=== PATIENT | female | born 1960 | race Caucasian/White ===

== ENCOUNTER 2023-04-14 18:26 | Outpatient (RCR) | payer MEDICARE, SELFPAY | END 2023-05-08 23:59 | disposition home or self-care (01) | LOC: MM 18:26 | PROVIDERS: PCP Internal Medicine; Visit Provider Internal Medicine | DX: Z51.81 Encounter for therapeutic drug level monitoring (principal); Z79.01 Long term (current) use of anticoagulants | CPT/HCPCS: 85610; G0463 ==

== ENCOUNTER 2023-04-30 10:38 | Outpatient (OUT) | payer MEDICARE, SELFPAY ==
--- NOTE | 2023-04-30 15:05 | CONS_ITS ---
CONSULTATION DATE: ??04/30/2023 TO:? Cristofer Manriquez D.O. HISTORY:? Patient returns today complaining of pain in the left side of her back.? She reports the pain in her right hip and buttock area has improved 80%, status post rhizotomy using radiofrequency ablation of the right lateral cutaneous branch of the iliohypogastric nerve.? The pain on the left side is described as 5-7/10, sharp in character, increased with activities such as standing, walking and performing transitioning maneuvers.? She denied any change in bowel and bladder habits or new sensorimotor changes in the lower extremities. EXAM:? Notable for patient having significant myofascial spasm of the left lumbar erector spinae muscle, appears to be most severe at approximately the L4 level.? She has no clinical radiculopathy or myelopathy involving the lower extremities.? She had nothing to suggest neuritis involving the iliohypogastric nerve on the right side.? Myofascial spasm involving the right gluteus medius is also improved.? RECOMMENDATIONS:? I have recommend, at this time, she consider a trigger point injection of the left erector spinae muscle to offer at least temporary improvement of her pain symptoms, and I recommend she consider neurosurgical consultation for possible lumbar decompression/stabilization of her lumbar spine.? She has requested to go to the [facility] and will make appropriate referral.? We will see the patient back now in one month?s time or sooner if needed.? In the interim, I have asked her to continue with the [place], which she reports has improved her quality of life, level of functioning and sleep pattern.? Denied any side effects with the use of this medication.? As part of providing excellent, safe, comprehensive care, the following was completed at our patient's visit: 1. A medication reconciliation and review to ensure accurate knowledge of current/active medications, including asking our patients to inform us about any jqxk-[id number] medications or herbal remedies/nutritional supplements/alternative remedies. 2. A review to specifically ensure our patients have had annual screening for: elevated body mass index (BMI, see intake chart for exact total), tobacco use, screening for depression, and screening for unhealthy alcohol use.? When screening is concerning, patients are provided with education and the specific recommendation to discuss the concerning health issue and treatment options with their primary care provider. SHANA
== END 2023-04-30 10:39 | disposition home or self-care (01) ==
LOC: PM 10:38
PROVIDERS: PCP Internal Medicine; Visit Provider Anesthesiology Pain Medicine
DX: M54.89 Other dorsalgia (principal)
CPT/HCPCS: G0463

== ENCOUNTER 2023-05-05 14:57 | Outpatient (OUT) | payer MEDICARE, SELFPAY ==
--- NOTE | 2023-05-05 | XR_ITS ---
The [address] [address] Patient Name: NATALIE MANLEY MRN: [id number] date: 1960 Sex: F Assigned Patient Location: [facility] Current Patient Location: [facility] Accession/Order Number: [id number] Exam Date: 05/05/2023 15:15 Report Date: 05/05/2023 16:08 At the request of: BINH GARCIA Procedure: XR hip YESY EXAM: XR hip YESY HISTORY: Bilateral Hip Pain COMPARISON: None. TECHNIQUE: 2 views of each hip were obtained. FINDINGS: On the right, there is no evidence of an acute fracture or dislocation. The joint spaces intact. A small osteophyte arises from the superior aspect of the acetabulum, and an osteophyte arises from the greater trochanter. No abnormal soft tissue calcifications are present. On the left, 2 views demonstrate no evidence of an acute fracture or dislocation. The joint space is intact. A small osteophyte arises from the superior aspect of the acetabulum. No abnormal soft tissue calcifications are present. Mild degenerative changes are seen in the sacroiliac joints in a symmetric fashion. IMPRESSION: No acute fracture or dislocation. Minimal to mild degenerative changes are seen about both hips. No abnormal soft tissue calcification is seen on either side. Electronically authenticated by: ERICKA DEWEY Date: 05/05/2023 16:08
== END 2023-05-05 14:58 | disposition home or self-care (01) ==
PROVIDERS: Visit Provider Anesthesiology Pain Medicine
DX: M25.552 Pain in left hip (principal); M25.551 Pain in right hip
CPT/HCPCS: 73522

== ENCOUNTER 2023-05-14 09:38 | Outpatient (RCR) | payer MEDICARE, SELFPAY | END 2023-06-08 17:05 | disposition home or self-care (01) | LOC: MM 09:38 | PROVIDERS: PCP Internal Medicine; Visit Provider Internal Medicine | DX: Z51.81 Encounter for therapeutic drug level monitoring (principal); Z79.01 Long term (current) use of anticoagulants | CPT/HCPCS: 85610; G0463 ==

== ENCOUNTER 2023-05-21 11:24 | Outpatient (OUT) | payer MEDICARE, SELFPAY ==
--- NOTE | 2023-05-21 11:28 | MM_ITS ---
Patient: NATALIE MANLEY Exam Date: 05/21/2023 : 1960 Gender:F Ordering : Non-Staff Physician Admission #: [id number] Family : ROBERT ANN Order #: [id number] CLICK HERE TO VIEW EXAM RADIOLOGY REPORT PROCEDURE: MM TOMOSYNTHESIS SCREENING BI COMPARISON: MG MAMM SCREEN 3D YESY CAD, 05/19/2022. MG MAMM SCREEN 3D YESY CAD, 05/17/2021. MG MAMM SCREEN YESY W CAD, 05/15/2020. MG MAMM YESY SCRN W CAD DIG, 01/17/2014. INDICATIONS: Screening Calculator Name NCI Breast Cancer Risk Assessment Tool 5 Year Breast Cancer Risk 1.00% Lifetime Breast Cancer Risk 5.30% Personal Breast Cancer No Personal Ovarian Cancer No Treatments None Family Cancers Father with prostate cancer at age 68; Grandfather-paternal with lung cancer at age ~62; Cousin-maternal with breast cancer at age 40. LOCATION: [facility] BREAST COMPOSITION: Scattered areas fibroglandular density. FINDINGS: DIAGNOSTIC CATEGORY 2--BENIGN FINDING: RIGHT BREAST: No significant suspicious finding. No significant change has occurred. LEFT BREAST: No significant suspicious finding. Scattered benign-appearing calcifications are present. Scattered benign-appearing lymph nodes are present. No significant change has occurred. RECOMMENDATIONS: ROUTINE MAMMOGRAM AND CLINICAL EVALUATION IN 12 MONTHS. PLEASE NOTE: A NORMAL MAMMOGRAM DOES NOT EXCLUDE THE POSSIBILITY OF BREAST CANCER. A CLINICALLY SUSPICIOUS PALPABLE LUMP SHOULD BE BIOPSIED. Dictated by: Peañ Berman M.D. on 05/22/2023 at 13:40 Approved by: Peña Berman M.D. on 05/22/2023 at 13:45
== END 2023-05-21 11:25 | disposition home or self-care (01) ==
LOC: MAMMO 11:24
DX: Z12.31 Encounter for screening mammogram for malignant neoplasm of breast (principal); Z80.1 Family history of malignant neoplasm of trachea, bronchus and lung; Z80.8 Family history of malignant neoplasm of other organs or systems; Z80.3 Family history of malignant neoplasm of breast
CPT/HCPCS: 77063; 77067

== ENCOUNTER 2023-06-08 10:04 | Outpatient (OUT) | payer MEDICARE, SELFPAY ==
--- NOTE | 2023-06-08 10:07 | CT_ITS ---
[address] [address] Patient Name: NATALIE MANLEY MRN: [id number] date: 1960 Sex: F Assigned Patient Location: CT Current Patient Location: Accession/Order Number: [id number] Exam Date: 06/08/2023 10:10 Report Date: 06/09/2023 08:02 At the request of: NON-STAFF PHYSICIAN Procedure: CT lung screening low-dose EXAMINATION: CT lung screening low-dose HISTORY: Nicotine dependence F17.210 COMPARISON: 04/18/2022 TECHNIQUE: Axial, Coronal, and Sagittal images were created without the administration of IV contrast material. Dose reduction techniques were achieved by using automated exposure control and/or adjustment of mA and/or kV according to patient size and/or use of iterative reconstruction technique. FINDINGS: LUNGS: Calcified tracheobronchial tree. Left lower lobe centrally calcified nodule likely granuloma. 6 mm noncalcified solid pulmonary nodule along the right minor fissure axial image 61, stable. Moderate diffuse bilateral centrilobular emphysema PLEURA: No mass, effusion, or pneumothorax. VASCULATURE: No abnormality. SANDEEP: No mass or pathologic adenopathy. MEDIASTINUM: Calcified subcarinal lymph nodes CARDIAC: No enlargement, pericardial thickening, or significant calcification. AORTA: Ascending thoracic aorta measuring 3.9 cm in diameter CHEST WALL: No mass or axillary adenopathy BONES: No bone lesion or fracture. LIMITED ABDOMEN: No suspicious findings. Limited images of the upper abdomen. OTHER: Negative. CT/CT lung screening low-dose IMPRESSION: LUNG SCREENING: Lung-RADS Category 2- Benign Appearance or Behavior. Nodules with a very low likelihood of becoming a clinically active cancer due to size or lack of growth. 2. Continue annual screening with LDCT in 12 months. Electronically authenticated by: JAYSON BERGERON Date: 06/09/2023 08:02
== END 2023-06-08 10:05 | disposition home or self-care (01) ==
LOC: CT 10:04
DX: F17.210 Nicotine dependence, cigarettes, uncomplicated (principal)
CPT/HCPCS: 71271

== ENCOUNTER 2023-06-09 09:33 | Outpatient (RCR) | payer MEDICARE, SELFPAY | END 2023-07-09 17:40 | disposition home or self-care (01) | LOC: MM 09:33 | PROVIDERS: Visit Provider Internal Medicine | DX: Z51.81 Encounter for therapeutic drug level monitoring (principal); Z79.01 Long term (current) use of anticoagulants | CPT/HCPCS: 85610; G0463 ==

== ENCOUNTER 2023-06-19 10:44 | Outpatient (OUT) | payer MEDICARE, SELFPAY ==
--- NOTE | 2023-06-19 10:55 | PM.CN ---
Consult Note: HPI Data of Consult Patient: known to practice within the last 3 years Consult date: 06/19/23 Requesting Physician: Brady Nolan MD Primary Care Provider: Non-Staff Physician, Consult Narrative Narrative: Patient is here for f/u of chronic right low back and leg pain .Pain today is better since right LCIH RFA . She saw neurosurgeon 05/26/23 and scheduled for MRI this week. Had right LCIH RFA on 04/07/23. No new sensorimotor sx or bowel or bladder issues. Medication regimen assists patient to better complete ADLs. Denies adverse medication SE. OARRS reviewed. EZIO 30 cc:: CC: Brady Nolan MD Review of Systems ROS Status of ROS 10 or more systems reviewed and unremarkable except as noted in history and below Musculoskeletal Reports: back pain and extremity pain Meds Home Medications and Allergies Home Medications Medication Instructions Recorded Confirmed Type acetaminophen 650 mg 1,300 mg PO Q12H PRN pain 05/08/23 05/08/23 History tablet,extended release (Tylenol Arthritis Pain) albuterol sulfate 90 mcg/actuation 2 inh inhalation Q8H PRN shortness 05/08/23 05/08/23 History aerosol inhaler (Ventolin HFA) of breath or wheezing aspirin 81 mg tablet,delayed 81 mg PO DAILY 05/08/23 05/08/23 History release azelastine 137 mcg (0.1 %) nasal 137 mcg intranasal Q12H 05/08/23 05/08/23 History spray aerosol baclofen 10 mg tablet 10 mg PO Q8H 05/08/23 05/08/23 History benzonatate 100 mg capsule 200 mg PO TID PRN cough 05/08/23 05/08/23 History calcium carbonate 200 mg calcium 200 mg PO DAILY 05/08/23 05/08/23 History (500 mg) chewable tablet (Tums) celecoxib 100 mg capsule 100 mg PO BID 05/08/23 05/08/23 History colesevelam 625 mg tablet (WelChol) 625 mg PO DAILY 05/08/23 05/08/23 History hydrocodone 5 mg-acetaminophen 325 1 tab PO BID 05/08/23 05/08/23 History mg tablet hydroxyzine pamoate 25 mg capsule 25 mg PO BID 05/08/23 05/08/23 History (Vistaril) lansoprazole 30 mg capsule,delayed 30 mg PO DAILY 05/08/23 05/08/23 History release (Prevacid) montelukast 10 mg tablet 10 mg PO DAILY 05/08/23 05/08/23 History (Singulair) rosuvastatin 10 mg tablet (Crestor) 10 mg PO DAILY 05/08/23 05/08/23 History umeclidinium 62.5 mcg-vilanterol 1 inh inhalation DAILY 05/08/23 05/08/23 History 25 mcg/actuation powdr for inhalation (Anoro Ellipta) warfarin 2.5 mg tablet 2.5 mg PO .monfri 05/08/23 05/08/23 History warfarin 5 mg tablet 5 mg PO QTUTHSASU 05/08/23 05/08/23 History Allergies Allergy/AdvReac Type Severity Reaction Status Date / Time codeine Allergy Severe Verified 05/08/23 10:15 cefaclor [From Ceclor] Allergy Unknown Verified 05/08/23 10:15 cephalexin [From Keflex] Allergy Unknown Verified 05/08/23 10:15 enoxaparin [From Lovenox] Allergy Unknown Verified 05/08/23 10:15 Exam Constitutional Documenting provider has reviewed patient's vital signs: yes Common normals: no apparent distress, average body habitus, oriented x3, healthy appearing, alert and well nourished General appearance: cooperative, comfortable and well developed Orientation/consciousness: Yes awake, Yes oriented to person, Yes oriented to place and Yes oriented to time HENMO Common normals: normocephalic and moist oral mucous membranes Respiratory Common normals: normal respiratory effort, no retractions and no use of accessory muscles Effort & inspection: able to speak in complete sentences and symmetric chest movement Back & Pelvis Lumbar spine/lower back: normal to inspection, ROM limited, pain with ROM, paraspinal muscle tenderness and straight leg raise negative bilaterally Other: positive facet loading lumbar mild bilat muscle strength 5/5 bilat LE Extremity Common normals: normal to inspection, full ROM and no pedal edema Assessment and Plan Assessment and Plan (1) Lumbar spondylosis: (2) Lumbar radiculopathy: Plan refill baclofen BID refill norco f/u 3 months
== END 2023-06-19 10:45 | disposition home or self-care (01) ==
PROVIDERS: Visit Provider Anesthesiology Pain Medicine
DX: M47.26 Other spondylosis with radiculopathy, lumbar region (principal)
CPT/HCPCS: G0463

== ENCOUNTER 2023-07-10 10:33 | Outpatient (RCR) | payer MEDICARE, SELFPAY | END 2023-08-07 16:58 | disposition home or self-care (01) | LOC: MM 10:33 | PROVIDERS: Visit Provider Internal Medicine | DX: Z51.81 Encounter for therapeutic drug level monitoring (principal); Z79.01 Long term (current) use of anticoagulants | CPT/HCPCS: 85610; G0463 ==

== ENCOUNTER 2023-08-10 02:54 | Outpatient (RCR) | payer MEDICARE, SELFPAY | END 2023-09-08 17:45 | disposition home or self-care (01) | LOC: MM 02:54 | PROVIDERS: Visit Provider Internal Medicine | DX: Z51.81 Encounter for therapeutic drug level monitoring (principal); Z79.01 Long term (current) use of anticoagulants | CPT/HCPCS: 85610; G0463 ==

== ENCOUNTER 2023-09-09 00:45 | Outpatient (RCR) | payer MEDICARE, SELFPAY | END 2023-10-08 16:51 | disposition home or self-care (01) | LOC: MM 00:45 | PROVIDERS: Visit Provider Internal Medicine | DX: Z51.81 Encounter for therapeutic drug level monitoring (principal); Z79.01 Long term (current) use of anticoagulants | CPT/HCPCS: 85610; G0463 ==

== ENCOUNTER 2023-09-16 10:12 | Outpatient (OUT) | payer MEDICARE, SELFPAY ==
--- NOTE | 2023-09-16 10:55 | P.CN_ITS ---
Consult Note: HPI Data of Consult Patient: known to practice within the last 3 years Requesting Physician: Jocelynn Pederson NP Primary Care Provider: Non-Staff Physician, MD Consult Narrative Reason for consult: f/u Narrative: Sandra Lacey a pleasant 62 year old female presents for evaluation and management of low back pain, bilateral hip pain that radiates into legs. Patient recently underwent MRI of lumbar spine however we do not have those results. Patient rating pain today 5-6/10. Patient reports [place] is helpful, baclofen does not help as well as flexeril did. Patient would like to discuss medication regimen. cc:: CC: Jocelynn Pederson NP Review of Systems ROS Status of ROS 10 or more systems reviewed and unremarkable except as noted in history and below Musculoskeletal Reports: back pain and joint pain Meds Home Medications and Allergies Home Medications Medication Instructions Recorded Confirmed Type acetaminophen 650 mg 1,300 mg PO Q12H PRN pain 05/08/23 05/08/23 History tablet,extended release (Tylenol Arthritis Pain) albuterol sulfate 90 mcg/actuation 2 inh inhalation Q8H PRN shortness 05/08/23 05/08/23 History aerosol inhaler (Ventolin HFA) of breath or wheezing aspirin 81 mg tablet,delayed 81 mg PO DAILY 05/08/23 05/08/23 History release azelastine 137 mcg (0.1 %) nasal 137 mcg intranasal Q12H 05/08/23 05/08/23 History spray aerosol baclofen 10 mg tablet 10 mg PO Q8H 05/08/23 05/08/23 History benzonatate 100 mg capsule 200 mg PO TID PRN cough 05/08/23 05/08/23 History calcium carbonate 200 mg calcium 200 mg PO DAILY 05/08/23 05/08/23 History (500 mg) chewable tablet (Tums) celecoxib 100 mg capsule 100 mg PO BID 05/08/23 05/08/23 History colesevelam 625 mg tablet (WelChol) 625 mg PO DAILY 05/08/23 05/08/23 History hydrocodone 5 mg-acetaminophen 325 1 tab PO BID 05/08/23 05/08/23 History mg tablet hydroxyzine pamoate 25 mg capsule 25 mg PO BID 05/08/23 05/08/23 History (Vistaril) lansoprazole 30 mg capsule,delayed 30 mg PO DAILY 05/08/23 05/08/23 History release (Prevacid) montelukast 10 mg tablet 10 mg PO DAILY 05/08/23 05/08/23 History (Singulair) rosuvastatin 10 mg tablet (Crestor) 10 mg PO DAILY 05/08/23 05/08/23 History umeclidinium 62.5 mcg-vilanterol 1 inh inhalation DAILY 05/08/23 05/08/23 History 25 mcg/actuation powdr for inhalation (Anoro Ellipta) warfarin 2.5 mg tablet 2.5 mg PO .monfri 05/08/23 05/08/23 History warfarin 5 mg tablet 5 mg PO QTUTHSASU 05/08/23 05/08/23 History baclofen 10 mg tablet 10 mg PO BID #60 tabs 06/19/23 Rx hydrocodone 5 mg-acetaminophen 325 1 tab PO BID PRN pain #60 tabs 06/19/23 Rx mg tablet hydrocodone 5 mg-acetaminophen 325 1 tab PO Q8H PRN pain #60 tabs 07/21/23 Rx mg tablet hydrocodone 5 mg-acetaminophen 325 1 tab PO BID PRN pain #55 tabs 07/22/23 Rx mg tablet hydrocodone 5 mg-acetaminophen 325 1 tab PO BID PRN pain #55 tabs 08/26/23 Rx mg tablet Allergies Allergy/AdvReac Type Severity Reaction Status Date / Time codeine Allergy Severe Verified 05/08/23 10:15 cefaclor [From Ceclor] Allergy Unknown Verified 05/08/23 10:15 cephalexin [From Keflex] Allergy Unknown Verified 05/08/23 10:15 enoxaparin [From Lovenox] Allergy Unknown Verified 05/08/23 10:15 Exam Constitutional Documenting provider has reviewed patient's vital signs: yes Common normals: no apparent distress, oriented x3, healthy appearing, alert and well nourished General appearance: cooperative Orientation/consciousness: Yes awake, Yes oriented to person, Yes oriented to place and Yes oriented to time HENWY Common normals: normocephalic, hearing grossly normal bilaterally and moist oral mucous membranes Head and scalp: normocephalic Eye Common normals: PERRL Pupil: PERRL Neck & C-Spine Common normals: full ROM General: normal visual inspection Chest Common normals: inspection of chest normal Respiratory Common normals: normal respiratory effort, no retractions and no use of accessory muscles Effort & inspection: able to speak in complete sentences and symmetric chest movement Back & Pelvis Lumbar spine/lower back: normal to inspection, ROM limited, pain with ROM, paraspinal muscle tenderness and straight leg raise negative bilaterally Other: positive facet loading lumbar mild bilat intermittent bilateral radiculopathy, worse on right side muscle strength 5/5 bilat LE Extremity Common normals: normal to inspection, full ROM and no pedal edema Other: pain with bilateral FABERS and thigh thrust tender over bilateral GTB Neuro Common normals: oriented x3, CN's II-XII intact bilaterally, moves all extremities, no focal motor deficits, no sensory deficits noted and deep tendon reflexes 2+ bilaterally Sensorium/orientation: alert Motor exam: strength 5/5 throughout and no movement abnormalities noted Psych Common normals: mental status grossly normal, thought process normal, cooperative, affect normal, speech normal and activity/motor behavior normal Speech: normal speech Thought process: normal thought process Results Additional Findings Additional findings: I have checked an OARRS report on this patient today and there are no aberrancies noted in the prescribing history.?? A drug screen was completed and reviewed within the last year, and if there has not been a drug screen completed we ordered one today to monitor higher risk, state monitored pain medication use. As part of providing excellent, safe, comprehensive care, the following was completed at our patient's visit: 1. A medication reconciliation and review to ensure accurate knowledge of current/active medications, including asking our patients to inform us about any gzwr-jey-yivugfc medications or herbal remedies/nutritional supplements/alternative remedies. 2. A review to specifically ensure our patients have had annual screening for: elevated body mass index (BMI), tobacco use, screening for depression, and screening for unhealthy alcohol use. When screening is concerning, patients are provided with education and the specific recommendation to discuss the concerning health issue and treatment options with their primary care provider. Assessment and Plan Assessment and Plan (1) Lumbar radiculopathy: (2) Lumbar spondylosis: (3) Fibromyalgia: (4) Chronic prescription opiate use: Assessment and Plan: I have refilled the patient's opioid prescriptions at the above noted dose and schedule.? I feel these medications are improving the patient's quality of life and allow them to tolerate activities of daily living as well as participate in recreational activity.? The patient does not report intolerable side effects. The patient is NOT opioid naive and non-pharmacologic and non-opioid treatment has failed to significantly relieve the patient's pain and improve functionality. The patient has a diagnosis that is related to a somatic or visceral pain etiology. ? ?? I reviewed with the patient the potential risks and side effects with the use of? opioid medications including but not limited to respiratory depression,? sedation, and even . I verified the patient has access to naloxone should? these effects occur. I advised the patient to avoid the use of any other? sedation substances including alcohol, THC, and benzodiazepines while? taking opioid medications due to the risk of compounding side effects and? detrimental outcomes. I reviewed the [employer], pain treatment agreement, urine? drug screen, and opioid start talking forms. The patient was advised to let? their family know they had Naloxone in case they would need to administer? the medication.? ?? A drug screen was completed within the last year, and no aberrancies were noted regarding their use of controlled substances. The patient understands they are subject to the terms and conditions of the pain contract that they have signed. ? ?? I have checked an OARRS report on this patient today and there are no aberrancies noted in the prescribing history.? (5) Muscle spasm: (6) Greater trochanteric bursitis of both hips: Plan awaiting lumbar MRI results patient would like to have bilateral GTB injections with PCP on thursday continue norco 5/325 BID PRN moderate to severe pain hx of fibromyalgia, declining change in medication regimen stop baclofen restart flexeril 10mg BID PRN muscle spasms f/u 3 months, will call when we recieve MRI results to discuss treatment plan
--- OUTSIDE RECORDS SUMMARY | 2023-10-27 13:37 | XMS_ITS | CCD ---
Author Name Unknown Address [address] [place] [address] Organization [facility] Care Team Providers Care Real Property Evaluator Name Role Phone JR Cristofer Springer Primary Care Provider MD Sunday Walls Attending Provider CRISTOFER SPRINGER JR Primary Care Physician [phone] Allyson GARCIA Attending Unavailable VALONE CRISTOFER PEGUERO Referring Unavail able Allyson GARCIA Attending Unavailable NILL, Allyson Betancourt Attending Unavailable LAKSHMIPATHY ., NARENDRANATH Admitting Kristie vailable LAKSHMIPATHY ., NARENDRANATH Attending Kristie vailable LAKSHMIPATHY ., NARENDRANATH Consulting Kristie vailable VALONE, DR NGUYEN Primary Care Unavailable VALONE, DR NGUYEN Primary Care Unavailable FAWWAD, MOODY H Admitting Unavailable FAWWAD, MOODY H Attending Unavailable FAWWAD, MOODY H Attending Unavailable FAWAMARA, MOODY H Admitting Unavailable VALONE, DR NGUYEN Primary Care Unavailable WONG ., DR GAURAV Magallon Attending Unavailable NILL ., DR VALADEZ Consulting Unavailable WONG ., DR GAURAV Magallon Admitting Unavailable VALONE, DR NGUYEN Primary Care Unavailable LEE .AMINATA Consulting Unavailable VALONE, DR NGUYEN Primary Care Unavailable VALONE, DR NGUYEN Consulting Unavailable WONG ., DR GAURAV Magallon Attending Unavailable WONG ., DR GAURAV Magallon Admitting Unavailable LEE .AMINATA Consulting Unavailable FAWWAD, MOODY H Attending Unavailable FAWWANiya, MOODY H Admitting Unavailable VALONE, DR NGUYEN Primary Care Unavailable VALONE, DR NGUYEN Primary Care Unavailable FAWWAD, MOODY H Attending Unavailable FAWAMARA, MOODY H Admitting Unavailable VALONE, DR NGUYEN Primary Care Unavailable PRINCESS CASTILLO Attending Unavailable LAKSHMIPATHY ., NARENDRANATH Admitting Kristie vailable HALKER ., PRINCESS Consulting Unavailable VALONE, DR NGUYEN Primary Care Unavailable LAKSHMIPATHY ., NARENDRANATH Attending Kristie vailable LAKSHMIPATHY ., NARENDRANATH Consulting Kristie vailable LAKSHMIPATHY ., NARENDRANATH Admitting Kristie vailable FAWWAD, MOODY H Attending Unavailable FAWWAD, MOODY H Admitting Unavailable VALONE, DR NGUYEN Primary Care Unavailable FAWWAD, MOODY H Attending Unavailable FAWWAD, MOODY H Admitting Unavailable VALONE, DR NGUYEN Primary Care Unavailable VALONE, DR NGUYEN Primary Care Unavailable FAWWAD, MOODY H Attending Unavailable FAWWAD, MOODY H Admitting Unavailable FAWWAD, MOODY H Attending Unavailable FAWWAD, MOODY H Admitting Unavailable VALONE, DR NGUYEN Primary Care Unavailable VALONE, DR NGUYEN Primary Care Unavailable FAWWAD, MOODY H Attending Unavailable FAWWAD, MOODY H Admitting Unavailable VALONE, DR NGUYEN Primary Care Unavailable FAWWAD, MOODY H Attending Unavailable FAWWAD, MOODY H Admitting Unavailable LEE .AMINATA Consulting Unavailable WONG ., DR GAURAV Magallon Admitting Unavailable WONG ., DR GAURAV Magallon Attending Unavailable VALONE, DR NGUYEN Primary Care Unavailable VALONE, DR NGUYEN Primary Care Unavailable LAKSHMIPATHY ., NARENDRANATH Admitting Kristie vailable LAKSHMIPATHY ., NARENDRANATH Attending Kristie vailable LAKSHMIPATHY ., NARENDRANATH Consulting Kristie vailable VALONE, DR NGUYEN Consulting Unavailable ALVIN ., DR SIMPSON Attending Unavailable ALVIN ., DR SIMPSON Admitting Unavailable VALONE, DR NGUYEN Primary Care Unavailable ELYSSA, DR JAYSON Mena Consulting Unavailable NILL ., DR VALADEZ Consulting Unavailable NILL ., DR VALADEZ Admitting Unavailable NILL ., DR VALADEZ Attending Unavailable VALONE, DR NGUYEN Primary Care Unavailable NILL ., DR VALADEZ Consulting Unavailable NILL ., DR VALADEZ Admitting Unavailable NILL ., DR VALADEZ Attending Unavailable VALONE, DR NGUYEN Primary Care Unavailable KIMBERLITONI LUND Consulting Unava ilable ELYSSA, DR JAYSON Mena Consulting Unavailable SAMSA ., TOÑITO Attending Unavailable SAMSA ., TOÑITO Admitting Unavailable VALONE, DR NGUYEN Primary Care Unavailable TOÑITO ELLIS Consulting Unavailable DR CRISTOFER SPRINGER Primary Care Unavailable PRINCESS CASTILLO Admitting Unavailable MILA .PRINCESS Attending Unavailable SHAIKH Phuong WEINER Attending Unavailable SHAIKH Phuong WEINER Admitting Unavailable DR CRISTOFER SPRINGER Primary Care Unavailable TONIE MÉNDEZ Referring Unavailable TONIE MÉNDEZ Attending Unavailable TONIE MÉNDEZ Attending Unavailable JR Cristofer Springer Primary Care Provider MD Jt Walls Attending Provider Jt Walls Admitting Unavailable Jt Walls Attending Unavailable Cristofer Springer Primary Care Unavailable Allergies Allergy Classification Reported Allergen(s) Allergy Type Date of Onset Reaction(s) Facility (6 sources) Cefaclor; Translations: [Cefaclor] Drug Allergy 3 Eruption of skin (disorder) [facility] (6 sources) Cephalexin; Translations: [Cephalexin] Drug Allergy 4 Eruption of skin (disorder) [facility] (9 sources) Codeine; Translations: [Codeine] Drug Allergy 3 Chest pain (finding) [facility] (4 sources) Enoxaparin; Translations: [enoxaparin] Drug Allergy 3 Eruption of skin (disorder) [facility] [place] (3 sources) Cefaclor; Translations: [Ceclor] Drug Allergy 4 [facility] Repository (3 sources) Cephalexin; Translations: [Keflex] Drug Allergy 4 [facility] Repository (2 sources) Bupranolol Drug Allergy [address] [facility] Repository (1 source) KEFLET; Translations: [KEFLET] Propensity to adverse reactions to drug (disorder) 3 [facility] Repository Medications Current Medications Medication Drug Class(es) Dates Sig (Normalized) Sig (Original) acetaminophen 325 mg / HYDROcodone bitartrate 5 mg oral tablet (4 sources) Opioid Agonist Start: 06-11-2022 take 1 tablet by mouth twice daily as needed for pain [place] 325 mg-5 mg oral tablet 1 tab(s), Oral, BID as needed for pain, Refill(s) 0 Start Date: 06/11/22 Status: Ordered Start: 08-11-2019 take 1 tablet by kayli th every four hours Hydrocodone-Acetaminophen Active 1 TAB P O Q4H August 11, 2019 3:45pm [id number] 200 actuat albuterol 0.09 mg/actuat metered dose inhaler (2 sources) beta2-Adrenergic Agonist Start: 08-11-2019 take 1 puff(s) by inhalation every four to six hours Albuterol Sulfate Active 2 PUFF INHALATION EVERY 4-6 HOURS August 11, 2019 3:51pm albuterol HFA 90 mcg/inh MDI (2 sources) Start: 06-11-2022 take 2 puff(s) by inhalation every six hours albuterol HFA 90 mcg/inh MDI 2 puff(s), Inhalation, q6hr Shortness of breath or wheezing, Refill(s) 0 Start Date: 06/11/22 Status: Ordered Anoro Ellipta 62.5 mcg-25 mcg inhalation powder (2 sources) Start: 06-11-2022 Anoro Ellipta 62.5 mcg-25 mcg inhalation powder 1 inh, Inhalation, Daily, Refill(s) 12 Start Date: 06/11/22 Status: Ordered aspirin 81 mg delayed release oral tablet (2 sources) Platelet Aggregation Inhibitor, Nonsteroidal Anti-inflammatory Drug Start: 06-11-2022 take 1 tablet by mouth once daily aspirin 81 mg Oral EC Tab 81 mg = 1 tab(s), Oral, Daily, Refills(s) 0 Start Date: 06/11/22 Status: Ordered baclofen 10 mg oral tablet (4 sources) gamma-Aminobutyric Acid-ergic Agonist Start: 06-11-2022 take 1 tablet by mouth every eight hours as needed for muscle spasms baclofen 10 mg Tab 10 mg = 1 tab(s), Oral, q8hr, PRN Spasm, Refills(s) 0 Start Date: 06/11/22 Status: Ordered Start: 08-11-2019 take 10 mg by mouth three times daily Baclofen Active 10 MG PO Three times daily August 11, 2019 3:44pm Cbd Cream (2 sources) Start: 08-11-2019 Cbd Cream Acti ve TOPICAL Daily August 11, 2019 3:53pm Start: 08-11-2019 Cbd Cream Acti ve TOPICAL Daily August 11, 2019 12:00am celecoxib 100 mg oral capsule (4 sources) Nonsteroidal Anti-inflammatory Drug Start: 06-11-2022 take 1 capsule by mouth twice daily CeleBREX 100 mg Cap 100 mg = 1 cap(s), Oral, BID, Refills(s) 0 Start Date: 06/11/22 Status: Ordered Start: 08-11-2019 take 1 capsule by mo [facility] once daily Celecoxib (Celebrex) 200 mg Capsule Active 200 MG PO Daily August 11, 2019 3:52pm colesevelam hydrochloride 625 mg oral tablet (4 sources) Bile Acid Sequestrant Start: 06-11-2022 Welchol 625 mg Tab 3,750 mg = 6 tab(s), Oral, Daily, Refills(s) 0 Start Date: 06/11/22 Status: Ordered Start: 08-11-2019 Colesevelam Ac tive 1 TAB PO 6 times per day August 11, 2019 3:42pm famotidine 20 mg oral tablet (2 sources) Histamine-2 Receptor Antagonist Start: 08-25-2019 take 1 tablet by mouth twice daily before mealtime Famotidine (Pepcid Ac) 20 mg Tablet Active 20 MG PO Twice daily August 25, 2019 7:59am folic acid 1 mg oral tablet (2 sources) Start: 08-11-2019 take 1 mg by mouth once daily Folic Acid Active 1 MG PO Daily August 11, 2019 3:48pm gabapentin 400 mg oral capsule (4 sources) Anti-epileptic Agent Start: 06-11-2022 take 1 capsule by mouth once daily gabapentin 400 mg Cap 400 mg = 1 cap(s), Oral, Daily, Refills(s) 0 Start Date: 06/11/22 Status: Ordered Start: 08-11-2019 take 1 capsule by mo [facility] once daily at bedtime Gabapentin (Neurontin) 400 mg Capsule Active 400 MG PO Daily at bedtime August 11, 2019 3:45pm hydrOXYzine hydrochloride 25 mg oral tablet (4 sources) Antihistamine Start: 06-11-2022 take 1 tablet by mouth once daily hydrOXYzine hydrochloride 25 mg Tab 25 mg = 1 tab(s), Oral, Daily, Refills(s) 0 Start Date: 06/11/22 Status: Ordered Start: 08-11-2019 take 25 mg by mouth once daily in the morning Hydroxyzine Hcl Active 25 MG PO Every morning August 11, 2019 3:47pm lansoprazole 30 mg delayed release oral capsule (2 sources) Proton Pump Inhibitor Start: 06-11-2022 take 1 capsule by mouth once daily Prevacid 30 mg Cap-DR 30 mg = 1 cap(s), Oral, Daily, Refills(s) 0 Start Date: 06/11/22 Status: Ordered montelukast 10 mg oral tablet (4 sources) Leukotriene Receptor Antagonist Start: 06-11-2022 take 1 tablet by mouth once daily Singulair 10 mg Tab 10 mg = 1 tab(s), Oral, Daily, Refills(s) 0 Start Date: 06/11/22 Status: Ordered Start: 08-11-2019 take 10 mg by mouth once daily at bedtime Montelukast Active 10 MG PO Daily at bedtime August 11, 2019 3:46pm rosuvastatin calcium 10 mg oral tablet (2 sources) HMG-CoA Reductase Inhibitor Start: 06-11-2022 take 1 tablet by mouth once daily Crestor 10 mg Tab 10 mg = 1 tab(s), Oral, Daily, Refills(s) 0 Start Date: 06/11/22 Status: Ordered simvastatin 20 mg oral tablet (2 sources) HMG-CoA Reductase Inhibitor Start: 08-11-2019 take 20 mg by mouth once daily at bedtime Simvastatin Active 20 MG PO Daily at bedtime August 11, 2019 3:47pm 7 actuat umeclidinium 0.0625 mg/actuat / vilanterol 0.025 mg/actuat dry powder inhaler (2 sources) Anticholinergic, beta2-Adrenergic Agonist Start: 08-11-2019 Umeclidinium-Vilan terol (Anoro Ellipta) 62.5-25 mcg/actuation Blister With Device Active 1 INH INHALATION Q24H August 11, 2019 3:50pm Coumadin (6 sources) Vitamin K Antagonist Start: 06-11-2022 Coumadin as directed, Refills(s) 0 Start Date: 06/11/22 Status: Ordered Start: 08-11-2019 take 2.5 mg by mouth two times weekly Warfarin Active 2.5 MG PO Twice a Week August 11, 2019 3:49pm every T/ F Start: 08-11-2019 take 5 mg by mouth f moise times weekly Warfarin Active 5 MG PO 5 TIMES PER WEEK August 11, 2019 3:48pm Completed/Discontinued Medications Medication Drug Class(es) Dates Sig (Normalized) Sig (Original) raNITIdine 150 mg oral tablet (2 sources) Histamine-2 Receptor Antagonist Start: 08-11-2019 End: 08-25-2019 take 1 tablet by mouth once daily Ranitidine Hcl (Zantac) 150 mg Tablet Discontinued 150 MG PO Daily August 11, 2019 3:46pm August 25, 2019 7:59am Problems Active Problems Problem Classification Problem Date Documented Da te Episodic/Chronic Anxiety disorders (4 sources) Anxiety; Translations: [Claustrophobia] Onset: 3 06-11-2022 Chronic Chronic obstructive pulmonary disease and bronchiectasis (3 sources) Chronic obstructive lung disease; Translations: [Chronic obstructive pulmonary disease, unspecified] Onset: 2 06-11-2022 Chronic Coagulation and hemorrhagic disorders (2 sources) Lupus anticoagulant disorder 06-11-2022 Chronic Esophageal disorders (3 sources) Gastroesophageal reflux disease; Translations: [Gastro-esophageal reflux disease without esophagitis] Onset: 2 06-11-2022 Chronic Osteoarthritis (5 sources) Bilateral primary osteoarthritis of knee; Translations: [Primary generalized (osteo)arthritis] Onset: 2 Chronic Other aftercare (3 sources) Long-term current use of anticoagulant; Translations: [longterm (current) use of anticoagulants] Onset: 2 Episodic Other aftercare (1 source) 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) use of anticoagulants; Translations: [CHCF CURRNT USE ANTICOAGULANTS] Onset: 3 Episodic Other aftercare (5 sources) Encounter for therapeutic drug level monitoring; Translations: [ENC THERAPEUTC DRUG LEVL MONITORING] Onset: 3 Episodic Other and unspecified benign neoplasm (2 sources) Tubular adenoma 06-11-2022 Episodic Other and unspecified benign neoplasm (2 sources) Benign neoplasm of sigmoid colon; Translations: [Benign neoplasm of sigmoid colon] Onset: 2 Episodic Other connective tissue disease (2 sources) Fibromyalgia 06-11-2022 Episodic Other connective tissue disease (1 source) Other muscle spasm; Translations: [OTHER MUSCLE SPASM] Onset: 3 Episodic Other gastrointestinal disorders (1 source) Abnormal feces; Translations: [Other fecal abnormalities] Onset: 2 Episodic Other nervous system disorders (2 sources) Nerve root disorder 06-11-2022 Chronic Other nervous system disorders (4 sources) Other specified mononeuropathies of right lower limb; Translations: [OTH SPEC MONONEUROPATH RT LOW LIMB] Onset: 3 Chronic Other nervous system disorders (5 sources) Other specified mononeuropathies; Translations: [OTHER SPECIFIED MONONEUROPATHIES] Onset: 3 Chronic Other nervous system disorders (5 sources) Other chronic pain; Translations: [OTHER CHRONIC PAIN] Onset: 2 Chronic Other nutritional; endocrine; and metabolic disorders (1 source) Obese class II; Translations: [Body mass index (BMI) 36.0-36.9, adult] Onset: 2 Chronic Other nutritional; endocrine; and metabolic disorders (2 sources) Body mass index 30+ - obesity 06-11-2022 Chronic Pulmonary heart disease (10 sources) H/O: pulmonary embolus; Translations: [Other pulmonary embolism without acute cor pulmonale] Onset: 3 06-11-2022 Episodic Spondylosis; intervertebral disc disorders; other back problems (9 sources) Other spondylosis with radiculopathy, lumbar region; Translations: [Spondylosis without myelopathy or radiculopathy, lumbar region] Onset: 2 Chronic Spondylosis; intervertebral disc disorders; other back problems (9 sources) Intervertebral disc disorders with radiculopathy, lumbar region; Translations: [Muscle spasm of back] Onset: 2 Episodic Substance-related disorders (7 sources) Nicotine dependence, cigarettes, uncomplicated; Translations: [Nicotine dependence, cigarettes, with unspecified nicotine-induced disorders] Onset: 2 Chronic Unclassified (1 source) LOW BACK PAIN, UNSPECIFIED; Translations: [LOW BACK PAIN, UNSPECIFIED] Onset: 2 Unclassified (1 source) CONTACT W/AND (SUSP) EXPOS COVID-19; Translations: [CONTACT W/AND (SUSP) EXPOS COVID-19] Onset: 2 Past or Other Problems Problem Classification Problem Date Documented Da te Episodic/Chronic Other and unspecified benign neoplasm (1 source) Benign neoplasm of sigmoid colon; Translations: [BENIGN NEOPLASM OF SIGMOID COLON] Onset: 07-18-2022 Episodic Other connective tissue disease (1 source) Fibromyalgia; Translations: [FIBROMYALGIA] Onset: 07-18-2022 Episodic Other gastrointestinal disorders (4 sources) Other fecal abnormalities; Translations: [OTHER FECAL ABNORMALITIES] Onset: 07-16-2022 Episodic Other screening for suspected conditions (not mental disorders or infectious disease) (6 sources) Stool DNA-based colorectal cancer screening positive; Translations: [Encounter for screening mammogram for malignant neoplasm of breast] Onset: 05-19-2022 06-11-2022 Episodic Residual codes; unclassified (1 source) Acquired absence of other specified parts of digestive tract; Translations: [ACQ ABSENCE OTH PART DIGESTV TRACT] Onset: 07-18-2022 Episodic Residual codes; unclassified (1 source) Acquired absence of both cervix and uterus; Translations: [ACQUIRED ABSENCE BOTH CERVIX AND UTERUS] Onset: 07-18-2022 Episodic Residual codes; unclassified (1 source) Family history of malignant neoplasm of trachea, bronchus and lung; Translations: [FAM HX MALIG NEOPLSM TRACH BRON LNG] Onset: 05-21-2022 Episodic Residual codes; unclassified (1 source) Family history of malignant neoplasm of breast; Translations: [FAMILY HX MALIG NEOPLASM OF BREAST] Onset: 05-21-2022 Episodic Residual codes; unclassified (1 source) Family history of malignant neoplasm of prostate; Translations: [FAMILY HX MALIG NEOPLASM PROSTATE] Onset: 05-21-2022 Episodic Results Test Name Value Interpretation Reference Range Facil ity Alanine aminotransferase [En zymatic activity/volume] in Serum or PlasmaOrdered By: Jt Walls on 08-24-2023 ALT [Catalytic activity/Vol] 9 U/L 7-52 [facility] Albumin [Mass/volume] in Ser um or Plasma by Bromocresol green (BCG) dye binding methoOrdered By: Jt Walls on 08-24-2023 Albumin BCG dye [Mass/Vol] 4.1 g/dL 3.5-5.7 [facility] Alkaline phosphatase [Enzyma tic activity/volume] in Serum or PlasmaOrdered By: Jt Walls on 08-24-2023 ALP [Catalytic activity/Vol] 83 U/L 34-104 [facility] Aspartate aminotransferase [ Enzymatic activity/volume] in Serum or PlasmaOrdered By: tJ Walls on 08-24-2023 AST [Catalytic activity/Vol] 12 U/L 13-39 [facility] Basophils Auto (Bld) [#/Vol] Ordered By: Jt Kavita on 08-24-2023 Basophils (Bld) [#/Vol] 0.0 10*3/uL 0.0-0.2 [facility] Basophils/100 WBC Auto (Bld) Ordered By: Jt Walls on 08-24-2023 Basophils/100 WBC (Bld) 0.6 % . [facility] Bilirubin.total [Mass/volume ] in Serum or PlasmaOrdered By: Jt Walls on 08-24-2023 Bilirubin [Mass/Vol] 0.5 mg/dL 0.3-1.0 [facility] Calcium [Mass/volume] in Ser um or PlasmaOrdered By: Jt Walls on 08-24-2023 Calcium [Mass/Vol] 9.1 mg/dL 8.6-10.3 [facility] Carbon dioxide, total [Moles /volume] in Serum or PlasmaOrdered By: Jt Walls on 08-24-2023 CO2 [Moles/Vol] 28.8 mmol/L 21.0-31.0 [facility] Chloride [Moles/volume] in S nadia or PlasmaOrdered By: Jt Walls on 08-24-2023 Chloride [Moles/Vol] 109 mmol/L 98-107 [facility] Complete Blood Count Auto Di ffon 08-24-2023 Basophils (Bld) [#/Vol] 0.0 10*3/uL Normal 0.0-0.2 [facility] Comment on above: Result Comment: PERF ORMED BY: [facility] [address] [place] [address] PATHOLOGIST [employer] FLORENCIA MARIANO M.D. Performed By: #### C MP, CBC #### [facility] [address] Basophils/100 WBC (Bld) 0.6 % Normal . [facility] Comment on above: Performed By: #### C MP, CBC #### [facility] [address] [place] [address] [place] Eosinophils (Bld) [#/Vol] 0.1 10*3/uL Normal 0.0-0.45 [facility] Comment on above: Performed By: #### C MP, CBC #### [facility] [address] [place] [address] [place] Eosinophils/100 WBC (Bld) 2.2 % Normal . [facility] Comment on above: Performed By: #### C MP, CBC #### [facility] [address] Erythrocyte distribution wid th (RBC) [Ratio] 14.0 % Normal 11.9-15.3 [facility] Comment on above: Performed By: #### C MP, CBC #### [facility] [address] Hematocrit (Bld) [Volume fraction] 43.2 % Normal 34.0-46.4 [facility] Comment on above: Performed By: #### C MP, CBC #### [facility] [address] [place] [address] [place] Hemoglobin (Bld) [Mass/Vol] 14.4 g/dL Normal 11.8-15. 4 [facility] Comment on above: Performed By: #### C MP, CBC #### [facility] [address] [place] [address] [place] Lymphocytes (Bld) [#/Vol] 2.0 10*3/uL Normal 1.00-4.8 [facility] Comment on above: Performed By: #### C MP, CBC #### [facility] [address] [place] [address] [place] Lymphocytes/100 WBC (Bld) 29.3 % Normal . [facility] Comment on above: Performed By: #### C MP, CBC #### [facility] [address] MCH (RBC) [Entitic mass] 31.1 pg Normal 24.7-34.3 [facility] Comment on above: Performed By: #### C MP, CBC #### [facility] [address] [place] [address] [place] MCV (RBC) [Entitic vol] 93.4 fL Normal 80-100 [facility] Comment on above: Performed By: #### C MP, CBC #### [facility] [address] Mean Corpuscular HGB Conc 33.3 g/dL Normal 32.0-35.0 [facility] Comment on above: Performed By: #### C MP, CBC #### [facility] [address] [place] [address] [place] Monocytes (Bld) [#/Vol] 0.5 10*3/uL Normal 0.0-0.8 [facility] Comment on above: Performed By: #### C MP, CBC #### [facility] [address] [place] [address] [place] Monocytes/100 WBC (Bld) 6.8 % Normal . [facility] Comment on above: Performed By: #### C MP, CBC #### [facility] [address] [place] [address] [place] Neutrophils (Bld) [#/Vol] 4.2 10*3/uL Normal 1.8-7.7 [facility] Comment on above: Performed By: #### C MP, CBC #### [facility] [address] [place] [id number] [place] Neutrophils/100 WBC (Bld) 61.1 % Normal . [facility] Comment on above: Performed By: #### C MP, CBC #### [facility] [address] [place] [address] [place] NRBC% 0.2 /100{WBC} Normal 0-0.5 [facility] Comment on above: Performed By: #### C MP, CBC #### [facility] [address] [place] [address] [place] Platelet mean volume (Bld) [Entitic vol] 8.8 fL Normal 6.3-10.7 [facility] Comment on above: Performed By: #### C MP, CBC #### [address] Platelets (Bld) [#/Vol] 181 10*3/uL Normal 150-450 [facility] Comment on above: Performed By: #### C MP, CBC #### [address] RBC (Bld) [#/Vol] 4.63 10*6/uL Normal 3.60-5.00 [facility] Comment on above: Performed By: #### C MP, CBC #### [address] WBC (Bld) [#/Vol] 6.8 10*3/uL Normal 3.8-11.6 [facility] Comment on above: Performed By: #### C MP, CBC #### [address] Comprehensive Metabolic Pane carlos alberto 08-24-2023 Albumin [Mass/Vol] 4.1 g/dL Normal 3.5-5.7 [facility] Comment on above: Performed By: #### C MP, CBC #### [address] Albumin/Globulin [Mass ratio] 2.1 {ratio} Normal [facility] Comment on above: Performed By: #### C MP, CBC #### [address] ALP [Catalytic activity/Vol] 83 U/L Normal 34-104 [facility] Comment on above: Result Comment: PERF ORMED BY: [place] [address] PATHOLOGIST [employer] FLORENCIA MARIANO M.D. Performed By: #### C MP, CBC #### [address] ALT [Catalytic activity/Vol] 9 U/L Normal 7-52 [facility] Comment on above: Performed By: #### C MP, CBC #### [address] [place] [address] [place] Anion gap [Moles/Vol] 8.4 mmol/L Normal 6.0-15.0 [facility] Comment on above: Performed By: #### C MP, CBC #### [address] AST [Catalytic activity/Vol] 12 U/L Low 13-39 [facility] Comment on above: Performed By: #### C MP, CBC #### [facility] [address] Bilirubin [Mass/Vol] 0.5 mg/dL Normal 0.3-1.0 [facility] Comment on above: Performed By: #### C MP, CBC #### [address] Calcium [Mass/Vol] 9.1 mg/dL Normal 8.6-10.3 [facility] Comment on above: Performed By: #### C MP, CBC #### [address] Chloride [Moles/Vol] 109 mmol/L High 98-107 [facility] Comment on above: Performed By: #### C MP, CBC #### [address] CO2 [Moles/Vol] 28.8 mmol/L Normal 21.0-31.0 [facility] [facility] Comment on above: Performed By: #### C MP, CBC #### [address] Creatinine [Mass/Vol] 0.81 mg/dL Normal 0.60-1.20 [facility] Comment on above: Performed By: #### C MP, CBC #### [place] [address] [place] GFR/1.73 sq M.predicted MDRD (S/P/Bld) [Vol rate/Area] mL/min/{1.73_m2} Normal [facility] Comment on above: Performed By: #### C MP, CBC #### [address] Globulin (S) [Mass/Vol] 2.0 g/dL Normal [facility] Comment on above: Performed By: #### C MP, CBC #### [address] Glucose [Mass/Vol] 90 mg/dL Normal 70-100 [facility] Comment on above: Result Comment: Loop Glucose Reference Range is dependent on time and content of last meal. Glucose of more than 200 mg/dL in a nonstressed, ambulatory subject supports the diagnosis of Diabetes Mellitus. ADA recommended reference range Performed By: #### C MP, CBC #### [address] Potassium [Moles/Vol] 4.2 mmol/L Normal 3.5-5.1 [facility] Comment on above: Performed By: #### C MP, CBC #### [address] Protein [Mass/Vol] 6.1 g/dL Low 6.4-8.9 [facility] Comment on above: Performed By: #### C MP, CBC #### [address] Sodium [Moles/Vol] 142 mmol/L Normal 136-145 [facility] Comment on above: Performed By: #### C MP, CBC #### [place] [address] [place] Urea nitrogen [Mass/Vol] 12 mg/dL Normal 7-25 [facility] Comment on above: Performed By: #### C MP, CBC #### [place] [address] [place] Creatinine [Mass/volume] in Serum or PlasmaOrdered By: Jt Walls on 08-24-2023 Creatinine [Mass/Vol] 0.81 mg/dL 0.60-1.20 [facility] Eosinophils Auto (Bld) [#/Vo l]Ordered By: Jt Walls on 08-24-2023 Eosinophils (Bld) [#/Vol] 0.1 10*3/uL 0.0-0.45 [facility] Eosinophils/100 WBC Auto (Bl d)Ordered By: Jt Walls on 08-24-2023 Eosinophils/100 WBC (Bld) 2.2 % . [facility] Erythrocyte distribution wid th Auto (RBC) [Ratio]Ordered By: Jt Walls on 08-24-2023 Erythrocyte distribution wid th (RBC) [Ratio] 14.0 % 11.9-15.3 [facility] Globulin Calc (S) [Mass/Vol] Ordered By: Jt Walls on 08-24-2023 Globulin (S) [Mass/Vol] 2.0 g/dL [facility] Glucose [Mass/volume] in Ser um or PlasmaOrdered By: Jt Walls on 08-24-2023 Glucose [Mass/Vol] 90 mg/dL 70-100 [facility] Comment on above: ADA recommended refe rence rangeRandom Glucose Reference Range is dependent on time and content of last meal. Glucose of more than 200 mg/dL in a nonstressed, ambulatory subject supports the diagnosis of Diabetes Mellitus. Hematocrit Auto (Bld) [Volum e fraction]Ordered By: Jt Walls on 08-24-2023 Hematocrit (Bld) [Volume fraction] 43.2 % 3 4.0-46.4 [facility] Hemoglobin [Mass/volume] in BloodOrdered By: Jt Walls on 08-24-2023 Hemoglobin (Bld) [Mass/Vol] 14.4 g/dL 11.8-15. 4 [facility] Leukocytes [#/volume] correc zay for nucleated erythrocytes in Blood by Automated counOrdered By: Jt Walls on 08-24-2023 WBC corrected for nucl RBC A uto (Bld) [#/Vol] 6.8 10*3/uL 3.8-11.6 [facility] Lymphocytes Auto (Bld) [#/Vo l]Ordered By: Jt Walls on 08-24-2023 Lymphocytes (Bld) [#/Vol] 2.0 10*3/uL 1.00-4.8 [facility] Lymphocytes/100 WBC Auto (Bl d)Ordered By: Jt Walls on 08-24-2023 Lymphocytes/100 WBC (Bld) 29.3 % . [facility] MCH Auto (RBC) [Entitic mass ]Ordered By: Jt Walls on 08-24-2023 MCH (RBC) [Entitic mass] 31.1 pg 24.7-34.3 [facility] MCHC Auto (RBC) [Mass/Vol]Or dered By: Jt Walls on 08-24-2023 MCHC (RBC) [Mass/Vol] 33.3 g/dL 32.0-35.0 [facility] MCV Auto (RBC) [Entitic vol] Ordered By: Jt Walls on 08-24-2023 MCV (RBC) [Entitic vol] 93.4 fL 80-100 [facility] Monocytes Auto (Bld) [#/Vol] Ordered By: Jt Walls on 08-24-2023 Monocytes (Bld) [#/Vol] 0.5 10*3/uL 0.0-0.8 [facility] Monocytes/100 WBC Auto (Bld) Ordered By: Jt Walls on 08-24-2023 Monocytes/100 WBC (Bld) 6.8 % . [facility] Neutrophils Auto (Bld) [#/Vo l]Ordered By: Jt Walls on 08-24-2023 Neutrophils (Bld) [#/Vol] 4.2 10*3/uL 1.8-7.7 [facility] Neutrophils/100 WBC Auto (Bl d)Ordered By: Jt Walls on 08-24-2023 Neutrophils/100 WBC (Bld) 61.1 % . [facility] No Panel InformationOrdered By: Jt Walls on 08-24-2023 Estimated GFR (CKD-EPI) > 60.0 mL/Min [facility] Creatinine Clearanc e (Chem N/A [facility] Nucleated erythrocytes [Pres ence] in Blood by Automated countOrdered By: Jt Walls on 08-24-2023 Nucleated RBC Auto Ql (Bld) 0.2 /100{WBC} 0-0.5 [facility] Platelet mean volume Auto (B ld) [Entitic vol]Ordered By: Jt Walls on 08-24-2023 Platelet mean volume (Bld) [Entitic vol] 8.8 fL 6.3-10.7 [facility] Platelets Auto (Bld) [#/Vol] Ordered By: Jt Walls on 08-24-2023 Platelets (Bld) [#/Vol] 181 10*3/uL 150-450 [facility] Potassium [Moles/volume] in Serum or PlasmaOrdered By: Jt Walls on 08-24-2023 Potassium [Moles/Vol] 4.2 mmol/L 3.5-5.1 [facility] Protein [Mass/volume] in Ser um or PlasmaOrdered By: Jt Walls on 08-24-2023 Protein [Mass/Vol] 6.1 g/dL 6.4-8.9 [facility] RBC Auto (Bld) [#/Vol]Ordere d By: Jt Walls on 08-24-2023 RBC (Bld) [#/Vol] 4.63 10*6/uL 3.60-5.00 [facility] Serum or plasma albumin/glob ulin mass ratioOrdered By: Jt Walls on 08-24-2023 Albumin/Globulin [Mass ratio] 2.1 {ratio} [facility] Serum or plasma anion gap de terminationOrdered By: Jt Walls on 08-24-2023 Anion gap [Moles/Vol] 8.4 mmol/L 6.0-15.0 [facility] Sodium [Moles/volume] in Ser um or PlasmaOrdered By: Jt Walls on 08-24-2023 Sodium [Moles/Vol] 142 mmol/L 136-145 [facility] Urea nitrogen [Mass/volume] in Serum or PlasmaOrdered By: Jt Walls on 08-24-2023 Urea nitrogen [Mass/Vol] 12 mg/dL 7-25 [facility] WBC Auto (Bld) [#/Vol]Ordere d By: Jt Walls on 08-24-2023 WBC (Bld) [#/Vol] 6.8 10*3/uL 3.8-11.6 [facility] Follow-Upon 06-22-2023 Follow-Up [id number] Nicol Lacey anita Connolly 1960 F Date Provider Department Center 06/22/2023 426-TONIE MÉNDEZ DCC ONC DCC Family History Problem Relation Age of Onset Heart disease Mother Esophageal cancer Father Family Status - Relation Status Age at Mother Father Level of Service:07104 NM OFFICE/OUTPATIENT ESTABLISHED LOW MDM 20-29 MIN Reason for Visit and Comments: Follow-up [236264] - Here today to discuss recent MRI Normal [facility] MR LUMBAR SPINE WO CONTRASTo n 06-22-2023 MR LUMBAR SPINE WO CONTRAST MR LUMBAR SPINE WO CONTRAST 06/22/2023 8:39 AM CLINICAL INDICATIONS: Lumbar radiculopathy, back pain. PROTOCOL: Routine multiplanar multisequence MRI of the lumbar spine without contrast. COMPARISON: None. FINDINGS: Preserved lumbar vertebral body heights. No substantial listhesis. No suspicious bone marrow replacing process. Edema about the anterior aspect of L1-L2, right lateral margin of L4-L5, degenerative. Conus terminates at L2, no distal cord signal change. T12-L1: Disc bulge with marginal disc osteophyte extending into the right greater than left foraminal extra foraminal regions. Mild focal thecal sac narrowing. Mild/moderate right, no significant left, neural foraminal narrowing. L1-L2: Disc bulge, marginal disc osteophyte extends into the foraminal and extra foraminal regions. Ligamentum flavum thickening. Mild focal thecal sac narrowing. Mild/moderate left greater than right neural foraminal narrowing. L2-L3: Diffuse disc bulge, marginal disc osteophyte extends into the left greater than right foraminal and extra foraminal regions. Ligamentum flavum thickening. Mild focal thecal sac narrowing. Asymmetric crowding left opercular zone without overt nerve root impingement. Mild/moderate left, mild right, neural foraminal narrowing. L3-L4: Disc bulge. Ligament of flavum thickening. Mild/moderate left, mild right, neural foraminal narrowing. L4-L5: Disc bulge, marginal disc osteophyte extends into the right greater than left foraminal and extra foraminal regions. Ligamentum flavum thickening. Mild focal thecal sac narrowing. Moderate right, mild left, neural foraminal narrowing. L5-S1: Disc bulge, marginal disc osteophyte extends of the left greater than right foraminal and extra foraminal regions. Mild/moderate left, mild right, neural foraminal narrowing. Asymmetric volume loss, fatty replacement deep right paraspinal musculature [series 5 image #1]. IMPRESSION: Degenerative changes, level by level assessment detailed in the body the report. No high-grade focal thecal sac narrowing. Neural foraminal narrowing most noted, moderate, at right L4-5. Electronically signed: Hema Hurt. Normal [facility] Comment on above: Order Comment: Has r ight sided mostly L5 radiculopathy Office Visiton 05-26-2023 Follow-up visit [id number] Nicol Lacey 1960 F Date Provider Department Center 05/26/2023 TONIE DE GUZMAN ONC DCC Family History Problem Relation Age of Onset Heart disease Mother Esophageal cancer Father Family Status - Relation Status Age at Mother Father Level of Service:61902 NM OFFICE/OUTPATIENT [facility] 30-44 MINUTES Reason for Visit and Comments: Consult [484] - Here today for back pain-old mri and hip xray Normal [facility] Orders Onlyon 05-13-2023 Orders Only [id number] Nicol Lacey 1960 F Date Provider Department Center 05/13/2023 TONIE DE GUZMAN ONC DCC No family history on file Normal [facility] PROTIMEon 02-24-2023 INR Coag (PPP) [Relative time] 1.07 {INR} Normal [facility] Comment on above: Performed By: #### P T #### [facility] [address] [address] [address] Jason Paniagua INR GUIDELINES SEE BELOW Normal [facility] Comment on above: Result Comment: AVEL RED INR: 2.0 - 3.0 CONDITIONS NOT LISTED BELOW 2.5 - 3.5 FOR PROSTHETIC HEART VALVE REPLACEMENT 2.5 - 3.5 RECURRENT THROMBOSIS Performed By: #### P T #### [facility] [address] [address] [address] Jason Paniagua PT Coag (PPP) [Time] 11.3 s Normal 9.0-11.6 [facility] Comment on above: Performed By: #### P T #### [facility] [address] [address] [address] Jason Paniagua Lab Reportson 08-01-2022 Lab Reports [id number] D:127 Normal [facility] General Surgery Office/Clini c Noteon 07-29-2022 General Surgery Office/Clinic Note Chief Complaint colonoscopy follow up HPI Staff 13 day post operative follow up post colonoscopy with sigmoid polypectomy. History of Present Illness 2 weeks s/p colonoscopy with sigmoid polypectomy, pathology with tubular adenoma; doing well; denies abdominal pain or blood in stools. Review of Systems ROS - Provider Constitutional: no fever, no sweats, no weight loss. Eyes: no glasses, no blurred vision, no visual loss. ENMT: no dentures, no hoarseness, no swallowing difficulties, no hearing loss, no ear infection(s), no nose bleeds. Cardiovascular: normal blood pressure, no chest pain, regular heartbeat, no heart murmur. Respiratory: no shortness of breath, no cough, no asthma, no wheezing. Gastrointestinal: no nausea, no vomiting, no diarrhea, no constipation, no blood in stool, no change in bowel habits, no abdominal pain, no hepatitis. Genitourinary: no kidney stones, no urine infection, no dysuria. Musculoskeletal: no pain, no weakness. Skin: no changing moles, no rash, no skin lumps. Neurologic: no seizures, no epilepsy, no headache. Psychiatric: no emotional or psychiatric problem. Heme/Lymph: no bleeding problems, no anemia, no blood clots, no transfusions. Allergy/Immunologic: no swollen lymph nodes/glands, no IV drug abuse. Other: Additional ROS info: Except as noted in the above Review of Systems and in the History of Present Illness, all other systems have been reviewed and are negative or noncontributory. Assessment/Plan 1. Benign neoplasm of sigmoid colon (D12.5: Benign neoplasm of sigmoid colon) plan surveillance colonoscopy in 5 years, call sooner if problems/questions. Follow-up No qualifying data available Patient Education Colon Polyps Problem List/Past Medical History Ongoing Anxiety BMI 36.0-36.9,adult Chronic anticoagulation Chronic obstructive pulmonary disease Fibromyalgia GERD (gastroesophageal reflux disease) History of pulmonary embolism Lupus anticoagulant disorder Positive colorectal cancer screening using Cologuard test Radiculopathy Tubular adenoma Tubular adenoma of colon Historical No qualifying data Procedure/Surgical History Colonoscopy (07/16/2022), Blepharoplasty, Cholecystectomy, History of elbow surgery, Lumbar epidural injection, Plantar fasciotomy, Suspension of bladder, MED BSO - Total abdominal hysterectomy and bilateral salpingo-oophorectomy. Medications albuterol HFA 90 mcg/inh MDI, 2 puff(s), Inhalation, q6hr, PRN Anoro Ellipta 62.5 mcg-25 mcg inhalation powder, 1 inh, Inhalation, Daily aspirin 81 mg Oral EC Tab, 81 mg= 1 tab(s), Oral, Daily baclofen 10 mg Tab, 10 mg= 1 tab(s), Oral, q8hr, PRN CeleBREX 100 mg Cap, 100 mg= 1 cap(s), Oral, BID Coumadin Crestor 10 mg Tab, 10 mg= 1 tab(s), Oral, Daily gabapentin 400 mg Cap, 400 mg= 1 cap(s), Oral, Daily hydrOXYzine hydrochloride 25 mg Tab, 25 mg= 1 tab(s), Oral, Daily [place] 325 mg-5 mg oral tablet, 1 tab(s), Oral, BID, PRN Prevacid 30 mg Cap-DR, 30 mg= 1 cap(s), Oral, Daily Singulair 10 mg Tab, 10 mg= 1 tab(s), Oral, Daily Welchol 625 mg Tab, 3750 mg= 6 tab(s), Oral, Daily Allergies Ceclor (Rash) Keflex (Rash) Lovenox (Rash) codeine (Chest pain) Social History Alcohol - Denies Alcohol Use, 06/11/2022 Substance Abuse - Denies Substance Abuse, 06/11/2022 Tobacco 10 or more cigarettes (1/2 pack or more)/day in last 30 days Tobacco Use:. Never Smokeless Tobacco Use:. Cigarettes, 1.5 per day. Started age 16.0 Years. Yes, 06/11/2022 Family History Asthma: Mother. COPD: Sister. Esophageal cancer: Father. Hypertension: Mother. Primary malignant neoplasm of prostate: Father. Ulcerative colitis: Sister and Brother. Normal [facility] Comment on above: Result Comment: Elec tronically Signed By: Allyson GARCIA MD\Date and Time Signed: 07/29/22 15:51 EDT Patient Educationon 07-29-20 Patient Education Oncology Colon Polyps Polyps are tissue growths inside the body. Polyps can grow in many places, including the large intestine (colon). A polyp may be a round bump or a mushroom-shaped growth. You could have one polyp or several. Most colon polyps are noncancerous (benign). However, some colon polyps can become cancerous over time. Finding and removing the polyps early can help prevent this. What are the causes? The exact cause of colon polyps is not known. What increases the risk? You are more likely to develop this condition if you: ? Have a family history of colon cancer or colon polyps. ? Are older than 50 or older than 45 if you are . ? Have inflammatory bowel disease, such as ulcerative colitis or Crohn's disease. ? Have certain hereditary conditions, such as: ? Familial adenomatous polyposis. ? Mckinney syndrome. ? Turcot syndrome. ? Peutz?Jeghers syndrome. ? Are overweight. ? Smoke cigarettes. ? Do not get enough exercise. ? Drink too much alcohol. ? Eat a diet that is high in fat and red meat and low in fiber. ? Had childhood cancer that was treated with abdominal radiation. What are the signs or symptoms? Most polyps do not cause symptoms. If you have symptoms, they may include: ? Blood coming from your rectum when having a bowel movement. ? Blood in your stool. The stool may look dark red or black. ? Abdominal pain. ? A change in bowel habits, such as constipation or diarrhea. How is this diagnosed? This condition is diagnosed with a colonoscopy. This is a procedure in which a lighted, flexible scope is inserted into the anus and then passed into the colon to examine the area. Polyps are sometimes found when a colonoscopy is done as part of routine cancer screening tests. How is this treated? Treatment for this condition involves removing any polyps that are found. Most polyps can be removed during a colonoscopy. Those polyps will then be tested for cancer. Additional treatment may be needed depending on the results of testing. Follow these instructions at home: Lifestyle ? Maintain a healthy weight, or lose weight if recommended by your health care provider. ? Exercise every day or as told by your health care provider. ? Do not use any products that contain nicotine or tobacco, such as cigarettes and e-cigarettes. If you need help quitting, ask your health care provider. ? If you drink alcohol, limit how much you have: ? 0?1 drink a day for women. ? 0?2 drinks a day for men. ? Be aware of how much alcohol is in your drink. In the [place] one drink equals one 12 oz bottle of beer (355 mL), one 5 oz glass of wine (148 mL), or one 1? oz shot of hard liquor (44 mL). Eating and drinking ? Eat foods that are high in fiber, such as fruits, vegetables, and whole grains. ? Eat foods that are high in calcium and vitamin D, such as milk, cheese, yogurt, eggs, liver, fish, and broccoli. ? Limit foods that are high in fat, such as fried foods and desserts. ? Limit the amount of red meat and processed meat you eat, such as hot dogs, sausage, castellanos, and lunch meats. General instructions ? Keep all follow-up visits as told by your health care provider. This is important. ? This includes having regularly scheduled colonoscopies. ? Talk to your health care provider about when you need a colonoscopy. Contact a health care provider if: ? You have new or worsening bleeding during a bowel movement. ? You have new or increased blood in your stool. ? You have a change in bowel habits. ? You lose weight for no known reason. Summary ? Polyps are tissue growths inside the body. Polyps can grow in many places, including the colon. ? Most colon polyps are noncancerous (benign), but some can become cancerous over time. ? This condition is diagnosed with a colonoscopy. ? Treatment for this condition involves removing any polyps that are found. Most polyps can be removed during a colonoscopy. This information is not intended to replace advice given to you by your health care provider. Make sure you discuss any questions you have with your health care provider. Document Released: 07/22/2005 Document Revised: 02/10/2019 Document Reviewed: 02/10/2019 [employer] Patient Education ? 2019 [employer]. [facility] Reminderson 07-29-2022 Reminders - From: Heather Paniagua LPN To: Alex - Clinical; Sent: 07/29/2022 15:48:04 EDT Show up: 06/15/2027 07:00:00 EDT Subject: colonoscopy recall Due Date/Time: 07/16/2027 07:00:00 EDT Reminder/Recall Patient is due for colonoscopy 07/16/2027 due to history of tubular adenoma. Normal [facility] Pathology Noteon 07-18-2022 Pathology Note [id number]:127 Normal [facility] Outside Colonoscopyon 2021 Outside Colonoscopy [id number]:127 Normal [facility] PROTIMEon 07-16-2022 INR Coag (PPP) [Relative time] 1.11 {INR} Normal [facility] Comment on above: Performed By: #### P T ####[facility] [address] [address]DrShameka Paniagua INR GUIDELINES SEE BELOW Normal [facility] Comment on above: Result Comment: AVEL RED INR: 2.0 - 3.0 CONDITIONS NOT LISTED BELOW 2.5 - 3.5 FOR PROSTHETIC HEART VALVE REPLACEMENT 2.5 - 3.5 RECURRENT THROMBOSIS Performed By: #### P T ####[facility] [address] [id number] Paniagua PT Coag (PPP) [Time] 11.9 s Critically high 9.0-11.6 [facility] Comment on above: Performed By: #### P T ####[facility] [address] [id number] Paniagua Lab Reportson 07-15-2022 Lab Reports [id number] D:127 Normal [facility] Covid-19 PCR (CVDTB)on SARS-CoV-2 (COVID-19) RNA JANEE+probe Ql (Unsp spec) Not detected Normal NOT DETECTED [facility] Comment on above: Result Comment: This test is not yet approved or cleared by the [place] FDA. When there are no FDA-approved or cleared tests available, and other criteria are met, FDA can make tests available under an emergency access mechanism called an Emergency Use Authorization (EUA). The EUA for this test is supported by the Compensation And Benefits Manager of Health and Human Service's (HHS's) declaration that circumstances exist to justify the emergency use of in vitro diagnostics for the detection and/or diagnosis of the virus that causes COVID-19. This EUA will remain in effect (meaning this test can be used) for the duration of the COVID-19 declaration justifying emergency of IVDs, unless it is terminated or revoked by FDA (after which the test may no longer be used). When diagnostic testing is negative, the possibility of a false negative should be considered in the context of a patient's recent exposures and the presence of clinical signs and symptoms consistent with SARS-CoV-2. Performed By: #### C [facility] #### [facility] [address] [place] [address] Dr. Jason Paniagua Pre-Certification Formon Pre-Certification Form [id number]:127 Normal [facility] Consent for Procedure/Surger yon 06-12-2022 Consent for Procedure/Surgery [id number]:127 Normal [facility] Ambulatory Visit Summaryon 0 06-11-2022 Ambulatory Visit Summary NATALIE LACEY :1960 Visit Date:06/11/2022 Ambulatory Visit Instructions Your Care Team Attending Physician - Allyson GARCIA MD Primary Care Physician - CRISTOFER SPRINGER JR, DO Referring Physician - CIRSTOFER SPRINGER JR, DO This Is Your Medications List Contact prescribing physician if questions or concerns acetaminophen-hydrocodone ([place] 325 mg-5 mg oral tablet) albuterol (albuterol HFA 90 mcg/inh MDI) aspirin (aspirin 81 mg Oral EC Tab) baclofen (baclofen 10 mg Tab) celecoxib (CeleBREX 100 mg Cap) colesevelam (Welchol 625 mg Tab) gabapentin (gabapentin 400 mg Cap) hydrOXYzine (hydrOXYzine hydrochloride 25 mg Tab) lansoprazole (Prevacid 30 mg Cap-DR) montelukast (Singulair 10 mg Tab) rosuvastatin (Crestor 10 mg Tab) umeclidinium-vilanterol (Anoro Ellipta 62.5 mcg-25 mcg inhalation powder) warfarin (Coumadin) Procedures Performed Blepharoplasty, Cholecystectomy, History of elbow surgery, Lumbar epidural injection, Plantar fasciotomy, Suspension of bladder, MED BSO - Total abdominal hysterectomy and bilateral salpingo-oophorectomy. Discharge Vitals Heart Rate (Peripheral) 70 Respiratory Rate 16 Blood Pressure 114/76 Height 165.1 cm Height 165.1 cm Weight 98.2 kg Weight 98.2 kg BMI 36.03 Medications What How Much When Instructions Unchanged acetaminophen-hydrocodone ([place] 325 mg-5 mg oral tablet) 1 Tablets By Mouth 2 times a day as needed for as needed for pain Contact prescribing physician if questions or concerns Unchanged albuterol (albuterol HFA 90 mcg/ inh MDI) 2 Puffs Inhalation Every 6 hours as needed for Shortness of breath or wheezing Contact prescribing physician if questions or concerns Unchanged aspirin (aspirin 81 mg Oral EC Tab) 1 Tablets By Mouth Every day Contact prescribing physician if questions or concerns Unchanged baclofen (baclofen 10 mg Tab) 1 Tablets By Mouth Every 8 hours as needed for Spasm Contact prescribing physician if questions or concerns Unchanged celecoxib (CeleBREX 100 mg Cap) 1 Capsules By Mouth 2 times a day Contact prescribing physician if questions or concerns Unchanged colesevelam (Welchol 625 mg Tab) 6 Tablets By Mouth Every day Contact prescribing physician if questions or concerns Unchanged gabapentin (gabapentin 400 mg Cap) 1 Capsules By Mouth Every day Contact prescribing physician if questions or concerns Unchanged hydrOXYzine (hydrOXYzine hydrochloride 25 mg Tab) 1 Tablets By Mouth Every day Contact prescribing physician if questions or concerns Unchanged lansoprazole (Prevacid 30 mg Cap-DR) 1 Capsules By Mouth Every day Contact prescribing physician if questions or concerns Unchanged montelukast (Singulair 10 mg Tab) 1 Tablets By Mouth Every day Contact prescribing physician if questions or concerns Unchanged rosuvastatin (Crestor 10 mg Tab) 1 Tablets By Mouth Every day Contact prescribing physician if questions or concerns Unchanged umeclidinium-vilanterol (Anoro Ellipta 62.5 mcg-25 mcg inhalation powder) 1 Inhalation Inhalation Every day Contact prescribing physician if questions or concerns Unchanged warfarin (Coumadin) as directed Contact prescribing physician if questions or concerns Allergies Ceclor (Rash) Keflex (Rash) Lovenox (Rash) codeine (Chest pain) Problems Ongoing - Any problem that you are currently receiving treatment for. Anxiety BMI 36.0-36.9,adult Chronic obstructive pulmonary disease Fibromyalgia GERD (gastroesophageal reflux disease) History of pulmonary embolism Lupus anticoagulant disorder Radiculopathy Tubular adenoma Normal [facility] Physician Referralon 022 Physician Referral [id number] Normal [facility] MG MAMM SCREEN 3D YESY CADon 05-19-2022 MG MAMM SCREEN 3D YESY CAD Patient: NATALIE LACEY Exam Date: 05/19/2022 : 1960 Gender:F Ordering : DR CRISTOFER SPRINGER D.O. Admission #: [id number] Family : DR TATIANA ESQUIVEL . Order #: [id number] CLICK HERE TO VIEW EXAM RADIOLOGY REPORT PROCEDURE: MAMMOGRAM SCREENING 3D BILATERAL CAD COMPARISON: MG MAMM SCREEN YESY W CAD, 05/15/2020. MG MAMM SCREEN 3D YESY CAD, 05/17/2021. INDICATIONS: Screening mammography Calculator Name NCI Breast Cancer Risk Assessment Tool 5 Year Breast Cancer Risk 1.00% Lifetime Breast Cancer Risk 5.50% Personal Breast Cancer No Personal Ovarian Cancer No Treatments None Family Cancers Father with prostate cancer at age 68; Grandfather-paternal with lung cancer at age 62; Cousin-maternal with breast cancer at age 40. LOCATION: [facility] BREAST COMPOSITION: Almost entirely fatty. FINDINGS: DIAGNOSTIC CATEGORY 1--NEGATIVE. NO CHANGE FROM COMPARISON ASSESSMENT. Scattered benign-appearing calcifications are present. Scattered benign-appearing lymph nodes are present. RIGHT BREAST: No significant suspicious finding. LEFT BREAST: No significant suspicious finding. RECOMMENDATIONS: ROUTINE MAMMOGRAM AND CLINICAL EVALUATION IN 12 MONTHS. PLEASE NOTE: A NORMAL MAMMOGRAM DOES NOT EXCLUDE THE POSSIBILITY OF BREAST CANCER. A CLINICALLY SUSPICIOUS PALPABLE LUMP SHOULD BE BIOPSIED. Dictated by: Jayson Bergeron MD on 05/19/2022 at 12:40 Approved by: Jayson Bergeron MD on 05/19/2022 at 12:41 Normal [facility] LUNG CANCER SCREENINGon 0 04-19-2022 CT LUNG CANCER SCREENING EXAMINATION: CT LUNG CANCER SCREENING HISTORY: Nicotine dependence COPD, shortness of breath, chronic cough COMPARISON: 03/27/2022 TECHNIQUE: Axial, Coronal, and Sagittal images were created without the administration of IV contrast material. Dose reduction techniques were achieved by using automated exposure control and/or adjustment of mA and/or kV according to patient size and/or use of iterative reconstruction technique. FINDINGS: LUNGS: Scattered calcified and noncalcified pulmonary nodules. The largest noncalcified nodule is identified along the minor measuring 5.8 mm axial image #89. The largest centrally calcified nodules identified in the left lower lobe measuring 2.3 cm. Moderate centrilobular emphysema with an upper lobe predominance. PLEURA: No mass, effusion, or pneumothorax. VASCULATURE: No abnormality. SANDEEP: No mass or pathologic adenopathy. MEDIASTINUM: Calcified subcarinal lymph nodes. No pathologically enlarged nodes CARDIAC: No enlargement, pericardial thickening, or significant calcification. AORTA: No aneurysm or dissection. CHEST WALL: No mass or axillary adenopathy BONES: No bone lesion or fracture. LIMITED ABDOMEN: No suspicious findings. Limited images of the upper abdomen. OTHER: Negative. IMPRESSION: Moderate emphysema Scattered pulmonary nodules LUNG SCREENING: Lung-RADS Category 2- Benign Appearance or Behavior. Nodules with a very low likelihood of becoming a clinically active cancer due to size or lack of growth. 2. Continue annual screening with LDCT in 12 months. Electronically authenticated by: JAYSON BERGERON Date: 2022-04-19 08:13 Normal [facility] Activated partial thrombopla stin time (aPTT) in platelet poor plasma by coagulation aOrdered By: Jt Walls on 02-19-2022 aPTT Coag (PPP) [Time] 44.7 s 25.1-36.5 [facility] Albumin [Mass/volume] in Ser um or PlasmaOrdered By: Jt Walls on 02-19-2022 Albumin [Mass/Vol] 3.9 g/dL 3.2-5.5 [facility] Automated erythrocytes count in urine sediment (number/area)Ordered By: Jt Walls on 02-19-2022 RBC Auto (Urine sed) [#/Area] 0-1 [HPF] [facility] Automated leukocytes count i n urine sediment (number/area)Ordered By: Jt Walls on 02-19-2022 WBC Auto (Urine sed) [#/Area] 0-1 [HPF] [facility] Basophils Auto (Bld) [#/Vol] Ordered By: Jt Walls on 02-19-2022 Basophils (Bld) [#/Vol] 0.0 10*3/uL 0.0-0.2 [facility] Basophils/100 WBC Auto (Bld) Ordered By: Jt Walls on 02-19-2022 Basophils/100 WBC (Bld) 0.5 % [facility] Bilirubin Test strip Ql (U)O rdered By: Jt Walls on 02-19-2022 Bilirubin Ql (U) Negative Negative [facility] Blood hemoglobin measurement (mass/volume)Ordered By: Jt Walls on 02-19-2022 Hemoglobin (Bld) [Mass/Vol] 14.7 g/dL 11.8-15. 4 [facility] Blood leukocytes automated c ount (number/volume)Ordered By: Jt Walls on 02-19-2022 WBC (Bld) [#/Vol] 8.1 10*3/uL 4.5-11.0 [facility] Color Auto (U)Ordered By: Leonora Walls on 02-19-2022 Color (U) Yellow Yellow [facility] Creatine kinase [Enzymatic a ctivity/volume] in Serum or PlasmaOrdered By: Jt Walls on 02-19-2022 CK [Catalytic activity/Vol] 111 U/L 22-269 [facility] Creatinine and Glomerular fi ltration rate.predicted panel (S/P/Bld)Ordered By: Jt Walls on 02-19-2022 Creatinine [Mass/Vol] 0.74 mg/dL 0.44-1.03 [facility] Eosinophils Auto (Bld) [#/Vo l]Ordered By: Jt Walls on 02-19-2022 Eosinophils (Bld) [#/Vol] 0.1 10*3/uL 0.0-0.45 [facility] Eosinophils/100 WBC Auto (Bl d)Ordered By: Jt Walls on 02-19-2022 Eosinophils/100 WBC (Bld) 1.2 % [facility] Erythrocyte distribution wid th Auto (RBC) [Ratio]Ordered By: Jt Walls on 02-19-2022 Erythrocyte distribution wid th (RBC) [Ratio] 13.8 % 11.9-15.3 [facility] Erythrocyte sedimentation ra te by Photometric methodOrdered By: Jt Walls on 02-19-2022 ESR Photometric method (Bld) [Velocity] 13 mm/hr 0-29 [facility] Estimated glomerular filtrat ion rate (GFR) non- AmericanOrdered By: Jt Walls on 02-19-2022 GFR/1.73 sq M.predicted [place] g non-blacks MDRD (S/P/Bld) [Vol rate/Area] > 60 mL/Min [facility] Globulin Calc (S) [Mass/Vol] Ordered By: Jt Walls on 02-19-2022 Globulin (S) [Mass/Vol] 2.3 g/dL [facility] Hematocrit Auto (Bld) [Volum e fraction]Ordered By: Jt Walls on 02-19-2022 Hematocrit (Bld) [Volume fraction] 44.4 % 3 4.0-46.4 [facility] Ketones Auto test strip (U) [Mass/Vol]Ordered By: Jt Walls on 02-19-2022 Ketones (U) [Mass/Vol] Negative [facility] - CoagulationOrde red By: Jt Walls on 02-19-2022 PT Coag (PPP) [Time] 24.7 s 9.0-12.9 [facility] Laboratory - Hematology and Cell countsOrdered By: Jt Walls on 02-19-2022 Nucleated RBC/100 WBC (Bld) [Ratio] 0.1 % 0-0.5 [facility] Laboratory - UrinalysisOrder ed By: Jt Walls on 02-19-2022 Hyaline casts LM Ql (Urine sed) None seen [LPF] [facility] Lymphocytes Auto (Bld) [#/Vo l]Ordered By: Jt Walls on 02-19-2022 Lymphocytes (Bld) [#/Vol] 2.3 10*3/uL 1.00-4.8 [facility] Lymphocytes/100 WBC Auto (Bl d)Ordered By: Jt Walls on 02-19-2022 Lymphocytes/100 WBC (Bld) 28.3 % [facility] MCH Auto (RBC) [Entitic mass ]Ordered By: Jt Walls on 02-19-2022 MCH (RBC) [Entitic mass] 31.2 pg 24.7-34.3 [facility] MCHC Auto (RBC) [Mass/Vol]Or dered By: Jt Walls on 02-19-2022 MCHC (RBC) [Mass/Vol] 33.1 g/dL 32.0-35.0 [facility] MCV Auto (RBC) [Entitic vol] Ordered By: Jt Walls on 02-19-2022 MCV (RBC) [Entitic vol] 94.4 fL 80-100 [facility] Monocytes Auto (Bld) [#/Vol] Ordered By: Jt Walls on 02-19-2022 Monocytes (Bld) [#/Vol] 0.4 10*3/uL 0.0-0.8 [facility] Monocytes/100 WBC Auto (Bld) Ordered By: Jt Walls on 02-19-2022 Monocytes/100 WBC (Bld) 4.6 % [facility] Neutrophils Auto (Bld) [#/Vo l]Ordered By: Jt Walls on 02-19-2022 Neutrophils (Bld) [#/Vol] 5.3 10*3/uL 1.8-7.7 [facility] Neutrophils/100 WBC Auto (Bl d)Ordered By: Jt Walls on 02-19-2022 Neutrophils/100 WBC (Bld) 65.4 % [facility] Nitrite Test strip Ql (U)Ord ered By: Jt Walls on 02-19-2022 Nitrite Ql (U) Negative Negative [facility] No Panel InformationOrdered By: Jt Walls on 02-19-2022 Estimated GFR () > 60 mL/Min [facility] Comment on above: GFR estimated refere nce range: According to KDOQI guidelines, <60 ml/min/1.73m2 is sufficient to diagnose a patient with chronic kidney disease. Pharmacy Creatinine Clearance (Chem N/A [facility] Platelet mean volume Auto (B ld) [Entitic vol]Ordered By: Jt Walls on 02-19-2022 Platelet mean volume (Bld) [Entitic vol] 9.1 fL 6.3-10.7 [facility] Platelet poor plasma interna tional normalized ratio (INR) by coagulation assay (relatOrdered By: Jt Walls on 02-19-2022 INR Coag (PPP) [Relative time] 2.2 {INR} [facility] Comment on above: INR Therapeutic Rang e A) Pre- and Peroperative OAT started two weeks before surgery. NOT HIP SURGERY: 1.5 - 2.5 HIP SURGERY: 2 - 3B) Primary and secondary prevention of venous THROMBOSIS: 2 - 3C) Active venous thrombosis, pulmonary embolismand prevention of recurrent venous thrombosis: 2 - 3D) Prevention of arterial thromboembolismincluding patients with mechanical heart valves: 3 - 4.5 Platelets Auto (Bld) [#/Vol] Ordered By: Jt Walls on 02-19-2022 Platelets (Bld) [#/Vol] 164 10*3/uL 150-450 [facility] Protein Auto test strip (U) [Mass/Vol]Ordered By: Jt Walls on 02-19-2022 Protein (U) [Mass/Vol] Negative Negative [facility] Protein [Mass/volume] in Ser um or PlasmaOrdered By: Jt Walls on 02-19-2022 Protein [Mass/Vol] 6.2 g/dL 6.1-7.9 [facility] RBC Auto (Bld) [#/Vol]Ordere d By: Jt Walls on 02-19-2022 RBC (Bld) [#/Vol] 4.70 10*6/uL 3.60-5.00 [facility] Serum or plasma C reactive p rotein measurement (mass/volume)Ordered By: Jt Walls on 02-19-2022 CRP [Mass/Vol] 0.6 mg/dL 0.0-1.0 [facility] Serum or plasma alanine damian otransferase measurement without P-5'-P (enzymatic activiOrdered By: Jt Walls on 02-19-2022 ALT No additional P-5'-P [Ca talytic activity/Vol] 12 U/L 10-60 [facility] Serum or plasma albumin/glob ulin mass ratioOrdered By: Jt Walls on 02-19-2022 Albumin/Globulin [Mass ratio] 1.7 {ratio} [facility] Serum or plasma alkaline bree sphatase measurement (enzymatic activity/volume)Ordered By: Jt Walls on 02-19-2022 ALP [Catalytic activity/Vol] 75 U/L 32-92 [facility] Serum or plasma aspartate am inotransferase measurement (enzymatic activity/volume)Ordered By: Jt Walls on 02-19-2022 AST [Catalytic activity/Vol] 13 U/L 10-42 [facility] Serum or plasma calcium quique urement (mass/volume)Ordered By: Jt Walls on 02-19-2022 Calcium [Mass/Vol] 8.9 mg/dL 8.2-10.2 [facility] Serum or plasma chloride renita surement (moles/volume)Ordered By: Jt Walls on 02-19-2022 Chloride [Moles/Vol] 106 mmol/L 95-114 [facility] Serum or plasma glucose quique urement (mass/volume)Ordered By: Jt Walls on 02-19-2022 Glucose [Mass/Vol] 108 mg/dL 70-100 [facility] Comment on above: ADA recommended refe rence rangeRandom Glucose Reference Range is dependent on time and content of last meal. Glucose of more than 200 mg/dL in a nonstressed, ambulatory subject supports the diagnosis of Diabetes Mellitus. Serum or plasma potassium me asurement (moles/volume)Ordered By: Jt Walls on 02-19-2022 Potassium [Moles/Vol] 4.0 mmol/L 3.5-5.1 [facility] Serum or plasma sodium measu rement (moles/volume)Ordered By: Jt Walls on 02-19-2022 Sodium [Moles/Vol] 137 mmol/L 136-146 [facility] Serum or plasma total biliru bin measurement (mass/volume)Ordered By: Jt Walls on 02-19-2022 Bilirubin [Mass/Vol] 0.8 mg/dL 0.3-1.2 [facility] Serum or plasma total carbon dioxide measurement (moles/volume)Ordered By: Jt Walls on 02-19-2022 CO2 [Moles/Vol] 22.2 mmol/L 22.0-30.0 [facility] Serum or plasma urea nitroge n measurement (mass/volume)Ordered By: Jt Walls on 02-19-2022 Urea nitrogen [Mass/Vol] 10 mg/dL 9- [facility] Specific gravity Auto test s trip (U) [Rel density]Ordered By: Jt Walls on 02-19-2022 Specific gravity (U) [Rel density] 1.010 1.001-1.030 [facility] Squamous epithelial cells de tection in urine sediment by light microscopyOrdered By: Jt Walls on 02-19-2022 Epithelial cells.squamous LM Ql (Urine sed) None seen [HPF] [facility] TSH DL <= 0.005 mIU/L QnOrde red By: Jt Walls on 02-19-2022 TSH Qn 2.31 m[IU]/L 0.45-5.33 [facility] Thyroxine (T4) free [Mass/vo lume] in Serum or PlasmaOrdered By: Jt Walls on 02-19-2022 Free T4 [Mass/Vol] 0.81 ng/dL 0.61-1.12 [facility] Urine bacteria detection by automated methodOrdered By: Jt Walls on 02-19-2022 Bacteria Auto Ql (U) None seen None Seen [facility] Urine clarity by refractomet ry automatedOrdered By: Jt Walls on 02-19-2022 Clarity Refractometry automated (U) Clear Clear [facility] Urine glucose measurement by automated test strip (mass/volume)Ordered By: Jt Walls on 02-19-2022 Glucose Auto test strip (U) [Mass/Vol] Normal mg/dL Normal [facility] Urine hemoglobin detection b y automated test stripOrdered By: Jt Walls on 02-19-2022 Hemoglobin Auto test strip Ql (U) Negative Ne gative [facility] Urine leukocyte esterase det ection by automated test stripOrdered By: Jtaraceli Walls on 02-19-2022 Leukocyte esterase Auto test strip Ql (U) Negative Negative [facility] Urobilinogen Auto test strip (U) [Mass/Vol]Ordered By: Jtaraceli Walls on 02-19-2022 Urobilinogen (U) [Mass/Vol] Normal mg/dL Normal [facility] pH Auto test strip (U)Ordere d By: Jtaraceli Walls on 02-19-2022 pH (U) 6.0 [pH] 5.0-9.0 [facility] Vital Signs Date Time Vital Sign Value Performing Clinician Meena huggins 06-11-2022 14:24-0400 Blood Pressure Location Allyson NILL [facility] [place] 06-11-2022 14:24-0400 Diastolic blood pressure 76 mm[Hg] Allyson NILL [facility] [place] 06-11-2022 14:24-0400 Heart rate 70 /min Allyson NILL [facility] [place] 06-11-2022 14:24-0400 Respiratory rate 16 /min Allyson NILL [facility] [place] 06-11-2022 14:24-0400 Systolic blood pressure 114 mm[Hg] Allyson NILL [facility] [place] Encounters Encounter Date Encounter Type Care Provider Facility Start: 08-24-2023 End: 08-24-2023 ambulatory Jt Walls Facility:[facility] Start: 08-24-2023 End: 08-24-2023 ambulatory JR Cristofer Springer Work Phone: [facility] Work Phone: Start: 08-24-2023 End: 08-24-2023 Patient encounter procedure JR Cristofer Springer Work Phone: [facility] [address] Work Phone: Start: 06-22-2023 End: 06-22-2023 ambulatory [facility] Start: 06-22-2023 End: 06-23-2023 ambulatory [facility] Start: 05-26-2023 ambulatory TONIE [facility] Start: 05-07-[address] CRISTOFER SPRINGER [facility] ity:[facility]1 Start: 04-07-2023 End: 04-07-[address] CRISTOFER SPRINGER Facility:[facility] Start: 03-13-2023 End: 03-14-[address] CRISTOFER SPRINGER Facility:[facility] Start: 03-09-2023 End: 04-08-[address] CRISTOFER SPRINGER Facility:[facility] Start: 02-24-2023 End: 02-24-[address] CRISTOFER SPRINGER Facility:[facility] Start: 02-09-2023 End: 03-06-[address] CRISTOFER SPRINGER Facility:[facility] Start: 02-03-2023 End: 02-04-2023 ambulatory BINH CASTILLOMIPATHY . Facility:[facility] Start: 01-07-2023 End: 02-06-[address] CRISTOFER SPRINGER Facility:[facility] Start: 12-10-2022 End: 01-07-[address] CRISTOFER SPRINGER Facility:[facility] Start: 11-10-2022 End: 12-10-[address] CRISTOFER SPRINGER Facility:[facility] Start: 11-06-2022 End: 11-07-2022 ambulatory AMINATA LEE . Facility:[facility] Start: 10-09-2022 End: 11-09-2022 ambulatory SHAIKH Phuong WEINER Facility:[facility] Start: 09-09-2022 End: 10-08-2022 ambulatory SHAIKH Phuong WEINER Facility:[facility] Start: 08-10-2022 End: 09-08-2022 ambulatory SHAIKH Phuong WEINER Facility:[facility] Start: 07-31-2022 End: 08-01-[address] GAURAV WONG . Facility:[facility] Start: 07-29-2022 End: 07-30-2022 ambulatory Allyson GARCIA Facility:[facility] Start: 07-29-2022 End: 07-29-2022 Patient encounter procedure Allyson HATCHL [facility] [place] Start: 07-16-2022 End: 07-17-2022 ambulatory Allyson GARCIA Facility:CD:[id number] Start: 07-15-2022 Encounter for preprocedural laboratory examination DR ALLYSON GARCIA . [facility] Start: 07-12-2022 End: 07-13-[address] ALLYSON GARCIA . Facility:[facility] Start: 07-12-2022 End: 07-13-2022 Encounter for preprocedural laboratory examination DR ALLYSON GARCIA . Facility:[facility] Start: 07-10-2022 End: 08-09-2022 ambulatory SHAIKH Phuong WEINER Facility:[facility] Start: 06-11-2022 End: 06-12-2022 ambulatory CRISTOFER SPRINGER PROVIDER Facility:[facility] Start: 06-11-2022 End: 06-11-2022 Patient encounter procedure Allyson HATCHOrtega [facility] Start: 06-09-2022 End: 07-09-2022 ambulatory SHAIKH Phoung WEINER Facility:[facility] Start: 05-22-2022 ambulatory Allyson GARCIA Facility: [facility] Start: 05-19-2022 End: 05-20-[address] CRISTOFER SPRINGER Facility:[facility] Start: 05-09-2022 End: 06-06-2022 ambulatory SHAIKH Phuong WEINER Facility:[facility] Start: 04-24-2022 End: 04-25-[address] CRISTOFER SPRINGER Facility:[facility] Start: 04-18-2022 End: 04-19-[address] JAYSON BERGERON Facility:[facility] Start: 02-19-2022 End: 02-19-2022 Patient encounter procedure JR Cristofer Springer Work Phone: [facility] [address] Procedures Date Procedure Procedure Detail Performing Clinician Start: 06-22-2023 Follow-up visit Follow-up TONIE BOYD Start: 07-16-2022 Colonoscopy Allyson REVELES MARCI Blepharoplasty Allyson NILOrtega Cholecystectomy Allyson GARCIA Cystopexy Allyson GARCIA Fasciotomy of foot Allyson URRUTIA History of operative procedure on elbow Allyson GARCIA Injection into lumba r epidural space Allyson GARCIA Total abdominal hyst erectomy with bilateral salpingo-oophorectomy Allyson GARCIA Plan of Treatment Date Care Activity Detail Author Aldolase measurement [facility] Work Phone: aPTT.lupus sensitive (LA screen) [facility] Work Phone: aPTT.lupus sensitive W excess phospholipid actual/Normal (normalized LA confirm) [facility] Work Phone: aPTT.lupus sensitive /aPTT.lupus sensitive W excess phospholipid (screen to confirm ra [facility] Work Phone: Chromatin Ab [Units/ volume] in Serum or Plasma [facility] Work Phone: Complement C3 [Mass/ volume] in Serum or Plasma [facility] Work Phone: Complement C4 [Mass/ volume] in Serum or Plasma [facility] Work Phone: dRVVT (LA screen) [facility] Work Phone: Hemolytic complement CH50 level [facility] Work Phone: Homogenous nuclear A b pattern [Titer] in Serum [facility] Work Phone: Lupus anticoagulant [Interpretation] in Platelet poor plasma [facility] Work Phone: Myoglobin [Mass/volume] in Serum or Plasm a [facility] Work Phone: Nuclear Ab [Titer] in Serum [facility] Work Phone: Reagin Ab [Presence] in Serum by RPR [facility] Work Phone: Thrombin time [facility] Work Phone: Thyroglobulin Ab [Un its/volume] in Serum or Plasma [facility] Work Phone: Thyroperoxidase Ab [ Units/volume] in Serum or Plasma [facility] Work Phone: Payers Date Payer Category Payer Self-pay [id number] 1960 Unknown [id number] [id number] 7 1960 Unknown [id number] 2.16.840.1.204013.3.579.2.72 7 1960 Unknown [id number] 2.16.840.1.672970.3.579.2.72 7 1960 Unknown [id number] 2.16.840.1.579806.3.579.2.59 3 1960 Unknown [id number] 2.16.840.1.861944.3.579.2.59 3 1960 Unknown [id number] 2.16.840.1.285612.3.579.2.59 3 1960 Unknown [id number] 2.16.840.1.351703.3.579.2.59 3 1960 Unknown [id number] 2.16.840.1.198723.3.579.2.59 3 1960 Unknown [id number] 2.16.840.1.739791.3.579.2.59 3 1960 Unknown [id number] 2.16.840.1.803908.3.579.2.59 3 1960 Unknown [id number] 2.16.840.1.631576.3.579.2.59 3 1960 Unknown [id number] 2.16.840.1.414529.3.579.2.59 3 1960 Unknown [id number] 2.16.840.1.570761.3.579.2.59 3 1960 Unknown [id number] 2.16.840.1.953819.3.579.2.59 3 1960 Unknown [id number] 2.16.840.1.507905.3.579.2.59 3 1960 Unknown [id number] 2.16.840.1.642008.3.579.2.59 3 1960 Unknown [id number] 2.16.840.1.135145.3.579.2.59 3 1960 Unknown [id number] 2.16.840.1.015888.3.579.2.59 3 1960 Unknown [id number] 2.16.840.1.921797.3.579.2.59 3 1960 Unknown [id number] 2.16.840.1.588693.3.579.2.59 3 1960 Unknown [id number] 2.16.840.1.955703.3.579.2.59 3 1960 Unknown [id number] 2.16.840.1.750491.3.579.2.59 3 1960 Unknown [id number] 2.16.840.1.768835.3.579.2.59 3 1960 Unknown [id number] 2.16.840.1.334159.3.579.2.59 3 1960 Unknown [id number] 2.16.840.1.357928.3.579.2.59 3 1962 Unknown [id number] 2.16.840.1.512602.3.579.2.59 3 1959 Private Health Insurance [id number] Private Health Insurance [employer] [id number] Private Health Insurance [id number] Unknown [facility] [facility] [id number] Unknown [id number] 2.16.840.1.954877.3.579.2.53 1 Social History Date Type Detail Facility [facility]: [facility] Start: 1960 Sex Assigned At Female [facility] Start: 06-11-2022 Tobacco smoking status Heavy t obacco smoker (finding) [facility] [place] Tobacco smoking status Never [facility] Sex Assigned At Female [facility] Functional Status Date Assessment Result Facility 06-11-2022 Functional Status N/A General [facility] Clinical Notes 04-24-2022 to 06-22-2023 Note Date & Type Note Facility 06-22-2023 Note In person visit Chief complaint: back pain - some leg pain PILOT STATION: 62 yo woman - I have seen her one time in the past. When I saw her about a month ago I recommended that she get MRI lumbar completed and then come back to see me. She has had injections - including RFA (she says L2-L4/5 or maybe S1) and more recently SI injection. She has pain - mostly in her back. Some that is near the right hip/groin area. I have not previously offered her surgery. She finds the pain to be limiting for her ADLs overall. No b/b change. ROS: As above No past medical history on file. Past Surgical History: Procedure Laterality Date BLADDER SURGERY bladder tuck CHOLECYSTECTOMY DEBRIDEMENT TENNIS ELBOW Left HEEL SPUR SURGERY Bilateral HYSTERECTOMY total Current Outpatient Medications on File Prior to Visit Medication Sig Dispense Refill Anoro Ellipta 62.5-25 mcg/actuation blister with device INHALE 1 PUFF BY MOUTH ONCE DAILY aspirin 81 mg EC tablet Take 81 mg by mouth. azelastine (Astelin) 137 mcg (0.1 %) nasal spray USE 2 DOSES IN EACH NOSTRIL TWICE DAILY benzonatate (Tessalon) 200 mg capsule TAKE 1 CAPSULE BY MOUTH EVERY 8 HOURS NEEDED FOR COUGH [id number] 2-30-10 mg/5 mL syrup TAKE 10 ML BY MOUTH NEEDED EVERY 8 HOURS budesonide (Pulmicort) 0.5 mg/2 mL nebulizer solution celecoxib (CeleBREX) 100 mg capsule Take 100 mg by mouth. colesevelam (Welchol) 625 mg tablet Take 1,875 mg by mouth. HYDROcodone-acetaminophen ([place]) 5-325 mg tablet TAKE 1 TABLET BY MOUTH TWICE DAILY NEEDED MUST LAST 30 DAYS hydrOXYzine HCL (Atarax) 25 mg tablet Take 1 tablet by mouth in the morning and at bedtime. lansoprazole (Prevacid) [address] capsule Take 30 mg by mouth in the morning. montelukast (Singulair) 10 mg tablet Take 10 mg by mouth in the morning. nystatin (Mycostatin) cream rosuvastatin (Crestor) 10 mg tablet Take 10 mg by mouth in the morning. warfarin (Coumadin) 5 mg tablet TAKE 1 TABLET BY MOUTH ONCE DAILY OR DIRECTED BY MEDICATION MANAGEMENT CLINIC baclofen (Lioresal) 10 mg tablet diazePAM (Valium) 5 mg tablet Take 1-2 tablets (5-10 mg) by mouth 1 (one) time for 1 dose. 2 tablet 0 [DISCONTINUED] baclofen (Lioresal) 5 mg tablet TAKE 1 TABLET BY MOUTH IN THE MORNING, 1 TABLET IN THE AFTERNOON AND 1 OR 2 TABLETS AT BEDTIME. No current facility-administered medications on file prior to visit. Allergies Allergen Reactions Cefaclor Other, Rash and Unknown Codeine Unknown and Other chest pain Keflet Rash Cephalexin Other, Rash and Unknown Enoxaparin Rash Exam; BP (!) 111/49 (BP Location: Left arm, Patient Position: Sitting, BP Cuff Size: Adult) Pulse 77 Wt 104 kg (229 lb) SpO2 95% BMI 38.11 kg/m??? Age appropriate yes family present - /SO NC/AT Well developed, well nourished Mood/affect normal Awake, alert, oriented CN intact Speech intact Cognition intact Motor: no clear focal motor deficit Sensory: intact to LT Ambulatory Station intact Coordination intact Reflexes: Review of films; I personally reviewed and interpreted her imaging for her She has multi-level DDD She has loss of normal lumbar lordosis There is no deformity of listhesis Radiology report: FINDINGS: Preserved lumbar vertebral body heights. No substantial listhesis. No suspicious bone marrow replacing process. Edema about the anterior aspect of L1-L2, right lateral margin of L4-L5, degenerative. Conus terminates at L2, no distal cord signal change. T12-L1: Disc bulge with marginal disc osteophyte extending into the right greater than left foraminal extra foraminal regions. Mild focal thecal sac narrowing. Mild/moderate right, no significant left, neural foraminal narrowing. L1-L2: Disc bulge, marginal disc osteophyte extends into the foraminal and extra foraminal regions. Ligamentum flavum thickening. Mild focal thecal sac narrowing. Mild/moderate left greater than right neural foraminal narrowing. L2-L3: Diffuse disc bulge, marginal disc osteophyte extends into the left greater than right foraminal and extra foraminal regions. Ligamentum flavum thickening. Mild focal thecal sac narrowing. Asymmetric crowding left opercular zone without overt nerve root impingement. Mild/moderate left, mild right, neural foraminal narrowing. L3-L4: Disc bulge. Ligament of flavum thickening. Mild/moderate left, mild right, neural foraminal narrowing. L4-L5: Disc bulge, marginal disc osteophyte extends into the right greater than left foraminal and extra foraminal regions. Ligamentum flavum thickening. Mild focal thecal sac narrowing. Moderate right, mild left, neural foraminal narrowing. L5-S1: Disc bulge, marginal disc osteophyte extends of the left greater than right foraminal and extra foraminal regions. Mild/moderate left, mild right, neural foraminal narrowing. Asymmetric volume loss, fatty replacement deep right paraspinal musculature (more content not included)... [facility] 05-26-2023 Note In person visit Chief complaint: back and leg problem - the right leg PILOT STATION: 62 y/o R handed - she is on disability - she is on partly due to her back and other things. 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 She has never had back surgery before. She had a problem in the with her back. She saw a Dr. Yun in [place] back then. Then aroudn 2010 she get herniated discs and had radiculopathy down her right leg. She has been to pain management - prior in [place] (was with Dr. Williamson) and now she is with [place]. She had injections in her back - she said the one's she had in [place] didn't help that much. Then in [place] she had nerve burning from L2-down for her arthritis. Then she had RFA in her SI joint. She said when he did the nerve burn for the SI joint - she had some pain in her back and then some electrical pain in her leg. That was for a few days. Then that seemed to go away. She thinks that she is starting to get some more pain in her hip area now. She said after the right injection (? SI joint) she had quite a bit of pain in her lower back on the left side with pain going down and into her left knee. Then she also had some trigger point injections. She was offered to have the RFA again - but she wanted to come to see a neurosurgeon prior to having more pain management interventions. She thinks she had MRI about 3 years ago - she had it at [facility] in [place] ([address] She is claustrophobic and wanted it to be done at an open MRI. She had two knee surgeries - both on the left knee. Those were about - maybe about 2017 and 2019. She says the knee is now bone to bone and that at some point she will need a knee replacement. She had her last injection in her knee by her mold maker - had Gelson 3 - you get one injection per week for [address] Fredo Valentin in [place] about her back in the past - she thinks maybe about 2012 or 2013. She said that it was a worker's compensation injury back then. She said he didn't want to do anything due to it being worker's comp back then. She is no longer pursuing any worker's compensation for this problem. She can urinate OK and pass her bowels OK. She feels like the right leg is weaker than the left leg. She has numbness and tingling in her right footand toes - the middle toes (not the baby toe). ROS: As above No past medical history on file. Past Surgical History: Procedure Laterality Date BLADDER SURGERY bladder tuck CHOLECYSTECTOMY DEBRIDEMENT TENNIS ELBOW Left HEEL SPUR SURGERY Bilateral HYSTERECTOMY total Current Outpatient Medications on File Prior to Visit Medication Sig Dispense Refill Anoro Ellipta 62.5-25 mcg/actuation blister with device INHALE 1 PUFF BY MOUTH ONCE DAILY aspirin 81 mg EC tablet Take 81 mg by mouth. azelastine (Astelin) 137 mcg (0.1 %) nasal spray USE 2 DOSES IN EACH NOSTRIL TWICE DAILY baclofen (Lioresal) 5 mg tablet TAKE 1 TABLET BY MOUTH IN THE MORNING, 1 TABLET IN THE AFTERNOON AND 1 OR 2 TABLETS AT BEDTIME. benzonatate (Tessalon) 200 mg capsule TAKE 1 CAPSULE BY MOUTH EVERY 8 HOURS NEEDED FOR COUGH cbylqmbhemawsiw-[id number] 2-30-10 mg/5 mL syrup TAKE 10 ML BY MOUTH NEEDED EVERY 8 HOURS budesonide (Pulmicort) 0.5 mg/2 mL nebulizer solution celecoxib (CeleBREX) 100 mg capsule Take 100 mg by mouth. colesevelam (Welchol) 625 mg tablet Take 1,875 mg by mouth. HYDROcodone-acetaminophen ([place]) 5-325 mg tablet TAKE 1 TABLET BY MOUTH TWICE DAILY NEEDED MUST LAST 30 DAYS hydrOXYzine HCL (Atarax) 25 mg tablet Take 1 tablet by mouth in the morning and at bedtime. lansoprazole (Prevacid) [address] capsule Take 30 mg by mouth in the morning. montelukast (Singulair) 10 mg tablet Take 10 mg by mouth in the morning. nystatin (Mycostatin) cream rosuvastatin (Crestor) 10 mg tablet Take 10 mg by mouth in the morning. warfarin (Coumadin) 5 mg tablet TAKE 1 TABLET BY MOUTH ONCE DAILY OR DIRECTED BY MEDICATION MANAGEMENT CLINIC [DISCONTINUED] azelastine/fluticasone (DYMISTA NASL) in the morning. [DISCONTINUED] cyclobenzaprine (Flexeril) 10 mg tablet Take 1 tablet every day by oral route as needed. [DISCONTINUED] gabapentin (Neurontin) 600 mg tablet Take 600 mg by mouth in the morning. [DISCONTINUED] hydrOXYzine pamoate (VistariL) 25 mg capsule Take 1 capsule 4 times a day by oral route. [DISCONTINUED] olopatadine (Patanase) 0.6 % spray,non-aerosol nasal spray [place] 2 sprays twice a day by intranasal route as needed. [DISCONTINUED] OXcarbazepine (TrileptaL) 300 mg tablet Take 1 tablet every day by oral route at bedtime. [DISCONTINUED] predniSONE (Deltasone) 20 mg tablet take 1 tablet by mouth twice a day for 5 days [DISCONTINUED] raNITIdine (Zantac) 150 mg tablet Take 1 tablet twice a day by oral route. No current facility-administered medications on file prior to visit. Allergies Allergen Re (more content not included)... [facility] 02-03-2023 Note CONSULTATION CONSULTATION DATE: 02/03/2023 TO: Dr. Springer CHIEF COMPLAINT: Includes severe right lower hip pain, buttock pain. HISTORY: She reports the pain as being 5-7/10 pain, sharp/burning in character, increased with light touch. She also reports transitioning maneuvers are also quite uncomfortable. She feels most comfortable in the semi-recumbent position. She denies any change in bowel and bladder habits or new sensorimotor change in the lower extremities. EXAM: Notable for patient having dysesthesia and hypoesthesia along the distribution of the right lateral cutaneous branch of the iliohypogastric nerve. She has a fair amount of myofascial spasm along the lumbar paravertebral muscles as well. She has nothing to suggest facet loading pain clinically, radiculopathy or myelopathy of her lower extremities. 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 Patient was intolerant to Neurontin. RECOMMENDATIONS: I have recommended she continue off of the same. I have asked her to trial topical analgesics in the form of a local anesthetic such as topical lidocaine patch. We will refill the De Soto on today's visit; 55 pills to last one month's time. Aquatic therapy was ordered, and we will obtain urine toxicology screen. I have gone over the details of proceeding with a diagnostic right lateral cutaneous branch of the iliohypogastric nerve. All her questions were answered. She agrees to proceed with the outlined plan. [facility] 11-06-2022 Note CONSULTATION CONSULTATION DATE: 11/06/2022 HISTORY OF PRESENT ILLNESS: This is a 62-year-old female, returning to the clinic for a three month follow up for her chronic lower back pain and lumbar radiculitis. She is also under the care of her GP, Dr. Springer, and Dr. Walls in Rheumatology. Patient states Dr. Walls does do injections in her knees, and recently Dr. Springer placed her on a 15 day course of oral steroids in early October for a major sinus infection. Other medications include Celebrex, baclofen, [place] 5/325 b.i.d., gabapentin 600 mg daily. At her last appointment in July, her Neurontin was increased from 400 mg daily to 600, which she feels has really helped. She takes that in the evening and has allowed her to sleep more through the night, although she still does wake up. Her pain is 2/10 today, described as throbbing. Overall, she feels her back is doing quite well. Her primary area is her bilateral knee pain, which her mold maker is caring for. Activities such as stairs, bending, standing, walking aggravate her pain. She does use heat, which decreases her pain. Patient's REVIEW OF SYSTEMS / PAST MEDICAL HISTORY / ALLERGIES and IMAGES have been reviewed and noted in the chart. PHYSICAL EXAM: VITAL SIGNS: Blood pressure is 125/81. Heart rate is 72. Temperature is 97.1. She is 5'5 , weighs 102 kg. GENERAL APPEARANCE: Pleasant, appropriate, in no acute distress. FOCUSED EXAM - BACK: Range of motion is functional in lateral rotation and flexion/extension. Paravertebral muscles are non-spasmodic. No reproduction of spinal axial pain upon deep compression along the lumbar facets. Maxwell's point is non-tender bilaterally. Negative FABERs and compression test. MUSCULOSKELETAL: Motor is 4/5 bilaterally. Patient walks unassisted with a steady gait. No vasomotor weakness noted. NEUROLOGICAL: Patchy hypoesthesia noted down the right lower extremity to the level of the ankle along the L5-S1 distribution. Bilateral reflexes are +1. DIAGNOSIS: Bilateral knee osteoarthritis, lumbar radiculitis, lumbar degenerative disc disease and lumbar spondylosis. PLAN: We will refill her gabapentin at 600 mg q.h.s. There will be no other medication changes today. Vitamin and nutrition importance was discussed. At her next follow up, we will consider possibly increasing to 800 mg of gabapentin q.h.s., but we will make that decision at that appointment. We will see her in three months' time. Patient is in agreement. [facility] 07-31-2022 Note CONSULTATION CONSULTATION DATE: 07/31/2022 HISTORY OF PRESENT ILLNESS: This is a 61-year-old female returning to the clinic for a three month follow up for chronic lower back pain. She was last seen on 04/24/2022 and, at that time, she received bilateral lumbar trigger point injections and she has reported 25% improvement for one week. She has had radiofrequency ablation to her lumbar spine in January of 2021. That afforded her 40% relief. Today, she is describing tenderness diffusely across her lower back with radiating pain down the lateral aspect of her right leg, just below the knee. It is aggravated by sitting, walking, pushing, pulling, lifting and housework. She does use heat and Aspercreme which does help. Current medications include Coumadin, Tylenol Arthritis, baclofen 10 mg b.i.d., Celebrex 100 mg b.i.d. and Neurontin 400 mg daily. She does have [place] 5/325 b. i.d. as well. Patient is most bothered by the radiating pain and is aggravated with physical activity. Patient's REVIEW OF SYSTEMS / PAST MEDICAL HISTORY / ALLERGIES and IMAGES have been reviewed and they are noted on the chart. PHYSICAL EXAM: VITAL SIGNS: Blood pressure 116/74, heart rate is 76. Temperature is 97.5. She is 5'5 , weighs 100 kg. GENERAL IMPRESSION: Pleasant, appropriate, no acute distress. FOCUSED EXAM - BACK: Range of motion is functional in lateral rotation and flexion/extension. Paravertebral muscles are non-spasmodic. Reproduction of patient's symptomatology to direct compression along the lumbar facets of L2, L3 and L4, L5. Positive jump response. Pain was radiating to right hip lateral aspect, just below the knee. Maxwell's point is non-tender. MUSCULOSKELETAL: Motor is intact, 4/5 bilaterally with good muscle tone and ambulates with a steady gait. NEUROLOGICAL: Patchy hypoesthesia noted along L4-L5 dermatome to the right. +1 bilateral patellar and Achilles reflexes. DIAGNOSIS: Lumbar neuritis, chronic lower back pain, lumbar degenerative disc disease and lumbar spondylosis. PLAN: The patient has tried Lyrica in the past stating that it made her overly vertiginous. We will slightly bump up her Neurontin to 600 mg daily. Stretches were discussed as well as vitamins and the use of Vicks mixed with Voltaren gel to her back. I did offer to authorize for repeating RFAs, but she declined injections at this time stating it is too inconvenient coming off her Coumadin. Patient prefers supportive measures at this time. We will see the patient in three months' time unless otherwise indicated. Patient agrees with the plan. [facility] 07-29-2022 Hospital Discharge instructions Patient Education 07/29/2022 15:50:02 Colon Polyps Colon Polyps Polyps are tissue growths inside the body. Polyps can grow in many places, including the large intestine (colon). A polyp may be a round bump or a mushroom-shaped growth. You could have one polyp or several. Most colon polyps are noncancerous (benign). However, some colon polyps can become cancerous over time. Finding and removing the polyps early can help prevent this. What are the causes? The exact cause of colon polyps is not known. What increases the risk? You are more likely to develop this condition if you: Have a family history of colon cancer or colon polyps. Are older than 50 or older than 45 if you are . Have inflammatory bowel disease, such as ulcerative colitis or Crohn's disease. Have certain hereditary conditions, such as: ?Familial adenomatous polyposis. ?Mckinney syndrome. ?Turcot syndrome. ?Peutz Jeghers syndrome. Are overweight. Smoke cigarettes. Do not get enough exercise. Drink too much alcohol. Eat a diet that is high in fat and red meat and low in fiber. Had childhood cancer that was treated with abdominal radiation. What are the signs or symptoms? Most polyps do not cause symptoms. If you have symptoms, they may include: Blood coming from your rectum when having a bowel movement. Blood in your stool. The stool may look dark red or black. Abdominal pain. A change in bowel habits, such as constipation or diarrhea. How is this diagnosed? This condition is diagnosed with a colonoscopy. This is a procedure in which a lighted, flexible scope is inserted into the anus and then passed into the colon to examine the area. Polyps are sometimes found when a colonoscopy is done as part of routine cancer screening tests. How is this treated? Treatment for this condition involves removing any polyps that are found. Most polyps can be removed during a colonoscopy. Those polyps will then be tested for cancer. Additional treatment may be needed depending on the results of testing. Follow these instructions at home: Lifestyle Maintain a healthy weight, or lose weight if recommended by your health care provider. Exercise every day or as told by your health care provider. Do not use any products that contain nicotine or tobacco, such as cigarettes and e-cigarettes. If you need help quitting, ask your health care provider. If you drink alcohol, limit how much you have: ?0 1 drink a day for women. ? 0 2 drinks a day for men. Be aware of how much alcohol is in your drink. In the [place] one drink equals one 12 oz bottle of beer (355 mL), one 5 oz glass of wine (148 mL), or one 1 oz shot of hard liquor (44 mL). Eating and drinking Eat foods that are high in fiber, such as fruits, vegetables, and whole grains. Eat foods that are high in calcium and vitamin D, such as milk, cheese, yogurt, eggs, liver, fish, and broccoli. Limit foods that are high in fat, such as fried foods and desserts. Limit the amount of red meat and processed meat you eat, such as hot dogs, sausage, castellanos, and lunch meats. General instructions Keep all follow-up visits as told by your health care provider. This is important. ?This includes having regularly scheduled colonoscopies. ?Talk to your health care provider about when you need a colonoscopy. Contact a health care provider if: You have new or worsening bleeding during a bowel movement. You have new or increased blood in your stool. You have a change in bowel habits. You lose weight for no known reason. Summary Polyps are tissue growths inside the body. Polyps can grow in many places, including the colon. Most colon polyps are noncancerous (benign), but some can become cancerous over time. This condition is diagnosed with a colonoscopy. Treatment for this condition involves removing any polyps that are found. Most polyps can be removed during a colonoscopy. This information is not intended to replace advice given to you by your health care provider. Make sure you discuss any questions you have with your health care provider. Document Released: 07/22/2005 Document Revised: 02/10/2019 Document Reviewed: 02/10/2019 [employer] Patient Education [facility] [place] 07-16-2022 Note OPERATIVE NOTE OPERATION DATE: 07/16/2022 PREOPERATIVE DIAGNOSIS: Positive Cologuard, personal history of colon polyps. POSTOPERATIVE DIAGNOSIS: 3 mm sessile polyp in the sigmoid colon at 20 cm. PROCEDURE: Colonoscopy to cecum with cold snare polypectomy x1 for sigmoid polyp. SURGEON: Allyson Garcia M.D. ANESTHESIA: Monitored anesthesia care. ESTIMATED BLOOD LOSS: Less than 1 mL. INDICATIONS AND CONSENT: Patient is a 61-year-old female with recent positive Cologuard. She also has a personal history of colon polyps. She is also on Coumadin therapy. Indications, risks, benefits, alternatives of proceeding with colonoscopy were explained extensively to the patient, including the risks of bleeding, colon perforation or anesthetic complications. All of her questions were answered. Informed consent was obtained. She did, however, come in four days prior to the procedure and INR was normal this morning. PROCEDURE: Patient brought to the operating room, placed in the left lateral decubitus position. Monitored anesthesia care was provided. Rectal exam was performed which showed no masses or blood. The scope was inserted into the anal canal. Under direct visualization was advanced. With the aid of abdominal compression, it was advanced to the cecum where cecal markings were clearly identified. Upon withdrawal of the scope, mucosal surfaces were carefully examined. There were no mass lesions or inflammatory changes. No significant diverticulosis. There was a tortuous colon with spasm. At 20 cm, there was noted to be a 3 mm friable, erythematous, sessile polyp that was removed with cold snare with good hemostasis. The scope was retroflexed in the anal canal. There was no significant hemorrhoidal disease. The scope was then withdrawn. Patient tolerated procedure well, was sent to recovery room in good condition. CC: Cristofer Springer D.O. [facility] 06-11-2022 Note Chief Complaint consultation for positive Cologuard HPI Staff 61 year old female presents on consultation from Dr. Springer for positive Cologuard. Denies abdominal or rectal pain. No rectal bleeding or change in bowel habits. Denies nausea or vomiting. No unexplained weight loss. Last colonoscopy 06/2016 with hyperplastic polyp. History of tubular adenoma 2011. No known family history of colon cancer. History of Present Illness 61 yo female with h/o COPD, lupus anticoagulant disorder, with remote h/o PE, on chronic coumadin therapy, hyperlipidemia, GERD, referred for positive Cologuard; denies change in bms or blood in stools, no abdominal complaints; last colonoscopy 2015 with several hyperplastic polyps removed, adenomatous colon polyp removed in 2011; abdominal operations significant for cholecystectomy and MED with bso; on baby asa and Coumadin daily, no NSAIDs, no SBE prophylaxis, no fmhx of GI malignancy, h/o colitis in 2 siblings; smokes daily. Review of Systems PHQ Score Initial Depression Screen Score: 0 ROS - Provider Constitutional: no fever, no sweats, no weight loss. Eyes: no glasses, no blurred vision, no visual loss. ENMT: no dentures, no hoarseness, no swallowing difficulties, no hearing loss, no ear infection(s), no nose bleeds. Cardiovascular: normal blood pressure, no chest pain, regular heartbeat, no heart murmur. Respiratory: no shortness of breath, no cough, no asthma, no wheezing. Gastrointestinal: no nausea, no vomiting, no diarrhea, no constipation, no blood in stool, no change in bowel habits, no abdominal pain, no hepatitis. Genitourinary: no kidney stones, no urine infection, no dysuria. Musculoskeletal: no pain, no weakness. Skin: no changing moles, no rash, no skin lumps. Neurologic: no seizures, no epilepsy, no headache. Psychiatric: no emotional or psychiatric problem. Heme/Lymph: no bleeding problems, no anemia, no blood clots, no transfusions. Allergy/Immunologic: no swollen lymph nodes/glands, no IV drug abuse. Other: Additional ROS info: Except as noted in the above Review of Systems and in the History of Present Illness, all other systems have been reviewed and are negative or noncontributory. Physical Exam Vitals & Measurements HR: 70(Peripheral) RR: 16 BP: 114/76 HT: 165.1 cm HT: 165.1 cm WT: 98.2 kg WT: 98.2 kg BMI: 36.03 HEENT: normal conjunctiva, sclera clear, no scleral icterus, EOM intact, PERRLA. oral mucosa moist without lesions Neck: trachea midline , no mass, symmetric, no thyromegaly or nodules. no adenopathy Respiratory: lungs CTA, respirations non labored. Cardiovascular: regular rate and rhythm, no murmur, , no pedal edema or varicosities. Gastrointestinal: soft, non distended, no tenderness, no masses, no palpable hernias, diastasis recti no, no hepatosplenomegaly. normal bs Lymphatic: no cervical adenopathy, Musculoskeletal: normalgait, digits and nails without infection, nodes, cyanosis, clubbing. Skin: no rashes, no lesions, no ulcers, no subcutaneous nodules, induration. Psychiatric/Neuro: oriented to time, place, person, judgement normal, affect appropriate for age, insight intact, no focal deficits. Tests: , review of old records completed, Discussed surgical options, risks, and possible complications with patient. Assessment/Plan 1. Positive colorectal cancer screening using Cologuard test (R19.5: Other fecal abnormalities) plan colonoscopy under anesthesia, informed consent obtained. hold Coumadin 4 days pior to OR. 2. 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 BMI 36.0-36.9,adult (Z68.36: Body mass index [BMI] 36.0-36.9, adult) recommend diet and exercise. Follow-up No qualifying data available Problem List/Past Medical History Ongoing Anxiety BMI 36.0-36.9,adult Chronic anticoagulation Chronic obstructive pulmonary disease Fibromyalgia GERD (gastroesophageal reflux disease) History of pulmonary embolism Lupus anticoagulant disorder Positive colorectal cancer screening using Cologuard test Radiculopathy Tubular adenoma Historical No qualifying data Procedure/Surgical History Blepharoplasty, Cholecystectomy, History of elbow surgery, Lumbar epidural injection, Plantar fasciotomy, Suspension of bladder, MED BSO - Total abdominal hysterectomy and bilateral salpingo-oophorectomy. Medications albuterol HFA 90 mcg/inh MDI, 2 puff(s), Inhalation, q6hr, PRN Anoro Ellipta 62.5 mcg-25 mcg inhalation powder, 1 inh, Inhalation, Daily aspirin 81 mg Oral EC Tab, 81 mg= 1 tab(s), Oral, Daily baclofen 10 mg Tab, 10 mg= 1 tab(s), Oral, q8hr, PRN CeleBREX 100 mg Cap, 100 mg= 1 cap(s), Oral, BID Coumadin Crestor 10 mg Tab, 10 mg= 1 tab(s), Oral, Daily gabapentin 400 mg Cap, 400 mg= 1 cap(s), Oral, Daily hydrOXYzine hydrochloride 25 mg Tab, 25 mg= 1 tab(s), Oral, Daily [place] 325 mg-5 mg oral tablet, 1 tab(s), Oral, BID, PRN Prevacid 30 mg Cap-DR, 30 mg= 1 cap(s), Oral (more content not included)... [facility] Comment on above: Result Comment: Elec tronically Signed By: GLORIA WILLS, Allyson Castellanos.[email or web address]\Date and Time Signed: 06/11/22 15:12 EDT 04-24-2022 Note CONSULTATION CONSULTATION DATE: 04/24/2022 HISTORY OF PRESENT ILLNESS: This is a 61-year-old female, returning to the clinic for a three month follow up for chronic lower back pain and right leg pain. She was last seen on 01/29/2022 which, at that time, she received bilateral lower lumbar trigger point injections which were very beneficial to her. Overall, she feels that she is doing good with the exception of occasional spasms to her right lower lumbar and buttock area. While standing in line at the grocery store, she feels tension and feels the need to sit down. Her pain is aggravated by stairs, standing, pushing, pulling and kitchen work. She uses heat throughout the day, which is greatly beneficial to her. Medications include [place] 5/325 b.i.d., baclofen 10 mg q.h.s., Neurontin 400 mg q.p.m. and Celebrex 100 mg b.i.d. Her mold maker has placed her on Tylenol arthritis six tabs a day, but the patient does not feel much improvement with that new regimen. She is also on Coumadin. She denies any new motor weakness or radicular pain. Patient's REVIEW OF SYSTEMS / PAST MEDICAL HISTORY / ALLERGIES and IMAGES have been reviewed and they are noted in the chart. PHYSICAL EXAM: VITAL SIGNS: Blood pressure is 109/71. Heart rate is 86. Temperature is 97.8. She is 5'5 and weighs 99.7 kg. GENERAL APPEARANCE: Pleasant and appropriate, in no acute distress. FOCUSED EXAM - BACK: Range of motion is functional in lateral rotation and flexion/extension. No reproduction of spinal axial pain to direct compression along the lumbar facets. Pain symptomatology reproduction to deep compression along the right lumbar paravertebral muscle. Positive jump response. Maxwell's point mildly tender to the right with negative Chavo's and compression test. MUSCULOSKELETAL: Muscle tone is good bilaterally. Motor is intact, 4/5 bilaterally. She does not use assistive device and ambulates with a slow and a steady gait. NEUROLOGICAL: Patchy hypoesthesia noted along L4-L5 dermatome to the right lower extremity that extends to the mid calf region. IMPRESSION: Right paravertebral lumbar spasm, lumbar degenerative disc disease, lumbar spondylosis. PLAN: Patient will receive a right lumbar trigger point injection in the office, which she does agree to. Education was given regarding continuing heat, stretches which were demonstrated and adding magnesium glycinate 400 mg q.h.s. A U-Tox will be obtained in the clinic today as well. Patient will return to the clinic in three months' time unless otherwise indicated. Patient agrees with the plan of care and would like to proceed with the injection. IF Signed and Approved by: AMINATA LEE . 05/07/2022 16:23:00 [facility] 04-24-2022 Note CONSULTATION PROCEDURE DATE:04/24/2022 PREOPERATIVE DIAGNOSIS: Right lumbar paravertebral spasm. POSTOPERATIVE DIAGNOSIS: Right lumbar paravertebral spasm. PROCEDURE: Right lumbar trigger point injection. Subsequent to obtaining informed consent, the patient was placed in the upright standing forward flexion position. Alcohol prep was used to sterilize the site. A 25 gauge needle with 0.125% Marcaine and 40 mg of Kenalog was used in one site. Negative heme. Needle was placed to rest inside the trigger points with medication injected in a slow, fan-like pattern. Patient tolerated the procedure well with no overt complications. She will be followed up in the office. IFC Signed and Approved by: AMINATA LEE . 05/07/2022 16:23:00 [facility] Evaluation + Plan note No data available for this section [facility] [place] Evaluation note No assessment information availa lucila [facility] Work Phone: Hospital Discharge instructions No data available for this section [facility] [place] Progress note No data available for this section [facility] [place] Family History No Family History Records Found Relationship Condition Age at Onset Recorded Date/T giovana father Malignant neoplasm of prostate Unknown Not Specified Hypertension Unknown Disorder of lung Unknown sister Rheumatoid arthritis Unknown daughter Lupus Unknown Rheumatoid arthritis Unknown Advance Directives No Advanced Directives Records Found Advance Directive Response Recorded Date/ Time Advance Directives No August 09, 2019 3:08pm Summary Purpose Additional Source Comments Care Teams (unrecognized sec tion and content) Team Status: Inactive Member Role Status Dates Cristofer Springer JR DO Primary Care Provider Active uSnday Walls MD Attending Provider Active Team Status: Active Member Role Status Dates Cristofer Springer JR DO Primary Care Provider Active Team Status: Inactive Member Role Status Dates Cristofer Springer JR DO Primary Care Provider Active Jt Walls MD Attending Provider Active Goals (unrecognized section and content) Goals may be documented in a n alternate section No data available for this section No data available for this sectionGoals may be documented in an alternate section INFORMATION SOURCE (unrecogn ized section and content) DATE CREATED AUTHOR 08/09/2022 [facility] DATE CREATED AUTHOR AUTHOR'S ORGANIZ ATION 04/17/2023 [facility] [place] DATE CREATED AUTHOR AUTHOR'S ORGANIZ ATION 06/23/2023 [facility] DATE CREATED AUTHOR AUTHOR'S ORGANIZ ATION 09/01/2023 [facility] FOR RECORDS PERTAINING TO PATIENTS WHO ARE OR HAVE BEEN ENROLLED IN A CHEMICAL DEPENDENCY/SUBSTANCEABUSE PROGRAM, SOME INFORMATION MAY BE OMITTED. This clinical summary was aggregated from multiple sources. Caution should be exercised in using it in the provision of clinical care. This summary normalizes information from multiple sources, and as a consequence, information in this document may materially change the coding, format and clinical context of patient data. In addition, data may be omitted in some cases. CLINICAL DECISIONS SHOULD BE BASED ON THE PRIMARY CLINICAL RECORDS. [employer] provides no warranty or guarantee of the accuracy or completeness of information in this document.
== END 2023-09-16 10:13 | disposition home or self-care (01) ==
LOC: PM 10:13
PROVIDERS: Visit Provider Nurse Practitioner
DX: M47.26 Other spondylosis with radiculopathy, lumbar region (principal); M79.7 Fibromyalgia; Z79.891 Long term (current) use of opiate analgesic
CPT/HCPCS: G0463

== ENCOUNTER 2023-10-13 15:42 | Outpatient (RCR) | payer MEDICARE, SELFPAY | END 2023-11-06 15:44 | disposition home or self-care (01) | LOC: MM 15:42 | PROVIDERS: Visit Provider Internal Medicine | DX: Z51.81 Encounter for therapeutic drug level monitoring (principal); Z79.01 Long term (current) use of anticoagulants; I26.99 Other pulmonary embolism without acute cor pulmonale | CPT/HCPCS: 85610; G0463 ==

== ENCOUNTER 2023-11-09 02:02 | Outpatient (RCR) | payer MEDICARE, SELFPAY | END 2023-12-09 17:11 | disposition home or self-care (01) | LOC: MM 02:02 | PROVIDERS: Visit Provider Internal Medicine | DX: Z51.81 Encounter for therapeutic drug level monitoring (principal); Z79.01 Long term (current) use of anticoagulants; I26.99 Other pulmonary embolism without acute cor pulmonale | CPT/HCPCS: 85610; G0463 ==

== ENCOUNTER 2023-12-10 00:57 | Outpatient (RCR) | payer MEDICARE, SELFPAY | END 2024-01-07 17:31 | disposition home or self-care (01) | LOC: MM 00:57 | PROVIDERS: Visit Provider Internal Medicine | DX: Z51.81 Encounter for therapeutic drug level monitoring (principal); Z79.01 Long term (current) use of anticoagulants; I26.99 Other pulmonary embolism without acute cor pulmonale | CPT/HCPCS: 85610; G0463 ==

== ENCOUNTER 2023-12-23 10:05 | Outpatient (OUT) | payer MEDICARE, SELFPAY ==
--- OUTSIDE RECORDS SUMMARY | 2023-12-23 10:20 | XMS_ITS | CCD ---
Author Name Unknown Address [address] [place] [address] Organization [facility] Care Team Providers Care [facility]one Tender Name Role Phone JR Cristofer Springer Primary Care Provider [phone] MD Sunday Walls Attending Provider CRISTOFER SPRINGER JR Primary Care Physician Allyson GARCIA Attending Unavailable VALONE PROVIDERCRISTOFER Referring Unavail able Allyson GARCIA Attending Unavailable NILAllyson Vivas Attending Unavailable LAKSHMIPATHY ., NARENDRANATH Admitting Kristie vailable LAKSHMIPATHY ., NARENDRANATH Attending Kristie vailable LAKSHMIPATHY ., NARENDVALENTEATH Consulting Kristie vailable VALONE, DR NGUYEN Primary Care Unavailable VALONE, DR NGUYEN Primary Care Unavailable FAWWANiya, MOODY H Admitting Unavailable FAWWAD, MOODY H Attending Unavailable FAWWAD, MOODY H Attending Unavailable FAYADIRA, MOODY H Admitting Unavailable VALONE, DR NGUYEN Primary Care Unavailable MARVIN ., DR GAURAV Magallon Attending Unavailable NILL [...] Unavailable VALONE, DR NGUYEN Primary Care Unavailable FAWWANiya, MOODY H Attending Unavailable MEGHANWAMARA, MOODY H Admitting Unavailable VALONE, DR NGUYEN [...] Unavailable VALONE, DR NGUYEN Primary Care Unavailable TONI AG Consulting Unava ilable ELYSSA, DR JAYSON Mena Consulting Unavailable SAMSA ., TOÑITO Attending Unavailable SAMSA ., TOÑITO Admitting Unavailable VALONE, DR CRISTOFER Primary Care Unavailable TOÑITO ELLIS Consulting Unavailable DR CRISTOFER SPRINGER Primary Care Unavailable MILA .PRINCESS Admitting Unavailable PRINCESS CASTILLO Attending Unavailable SHAIKH Phuong WEINER Attending Unavailable SHAIKH Phuong WEINER Admitting Unavailable DR CRISTOFER SPRINGER Primary Care Unavailable TONIE MÉNDEZ Referring Unavailable TONIE MÉNDEZ Attending Unavailable TONIE MÉNDEZ Attending Unavailable JR Cristofer Springer Primary Care Provider [phone] MD Jt Walls Attending Provider [phone] Jt Walls Admitting Unavailable Jt Walls Attending Unavailable Cristofer Springer Primary Care Unavailable Allergies Allergy Classification Reported Allergen(s) Allergy Type Date of Onset Reaction(s) Facility (6 sources) Cefaclor; Translations: [Cefaclor] Drug Allergy 3 Eruption of skin (disorder) [facility] (6 sources) Cephalexin; Translations: [Cephalexin] Drug Allergy 4 Eruption of skin (disorder) [facility] (9 sources) Codeine; Translations: [Codeine] Drug Allergy 3 Chest pain (finding) [facility] (4 sources) Enoxaparin; Translations: [enoxaparin] Drug Allergy 3 Eruption of skin (disorder) [facility] [place] (3 sources) Cefaclor; Translations: [Ceclor] Drug Allergy 4 [facility] (3 sources) Cephalexin; Translations: [Keflex] Drug Allergy 4 [facility] Repository (2 sources) Bupranolol Drug Allergy 2 [facility] Repository (1 source) KEFLET; Translations: [KEFLET] Propensity to adverse reactions to drug (disorder) 3 [facility] Repository Medications Current Medications Medication Drug Class(es) Dates Sig (Normalized) Sig (Original) acetaminophen 325 mg / HYDROcodone bitartrate 5 mg oral tablet (4 sources) Opioid Agonist Start: 06-11-2022 take 1 tablet by mouth twice daily as needed for pain [place] 325 mg-5 mg oral tablet 1 tab(s), Oral, BID as needed for pain, Refill(s) 0 Start Date: 06/11/22 Status: Ordered Start: 08-11-2019 take 1 tablet by kayli th every four hours Hydrocodone-Acetaminophen Active 1 TAB P O Q4H August 11, 2019 3:45pm [id number] 200 actuat albuterol 0.09 mg/actuat metered dose [...] Start: 08-11-2019 take 1 capsule by [facility] once daily Celecoxib (Celebrex) 200 mg [...] Ordered Start: 08-11-2019 take 1 capsule by [facility] once daily at bedtime Gabapentin (Neurontin) 400 [...] sources) Long-term current use of anticoagulant; 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] Onset: 2 Episodic Other aftercare (1 source) 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; 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 ANTICOAGULANTS] Onset: 3 Episodic Other [...] Results Test Name Value Interpretation Reference Range Facility Alanine aminotransferase [En zymatic activity/volume] in Serum or PlasmaOrdered By: Jt Walls on 08-24-2023 ALT [Catalytic activity/Vol] 9 U/L 7-52 [facility] Albumin [Mass/volume] in Ser um or Plasma by Bromocresol green (BCG) dye binding methoOrdered By: Jt Walls on 08-24-2023 Albumin BCG dye [Mass/Vol] 4.1 g/dL 3.5-5.7 [facility] Alkaline phosphatase [Enzyma tic activity/volume] in Serum or PlasmaOrdered By: Jt Walls on 08-24-2023 ALP [Catalytic activity/Vol] 83 U/L 34-104 [facility] Aspartate aminotransferase [ Enzymatic activity/volume] in Serum or PlasmaOrdered By: Jt Walls on 08-24-2023 AST [Catalytic activity/Vol] 12 U/L 13-39 [facility] Basophils Auto (Bld) [#/Vol] Ordered By: Jt Walls on 08-24-2023 Basophils (Bld) [#/Vol] 0.0 10*3/uL 0.0-0.2 [facility] Basophils/100 WBC Auto (Bld) Ordered By: Jt Walls on 08-24-2023 Basophils/100 WBC (Bld) 0.6 % . [facility] Bilirubin.total [Mass/volume ] in Serum or PlasmaOrdered By: Jt Walls on 08-24-2023 Bilirubin [Mass/Vol] 0.5 mg/dL 0.3-1.0 [facility] Calcium [Mass/volume] in Ser um or PlasmaOrdered By: Jt Walls on 08-24-2023 Calcium [Mass/Vol] 9.1 mg/dL 8.6-10.3 [facility] Carbon dioxide, total [Moles /volume] in Serum or PlasmaOrdered By: Jt Walls on 08-24-2023 CO2 [Moles/Vol] 28.8 mmol/L 21.0-31.0 [facility] Chloride [Moles/volume] in S nadia or PlasmaOrdered By: Jt Walls on 08-24-2023 Chloride [Moles/Vol] 109 mmol/L 98-107 [facility] Complete Blood Count Auto Di ffon 08-24-2023 Basophils (Bld) [#/Vol] 0.0 10*3/uL Normal 0.0-0.2 [facility] Comment on above: Result Comment: PERF ORMED BY: [facility] [address] [place] [address] PATHOLOGIST SEMICONDUCTOR PROCESSING TECHNICIAN FLORENCIA MARIANO M.D. Performed By: #### C MP, CBC #### [facility] [address] Basophils/100 WBC (Bld) 0.6 % Normal . [facility] Comment on above: Performed By: #### C MP, CBC #### [facility] [address] [place] [address] [place] Eosinophils (Bld) [#/Vol] 0.1 10*3/uL Normal 0.0-0.45 [facility] Comment on above: Performed By: #### C MP, CBC #### [facility] [address] [place] [address] [place] Eosinophils/100 WBC (Bld) 2.2 % Normal . [facility] Comment on above: Performed By: #### C MP, CBC #### [facility] [address] Erythrocyte distribution width (RBC) [Ratio] 14.0 % Normal 11.9-15.3 [facility] Comment on above: Performed By: #### C MP, CBC #### [facility] [address] Hematocrit (Bld) [Volume fraction] 43.2 % Normal 34.0-46.4 [facility] Comment on above: Performed By: #### C MP, CBC #### [facility] [address] [place] [address] [place] Hemoglobin (Bld) [Mass/Vol] 14.4 g/dL Normal 11.8-15.4 [facility] Comment on above: Performed By: #### C MP, CBC #### [facility] [address] [place] [address] [place] Lymphocytes (Bld) [#/Vol] 2.0 10*3/uL Normal 1.00-4.8 [facility] Comment on above: Performed By: #### C MP, CBC #### [facility] [address] [place] [address] [place] Lymphocytes/100 WBC (Bld) 29.3 % Normal . [facility] Comment on above: Performed By: #### C MP, CBC #### [facility] [address] [place] [address] [place] MCH (RBC) [Entitic mass] 31.1 pg Normal 24.7-34.3 [facility] Comment on above: Performed By: #### C MP, CBC #### [facility] [address] MCV (RBC) [Entitic vol] 93.4 fL Normal 80-100 [facility] Comment on above: Performed By: #### C MP, CBC #### [facility] [address] Mean Corpuscular HGB Conc 33.3 g/dL Normal 32.0-35.0 [facility] Comment on above: Performed By: #### C MP, CBC #### [facility] [address] Monocytes (Bld) [#/Vol] 0.5 10*3/uL Normal 0.0-0.8 [facility] Comment on above: Performed By: #### C MP, CBC #### [facility] [address] Monocytes/100 WBC (Bld) 6.8 % Normal . [facility] Comment on above: Performed By: #### C MP, CBC #### [facility] [address] Neutrophils (Bld) [#/Vol] 4.2 10*3/uL Normal 1.8-7.7 [facility] Comment on above: Performed By: #### C MP, CBC #### [facility] [address] Neutrophils/100 WBC (Bld) 61.1 % Normal . [facility] Comment on above: Performed By: #### C MP, CBC #### [facility] [address] NRBC% 0.2 /100{WBC} Normal 0-0.5 [facility] Comment on above: Performed By: #### C MP, CBC #### [facility] [address] Platelet mean volume (Bld) [Entitic vol] 8.8 fL Normal 6.3-10.7 [facility] Comment on above: Performed By: #### C MP, CBC #### [address] Platelets (Bld) [#/Vol] 181 10*3/uL Normal 150-450 [facility] Comment on above: Performed By: #### C MP, CBC #### [address] RBC (Bld) [#/Vol] 4.63 10*6/uL Normal 3.60-5.00 [facility] Comment on above: Performed By: #### C MP, CBC #### [address] WBC (Bld) [#/Vol] 6.8 10*3/uL Normal 3.8-11.6 [facility] Comment on above: Performed By: #### C MP, CBC #### [address] Comprehensive Metabolic Pane carlos alberto 08-24-2023 Albumin [Mass/Vol] 4.1 g/dL Normal 3.5-5.7 [facility] Comment on above: Performed By: #### C MP, CBC #### [address] Albumin/Globulin [Mass ratio] 2.1 {ratio} Normal [facility] Comment on above: Performed By: #### C MP, CBC #### [address] ALP [Catalytic activity/Vol] 83 U/L Normal 34-104 [facility] Comment on above: Result Comment: PERF ORMED BY: [place] [address] PATHOLOGIST SEMICONDUCTOR PROCESSING TECHNICIAN FLORENCIA MARIANO M.D. Performed By: #### C MP, CBC #### [address] ALT [Catalytic activity/Vol] 9 U/L Normal 7-52 [facility] Comment on above: Performed By: #### C MP, CBC #### [address] Anion gap [Moles/Vol] 8.4 mmol/L Normal 6.0-15.0 [facility] Comment on above: Performed By: #### C MP, CBC #### [facility] [address] AST [Catalytic activity/Vol] 12 U/L Low 13-39 [facility] Comment on above: Performed By: #### C MP, CBC #### [facility] [address] Bilirubin [Mass/Vol] 0.5 mg/dL Normal 0.3-1.0 [facility] Comment on above: Performed By: #### C MP, CBC #### [facility] [address] Calcium [Mass/Vol] 9.1 mg/dL Normal 8.6-10.3 [facility] Comment on above: Performed By: #### C MP, CBC #### [facility] [address] [place] [address] Chloride [Moles/Vol] 109 mmol/L High 98-107 [facility] Comment on above: Performed By: #### C MP, CBC #### [address] CO2 [Moles/Vol] 28.8 mmol/L Normal 21.0-31.0 [facility] Comment on above: Performed By: #### C MP, CBC #### [facility] [address] [place] [address] Creatinine [Mass/Vol] 0.81 mg/dL Normal 0.60-1.20 [facility] Comment on above: Performed By: #### C MP, CBC #### [facility] [address] [place] [address] [place] GFR/1.73 sq M.predicted MDRD (S/P/Bld) [Vol rate/Area] mL/min/{1.73_m2} Normal [facility] Comment on above: Performed By: #### C MP, CBC #### [address] Globulin (S) [Mass/Vol] 2.0 g/dL Normal [facility] Comment on above: Performed By: #### C MP, CBC #### [facility] [address] Glucose [Mass/Vol] 90 mg/dL Normal 70-100 [facility] Comment on above: Result Comment: [place] Glucose Reference Range is dependent on time and content of last meal. Glucose of more than 200 mg/dL in a nonstressed, ambulatory subject supports the diagnosis of Diabetes Mellitus. ADA recommended reference range Performed By: #### C MP, CBC #### [facility] [address] Potassium [Moles/Vol] 4.2 mmol/L Normal 3.5-5.1 [facility] Comment on above: Performed By: #### C MP, CBC #### [facility] [address] Protein [Mass/Vol] 6.1 g/dL Low 6.4-8.9 [facility] Comment on above: Performed By: #### C MP, CBC #### [facility] [address] [place] [address] [place] Sodium [Moles/Vol] 142 mmol/L Normal 136-145 [facility] Comment on above: Performed By: #### C MP, CBC #### [facility] [address] [place] [address] [place] Urea nitrogen [Mass/Vol] 12 mg/dL Normal 7-25 [facility] Comment on above: Performed By: #### C MP, CBC #### [facility] [address] [place] [address] [place] Creatinine [Mass/volume] in Serum or PlasmaOrdered By: Jt Walls on 08-24-2023 Creatinine [Mass/Vol] 0.81 mg/dL 0.60-1.20 [facility] Eosinophils Auto (Bld) [#/Vo l]Ordered By: Jt Walls on 08-24-2023 Eosinophils (Bld) [#/Vol] 0.1 10*3/uL 0.0-0.45 [facility] Eosinophils/100 WBC Auto (Bl d)Ordered By: Jt Walls on 08-24-2023 Eosinophils/100 WBC (Bld) 2.2 % . [facility] Erythrocyte distribution wid th Auto (RBC) [Ratio]Ordered By: Jt Walls on 08-24-2023 Erythrocyte distribution width (RBC) [Ratio] 14.0 % 11.9-15.3 [facility] Globulin Calc (S) [Mass/Vol] Ordered By: Jt Walls on 08-24-2023 Globulin (S) [Mass/Vol] 2.0 g/dL [facility] Glucose [Mass/volume] in Ser um or PlasmaOrdered By: Jt Walls on 08-24-2023 Glucose [Mass/Vol] 90 mg/dL 70-100 [facility] Comment on above: ADA recommended refe rence rangeRandom Glucose Reference Range is dependent on time and content of last meal. Glucose of more than 200 mg/dL in a nonstressed, ambulatory subject supports the diagnosis of Diabetes Mellitus. Hematocrit Auto (Bld) [Volum e fraction]Ordered By: Jt Walls on 08-24-2023 Hematocrit (Bld) [Volume fraction] 43.2 % 34.0-46.4 [facility] Hemoglobin [Mass/volume] in BloodOrdered By: Jt Walls on 08-24-2023 Hemoglobin (Bld) [Mass/Vol] 14.4 g/dL 11.8-15.4 [facility] Leukocytes [#/volume] correc zay for nucleated erythrocytes in Blood by Automated counOrdered By: Jt Walls on 08-24-2023 WBC corrected for nucl RBC Auto (Bld) [#/Vol] 6.8 10*3/uL 3.8-11.6 [facility] Lymphocytes Auto (Bld) [#/Vo l]Ordered By: Jt Walls on 08-24-2023 Lymphocytes (Bld) [#/Vol] 2.0 10*3/uL 1.00-4.8 [facility] Lymphocytes/100 WBC Auto (Bl d)Ordered By: Jt Walls on 08-24-2023 Lymphocytes/100 WBC (Bld) 29.3 % . [facility] MCH Auto (RBC) [Entitic mass ]Ordered By: Jt Walls on 08-24-2023 MCH (RBC) [Entitic mass] 31.1 pg 24.7-34.3 [facility] MCHC Auto (RBC) [Mass/Vol]Or dered By: Jt Walls on 08-24-2023 MCHC (RBC) [Mass/Vol] 33.3 g/dL 32.0-35.0 [facility] MCV Auto (RBC) [Entitic vol] Ordered By: Jt Walls on 08-24-2023 MCV (RBC) [Entitic vol] 93.4 fL 80-100 [facility] Monocytes Auto (Bld) [#/Vol] Ordered By: Jt Walls on 08-24-2023 Monocytes (Bld) [#/Vol] 0.5 10*3/uL 0.0-0.8 [facility] Monocytes/100 WBC Auto (Bld) Ordered By: Jt Walls on 08-24-2023 Monocytes/100 WBC (Bld) 6.8 % . [facility] Neutrophils Auto (Bld) [#/Vo l]Ordered By: Jt Walls on 08-24-2023 Neutrophils (Bld) [#/Vol] 4.2 10*3/uL 1.8-7.7 [facility] Neutrophils/100 WBC Auto (Bl d)Ordered By: Jt Walls on 08-24-2023 Neutrophils/100 WBC (Bld) 61.1 % . [facility] No Panel InformationOrdered By: Jt Walls on 08-24-2023 Estimated GFR (CKD-EPI) > 60.0 mL/Min [facility] Creatinine Clearance (Chem N/A [facility] Nucleated erythrocytes [Pres ence] in Blood by Automated countOrdered By: Jt Walls on 08-24-2023 Nucleated RBC Auto Ql (Bld) 0.2 /100{WBC} 0-0.5 [facility] Platelet mean volume Auto (B ld) [Entitic vol]Ordered By: Jt Walls on 08-24-2023 Platelet mean volume (Bld) [Entitic vol] 8.8 fL 6.3-10.7 [facility] Platelets Auto (Bld) [#/Vol] Ordered By: Jt Walls on 08-24-2023 Platelets (Bld) [#/Vol] 181 10*3/uL 150-450 [facility] Potassium [Moles/volume] in Serum or PlasmaOrdered By: Jt Walls on 08-24-2023 Potassium [Moles/Vol] 4.2 mmol/L 3.5-5.1 [facility] Protein [Mass/volume] in Ser um or PlasmaOrdered By: Jt Walls on 08-24-2023 Protein [Mass/Vol] 6.1 g/dL 6.4-8.9 [facility] RBC Auto (Bld) [#/Vol]Ordere d By: Jt Walls on 08-24-2023 RBC (Bld) [#/Vol] 4.63 10*6/uL 3.60-5.00 [facility] Serum or plasma albumin/glob ulin mass ratioOrdered By: Jt Walls on 08-24-2023 Albumin/Globulin [Mass ratio] 2.1 {ratio} [facility] Serum or plasma anion gap de terminationOrdered By: Jt Walls on 08-24-2023 Anion gap [Moles/Vol] 8.4 mmol/L 6.0-15.0 [facility] Sodium [Moles/volume] in Ser um or PlasmaOrdered By: Jt Walls on 08-24-2023 Sodium [Moles/Vol] 142 mmol/L 136-145 [facility] Urea nitrogen [Mass/volume] in Serum or PlasmaOrdered By: Jt Walls on 08-24-2023 Urea nitrogen [Mass/Vol] 12 mg/dL 7-25 [facility] WBC Auto (Bld) [#/Vol]Ordere d By: Jt Walls on 08-24-2023 WBC (Bld) [#/Vol] 6.8 10*3/uL 3.8-11.6 [facility] Follow-Upon 06-22-2023 Follow-Up [id number] Nicol Lacey 1960 F Date Provider Department Center 06/22/2023 TONIE DE GUZMAN [facility] ONC DCC Family History Problem Relation Age of Onset Heart disease Mother Esophageal cancer Father Family Status - Relation Status Age at Mother Father Level of Service:60858 ID OFFICE/OUTPATIENT ESTABLISHED LOW MDM 20-29 MIN Reason for Visit and Comments: Follow-up [346444] - Here today to discuss recent MRI Normal [facility] MR LUMBAR SPINE WO CONTRASTo n [...] right L4-5. Electronically signed: Hema Hurt. Normal [facility] Comment on above: Order Comment: Has r ight sided mostly L5 radiculopathy Office Visiton 05-26-2023 Follow-up visit [id number] Niocl Lacey 1960 F Date Provider Department Center 05/26/2023 TONIE DE GUZMAN ONC JON Family History Problem Relation Age of Onset Heart disease Mother Esophageal cancer Father Family Status - Relation Status Age at Mother Father Level of Service:19851 ID OFFICE/OUTPATIENT NEW LOW MDM 30-44 MINUTES Reason for Visit and Comments: Consult [484] - Here today for back pain-old mri and hip xray Normal [facility] Orders Onlyon 05-13-2023 Orders Only [id number] Nicol Lacey 1960 F Date Provider Department Center 05/13/2023 TONIE DE GUZMAN ONC DCC No family history on file Normal [facility] PROTIMEon 02-24-2023 INR Coag (PPP) [Relative time] 1.07 {INR} Normal [facility] Comment on above: Performed By: #### P T #### [facility] [address] [address] [address] Jason Paniagua INR GUIDELINES SEE BELOW Normal [facility] Comment on above: Result Comment: AVEL RED INR: 2.0 - 3.0 CONDITIONS NOT LISTED BELOW 2.5 - 3.5 FOR PROSTHETIC HEART VALVE REPLACEMENT 2.5 - 3.5 RECURRENT THROMBOSIS Performed By: #### P T #### [facility] [address] [address] [address] Jason Paniagua PT Coag (PPP) [Time] 11.3 s Normal 9.0-11.6 [facility] Comment on above: Performed By: #### P T #### [facility] [address] [address] [address] Jason Paniagua Lab Reportson 08-01-2022 Lab Reports [id number]#1.00CD:[address] [facility] General Surgery Office/Clini c Noteon 07-29-2022 General [...] Tab, 25 mg= 1 tab(s), Oral, Daily [place] 325 mg-5 mg oral tablet, 1 tab(s), [...] Father. Ulcerative colitis: Sister and Brother. Normal [facility] Comment on above: Result Comment: Elec tronically Signed By: JOSE WILLS, Allyson Rebolledo\Date and Time Signed: 07/29/22 15:51 EDT Patient [...] 07/22/2005 Document Revised: 02/10/2019 Document Reviewed: 02/10/2019 [employer] Patient Education ? 2019 [employer]. [facility] Reminderson 07-29-2022 Reminders - From: Heather Paniagua LPN To: N - Clinical; Sent: 07/29/2022 15:48:04 EDT Show up: 06/15/2027 07:00:00 EDT Subject: colonoscopy recall Due Date/Time: 07/16/2027 07:00:00 EDT Reminder/Recall Patient is due for colonoscopy 07/16/2027 due to history of tubular adenoma. Normal [facility] Pathology Noteon 07-18-2022 Pathology Note [id number]#1.00CD:127 Normal [facility] Outside Colonoscopyon 2021 Outside Colonoscopy [id number]#1.00CD:127 Normal [facility] PROTIMEon 07-16-2022 INR Coag (PPP) [Relative time] 1.11 {INR} Normal [facility] Comment on above: Performed By: #### P T ####[facility] [id number] [address] Jason Paniagua INR GUIDELINES SEE BELOW Normal [facility] Comment on above: Result Comment: AVEL RED INR: 2.0 - 3.0 CONDITIONS NOT LISTED BELOW 2.5 - 3.5 FOR PROSTHETIC HEART VALVE REPLACEMENT 2.5 - 3.5 RECURRENT THROMBOSIS Performed By: #### P T ####[facility] [id number] [address]DrShameka Paniagua PT Coag (PPP) [Time] 11.9 s Critically high 9.0-11.6 [facility] Comment on above: Performed By: #### P T ####[facility] [id number] [place], [place] [address]Dr. Jason Paniagua Lab Reportson 07-15-2022 Lab Reports [id number]#1.00CD:127 Normal [facility] Covid-19 PCR ([facility])on SARS-CoV-2 (COVID-19) RNA JANEE+probe Ql (Unsp spec) Not detected Normal NOT DETECTED [facility] Comment on above: Result Comment: This test is not yet approved or cleared by the [place] FDA. When there are no FDA-approved or cleared tests available, and other criteria are met, FDA can make tests available under an emergency access mechanism called an Emergency Use Authorization (EUA). The EUA for this test is supported by the [place] of Health and Human Service's (HHS's) declaration [...] consistent with SARS-CoV-2. Performed By: #### C [facility] #### [facility] [address] [place] [address] Dr. Jason Paniagua Pre-Certification Formon Pre-Certification Form [id number]#1.00CD:12 7 Normal [facility] Consent for Procedure/Surger yon 06-12-2022 Consent for Procedure/Surgery [id number]#1.00CD:127 Normal [facility] Ambulatory Visit Summaryon 0 06-11-2022 Ambulatory Visit Summary NATALIE LACEY :1960 Visit Date:06/11/2022 Ambulatory Visit Instructions Your Care Team Attending Physician - Allyson GARCIA MD Primary Care Physician - CRISTOFER SPRINGER JR, DO Referring Physician - CRISTOFER SPRINGER JR, DO This Is Your Medications List Contact prescribing physician if questions or concerns acetaminophen-hydrocodone ([place] 325 mg-5 mg oral tablet) albuterol (albuterol [...] What How Much When Instructions Unchanged acetaminophen-hydrocodone ([place] 325 mg-5 mg oral tablet) 1 Tablets [...] Lupus anticoagulant disorder Radiculopathy Tubular adenoma Normal [facility] Physician Referralon 022 Physician Referral [id number]#[id number]:127 Normal [facility] MG MAMM SCREEN 3D YESY CADon 05-19-2022 MG MAMM SCREEN 3D YESY CAD Patient: NATALIE LACEY Exam Date: 05/19/2022 : 1960 Gender:F Ordering : DR CRISTOFER SPRINGER D.O. Admission #: [id number] Family : DR TATIANA ESQUIVEL . Order #: [id number] CLICK HERE TO VIEW EXAM RADIOLOGY REPORT [...] breast cancer at age 42. LOCATION: [facility] BREAST COMPOSITION: Almost entirely fatty. FINDINGS: DIAGNOSTIC [...] Bergeron MD on 05/19/2022 at 12:41 Normal [facility] CT LUNG CANCER SCREENINGon 0 04-19-2022 CT [...] JAYSON BERGERON Date: 2022-04-19 08:13 Normal [facility] Activated partial thrombopla stin time (aPTT) in platelet poor plasma by coagulation aOrdered By: Jt Walls on 02-19-2022 aPTT Coag (PPP) [Time] 44.7 s 25.1-36.5 [facility] Albumin [Mass/volume] in Ser um or PlasmaOrdered By: Jt Walls on 02-19-2022 Albumin [Mass/Vol] 3.9 g/dL 3.2-5.5 [facility] Automated erythrocytes count in urine sediment (number/area)Ordered By: Jt Walls on 02-19-2022 RBC Auto (Urine sed) [#/Area] 0-1 [HPF] [facility] Automated leukocytes count i n urine sediment (number/area)Ordered By: Jt Walls on 02-19-2022 WBC Auto (Urine sed) [#/Area] 0-1 [HPF] [facility] Basophils Auto (Bld) [#/Vol] Ordered By: Jt Walls on 02-19-2022 Basophils (Bld) [#/Vol] 0.0 10*3/uL 0.0-0.2 [facility] Basophils/100 WBC Auto (Bld) Ordered By: Jt Walls on 02-19-2022 Basophils/100 WBC (Bld) 0.5 % [facility] Bilirubin Test strip Ql (U)O rdered By: Jt Walls on 02-19-2022 Bilirubin Ql (U) Negative Negative [facility] Blood hemoglobin measurement (mass/volume)Ordered By: Jt Walls on 02-19-2022 Hemoglobin (Bld) [Mass/Vol] 14.7 g/dL 11.8-15.4 [facility] Blood leukocytes automated c ount (number/volume)Ordered By: Jt Walls on 02-19-2022 WBC (Bld) [#/Vol] 8.1 10*3/uL 4.5-11.0 [facility] Color Auto (U)Ordered By: Leonora Walls on 02-19-2022 Color (U) Yellow Yellow [facility] Creatine kinase [Enzymatic a ctivity/volume] in Serum or PlasmaOrdered By: Jt Walls on 02-19-2022 CK [Catalytic activity/Vol] 111 U/L 22-269 [facility] Creatinine and Glomerular fi ltration rate.predicted panel (S/P/Bld)Ordered By: Jt Walls on 02-19-2022 Creatinine [Mass/Vol] 0.74 mg/dL 0.44-1.03 [facility] Eosinophils Auto (Bld) [#/Vo l]Ordered By: Jt Walls on 02-19-2022 Eosinophils (Bld) [#/Vol] 0.1 10*3/uL 0.0-0.45 [facility] Eosinophils/100 WBC Auto (Bl d)Ordered By: Jt Walls on 02-19-2022 Eosinophils/100 WBC (Bld) 1.2 % [facility] Erythrocyte distribution wid th Auto (RBC) [Ratio]Ordered By: Jt Walls on 02-19-2022 Erythrocyte distribution width (RBC) [Ratio] 13.8 % 11.9-15.3 [facility] Erythrocyte sedimentation ra te by Photometric methodOrdered By: Jt Walls on 02-19-2022 ESR Photometric method (Bld) [Velocity] 13 mm/hr 0-29 [facility] Estimated glomerular filtrat ion rate (GFR) non- AmericanOrdered By: Jt Walls on 02-19-2022 GFR/1.73 sq M.predicted among non-blacks MDRD (S/P/Bld) [Vol rate/Area] > 60 mL/Min [facility] Globulin Calc (S) [Mass/Vol] Ordered By: Jt Walls on 02-19-2022 Globulin (S) [Mass/Vol] 2.3 g/dL [facility] Hematocrit Auto (Bld) [Volum e fraction]Ordered By: Jt Walls on 02-19-2022 Hematocrit (Bld) [Volume fraction] 44.4 % 34.0-46.4 [facility] Ketones Auto test strip (U) [Mass/Vol]Ordered By: Jt Walls on 02-19-2022 Ketones (U) [Mass/Vol] Negative [facility] - CoagulationOrde red By: Jt Walls on 02-19-2022 PT Coag (PPP) [Time] 24.7 s 9.0-12.9 [facility] - Hematology and Cell countsOrdered By: Jt Walls on 02-19-2022 Nucleated RBC/100 WBC (Bld) [Ratio] 0.1 % 0-0.5 [facility] - UrinalysisOrder ed By: Jt Walls on 02-19-2022 Hyaline casts LM Ql (Urine sed) None seen [LPF] [facility] Lymphocytes Auto (Bld) [#/Vo l]Ordered By: Jt Walls on 02-19-2022 Lymphocytes (Bld) [#/Vol] 2.3 10*3/uL 1.00-4.8 [facility] Lymphocytes/100 WBC Auto (Bl d)Ordered By: Jt Walls on 02-19-2022 Lymphocytes/100 WBC (Bld) 28.3 % [facility] MCH Auto (RBC) [Entitic mass ]Ordered By: Jt Walls on 02-19-2022 MCH (RBC) [Entitic mass] 31.2 pg 24.7-34.3 [facility] MCHC Auto (RBC) [Mass/Vol]Or dered By: Jt Walls on 02-19-2022 MCHC (RBC) [Mass/Vol] 33.1 g/dL 32.0-35.0 [facility] MCV Auto (RBC) [Entitic vol] Ordered By: Jt Walls on 02-19-2022 MCV (RBC) [Entitic vol] 94.4 fL 80-100 [facility] Monocytes Auto (Bld) [#/Vol] Ordered By: Jt Walls on 02-19-2022 Monocytes (Bld) [#/Vol] 0.4 10*3/uL 0.0-0.8 [facility] Monocytes/100 WBC Auto (Bld) Ordered By: Jt Walls on 02-19-2022 Monocytes/100 WBC (Bld) 4.6 % [facility] Neutrophils Auto (Bld) [#/Vo l]Ordered By: Jt Walls on 02-19-2022 Neutrophils (Bld) [#/Vol] 5.3 10*3/uL 1.8-7.7 [facility] Neutrophils/100 WBC Auto (Bl d)Ordered By: Jt Walls on 02-19-2022 Neutrophils/100 WBC (Bld) 65.4 % [facility] Nitrite Test strip Ql (U)Ord ered By: Jt Walls on 02-19-2022 Nitrite Ql (U) Negative Negative [facility] No Panel InformationOrdered By: Jt Walls on 02-19-2022 Estimated GFR () > 60 mL/Min [facility] Comment on above: GFR estimated refere nce range: According to KDOQI guidelines, <60 ml/min/1.73m2 is sufficient to diagnose a patient with chronic kidney disease. Pharmacy Creatinine Clearance (Chem N/A [facility] Platelet mean volume Auto (B ld) [Entitic vol]Ordered By: Jt Walls on 02-19-2022 Platelet mean volume (Bld) [Entitic vol] 9.1 fL 6.3-10.7 [facility] Platelet poor plasma interna tional normalized ratio (INR) by coagulation assay (relatOrdered By: Jt Walls on 02-19-2022 INR Coag (PPP) [Relative time] 2.2 {INR} [facility] Comment on above: INR Therapeutic Rang e [...] 02-19-2022 Platelets (Bld) [#/Vol] 164 10*3/uL 150-450 [facility] Protein Auto test strip (U) [Mass/Vol]Ordered By: Jt Walls on 02-19-2022 Protein (U) [Mass/Vol] Negative Negative [facility] Protein [Mass/volume] in Ser um or PlasmaOrdered By: Jt Walls on 02-19-2022 Protein [Mass/Vol] 6.2 g/dL 6.1-7.9 [facility] RBC Auto (Bld) [#/Vol]Ordere d By: Jt Walls on 02-19-2022 RBC (Bld) [#/Vol] 4.70 10*6/uL 3.60-5.00 [facility] Serum or plasma C reactive p rotein measurement (mass/volume)Ordered By: Jt Walls on 02-19-2022 CRP [Mass/Vol] 0.6 mg/dL 0.0-1.0 [facility] Serum or plasma alanine damian otransferase measurement without P-5'-P (enzymatic activiOrdered By: Jt Walls on 02-19-2022 ALT No additional P-5'-P [Catalytic activity/Vol] 12 U/L 10-60 [facility] Serum or plasma albumin/glob ulin mass ratioOrdered By: Jt Walls on 02-19-2022 Albumin/Globulin [Mass ratio] 1.7 {ratio} [facility] Serum or plasma alkaline bree sphatase measurement (enzymatic activity/volume)Ordered By: Jt Walls on 02-19-2022 ALP [Catalytic activity/Vol] 75 U/L 32-92 [facility] Serum or plasma aspartate am inotransferase measurement (enzymatic activity/volume)Ordered By: Jt Walls on 02-19-2022 AST [Catalytic activity/Vol] 13 U/L 10-42 [facility] Serum or plasma calcium quique urement (mass/volume)Ordered By: Jt Walls on 02-19-2022 Calcium [Mass/Vol] 8.9 mg/dL 8.2-10.2 [facility] Serum or plasma chloride renita surement (moles/volume)Ordered By: Jt Walls on 02-19-2022 Chloride [Moles/Vol] 106 mmol/L 95-114 [facility] Serum or plasma glucose quique urement (mass/volume)Ordered By: Jt Walls on 02-19-2022 Glucose [Mass/Vol] 108 mg/dL 70-100 [facility] Comment on above: ADA recommended refe rence rangeRandom Glucose Reference Range is dependent on time and content of last meal. Glucose of more than 200 mg/dL in a nonstressed, ambulatory subject supports the diagnosis of Diabetes Mellitus. Serum or plasma potassium me asurement (moles/volume)Ordered By: Jt Walls on 02-19-2022 Potassium [Moles/Vol] 4.0 mmol/L 3.5-5.1 [facility] Serum or plasma sodium measu rement (moles/volume)Ordered By: Jt Walls on 02-19-2022 Sodium [Moles/Vol] 137 mmol/L 136-146 [facility] Serum or plasma total biliru bin measurement (mass/volume)Ordered By: Jt Walls on 02-19-2022 Bilirubin [Mass/Vol] 0.8 mg/dL 0.3-1.2 [facility] Serum or plasma total carbon dioxide measurement (moles/volume)Ordered By: Jt Walls on 02-19-2022 CO2 [Moles/Vol] 22.2 mmol/L 22.0-30.0 [facility] Serum or plasma urea nitroge n measurement (mass/volume)Ordered By: Jt Walls on 02-19-2022 Urea nitrogen [Mass/Vol] 10 mg/dL 9-23 [facility] Specific gravity Auto test s trip (U) [Rel density]Ordered By: Jt Walls on 02-19-2022 Specific gravity (U) [Rel density] 1.010 1.001-1.03 0 [facility] Squamous epithelial cells de tection in urine sediment by light microscopyOrdered By: Jt Walls on 02-19-2022 Epithelial cells.squamous LM Ql (Urine sed) None seen [HPF] [facility] TSH DL <= 0.005 mIU/L QnOrde red By: Jt Walls on 02-19-2022 TSH Qn 2.31 m[IU]/L 0.45-5.33 [facility] Thyroxine (T4) free [Mass/vo lume] in Serum or PlasmaOrdered By: Jt Walls on 02-19-2022 Free T4 [Mass/Vol] 0.81 ng/dL 0.61-1.12 [facility] Urine bacteria detection by automated methodOrdered By: Jt Walls on 02-19-2022 Bacteria Auto Ql (U) None seen None Seen [facility] Urine clarity by refractomet ry automatedOrdered By: Jt Walls on 02-19-2022 Clarity Refractometry automated (U) Clear Clear [facility] Urine glucose measurement by automated test strip (mass/volume)Ordered By: Jt Walls on 02-19-2022 Glucose Auto test strip (U) [Mass/Vol] Normal mg/dL Normal [facility] Urine hemoglobin detection b y automated test stripOrdered By: Jt Walls on 02-19-2022 Hemoglobin Auto test strip Ql (U) Negative Negative [facility] Urine leukocyte esterase det ection by automated test stripOrdered By: Jt Walls on 02-19-2022 Leukocyte esterase Auto test strip Ql (U) Negative Negative [facility] Urobilinogen Auto test strip (U) [Mass/Vol]Ordered By: Jt Walls on 02-19-2022 Urobilinogen (U) [Mass/Vol] Normal mg/dL Normal [facility] pH Auto test strip (U)Ordere d By: Jt Robisonrow on 02-19-2022 pH (U) 6.0 [pH] 5.0-9.0 [facility] Vital Signs Date Time Vital Sign Value Performing Clinician Faci lity 06-11-2022 14:24-0400 Blood Pressure Location Allyson NILL [facility] Surgery [place] 06-11-2022 14:24-0400 Diastolic blood pressure 76 mm[Hg] Allyson NILL [facility] [place] 06-11-2022 14:24-0400 Heart rate 70 /min Allyson NILL [facility] Surgery [place] 06-11-2022 14:24-0400 Respiratory rate 16 /min Allyson NILL [facility] [place] 06-11-2022 14:24-0400 Systolic blood pressure 114 mm[Hg] Allyson NILL General Surgery [place] Encounters Encounter Date Encounter Type Care Provider Facility Start: 08-24-2023 End: 08-24-2023 ambulatory Jt Robisonrow Facility:[facility] Start: 08-24-2023 End: 08-24-2023 ambulatory JR Cristofer Springer Work Phone: [facility] Work Phone: Start: 08-24-2023 End: 08-24-2023 Patient encounter procedure JR Cristofer Springer Work Phone: [facility] [address] Work Phone: Start: 06-22-2023 End: 06-22-2023 ambulatory TONIE [facility] Start: 06-22-2023 End: 06-23-2023 ambulatory TONIE [facility] Start: 05-26-2023 ambulatory TONIE MÉNDEZ [facility] Start: 05-07-[address] CRISTOFER SPRINGER [facility] ity:H1 Start: 04-07-2023 End: 04-07-[address] CRISTOFER SPRINGER Facility:[facility] Start: 03-13-2023 End: 03-14-[address] CRISTOFER SPRINGER Facility:[facility] Start: 03-09-2023 End: 04-08-[address] CRISTOFER SPRINGER Facility:[facility] Start: 02-24-2023 End: 02-24-[address] CRISTOFER SPRINGER Facility:[facility] Start: 02-09-2023 End: 03-06-[address] CRISTOFER SPRINGER Facility:[facility] Start: 02-03-2023 End: 02-04-2023 ambulatory BINH GARCIA . Facility:[facility] Start: 01-07-2023 End: 02-06-2023 ambulatory [...] 07-29-2022 End: 07-29-2022 Patient encounter procedure Allyson GARCIA General Surgery [facility]/Zenobia [facility] Start: 07-16-2022 End: 07-17-2022 ambulatory Allyson GARCIA Facility:CD:[id number] Start: 07-15-2022 Encounter for preprocedural laboratory examination DR ALLYSON GARCIA . [facility] Start: 07-12-2022 End: 07-13-[address] ALLYSON GARCIA . Facility:[facility] Start: 07-12-2022 End: 07-13-2022 Encounter for preprocedural laboratory examination DR ALLYSON GARCIA . Facility:[facility] Start: 07-10-2022 End: 08-09-2022 ambulatory SHAIKH Phuong WEINER Facility:[facility] Start: 06-11-2022 End: 06-12-2022 ambulatory CRISTOFER SPRINGER PROVIDER Facility: [facility] Start: 06-11-2022 End: 06-11-2022 Patient encounter procedure Allyson GARCIA General Surgery [facility] Start: 06-09-2022 End: 07-09-2022 ambulatory SHAIKH Phuong WEINER Facility:[facility] Start: 05-22-2022 ambulatory Allyson GARCIA [facility] Start: 05-19-2022 End: 05-20-[address] CRISTOFER SPRINGER Facility:[facility]1 Start: 05-09-2022 End: 06-06-2022 ambulatory SHAIKH Phuong WEINER Facility:[facility] Start: 04-24-2022 End: 04-25-[address] CRISTOFER SPRINGER Facility:[facility] Start: 04-18-2022 End: 04-19-[address] JAYSON BERGERON Facility:[facility] Start: 02-19-2022 End: 02-19-2022 Patient encounter procedure JR Cristofer Springer Work Phone: [facility] [address] Procedures Date Procedure Procedure Detail Performing Clinician Start: 06-22-2023 Follow-up visit Follow-up TONIE BOYD Start: 07-16-2022 Colonoscopy Allyson COVARRUBIAS Blepharoplasty Allyson GARCIA Cholecystectomy Allyson GARCIA Cystopexy Allyson GARCIA Fasciotomy of foot Allyson URRUTIA History of operative procedure on elbow Allyson GARCIA Injection into lumba r epidural space Allyson GARCIA Total abdominal hyst erectomy with bilateral salpingo-oophorectomy Allyson GARCIA Plan of Treatment Date Care Activity Detail Author Aldolase measurement [facility] Work Phone: aPTT.lupus sensitive (LA screen) [facility] Work Phone: aPTT.lupus sensitive W excess phospholipid actual/Normal (normalized LA confirm) [facility] Work Phone: aPTT.lupus sensitive /aPTT.lupus sensitive W excess phospholipid (screen to confirm ra [facility] Work Phone: Chromatin Ab [Units/ volume] in Serum or Plasma [facility] Work Phone: Complement C3 [Mass/ volume] in Serum or Plasma [facility] Work Phone: Complement C4 [Mass/ volume] in Serum or Plasma [facility] Work Phone: dRVVT (LA screen) [facility] Work Phone: Hemolytic complement CH50 level [facility] Work Phone: Homogenous nuclear A b pattern [Titer] in Serum [facility] Work Phone: Lupus anticoagulant [Interpretation] in Platelet poor plasma [facility] Work Phone: Myoglobin [Mass/volume] in Serum or Plasm a [facility] Work Phone: Nuclear Ab [Titer] in Serum [facility] Work Phone: Reagin Ab [Presence] in Serum by RPR [facility] Work Phone: Thrombin time [facility] Work Phone: Thyroglobulin Ab [Un its/volume] in Serum or Plasma [facility] Work Phone: Thyroperoxidase Ab [ Units/volume] in Serum or Plasma [facility] Work Phone: Payers Date Payer Category Payer Self-pay [id number] 1960 Unknown [id number] 7 1960 Unknown [id number] 2.16.840.1.170302.3.579.2.72 7 1962 Unknown [id number] 2.16.840.1.066390.3.579.2.72 7 1962 Unknown [id number] 2.16.840.1.502071.3.579.2.59 3 1962 Unknown [id number] 2.16.840.1.534185.3.579.2.59 3 1962 Unknown [id number] 2.16.840.1.085849.3.579.2.59 3 1962 Unknown [id number] 2.16.840.1.167477.3.579.2.59 3 1962 Unknown [id number] 2.16.840.1.831234.3.579.2.59 3 1962 Unknown [id number] 2.16.840.1.518762.3.579.2.59 3 1962 Unknown [id number] 2.16.840.1.053760.3.579.2.59 3 1962 Unknown [id number] 2.16.840.1.578985.3.579.2.59 3 1962 Unknown [id number] 2.16.840.1.931828.3.579.2.59 3 1962 Unknown [id number] 2.16.840.1.655533.3.579.2.59 3 1962 Unknown [id number] 2.16.840.1.246977.3.579.2.59 3 1962 Unknown [id number] 2.16.840.1.457212.3.579.2.59 3 1962 Unknown [id number] 2.16.840.1.805194.3.579.2.59 3 1962 Unknown [id number] 2.16.840.1.318341.3.579.2.59 3 1962 Unknown [id number] 2.16.840.1.630744.3.579.2.59 3 1962 Unknown [id number] 2.16.840.1.806167.3.579.2.59 3 1962 Unknown [id number] 2.16.840.1.238162.3.579.2.59 3 1962 Unknown [id number] 2.16.840.1.315966.3.579.2.59 3 1962 Unknown [id number] 2.16.840.1.152020.3.579.2.59 3 1962 Unknown [id number] 2.16.840.1.312584.3.579.2.59 3 1962 Unknown [id number] 2.16.840.1.808960.3.579.2.59 3 1962 Unknown [id number] 2.16.840.1.185056.3.579.2.59 3 1962 Unknown [id number] 2.16.840.1.180596.3.579.2.59 3 1959 Private Health Insurance [id number] Private Health Insurance [facility] Fund [id number] Private Health Insurance [id number] Unknown [facility] [id number] Unknown [id number] 2.16.840.1.715627.3.579.2.53 1 Social History Date Type Detail Facility Start: [facility] Start: 1960 Sex Assigned At Female F [facility] Start: 06-11-2022 Tobacco smoking status Heavy t obacco smoker (finding) General Surgery [employer] Tobacco smoking status Never Gener al Surgery [employer] Sex Assigned At Female Genera l Surgery [employer] Functional Status Date Assessment Result Facility 06-11-2022 Functional Status N/A General Mata rgery [employer] Clinical Notes 04-24-2022 to 06-22-2023 Note Date & Type Note Facility 06-22-2023 Note In person visit Chief complaint: back pain - some leg pain [place]: 62 yo woman - I have seen [...] MOUTH EVERY 8 HOURS NEEDED FOR COUGH [id number] 2-30-10 mg/5 mL syrup TAKE 10 ML BY MOUTH NEEDED EVERY 8 HOURS budesonide (Pulmicort) 0.5 mg/2 mL nebulizer solution celecoxib (CeleBREX) 100 mg capsule Take 100 mg by mouth. colesevelam (Welchol) 625 mg tablet Take 1,875 mg by mouth. HYDROcodone-acetaminophen (Whitewater) 5-325 mg tablet TAKE 1 TABLET BY [...] right paraspinal musculature (more content not included)... [facility] 05-26-2023 Note In person visit Chief complaint: back and leg problem - the right leg [place]: 62 y/o R handed - she is on disability - she is on partly due to her back and other things. 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 She has never had back surgery before. She had a problem in the with her back. She saw a Dr. Yun in [place] back then. Then aron 2010 she get herniated discs and had radiculopathy down her right leg. She has been to pain management - prior in [place] (was with Dr. Williamson) and now she is with [place]. She had injections in her back - she said the one's she had in [place] didn't help that much. Then in [place] she had nerve burning from L2-down for [...] years ago - she had it at [facility] in [place] ([address]). She is claustrophobic and wanted [...] last injection in her knee by her assistant buyer - had Gelson 3 - you get one injection per week for [address]. [address] Fredo Valentin in [place] about her back in the past - [...] MOUTH EVERY 8 HOURS NEEDED FOR COUGH dwkyhgfvzmyuhsv-[id number]-SN 2-30-10 mg/5 mL syrup TAKE 10 ML BY MOUTH NEEDED EVERY 8 HOURS budesonide (Pulmicort) 0.5 mg/2 mL nebulizer solution celecoxib (CeleBREX) 100 mg capsule Take 100 mg by mouth. colesevelam (Welchol) 625 mg tablet Take 1,875 mg by mouth. HYDROcodone-acetaminophen (Whitewater) 5-325 mg tablet TAKE 1 TABLET BY [...] olopatadine (Patanase) 0.6 % spray,non-aerosol nasal spray Rankin 2 sprays twice a day by intranasal [...] Allergies Allergen Re (more content not included)... [facility] 02-03-2023 Note CONSULTATION CONSULTATION DATE: 02/03/2023 [...] topical lidocaine patch. We will refill the Whitewater on today's visit; 55 pills to last one month's time. Aquatic therapy was ordered, and we will obtain urine toxicology screen. I have gone over the details of proceeding with a diagnostic right lateral cutaneous branch of the iliohypogastric nerve. All her questions were answered. She agrees to proceed with the outlined plan. [facility] 11-06-2022 Note CONSULTATION CONSULTATION DATE: 11/06/2022 HISTORY [...] sinus infection. Other medications include Celebrex, baclofen, Whitewater 5/325 b.i.d., gabapentin 600 mg daily. At [...] is her bilateral knee pain, which her assistant buyer is caring for. Activities such as stairs, [...] months' time. Patient is in agreement. [facility] 07-31-2022 Note CONSULTATION CONSULTATION DATE: 07/31/2022 HISTORY [...] Neurontin 400 mg daily. She does have Whitewater 5/325 b. i.d. as well. Patient is [...] indicated. Patient agrees with the plan. [facility] 07-29-2022 Hospital Discharge instructions Patient Education 07/29/2022 [...] 07/22/2005 Document Revised: 02/10/2019 Document Reviewed: 02/10/2019 [employer] Patient Education 2019 [employer]. General Surgery [place] 07-16-2022 Note OPERATIVE NOTE OPERATION DATE: 07/16/2022 [...] good condition. CC: Cristofer Springer D.O. [facility] 06-11-2022 Note Chief Complaint consultation for positive [...] pior to OR. 2. 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 [facility] Comment on above: Result Comment: Elec tronically Signed By: JOSE WILLS, Allyson Rebolledo\Date and Time Signed: 06/11/22 15:12 EDT 04-24-2022 [...] is greatly beneficial to her. Medications include Whitewater 5/325 b.i.d., baclofen 10 mg q.h.s., Neurontin 400 mg q.p.m. and Celebrex 100 mg b.i.d. Her assistant buyer has placed her on Tylenol arthritis six [...] would like to proceed with the injection. IFC Signed and Approved by: AMINATA LEE . 05/07/2022 16:23:00 [facility] 04-24-2022 Note CONSULTATION PROCEDURE DATE:04/24/2022 PREOPERATIVE [...] will be followed up in the office. IF Signed and Approved by: AMINATA LEE . 05/07/2022 16:23:00 [facility] Evaluation + Plan note No data available for this section General Surgery [place] Evaluation note No assessment inform ation available [facility] Work Phone: Hospital Discharge instructions No data available for this section General Surgery [place] Progress note No data available for this section General Surgery [place] Family History No Family History Records Found [...] Springer JR DO Primary Care Provider Active Sunday Walls MD Attending Provider Active Team Status: [...] section and content) DATE CREATED AUTHOR 08/09/2022 [facility] DATE CREATED AUTHOR AUTHOR'S ORGANIZ ATION 04/17/2023 [facility] DATE CREATED AUTHOR AUTHOR'S ORGANIZ ATION 06/23/2023 [facility] DATE CREATED AUTHOR AUTHOR'S ORGANIZ ATION 09/01/2023 [facility] FOR RECORDS PERTAINING TO [...] BE BASED ON THE PRIMARY CLINICAL RECORDS. [employer] provides no warranty or guarantee of the accuracy or completeness of information in this document.
--- NOTE | 2023-12-23 10:24 | P.CN_ITS ---
Consult Note: HPI Data of Consult Patient: known to practice within the last 3 years Requesting Physician: Jocelynn Pederson NP Primary Care Provider: Non-Staff Physician, MD Consult Narrative Reason for consult: f/u Narrative: Sandra Lacey a pleasant 62 year old female presents for evaluation and management of low back pain, bilateral hip pain that radiates into legs. Patient recently underwent MRI of lumbar spine which is consistent with degenerative changes, and foraminal narrowing. Patient rating pain today 5-6/10. Patient reports Lucile is helpful without side effects, finds benefit from flexeril. Patient reports she cannot afford injection therapy at the hospital. Went to her PCP in september for bilateral GTB injections with >50% ongoing relief. Pain today 4/10 increases to 9/10. Patient reports numbness tingling radiating into right leg and toes. EZIO today 30%. cc:: CC: Jocelynn Pederson NP Review of Systems 2 ROS0 Status of ROS 10 or more systems reviewed and unremark able except as noted in history and below Musculoskeletal Reports: back pain Meds Home Medications and Allergies Home Medications Medication Instructions Recorded Confirmed Type acetaminophen 650 mg 1,300 mg PO Q12H PRN pain 05/08/23 05/08/23 History tablet,extended release (Tylenol Arthritis Pain) albuterol sulfate 90 mcg/actuation 2 inh inhalation Q8H PRN shortness 05/08/23 05/08/23 History aerosol inhaler (Ventolin HFA) of breath or wheezing aspirin 81 mg tablet,delayed 81 mg PO DAILY 05/08/23 05/08/23 History release azelastine 137 mcg (0.1 %) nasal 137 mcg intranasal Q12H 05/08/23 05/08/23 History spray aerosol baclofen 10 mg tablet 10 mg PO Q8H 05/08/23 05/08/23 History benzonatate 100 mg capsule 200 mg PO TID PRN cough 05/08/23 05/08/23 History calcium carbonate 200 mg calcium 200 mg PO DAILY 05/08/23 05/08/23 History (500 mg) chewable tablet (Tums) celecoxib 100 mg capsule 100 mg PO BID 05/08/23 05/08/23 History colesevelam 625 mg tablet (WelChol) 625 mg PO DAILY 05/08/23 05/08/23 History hydrocodone 5 mg-acetaminophen 325 1 tab PO BID 05/08/23 05/08/23 History mg tablet hydroxyzine pamoate 25 mg capsule 25 mg PO BID 05/08/23 05/08/23 History (Vistaril) lansoprazole 30 mg capsule,delayed 30 mg PO DAILY 05/08/23 05/08/23 History release (Prevacid) montelukast 10 mg tablet 10 mg PO DAILY 05/08/23 05/08/23 History (Singulair) rosuvastatin 10 mg tablet (Crestor) 10 mg PO DAILY 05/08/23 05/08/23 History umeclidinium 62.5 mcg-vilanterol 1 inh inhalation DAILY 05/08/23 05/08/23 History 25 mcg/actuation powdr for inhalation (Anoro Ellipta) warfarin 2.5 mg tablet 2.5 mg PO .monfri 05/08/23 05/08/23 History warfarin 5 mg tablet 5 mg PO QTUTHSASU 05/08/23 05/08/23 History baclofen 10 mg tablet 10 mg PO BID #60 tabs 06/19/23 Rx hydrocodone 5 mg-acetaminophen 325 1 tab PO BID PRN pain #60 tabs 06/19/23 Rx mg tablet hydrocodone 5 mg-acetaminophen 325 1 tab PO BID PRN pain #55 tabs 07/22/23 Rx mg tablet hydrocodone 5 mg-acetaminophen 325 1 tab PO BID PRN pain #55 tabs 08/26/23 Rx mg tablet hydrocodone 5 mg-acetaminophen 325 1 tab PO BID PRN pain #60 tabs 10/08/23 Rx mg tablet hydrocodone 5 mg-acetaminophen 325 1 tab PO BID PRN pain #60 tabs 11/06/23 Rx mg tablet hydrocodone 5 mg-acetaminophen 325 1 tab PO BID PRN pain #60 tabs 12/15/23 Rx mg tablet Allergies Allergy/AdvReac Type Severity Reaction Status Date / Time codeine Allergy Severe Verified 05/08/23 10:15 cefaclor [From Ceclor] Allergy Unknown Verified 05/08/23 10:15 cephalexin [From Keflex] Allergy Unknown Verified 05/08/23 10:15 enoxaparin [From Lovenox] Allergy Unknown Verified 05/08/23 10:15 Exam Constitutional Documenting provider has reviewed patient's vital signs: yes Common normals: no apparent distress, oriented x3, healthy appearing, alert and well nourished General appearance: cooperative Orientation/consciousness: Yes awake, Yes oriented to person, Yes oriented to place and Yes oriented to time HENMT Common normals: normocephalic, hearing grossly normal bilaterally and moist oral mucous membranes Head and scalp: normocephalic Eye Common normals: PERRL Pupil: PERRL Neck & C-Spine Common normals: full ROM General: normal visual inspection Chest Common normals: inspection of chest normal Respiratory Common normals: normal respiratory effort, no retractions and no use of accessory muscles Effort & inspection: able to speak in complete sentences and symmetric chest movement Back & Pelvis Lumbar spine/lower back: normal to inspection, ROM limited, pain with ROM, paraspinal muscle tenderness and straight leg raise negative bilaterally Sacroiliac joints: SI joint(s) abnormal Other: positive facet loading lumbar mild bilat intermittent bilateral radiculopathy, worse on right side muscle strength 5/5 bilat LE Back image (female): 2 1. tenderness and pain with lifting and extending right leg, pain with deep palpation 2. myofascial pain Extremity Common normals: normal to inspection, full ROM and no pedal edema Other: pain with bilateral FABERS and thigh thrust tender over bilateral GTB Neuro Common normals: oriented x3, CN's II-XII intact bilaterally, moves all extremities, no focal motor deficits, no sensory deficits noted and deep tendon reflexes 2+ bilaterally Sensorium/orientation: alert Motor exam: strength 5/5 throughout and no movement abnormalities noted Psych Common normals: mental status grossly normal, thought process normal, cooperative, affect normal, speech normal and activity/motor behavior normal Speech: normal speech Thought process: normal thought process Results Additional Findings Additional findings: I have checked an OAR[place] report on this patient today and there are no aberrancies noted in the prescribing history.?? A drug screen was completed and reviewed within the last year, and if there has not been a drug screen completed we ordered one today to monitor higher risk, state monitored pain medication use. As part of providing excellent, safe, comprehensive care, the following was completed at our patient's visit: 1. A medication reconciliation and review to ensure accurate knowledge of current/active medications, including asking our patients to inform us about any [id number] medications or herbal remedies/nutritional supplements/alternative remedies. 2. A review to specifically ensure our patients have had annual screening for: elevated body mass index (BMI), tobacco use, screening for depression, and screening for unhealthy alcohol use. When screening is concerning, patients are provided with education and the specific recommendation to discuss the concerning health issue and treatment options with their primary care provider. Assessment and Plan Assessment and Plan (1) Lumbar stenosis with neurogenic claudication: (2) Sacroiliitis: (3) Ischial bursitis: Assessment and Plan: suspected, refer to Dr Merino for evaluation and management (4) Greater trochanteric bursitis of both hips: Assessment and Plan: >50% ongoing relief from injections from PCP in september (5) Lumbar radiculopathy: (6) Lumbar spondylosis: (7) Fibromyalgia: (8) Chronic prescription opiate use: Assessment and Plan: I have refilled the patient's opioid prescriptions at the above noted dose and schedule.? I feel these medications are improving the patient's quality of life and allow them to tolerate activities of daily living as well as participate in recreational activity.? The patient does not report intolerable side effects. The patient is NOT opioid naive and non-pharmacologic and non-opioid treatment has failed to significantly relieve the patient's pain and improve functionality. The patient has a diagnosis that is related to a somatic or visceral pain etiology. ? ?? I reviewed with the patient the potential risks and side effects with the use of? opioid medications including but not limited to respiratory depression,? sedation, and even . I verified the patient has access to naloxone should? these effects occur. I advised the patient to avoid the use of any other? sedation substances including alcohol, THC, and benzodiazepines while? taking opioid medications due to the risk of compounding side effects and? detrimental outcomes. 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 drug screen, and opioid start talking forms. The patient was advised to let? their family know they had Naloxone in case they would need to administer? the medication.? ?? A drug screen was completed within the last year, and no aberrancies were noted regarding their use of controlled substances. The patient understands they are subject to the terms and conditions of the pain contract that they have signed. ? ?? I have checked an [place]ARRS report on this patient today and there are no aberrancies noted in the prescribing history.? (9) Muscle spasm: Plan referral to Dr Merino for evaluation and management of right ischial bursitis pain patient cannot afford REECE and SIJ through our office continue norco 5/325 BID PRN moderate to severe pain hx of fibromyalgia flexeril 10mg BID PRN muscle spasms f/u 3 months
== END 2023-12-23 10:06 | disposition home or self-care (01) ==
LOC: PM 10:06
PROVIDERS: Visit Provider Nurse Practitioner
DX: M48.062 Spinal stenosis, lumbar region with neurogenic claudication (principal); M46.1 Sacroiliitis, not elsewhere classified; M70.62 Trochanteric bursitis, left hip; M70.61 Trochanteric bursitis, right hip; M70.72 Other bursitis of hip, left hip; M70.71 Other bursitis of hip, right hip; M54.16 Radiculopathy, lumbar region; M47.816 Spondylosis without myelopathy or radiculopathy, lumbar region; M79.7 Fibromyalgia; Z79.891 Long term (current) use of opiate analgesic
CPT/HCPCS: G0463

== ENCOUNTER 2024-01-08 01:22 | Outpatient (RCR) | payer MEDICARE, SELFPAY | END 2024-02-05 13:55 | disposition home or self-care (01) | LOC: MM 01:22 | PROVIDERS: Visit Provider Internal Medicine | DX: Z51.81 Encounter for therapeutic drug level monitoring (principal); Z79.01 Long term (current) use of anticoagulants; I26.99 Other pulmonary embolism without acute cor pulmonale ==

== ENCOUNTER 2024-02-08 03:17 | Outpatient (RCR) | payer MEDICARE, SELFPAY | END 2024-03-08 18:10 | disposition home or self-care (01) | LOC: MM 03:17 | PROVIDERS: Visit Provider Internal Medicine | DX: Z51.81 Encounter for therapeutic drug level monitoring (principal); Z79.01 Long term (current) use of anticoagulants | CPT/HCPCS: 85610; G0463 ==

== ENCOUNTER 2024-03-09 04:42 | Outpatient (RCR) | payer MEDICARE, SELFPAY | END 2024-04-08 12:05 | disposition home or self-care (01) | LOC: MM 04:42 | PROVIDERS: Visit Provider Internal Medicine | DX: Z51.81 Encounter for therapeutic drug level monitoring (principal); Z79.01 Long term (current) use of anticoagulants; I26.99 Other pulmonary embolism without acute cor pulmonale | CPT/HCPCS: 85610; G0463 ==

== ENCOUNTER 2024-03-24 09:54 | Outpatient (OUT) | payer MEDICARE, SELFPAY ==
--- NOTE | 2024-03-24 10:10 | PM.CN ---
Consult Note: HPI Data of Consult Patient: known to practice within the last 3 years Requesting Physician: Jocelynn Pederson NP Primary Care Provider: Non-Staff Physician, MD Consult Narrative Reason for consult: f/u Narrative: Sandra Lacey a pleasant 62 year old female presents for evaluation and management of right buttock, low back pain, bilateral hip pain that radiates into legs. Patient recently underwent MRI of lumbar spine which is consistent with degenerative changes, and foraminal narrowing. Patient rating pain today 1/10, increasing to 7/10. Patient reports [place] is helpful without side effects, finds benefit from flexeril. Patient reports she cannot afford injection therapy at the hospital. Went to her PCP in january for bilateral GTB injections with >50% ongoing relief. Patient reports numbness tingling radiating into right leg and toes. Following with ENT for chronic sinus infections, currently on antibiotics and steroids, f/u next week scheduled. cc:: CC: Jocelynn Pederson NP Review of Systems ROS Status of ROS 10 or more systems reviewed and unremarkable except as noted in history and below Musculoskeletal Reports: back pain and joint pain Meds Home Medications and Allergies Home Medications ?Medication ?Instructions ?Recorded ?Confirmed ?Type acetaminophen 650 mg 1,300 mg PO Q12H PRN pain 05/08/23 05/08/23 History tablet,extended release (Tylenol Arthritis Pain) albuterol sulfate 90 mcg/actuation 2 inh inhalation Q8H PRN shortness 05/08/23 05/08/23 History aerosol inhaler (Ventolin HFA) of breath or wheezing aspirin 81 mg tablet,delayed 81 mg PO DAILY 05/08/23 05/08/23 History release azelastine 137 mcg (0.1 %) nasal 137 mcg intranasal Q12H 05/08/23 05/08/23 History spray aerosol benzonatate 100 mg capsule 200 mg PO TID PRN cough 05/08/23 05/08/23 History calcium carbonate (Tums) 200 mg PO DAILY 05/08/23 05/08/23 History celecoxib 100 mg capsule 100 mg PO BID 05/08/23 05/08/23 History colesevelam 625 mg tablet (WelChol) 625 mg PO DAILY 05/08/23 05/08/23 History hydroxyzine pamoate 25 mg capsule 25 mg PO BID 05/08/23 05/08/23 History (Vistaril) lansoprazole 30 mg capsule,delayed 30 mg PO DAILY 05/08/23 05/08/23 History release (Prevacid) montelukast 10 mg tablet 10 mg PO DAILY 05/08/23 05/08/23 History (Singulair) rosuvastatin 10 mg tablet (Crestor) 10 mg PO DAILY 05/08/23 05/08/23 History umeclidinium 62.5 mcg-vilanterol 1 inh inhalation DAILY 05/08/23 05/08/23 History 25 mcg/actuation powdr for inhalation (Anoro Ellipta) warfarin 2.5 mg tablet 2.5 mg PO .monfri 05/08/23 05/08/23 History warfarin 5 mg tablet 5 mg PO QTUTHSASU 05/08/23 05/08/23 History hydrocodone 5 mg-acetaminophen 325 1 tab PO BID PRN pain #60 tabs 01/13/24 Rx mg tablet hydrocodone 5 mg-acetaminophen 325 1 tab PO BID PRN pain #60 tabs 02/18/24 Rx mg tablet cyclobenzaprine 10 mg tablet 10 mg PO QPM 03/24/24 03/24/24 History Allergies Allergy/AdvReac Type Severity Reaction Status Date / Time codeine Allergy Severe Verified 05/08/23 10:15 cefaclor [From Ceclor] Allergy Unknown Verified 05/08/23 10:15 cephalexin [From Keflex] Allergy Unknown Verified 05/08/23 10:15 enoxaparin [From Lovenox] Allergy Unknown Verified 05/08/23 10:15 Exam Constitutional Documenting provider has reviewed patient's vital signs: yes Common normals: no apparent distress, oriented x3, healthy appearing, alert and well nourished General appearance: cooperative Orientation/consciousness: Yes awake, Yes oriented to person, Yes oriented to place and Yes oriented to time HENAR Common normals: normocephalic, hearing grossly normal bilaterally and moist oral mucous membranes Head and scalp: normocephalic Eye Common normals: PERRL Pupil: PERRL Neck & C-Spine Common normals: full ROM General: normal visual inspection Chest Common normals: inspection of chest normal Respiratory Common normals: normal respiratory effort, no retractions and no use of accessory muscles Effort & inspection: able to speak in complete sentences and symmetric chest movement Back & Pelvis Lumbar spine/lower back: normal to inspection, ROM limited, pain with ROM, paraspinal muscle tenderness and straight leg raise negative bilaterally Other: positive facet loading lumbar mild bilat intermittent bilateral radiculopathy, worse on right side muscle strength 5/5 bilat LE Back image (female): 1. pain with deep palpation Extremity Common normals: normal to inspection, full ROM and no pedal edema Other: pain with bilateral FABERS and thigh thrust tender over bilateral GTB Neuro Common normals: oriented x3, CN's II-XII intact bilaterally, moves all extremities, no focal motor deficits, no sensory deficits noted and deep tendon reflexes 2+ bilaterally Sensorium/orientation: alert Motor exam: strength 5/5 throughout and no movement abnormalities noted Psych Common normals: mental status grossly normal, thought process normal, cooperative, affect normal, speech normal and activity/motor behavior normal Speech: normal speech Thought process: normal thought process Results Additional Findings Additional findings: If on a controlled substance or opioids, I have checked an [place]ARRS report on this patient and there are no aberrancies noted in the prescribing history.??If on a controlled substance or opioid a drug screen was completed and reviewed within the last year, and if there has not been a drug screen completed we ordered one today to monitor higher risk, state monitored pain medication use. As part of providing excellent, safe, comprehensive care, the following was completed at our patient's visit: 1. A medication reconciliation and review to ensure accurate knowledge of current/active medications, including asking our patients to inform us about any [id number] medications or herbal remedies/nutritional supplements/alternative remedies. 2. A review to specifically ensure our patients have had annual screening for screening for depression, screening for tobacco use, and screening for unhealthy alcohol use. For concerning screenings had a discussion with the patient, provided patient education, and recommended follow-up with primary care provider when appropriate. If patient noted with a risk of falling, they received education on strength, gait, and balance training to prevent future risk of falling. Assessment and Plan Assessment and Plan (1) Lumbar stenosis with neurogenic claudication: (2) Sacroiliitis: (3) Ischial bursitis: Assessment and Plan: suspected, refer to Dr Merino for evaluation and management (4) Greater trochanteric bursitis of both hips: Assessment and Plan: >50% ongoing relief from injections from PCP in september (5) Lumbar radiculopathy: (6) Lumbar spondylosis: (7) Fibromyalgia: (8) Chronic prescription opiate use: Assessment and Plan: I have refilled the patient's opioid prescriptions at the above noted dose and schedule.? I feel these medications are improving the patient's quality of life and allow them to tolerate activities of daily living as well as participate in recreational activity.? The patient does not report intolerable side effects. The patient is NOT opioid naive and non-pharmacologic and non-opioid treatment has failed to significantly relieve the patient's pain and improve functionality. The patient has a diagnosis that is related to a somatic or visceral pain etiology. ? ?? I reviewed with the patient the potential risks and side effects with the use of? opioid medications including but not limited to respiratory depression,? sedation, and even . I verified the patient has access to naloxone should? these effects occur. I advised the patient to avoid the use of any other? sedation substances including alcohol, THC, and benzodiazepines while? taking opioid medications due to the risk of compounding side effects and? detrimental outcomes. 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 drug screen, and opioid start talking forms. The patient was advised to let? their family know they had Naloxone in case they would need to administer? the medication.? ?? A drug screen was completed within the last year, and no aberrancies were noted regarding their use of controlled substances. The patient understands they are subject to the terms and conditions of the pain contract that they have signed. ? ?? I have checked an OARRS report on this patient today and there are no aberrancies noted in the prescribing history.? (9) Muscle spasm: Plan referral to Dr Merino for evaluation and management of right buttock/ ischial bursitis pain patient cannot afford injection therapy through our office continue norco 5/325 BID PRN moderate to severe pain UDS today hx of fibromyalgia flexeril 10mg BID PRN muscle spasms/myofascial pain f/u 3 months
--- OUTSIDE RECORDS SUMMARY | 2024-03-24 10:11 | XMS_ITS | CCD ---
Author Organization [facility] Care Team Providers Care Biodiesel Engineering Manager Name Role Phone JR Cristofer Springer Primary Care Provider MD Sunday Walls Attending Provider CRISTOFER SPRINGER JR Primary Care Physician Allyson GARCIA Attending Unavailable VALONE PROVIDERCRISTOFER Referring Unavail able NILL, Allyson Betancourt Attending Unavailable NILL, Allyson Betancourt Attending Unavailable LAKSHMIPATHY ., NARENDRANATH Admitting Kristie vailable LAKSHMIPATHY ., NARENDVALENTEATH Attending Kristie vailable LAKSHMIPATHY ., NARENDJHONNY Consulting Kristie vailable VALONE, DR NGUYEN Primary Care Unavailable VALONE, DR NGUYEN Primary Care Unavailable FAWWAD, MOODY H Admitting Unavailable FAWWAD, MOODY H Attending Unavailable FAWWAD, MOODY H Attending Unavailable FAWWAD, [...] ., DR GAURAV Magallon Admitting Unavailable LEE ., AMINATA Consulting Unavailable FAWWAD, MOODY H Attending Unavailable FAWWAD, MOODY H Admitting Unavailable VALONE, DR NGUYEN Primary Care Unavailable VALONE, DR NGUYEN Primary Care Unavailable FAWWAD, MOODY H Attending Unavailable FAWWAD, MOODY H Admitting Unavailable VALONE, DR NGUYEN Primary Care Unavailable HALKER .PRINCESS Attending Unavailable LAKSHMIPATHY ., NARENDRANATH Admitting Kristie vailable HALKER .PRINCESS Consulting Unavailable VALONE, DR NGUYEN Primary Care [...] Unavailable VALONE, DR NGUYEN Primary Care Unavailable WEST, DR JAYSON Mena Consulting Unavailable NILL ., DR VALADEZ Consulting Unavailable NILL ., DR VALADEZ Admitting Unavailable NILL ., DR VALADEZ Attending Unavailable VALONE, DR NGUYEN Primary Care Unavailable NILL ., DR VALADEZ Consulting Unavailable NILL ., DR VALDAEZ Admitting Unavailable NILL ., DR VALADEZ Attending Unavailable VALONE, DR NGUYEN Primary Care Unavailable KIMBERLITONI LUND Consulting Unava ilable ELYSSA, DR JAYSON Mena Consulting Unavailable SAMSA ., TOÑITO Attending Unavailable SAMSA .TOÑITO Admitting Unavailable VALONE, DR NGUYEN Primary Care Unavailable SAMSA ., TOÑITO Consulting Unavailable VALONE, DR NGUYEN Primary Care Unavailable HALKER ., PRINCESS Admitting Unavailable PRINCESS CASTILLO Attending Unavailable SHAIKH Phuong WEINER Attending Unavailable SHAIKH Phuong WEINER Admitting Unavailable DR CRISTOFER SPRINGER Primary Care Unavailable TONIE MÉNDEZ Referring Unavailable TONIE MÉNDEZ Attending Unavailable TONIE MÉNDEZ Attending Unavailable JR Cristofer Springer Primary Care Provider [phone] MD Jt Walls Attending Provider [phone] JR Cristofer Springer Primary Care Provider GARCIA Martini Attending Provider Frida Martini Admitting Unavailable Cristofer Springer Primary Care Unavailable Frida Martini Attending Unavailable Cristofer Springer Primary Care Unavailable Jt Walls Attending Unavailable Jt Walls Admitting Unavailable Allergies Allergy Classification Reported Allergen(s) Allergy Type Date of Onset Reaction(s) Facility (7 sources) Cefaclor; Translations: [Cefaclor] Drug Allergy 3 Eruption of skin (disorder) [facility] (7 sources) Cephalexin; Translations: [Cephalexin] Drug Allergy 4 Eruption of skin (disorder) [facility] (10 sources) Codeine; Translations: [Codeine] Drug Allergy 3 Chest pain (finding) [facility] (5 sources) Enoxaparin; Translations: [enoxaparin] Drug Allergy 3 Eruption of skin (disorder) [facility] (3 sources) Cefaclor; Translations: [Ceclor] Drug Allergy 4 [facility] (3 sources) Cephalexin; Translations: [Keflex] Drug Allergy 4 [facility] Repository (2 sources) Bupranolol Drug Allergy 2 [facility] Repository (1 source) KEFLET; Translations: [KEFLET] Propensity to adverse reactions to drug (disorder) 3 [facility] Repository (1 source) Enoxaparin Drug Allergy 3 [facility] Repository Medications Current Medications Medication Drug Class(es) Dates Sig (Normalized) Sig (Original) acetaminophen 325 mg / HYDROcodone bitartrate 5 mg oral tablet (5 sources) Opioid Agonist Start: 06-11-2022 take 1 tablet by mouth twice daily as needed for pain Lohman 325 mg-5 mg oral tablet 1 tab(s), Oral, BID as needed for pain, Refill(s) 0 Start Date: 06/11/22 Status: Ordered Start: 08-11-2019 take 1 tablet by kayli th every four hours Hydrocodone-Acetaminophen Active 1 TAB P O Q4H August 11, 2019 12:00am [id number] 200 actuat albuterol 0.09 mg/actuat metered dose inhaler (3 sources) beta2-Adrenergic Agonist Start: 08-11-2019 take 1 puff(s) by inhalation every four to six hours Albuterol Sulfate Active 2 PUFF INHALATION EVERY 4-6 HOURS August 11, 2019 12:00am albuterol HFA 90 mcg/inh MDI (2 sources) [...] Status: Ordered baclofen 10 mg oral tablet (5 sources) gamma-Aminobutyric Acid-ergic Agonist Start: 06-11-2022 take 1 tablet by mouth every eight hours as needed for muscle spasms baclofen 10 mg Tab 10 mg = 1 tab(s), Oral, q8hr, PRN Spasm, Refills(s) 0 Start Date: 06/11/22 Status: Ordered Start: 08-11-2019 take 10 mg by mouth three times daily Baclofen Active 10 MG PO Three times daily August 11, 2019 12:00am Cbd Cream (3 sources) Start: 08-11-2019 Cbd Cream Acti ve TOPICAL Daily August 11, 2019 3:53pm Start: 08-11-2019 Cbd Cream Acti ve TOPICAL Daily August 11, 2019 12:00am celecoxib 100 mg oral capsule (5 sources) Nonsteroidal Anti-inflammatory Drug Start: 06-11-2022 take 1 capsule by mouth twice daily CeleBREX 100 mg Cap 100 mg = 1 cap(s), Oral, BID, Refills(s) 0 Start Date: 06/11/22 Status: Ordered Start: 08-11-2019 take 1 capsule by [facility] once daily Celecoxib (Celebrex) 200 mg Capsule Active 200 MG PO Daily August 11, 2019 12:00am colesevelam hydrochloride 625 mg oral tablet (5 sources) Bile Acid Sequestrant Start: 06-11-2022 Welchol 625 mg Tab 3,750 mg = 6 tab(s), Oral, Daily, Refills(s) 0 Start Date: 06/11/22 Status: Ordered Start: 08-11-2019 Colesevelam Ac tive 1 TAB PO 6 times per day August 11, 2019 12:00am famotidine 20 mg oral tablet (3 sources) Histamine-2 Receptor Antagonist Start: 08-25-2019 take 1 tablet by mouth twice daily before mealtime Famotidine (Pepcid Ac) 20 mg Tablet Active 20 MG PO Twice daily August 25, 2019 12:00am folic acid 1 mg oral tablet (3 sources) Start: 08-11-2019 take 1 mg by mouth once daily Folic Acid Active 1 MG PO Daily August 11, 2019 12:00am gabapentin 400 mg oral capsule (5 sources) Anti-epileptic Agent Start: 08-11-2019 take 1 capsule by mouth once daily gabapentin 400 mg Cap 400 mg = 1 cap(s), Oral, Daily, Refills(s) 0 Start Date: 06/11/22 Status: Ordered hydrOXYzine hydrochloride 25 mg oral tablet (5 sources) Antihistamine Start: 08-11-2019 take 1 tablet by mouth once daily hydrOXYzine hydrochloride 25 mg Tab 25 mg = 1 tab(s), Oral, Daily, Refills(s) 0 Start Date: 06/11/22 Status: Ordered lansoprazole 30 mg delayed release oral capsule (2 sources) Proton Pump Inhibitor Start: 06-11-2022 take 1 capsule by mouth once daily Prevacid 30 mg Cap-DR 30 mg = 1 cap(s), Oral, Daily, Refills(s) 0 Start Date: 06/11/22 Status: Ordered montelukast 10 mg oral tablet (5 sources) Leukotriene Receptor Antagonist Start: 08-11-2019 take 1 tablet by mouth once daily Singulair 10 mg Tab 10 mg = 1 tab(s), Oral, Daily, Refills(s) 0 Start Date: 06/11/22 Status: Ordered rosuvastatin calcium 10 mg oral tablet (2 sources) HMG-CoA Reductase Inhibitor Start: 06-11-2022 take 1 tablet by mouth once daily Crestor 10 mg Tab 10 mg = 1 tab(s), Oral, Daily, Refills(s) 0 Start Date: 06/11/22 Status: Ordered simvastatin 20 mg oral tablet (3 sources) HMG-CoA Reductase Inhibitor Start: 08-11-2019 take 20 mg by mouth once daily at bedtime Simvastatin Active 20 MG PO Daily at bedtime August 11, 2019 12:00am 7 actuat umeclidinium 0.0625 mg/actuat / vilanterol 0.025 mg/actuat dry powder inhaler (3 sources) Anticholinergic, beta2-Adrenergic Agonist Start: 08-11-2019 Umeclidinium-Vilan terol (Anoro Ellipta) 62.5-25 mcg/actuation Blister With Device Active 1 INH INHALATION Q24H August 11, 2019 12:00am Coumadin (8 sources) Vitamin K Antagonist Start: 06-11-2022 Coumadin as directed, Refills(s) 0 Start Date: 06/11/22 Status: Ordered Start: 08-11-2019 take 5 mg by mouth f moise times weekly Warfarin Active 5 MG PO 5 TIMES PER WEEK August 11, 2019 12:00am Start: 08-11-2019 take 2.5 mg by mouth two times weekly Warfarin Active 2.5 MG PO Twice a Week August 11, 2019 12:00am every T/ F Completed/Discontinued Medications Medication Drug Class(es) Dates Sig (Normalized) Sig (Original) raNITIdine 150 mg oral tablet (3 sources) Histamine-2 Receptor Antagonist Start: 08-11-2019 End: 08-25-2019 take 1 tablet by mouth once daily Ranitidine Hcl (Zantac) 150 mg Tablet Discontinued 150 MG PO Daily August 11, 2019 12:00am August 25, 2019 7:59am Problems Active Problems [...] without esophagitis] Onset: 2 06-11-2022 Chronic Osteoarthritis (6 sources) Bilateral primary osteoarthritis of knee; Translations: [Primary generalized (osteo)arthritis] Onset: 2 Chronic Other aftercare (3 sources) Long-term current use of anticoagulant; 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] Onset: 2 Episodic Other aftercare (1 source) FPC (current) use of anticoagulants; Translations: [HALF-WAY CURRNT USE ANTICOAGULANTS] Onset: 3 Episodic Other [...] zymatic activity/volume] in Serum or PlasmaOrdered By: Frida Martini on 02-16-2024 ALT [Catalytic activity/Vol] 9 U/L 7-52 [facility] Albumin [Mass/volume] in Ser um or Plasma by Bromocresol green (BCG) dye binding methoOrdered By: Frida Martini on 02-16-2024 Albumin BCG dye [Mass/Vol] 4.1 g/dL 3.5-5.7 [facility] Alkaline phosphatase [Enzyma tic activity/volume] in Serum or PlasmaOrdered By: Frida Martini on 02-16-2024 ALP [Catalytic activity/Vol] 89 U/L 34-104 [facility] Aspartate aminotransferase [ Enzymatic activity/volume] in Serum or PlasmaOrdered By: Frida Martini on 02-16-2024 AST [Catalytic activity/Vol] 12 U/L 13-39 [facility] Basophils Auto (Bld) [#/Vol] Ordered By: Frida Martini on 02-16-2024 Basophils (Bld) [#/Vol] 0.0 10*3/uL 0.0-0.2 [facility] Basophils/100 WBC Auto (Bld) Ordered By: Frida Martini on 02-16-2024 Basophils/100 WBC (Bld) 0.3 % . [facility] Bilirubin.total [Mass/volume ] in Serum or PlasmaOrdered By: Frida Martini on 02-16-2024 Bilirubin [Mass/Vol] 0.8 mg/dL 0.3-1.0 [facility] Calcium [Mass/volume] in Ser um or PlasmaOrdered By: Frida Martini on 02-16-2024 Calcium [Mass/Vol] 9.3 mg/dL 8.6-10.3 [facility] Carbon dioxide, total [Moles /volume] in Serum or PlasmaOrdered By: Frida Martini on 02-16-2024 CO2 [Moles/Vol] 27.9 mmol/L 21.0-31.0 [facility] Chloride [Moles/volume] in S nadia or PlasmaOrdered By: Frida Martini on 02-16-2024 Chloride [Moles/Vol] 106 mmol/L 98-107 [facility] Complete Blood Count Auto Di ffon 02-16-2024 Basophils (Bld) [#/Vol] 0.0 10*3/uL Normal 0.0-0.2 [facility] Comment on above: Result Comment: PERF ORMED BY: [place] [id number] PATHOLOGIST [employer]SEKEE[employer] FLORENCIA MARIANO M.D. Performed By: #### C MP, CBC #### [facility] [address] [place] [address] Basophils/100 WBC (Bld) 0.3 % Normal . [facility] Comment on above: Performed By: #### C MP, CBC #### [facility] [address] [place] [address] [place] Eosinophils (Bld) [#/Vol] 0.2 10*3/uL Normal 0.0-0.45 [facility] Comment on above: Performed By: #### C MP, CBC #### [address] Eosinophils/100 WBC (Bld) 2.3 % Normal . [facility] Comment on above: Performed By: #### C MP, CBC #### [address] Erythrocyte distribution width (RBC) [Ratio] 14.5 % Normal 11.9-15.3 [facility] Comment on above: Performed By: #### C MP, CBC #### [address] Hematocrit (Bld) [Volume fraction] 44.3 % Normal 34.0-46.4 [facility] Comment on above: Performed By: #### C MP, CBC #### [address] Hemoglobin (Bld) [Mass/Vol] 14.4 g/dL Normal 11.8-15.4 [facility] Comment on above: Performed By: #### C MP, CBC #### [address] Lymphocytes (Bld) [#/Vol] 2.6 10*3/uL Normal 1.00-4.8 [facility] Comment on above: Performed By: #### C MP, CBC #### [address] Lymphocytes/100 WBC (Bld) 31.6 % Normal . [facility] Comment on above: Performed By: #### C MP, CBC #### [address] MCH (RBC) [Entitic mass] 30.0 pg Normal 24.7-34.3 [facility] Comment on above: Performed By: #### C MP, CBC #### [address] MCV (RBC) [Entitic vol] 92.1 fL Normal 80-100 [facility] Comment on above: Performed By: #### C MP, CBC #### [address] Mean Corpuscular HGB Conc 32.5 g/dL Normal 32.0-35.0 [facility] Comment on above: Performed By: #### C MP, CBC #### [address] Monocytes (Bld) [#/Vol] 0.5 10*3/uL Normal 0.0-0.8 [facility] Comment on above: Performed By: #### C MP, CBC #### [address] Monocytes/100 WBC (Bld) 6.3 % Normal . [facility] Comment on above: Performed By: #### C MP, CBC #### [address] Neutrophils (Bld) [#/Vol] 4.8 10*3/uL Normal 1.8-7.7 [facility] Comment on above: Performed By: #### C MP, CBC #### [address] Neutrophils/100 WBC (Bld) 59.5 % Normal . [facility] Comment on above: Performed By: #### C MP, CBC #### [address] NRBC% 0.2 /100{WBC} Normal 0-0.5 [facility] Comment on above: Performed By: #### C MP, CBC #### [address] Platelet mean volume (Bld) [Entitic vol] 8.3 fL Normal 6.3-10.7 [facility] Comment on above: Performed By: #### C MP, CBC #### [address] Platelets (Bld) [#/Vol] 204 10*3/uL Normal 150-450 [facility] Comment on above: Performed By: #### C MP, CBC #### [address] RBC (Bld) [#/Vol] 4.81 10*6/uL Normal 3.60-5.00 [facility] Comment on above: Performed By: #### C MP, CBC #### [address] WBC (Bld) [#/Vol] 8.1 10*3/uL Normal 3.8-11.6 [facility] Comment on above: Performed By: #### C MP, CBC #### [address] Comprehensive Metabolic Pane carlos alberto 02-16-2024 Albumin [Mass/Vol] 4.1 g/dL Normal 3.5-5.7 [facility] Comment on above: Performed By: #### C MP, CBC #### [address] Albumin/Globulin [Mass ratio] 2.0 {ratio} Normal [facility] Comment on above: Performed By: #### C MP, CBC #### [address] ALP [Catalytic activity/Vol] 89 U/L Normal 34-104 [facility] Comment on above: Result Comment: PERF ORMED BY: [place] [address] PATHOLOGIST [employer] FLORENCIA MARIANO M.D. Performed By: #### C MP, CBC #### [address] ALT [Catalytic activity/Vol] 9 U/L Normal 7-52 [facility] Comment on above: Performed By: #### C MP, CBC #### [address] Anion gap [Moles/Vol] 9.4 mmol/L Normal 6.0-15.0 [facility] Comment on above: Performed By: #### C MP, CBC #### [address] AST [Catalytic activity/Vol] 12 U/L Low 13-39 [facility] Comment on above: Performed By: #### C MP, CBC #### [address] Bilirubin [Mass/Vol] 0.8 mg/dL Normal 0.3-1.0 [facility] Comment on above: Performed By: #### C MP, CBC #### [address] Calcium [Mass/Vol] 9.3 mg/dL Normal 8.6-10.3 [facility] Comment on above: Performed By: #### C MP, CBC #### [address] Chloride [Moles/Vol] 106 mmol/L Normal 98-107 [facility] Comment on above: Performed By: #### C MP, CBC #### [address] CO2 [Moles/Vol] 27.9 mmol/L Normal 21.0-31.0 [facility] Comment on above: Performed By: #### C MP, CBC #### [address] Creatinine [Mass/Vol] 0.82 mg/dL Normal 0.60-1.20 [facility] Comment on above: Performed By: #### C MP, CBC #### [place] [address] [place] GFR/1.73 sq M.predicted MDRD (S/P/Bld) [Vol rate/Area] mL/min/{1.73_m2} Normal [facility] Comment on above: Performed By: #### C MP, CBC #### [place] [address] [place] Globulin (S) [Mass/Vol] 2.1 g/dL Normal [facility] Comment on above: Performed By: #### C MP, CBC #### [facility] [address] Glucose [Mass/Vol] 80 mg/dL Normal 70-100 [facility] Comment on above: Result Comment: [place] Glucose Reference Range is dependent on time and content of last meal. Glucose of more than 200 mg/dL in a nonstressed, ambulatory subject supports the diagnosis of Diabetes Mellitus. ADA recommended reference range Performed By: #### C MP, CBC #### [address] Potassium [Moles/Vol] 4.3 mmol/L Normal 3.5-5.1 [facility] Comment on above: Performed By: #### C MP, CBC #### [address] Protein [Mass/Vol] 6.2 g/dL Low 6.4-8.9 [facility] Comment on above: Performed By: #### C MP, CBC #### [address] Sodium [Moles/Vol] 139 mmol/L Normal 136-145 [facility] Comment on above: Performed By: #### C MP, CBC #### [address] Urea nitrogen [Mass/Vol] 19 mg/dL Normal 7-25 [facility] Comment on above: Performed By: #### C MP, CBC #### [address] Creatinine [Mass/volume] in Serum or PlasmaOrdered By: Frida Martini on 02-16-2024 Creatinine [Mass/Vol] 0.82 mg/dL 0.60-1.20 [facility] Eosinophils Auto (Bld) [#/Vo l]Ordered By: Frida Martini on 02-16-2024 Eosinophils (Bld) [#/Vol] 0.2 10*3/uL 0.0-0.45 [facility] Eosinophils/100 WBC Auto (Bl d)Ordered By: Frida Martini on 02-16-2024 Eosinophils/100 WBC (Bld) 2.3 % . [facility] Erythrocyte distribution wid th Auto (RBC) [Ratio]Ordered By: Frida Martini on 02-16-2024 Erythrocyte distribution width (RBC) [Ratio] 14.5 % 11.9-15.3 [facility] Globulin Calc (S) [Mass/Vol] Ordered By: Frida Martini on 02-16-2024 Globulin (S) [Mass/Vol] 2.1 g/dL [facility] Glucose [Mass/volume] in Ser um or PlasmaOrdered By: Frida Martini on 02-16-2024 Glucose [Mass/Vol] 80 mg/dL 70-100 [facility] Comment on above: ADA recommended refe rence rangeRandom Glucose Reference Range is dependent on time and content of last meal. Glucose of more than 200 mg/dL in a nonstressed, ambulatory subject supports the diagnosis of Diabetes Mellitus. Hematocrit Auto (Bld) [Volum e fraction]Ordered By: Frida Martini on 02-16-2024 Hematocrit (Bld) [Volume fraction] 44.3 % 34.0-46.4 [facility] Hemoglobin [Mass/volume] in BloodOrdered By: Frida Martini on 02-16-2024 Hemoglobin (Bld) [Mass/Vol] 14.4 g/dL 11.8-15.4 [facility] Leukocytes [#/volume] correc zay for nucleated erythrocytes in Blood by Automated counOrdered By: Frida Martini on 02-16-2024 WBC corrected for nucl RBC Auto (Bld) [#/Vol] 8.1 10*3/uL 3.8-11.6 [facility] Lymphocytes Auto (Bld) [#/Vo l]Ordered By: Frida Martini on 02-16-2024 Lymphocytes (Bld) [#/Vol] 2.6 10*3/uL 1.00-4.8 [facility] Lymphocytes/100 WBC Auto (Bl d)Ordered By: Frida Martini on 02-16-2024 Lymphocytes/100 WBC (Bld) 31.6 % . [facility] MCH Auto (RBC) [Entitic mass ]Ordered By: Frida Martini on 02-16-2024 MCH (RBC) [Entitic mass] 30.0 pg 24.7-34.3 [facility] MCHC Auto (RBC) [Mass/Vol]Or dered By: Frida Martini on 02-16-2024 MCHC (RBC) [Mass/Vol] 32.5 g/dL 32.0-35.0 [facility] MCV Auto (RBC) [Entitic vol] Ordered By: Frida Martini on 02-16-2024 MCV (RBC) [Entitic vol] 92.1 fL 80-100 [facility] Monocytes Auto (Bld) [#/Vol] Ordered By: Frida Matrini on 02-16-2024 Monocytes (Bld) [#/Vol] 0.5 10*3/uL 0.0-0.8 [facility] Monocytes/100 WBC Auto (Bld) Ordered By: Frida Martini on 02-16-2024 Monocytes/100 WBC (Bld) 6.3 % . [facility] Neutrophils Auto (Bld) [#/Vo l]Ordered By: Frida Martini on 02-16-2024 Neutrophils (Bld) [#/Vol] 4.8 10*3/uL 1.8-7.7 [facility] Neutrophils/100 WBC Auto (Bl d)Ordered By: Frida Martini on 02-16-2024 Neutrophils/100 WBC (Bld) 59.5 % . [facility] No Panel InformationOrdered By: Frida Martini on 02-16-2024 Estimated GFR (CKD-EPI) > 60.0 mL/Min [facility] Pharmacy Creatinine Clearance (Chem N/A [facility] Nucleated erythrocytes [Pres ence] in Blood by Automated countOrdered By: Frida Martini on 02-16-2024 Nucleated RBC Auto Ql (Bld) 0.2 /100{WBC} 0-0.5 [facility] Platelet mean volume Auto (B ld) [Entitic vol]Ordered By: Frida Martini on 02-16-2024 Platelet mean volume (Bld) [Entitic vol] 8.3 fL 6.3-10.7 [facility] Platelets Auto (Bld) [#/Vol] Ordered By: Frida Martini on 02-16-2024 Platelets (Bld) [#/Vol] 204 10*3/uL 150-450 [facility] Potassium [Moles/volume] in Serum or PlasmaOrdered By: Frida Martini on 02-16-2024 Potassium [Moles/Vol] 4.3 mmol/L 3.5-5.1 [facility] Protein [Mass/volume] in Ser um or PlasmaOrdered By: Frida Martini on 02-16-2024 Protein [Mass/Vol] 6.2 g/dL 6.4-8.9 [facility] RBC Auto (Bld) [#/Vol]Ordere d By: Frida Martini on 02-16-2024 RBC (Bld) [#/Vol] 4.81 10*6/uL 3.60-5.00 [facility] Serum or plasma albumin/glob ulin mass ratioOrdered By: Frida Martini on 02-16-2024 Albumin/Globulin [Mass ratio] 2.0 {ratio} [facility] Serum or plasma anion gap de terminationOrdered By: Frida Martini on 02-16-2024 Anion gap [Moles/Vol] 9.4 mmol/L 6.0-15.0 [facility] Sodium [Moles/volume] in Ser um or PlasmaOrdered By: Frida Martini on 02-16-2024 Sodium [Moles/Vol] 139 mmol/L 136-145 [facility] Urea nitrogen [Mass/volume] in Serum or PlasmaOrdered By: Frida Martini on 02-16-2024 Urea nitrogen [Mass/Vol] 19 mg/dL 7-25 [facility] WBC Auto (Bld) [#/Vol]Ordere d By: Frida Martini on 02-16-2024 WBC (Bld) [#/Vol] 8.1 10*3/uL 3.8-11.6 [facility] Alanine aminotransferase [En zymatic activity/volume] in Serum or PlasmaOrdered By: Jt Walls on 08-24-2023 ALT [Catalytic activity/Vol] 9 U/L 7-52 [facility] Albumin [Mass/volume] in Ser um or Plasma by Bromocresol green (BCG) dye binding methoOrdered By: Jt Walls on 08-24-2023 Albumin BCG dye [Mass/Vol] 4.1 g/dL 3.5-5.7 [facility] Alkaline phosphatase [Enzyma tic activity/volume] in Serum or PlasmaOrdered By: Jt Walls on 08-24-2023 ALP [Catalytic activity/Vol] 83 U/L 34-104 [facility] Aspartate aminotransferase [ Enzymatic activity/volume] in Serum or PlasmaOrdered By: Jt Walls on 08-24-2023 AST [Catalytic activity/Vol] 12 U/L 13-39 [facility] Basophils Auto (Bld) [#/Vol] Ordered By: Jt Walls on 08-24-2023 Basophils (Bld) [#/Vol] 0.0 10*3/uL 0.0-0.2 [facility] Basophils/100 WBC Auto (Bld) Ordered By: Jt Walls on 08-24-2023 Basophils/100 WBC (Bld) 0.6 % . [facility] Bilirubin.total [Mass/volume ] in Serum or PlasmaOrdered By: Jt Walls on 08-24-2023 Bilirubin [Mass/Vol] 0.5 mg/dL 0.3-1.0 [facility] Calcium [Mass/volume] in Ser um or PlasmaOrdered By: Jt Walls on 08-24-2023 Calcium [Mass/Vol] 9.1 mg/dL 8.6-10.3 [facility] Carbon dioxide, total [Moles /volume] in Serum or PlasmaOrdered By: Jt Walls on 08-24-2023 CO2 [Moles/Vol] 28.8 mmol/L 21.0-31.0 [facility] Chloride [Moles/volume] in S nadia or PlasmaOrdered By: Jt Walls on 08-24-2023 Chloride [Moles/Vol] 109 mmol/L 98-107 [facility] Complete Blood Count Auto Di ffon 08-24-2023 Basophils (Bld) [#/Vol] 0.0 10*3/uL Normal 0.0-0.2 [facility] Comment on above: Result Comment: PERF ORMED BY: [place] [address] PATHOLOGIST [employer] FLORENCIA MARIANO M.D. Performed By: #### C MP, CBC #### [address] Basophils/100 WBC (Bld) 0.6 % Normal . [facility] Comment on above: Performed By: #### C MP, CBC #### [place] [address] [place] Eosinophils (Bld) [#/Vol] 0.1 10*3/uL Normal 0.0-0.45 [facility] Comment on above: Performed By: #### C MP, CBC #### [address] Eosinophils/100 WBC (Bld) 2.2 % Normal . [facility] Comment on above: Performed By: #### C MP, CBC #### [place] [address] [place] Erythrocyte distribution width (RBC) [Ratio] 14.0 % Normal 11.9-15.3 [facility] Comment on above: Performed By: #### C MP, CBC #### [address] Hematocrit (Bld) [Volume fraction] 43.2 % Normal 34.0-46.4 [facility] Comment on above: Performed By: #### C MP, CBC #### [place] [address] [place] Hemoglobin (Bld) [Mass/Vol] 14.4 g/dL Normal 11.8-15.4 [facility] Comment on above: Performed By: #### C MP, CBC #### [address] Lymphocytes (Bld) [#/Vol] 2.0 10*3/uL Normal 1.00-4.8 [facility] Comment on above: Performed By: #### C MP, CBC #### [address] Lymphocytes/100 WBC (Bld) 29.3 % Normal . [facility] Comment on above: Performed By: #### C MP, CBC #### [address] MCH (RBC) [Entitic mass] 31.1 pg Normal 24.7-34.3 [facility] Comment on above: Performed By: #### C MP, CBC #### [address] MCV (RBC) [Entitic vol] 93.4 fL Normal 80-100 [facility] Comment on above: Performed By: #### C MP, CBC #### [address] Mean Corpuscular HGB Conc 33.3 g/dL Normal 32.0-35.0 [facility] Comment on above: Performed By: #### C MP, CBC #### [place] [address] [place] Monocytes (Bld) [#/Vol] 0.5 10*3/uL Normal 0.0-0.8 [facility] Comment on above: Performed By: #### C MP, CBC #### [place] [address] [place] Monocytes/100 WBC (Bld) 6.8 % Normal . [facility] Comment on above: Performed By: #### C MP, CBC #### [address] Neutrophils (Bld) [#/Vol] 4.2 10*3/uL Normal 1.8-7.7 [facility] Comment on above: Performed By: #### C MP, CBC #### [address] Neutrophils/100 WBC (Bld) 61.1 % Normal . [facility] Comment on above: Performed By: #### C MP, CBC #### [address] NRBC% 0.2 /100{WBC} Normal 0-0.5 [facility] Comment on above: Performed By: #### C MP, CBC #### [address] Platelet mean volume (Bld) [Entitic vol] 8.8 fL Normal 6.3-10.7 [facility] Comment on above: Performed By: #### C MP, CBC #### [address] Platelets (Bld) [#/Vol] 181 10*3/uL Normal 150-450 [facility] Comment on above: Performed By: #### C MP, CBC #### [address] RBC (Bld) [#/Vol] 4.63 10*6/uL Normal 3.60-5.00 [facility] Comment on above: Performed By: #### C MP, CBC #### [address] WBC (Bld) [#/Vol] 6.8 10*3/uL Normal 3.8-11.6 [facility] Comment on above: Performed By: #### C MP, CBC #### [address] Comprehensive Metabolic Pane carlos alberto 08-24-2023 Albumin [Mass/Vol] 4.1 g/dL Normal 3.5-5.7 [facility] Comment on above: Performed By: #### C MP, CBC #### [address] Albumin/Globulin [Mass ratio] 2.1 {ratio} Normal [facility] Comment on above: Performed By: #### C MP, CBC #### [address] ALP [Catalytic activity/Vol] 83 U/L Normal 34-104 [facility] Comment on above: Result Comment: PERF ORMED BY: [place] [address] PATHOLOGIST [employer] FLORENCIA MARIANO M.D. Performed By: #### C MP, CBC #### [address] ALT [Catalytic activity/Vol] 9 U/L Normal 7-52 [facility] Comment on above: Performed By: #### C MP, CBC #### [address] Anion gap [Moles/Vol] 8.4 mmol/L Normal 6.0-15.0 [facility] Comment on above: Performed By: #### C MP, CBC #### [address] AST [Catalytic activity/Vol] 12 U/L Low 13-39 [facility] Comment on above: Performed By: #### C MP, CBC #### [address] Bilirubin [Mass/Vol] 0.5 mg/dL Normal 0.3-1.0 [facility] Comment on above: Performed By: #### C MP, CBC #### [address] Calcium [Mass/Vol] 9.1 mg/dL Normal 8.6-10.3 [facility] Comment on above: Performed By: #### C MP, CBC #### [place] [address] [place] Chloride [Moles/Vol] 109 mmol/L High 98-107 [facility] Comment on above: Performed By: #### C MP, CBC #### [place] [address] [place] CO2 [Moles/Vol] 28.8 mmol/L Normal 21.0-31.0 [facility] Comment on above: Performed By: #### C MP, CBC #### [address] Creatinine [Mass/Vol] 0.81 mg/dL Normal 0.60-1.20 [facility] Comment on above: Performed By: #### C MP, CBC #### [place] [address] [place] GFR/1.73 sq M.predicted MDRD (S/P/Bld) [Vol rate/Area] mL/min/{1.73_m2} Normal [facility] Comment on above: Performed By: #### C MP, CBC #### [place] [address] [place] Globulin (S) [Mass/Vol] 2.0 g/dL Normal [facility] Comment on above: Performed By: #### C MP, CBC #### [address] Glucose [Mass/Vol] 90 mg/dL Normal 70-100 [facility] Comment on above: Result Comment: [place] Glucose Reference Range is dependent on time and content of last meal. Glucose of more than 200 mg/dL in a nonstressed, ambulatory subject supports the diagnosis of Diabetes Mellitus. ADA recommended reference range Performed By: #### C MP, CBC #### [place] [address] [place] Potassium [Moles/Vol] 4.2 mmol/L Normal 3.5-5.1 [facility] Comment on above: Performed By: #### C MP, CBC #### [place] [address] [place] Protein [Mass/Vol] 6.1 g/dL Low 6.4-8.9 [facility] Comment on above: Performed By: #### C MP, CBC #### [place] [address] [place] Sodium [Moles/Vol] 142 mmol/L Normal 136-145 [facility] Comment on above: Performed By: #### C MP, CBC #### [place] [address] [place] Urea nitrogen [Mass/Vol] 12 mg/dL Normal 7-25 [facility] Comment on above: Performed By: #### C MP, CBC #### [address] [place] [address] [facility] Creatinine [Mass/volume] in Serum or PlasmaOrdered By: Jt Walls on 08-24-2023 Creatinine [Mass/Vol] 0.81 mg/dL 0.60-1.20 [facility] Eosinophils Auto (Bld) [#/Vo l]Ordered By: Jt Walls on 08-24-2023 Eosinophils (Bld) [#/Vol] 0.1 10*3/uL 0.0-0.45 [facility] Eosinophils/100 WBC Auto (Bl d)Ordered By: Jt Walls on 08-24-2023 Eosinophils/100 WBC (Bld) 2.2 % . [facility] Erythrocyte distribution wid th Auto (RBC) [Ratio]Ordered By: Jt Walls on 08-24-2023 Erythrocyte distribution width (RBC) [Ratio] 14.0 % 11.9-15.3 [facility] Globulin Calc (S) [Mass/Vol] Ordered By: Jt Walls on 08-24-2023 Globulin (S) [Mass/Vol] 2.0 g/dL [facility] Glucose [Mass/volume] in Ser um or PlasmaOrdered By: Jt Walls on 08-24-2023 Glucose [Mass/Vol] 90 mg/dL 70-100 [facility] Comment on above: ADA recommended refe rence rangeRandom Glucose Reference Range is dependent on time and content of last meal. Glucose of more than 200 mg/dL in a nonstressed, ambulatory subject supports the diagnosis of Diabetes Mellitus. Hematocrit Auto (Bld) [Volum e fraction]Ordered By: Jt Walls on 08-24-2023 Hematocrit (Bld) [Volume fraction] 43.2 % 34.0-46.4 [facility] Hemoglobin [Mass/volume] in BloodOrdered By: Jt Walls on 08-24-2023 Hemoglobin (Bld) [Mass/Vol] 14.4 g/dL 11.8-15.4 [facility] Leukocytes [#/volume] correc zay for nucleated erythrocytes in Blood by Automated counOrdered By: Jt Walls on 08-24-2023 WBC corrected for nucl RBC Auto (Bld) [#/Vol] 6.8 10*3/uL 3.8-11.6 [facility] Lymphocytes Auto (Bld) [#/Vo l]Ordered By: Jt Walls on 08-24-2023 Lymphocytes (Bld) [#/Vol] 2.0 10*3/uL 1.00-4.8 [facility] Lymphocytes/100 WBC Auto (Bl d)Ordered By: Jt Walls on 08-24-2023 Lymphocytes/100 WBC (Bld) 29.3 % . [facility] MCH Auto (RBC) [Entitic mass ]Ordered By: Jt Walls on 08-24-2023 MCH (RBC) [Entitic mass] 31.1 pg 24.7-34.3 [facility] MCHC Auto (RBC) [Mass/Vol]Or dered By: Jt Walls on 08-24-2023 MCHC (RBC) [Mass/Vol] 33.3 g/dL 32.0-35.0 [facility] MCV Auto (RBC) [Entitic vol] Ordered By: Jt Walls on 08-24-2023 MCV (RBC) [Entitic vol] 93.4 fL 80-100 [facility] Monocytes Auto (Bld) [#/Vol] Ordered By: Jt Walls on 08-24-2023 Monocytes (Bld) [#/Vol] 0.5 10*3/uL 0.0-0.8 [facility] Monocytes/100 WBC Auto (Bld) Ordered By: Jt Walls on 08-24-2023 Monocytes/100 WBC (Bld) 6.8 % . [facility] Neutrophils Auto (Bld) [#/Vo l]Ordered By: Jt Walls on 08-24-2023 Neutrophils (Bld) [#/Vol] 4.2 10*3/uL 1.8-7.7 [facility] Neutrophils/100 WBC Auto (Bl d)Ordered By: Jt Walls on 08-24-2023 Neutrophils/100 WBC (Bld) 61.1 % . [facility] No Panel InformationOrdered By: Jt Walls on 08-24-2023 Estimated GFR (CKD-EPI) > 60.0 mL/Min [facility] Pharmacy Creatinine Clearance (Chem N/A [facility] Nucleated erythrocytes [Pres ence] in Blood by Automated countOrdered By: Jt Wlals on 08-24-2023 Nucleated RBC Auto Ql (Bld) 0.2 /100{WBC} 0-0.5 [facility] Platelet mean volume Auto (B ld) [Entitic vol]Ordered By: Jt Walls on 08-24-2023 Platelet mean volume (Bld) [Entitic vol] 8.8 fL 6.3-10.7 [facility] Platelets Auto (Bld) [#/Vol] Ordered By: Jt Walls on 08-24-2023 Platelets (Bld) [#/Vol] 181 10*3/uL 150-450 [facility] Potassium [Moles/volume] in Serum or PlasmaOrdered By: Jt Walls on 08-24-2023 Potassium [Moles/Vol] 4.2 mmol/L 3.5-5.1 [facility] Protein [Mass/volume] in Ser um or PlasmaOrdered By: Jt Walls on 08-24-2023 Protein [Mass/Vol] 6.1 g/dL 6.4-8.9 [facility] RBC Auto (Bld) [#/Vol]Ordere d By: Jt Walls on 08-24-2023 RBC (Bld) [#/Vol] 4.63 10*6/uL 3.60-5.00 [facility] Serum or plasma albumin/glob ulin mass ratioOrdered By: Jt Walls on 08-24-2023 Albumin/Globulin [Mass ratio] 2.1 {ratio} [facility] Serum or plasma anion gap de terminationOrdered By: Jt Walls on 08-24-2023 Anion gap [Moles/Vol] 8.4 mmol/L 6.0-15.0 [facility] Sodium [Moles/volume] in Ser um or PlasmaOrdered By: Jt Walls on 08-24-2023 Sodium [Moles/Vol] 142 mmol/L 136-145 [facility] Urea nitrogen [Mass/volume] in Serum or PlasmaOrdered By: Jt Walls on 08-24-2023 Urea nitrogen [Mass/Vol] 12 mg/dL 7-25 [facility] WBC Auto (Bld) [#/Vol]Ordere d By: Jt Walls on 08-24-2023 WBC (Bld) [#/Vol] 6.8 10*3/uL 3.8-11.6 [facility] Follow-Upon 06-22-2023 Follow-Up [id number] Nicol Lacey 1960 F Date Provider Department Center 06/22/2023 Camilla-TONIE MÉNDEZ ONC DCC Family History Problem Relation Age of Onset Heart disease Mother Esophageal cancer Father Family Status - Relation Status Age at Mother Father Level of Service:44200 [place] OFFICE/OUTPATIENT ESTABLISHED LOW MDM 20-29 MIN Reason for Visit and Comments: Follow-up [786663] - Here today to discuss recent MRI Normal [facility] MR LUMBAR SPINE WO CONTRASTo n [...] right L4-5. Electronically signed: Hema Hurt. Normal [facility] Comment on above: Order Comment: Has r ight sided mostly L5 radiculopathy Office Visiton 05-26-2023 Follow-up visit [id number] Nicol Lacey 1960 F Date Provider Department Center 05/26/2023 TONIE DE GUZMAN ONC DCC Family History Problem Relation Age of Onset Heart disease Mother Esophageal cancer Father Family Status - Relation Status Age at Mother Father Level of Service:62470 [place] OFFICE/OUTPATIENT NEW LOW MDM 30-44 MINUTES Reason for Visit and Comments: Consult [484] - Here today for back pain-old mri and hip xray Normal [facility] Orders Onlyon 05-13-2023 Orders Only [id number] Nicol Lacey 1960 Date Provider Department Center 05/13/2023 TONIE DE GUZMAN ONC DCC No family history on file Normal [facility] PROTIMEon 02-24-2023 INR Coag (PPP) [Relative time] 1.07 {INR} Normal [facility] Comment on above: Performed By: #### P T #### [facility] [address] [place] [address] Dr. Jason Paniagua INR GUIDELINES SEE BELOW Normal [facility] Comment on above: Result Comment: VAEL RED INR: 2.0 - 3.0 CONDITIONS NOT LISTED BELOW 2.5 - 3.5 FOR PROSTHETIC HEART VALVE REPLACEMENT 2.5 - 3.5 RECURRENT THROMBOSIS Performed By: #### P T #### [facility] [address] [address] [address] Jason Paniagua PT Coag (PPP) [Time] 11.3 s Normal 9.0-11.6 [facility] Comment on above: Performed By: #### P T #### [facility] [address] [address] [address] Jason Paniagua Lab Reportson 08-01-2022 Lab Reports [id number]#[id number]:127 Normal [facility] General Surgery Office/Clini c Noteon 07-29-2022 [...] Tab, 25 mg= 1 tab(s), Oral, Daily Lohman 325 mg-5 mg oral tablet, 1 tab(s), [...] Father. Ulcerative colitis: Sister and Brother. Normal [facility] Comment on above: Result Comment: Elec tronically Signed By: GLORIA WILLS, Allyson Castellanos.palmira\Date and Time Signed: 07/29/22 15:51 EDT Patient [...] 07/22/2005 Document Revised: 02/10/2019 Document Reviewed: 02/10/2019 Elsevier Patient Education ? 2019 [employer] Normal [facility] Reminderson 07-29-2022 Reminders - From: Heather Paniagua LPN To: N - Clinical; Sent: 07/29/2022 15:48:04 EDT Show up: 06/15/2027 07:00:00 EDT Subject: colonoscopy recall Due Date/Time: 07/16/2027 07:00:00 EDT Reminder/Recall Patient is due for colonoscopy 07/16/2027 due to history of tubular adenoma. Normal [facility] Pathology Noteon 07-18-2022 Pathology Note [id number]#[id number]:127 Normal [facility] Outside Colonoscopyon 2021 Outside Colonoscopy [id number]#[id number]:127 Normal [facility] PROTIMEon 07-16-2022 INR Coag (PPP) [Relative time] 1.11 {INR} Normal [facility] Comment on above: Performed By: #### P T ####[facility] [address] [address]DrShameka Paniagua INR GUIDELINES SEE BELOW Normal [facility] Comment on above: Result Comment: AVEL RED INR: 2.0 - 3.0 CONDITIONS NOT LISTED BELOW 2.5 - 3.5 FOR PROSTHETIC HEART VALVE REPLACEMENT 2.5 - 3.5 RECURRENT THROMBOSIS Performed By: #### P T ####[facility] [address] [address]DrShameka Paniagua PT Coag (PPP) [Time] 11.9 s Critically high 9.0-11.6 [facility] Comment on above: Performed By: #### P T ####[facility] [address] [address]DrShameka Paniagua Lab Reportson 07-15-2022 Lab Reports [id number]#[id number]:127 Normal [facility] Covid-19 PCR (CVDTB)on SARS-CoV-2 (COVID-19) RNA JANEE+probe Ql (Unsp spec) Not detected Normal NOT DETECTED [facility] Comment on above: Result Comment: This test is not yet approved or cleared by the [place] FDA. When there are no FDA-approved or cleared tests available, and other criteria are met, FDA can make tests available under an emergency access mechanism called an Emergency Use Authorization (EUA). The EUA for this test is supported by the [place] of Health and Human Service's (HHS's) declaration [...] consistent with SARS-CoV-2. Performed By: #### [facility] #### [facility] [address] [place] [address] Dr. Jason Paniagua Pre-Certification Formon Pre-Certification Form [id number]#[id number]:12 7 Normal [facility] Consent for Procedure/Surger yon 06-12-2022 Consent for Procedure/Surgery [id number]#[id number]:127 Normal [facility] Ambulatory Visit Summaryon 0 06-11-2022 Ambulatory Visit Summary NATALIE LACEY :1960 Visit Date:06/11/2022 Ambulatory Visit Instructions Your Care Team Attending Physician - GLORIA WILLS, Allyson Betancourt Primary Care Physician - CRISTOFER SPRINGER JR, DO Referring Physician - CRISTOFER SPRINGER JR, DO This Is Your Medications List Contact prescribing physician if questions or concerns acetaminophen-hydrocodone (Lohman 325 mg-5 mg oral tablet) albuterol (albuterol [...] What How Much When Instructions Unchanged acetaminophen-hydrocodone (Lohman 325 mg-5 mg oral tablet) 1 Tablets [...] Lupus anticoagulant disorder Radiculopathy Tubular adenoma Normal [facility] Physician Referralon 022 Physician Referral [id number]#[id number]:127 Normal [facility] MG MAMM SCREEN 3D YESY CADon 05-19-2022 MG MAMM SCREEN 3D YESY CAD Patient: NATALIE LACEY Exam Date: 05/19/2022 : 1960 Gender:F Ordering : DR CRISTOFER SPRINGER D.O. Admission #: [id number] Family : DR TATIANA ESQUIVEL . Order #: [id number] CLICK HERE TO VIEW EXAM RADIOLOGY REPORT [...] at age 42. LOCATION: [facility] BREAST COMPOSITION: Almost entirely fatty. FINDINGS: [...] MD on 05/19/2022 at 12:41 Normal [facility] CT LUNG CANCER SCREENINGon 0 04-19-2022 CT [...] JAYSON BERGERON Date: 2022-04-19 08:13 Normal [facility] Activated partial thrombopla stin time (aPTT) in platelet poor plasma by coagulation aOrdered By: Jt Walls on 02-19-2022 aPTT Coag (PPP) [Time] 44.7 s 25.1-36.5 [facility] Albumin [Mass/volume] in Ser um or PlasmaOrdered By: Jt Walls on 02-19-2022 Albumin [Mass/Vol] 3.9 g/dL 3.2-5.5 [facility] Automated erythrocytes count in urine sediment (number/area)Ordered By: Jt Walls on 02-19-2022 RBC Auto (Urine sed) [#/Area] 0-1 [HPF] [facility] Automated leukocytes count i n urine sediment (number/area)Ordered By: Jt Walls on 02-19-2022 WBC Auto (Urine sed) [#/Area] 0-1 [HPF] [facility] Basophils Auto (Bld) [#/Vol] Ordered By: Jt Walls on 02-19-2022 Basophils (Bld) [#/Vol] 0.0 10*3/uL 0.0-0.2 [facility] Basophils/100 WBC Auto (Bld) Ordered By: Jt Walls on 02-19-2022 Basophils/100 WBC (Bld) 0.5 % [facility] Bilirubin Test strip Ql (U)O rdered By: Jt Walls on 02-19-2022 Bilirubin Ql (U) Negative Negative [facility] Blood hemoglobin measurement (mass/volume)Ordered By: Jt Walls on 02-19-2022 Hemoglobin (Bld) [Mass/Vol] 14.7 g/dL 11.8-15.4 [facility] Blood leukocytes automated c ount (number/volume)Ordered By: Jt Walls on 02-19-2022 WBC (Bld) [#/Vol] 8.1 10*3/uL 4.5-11.0 [facility] Color Auto (U)Ordered By: Leonora Walls on 02-19-2022 Color (U) Yellow Yellow [facility] Creatine kinase [Enzymatic a ctivity/volume] in Serum or PlasmaOrdered By: Jt Walls on 02-19-2022 CK [Catalytic activity/Vol] 111 U/L 22-269 [facility] Creatinine and Glomerular fi ltration rate.predicted panel (S/P/Bld)Ordered By: Jt Walls on 02-19-2022 Creatinine [Mass/Vol] 0.74 mg/dL 0.44-1.03 [facility] Eosinophils Auto (Bld) [#/Vo l]Ordered By: Jt Walls on 02-19-2022 Eosinophils (Bld) [#/Vol] 0.1 10*3/uL 0.0-0.45 [facility] Eosinophils/100 WBC Auto (Bl d)Ordered By: Jt Walls on 02-19-2022 Eosinophils/100 WBC (Bld) 1.2 % [facility] Erythrocyte distribution wid th Auto (RBC) [Ratio]Ordered By: Jt Walls on 02-19-2022 Erythrocyte distribution width (RBC) [Ratio] 13.8 % 11.9-15.3 [facility] Erythrocyte sedimentation ra te by Photometric methodOrdered By: Jt Walls on 02-19-2022 ESR Photometric method (d) [Velocity] 13 mm/hr 0-29 [facility] Estimated glomerular filtrat ion rate (GFR) non- AmericanOrdered By: Jt Walls on 02-19-2022 GFR/1.73 sq M.predicted among non-blacks MDRD (S/P/Bld) [Vol rate/Area] > 60 mL/Min [facility] Globulin Calc (S) [Mass/Vol] Ordered By: Jt Walls on 02-19-2022 Globulin (S) [Mass/Vol] 2.3 g/dL [facility] Hematocrit Auto (Bld) [Volum e fraction]Ordered By: Jt Walls on 02-19-2022 Hematocrit (Bld) [Volume fraction] 44.4 % 34.0-46.4 [facility] Ketones Auto test strip (U) [Mass/Vol]Ordered By: Jt Walls on 02-19-2022 Ketones (U) [Mass/Vol] Negative [facility] - CoagulationOrde red By: Jt Walls on 02-19-2022 PT Coag (PPP) [Time] 24.7 s 9.0-12.9 [facility] Laboratory - Hematology and Cell countsOrdered By: Jt Walls on 02-19-2022 Nucleated RBC/100 WBC (Bld) [Ratio] 0.1 % 0-0.5 [facility] Laboratory - UrinalysisOrder ed By: Jt Walls on 02-19-2022 Hyaline casts LM Ql (Urine sed) None seen [LPF] [facility] Lymphocytes Auto (Bld) [#/Vo l]Ordered By: Jt Walls on 02-19-2022 Lymphocytes (Bld) [#/Vol] 2.3 10*3/uL 1.00-4.8 [facility] Lymphocytes/100 WBC Auto (Bl d)Ordered By: Jt Walls on 02-19-2022 Lymphocytes/100 WBC (Bld) 28.3 % [facility] MCH Auto (RBC) [Entitic mass ]Ordered By: Jt Walls on 02-19-2022 MCH (RBC) [Entitic mass] 31.2 pg 24.7-34.3 [facility] MCHC Auto (RBC) [Mass/Vol]Or dered By: Jt Walls on 02-19-2022 MCHC (RBC) [Mass/Vol] 33.1 g/dL 32.0-35.0 [facility] MCV Auto (RBC) [Entitic vol] Ordered By: Jt Walls on 02-19-2022 MCV (RBC) [Entitic vol] 94.4 fL 80-100 [facility] Monocytes Auto (Bld) [#/Vol] Ordered By: Jt Walls on 02-19-2022 Monocytes (Bld) [#/Vol] 0.4 10*3/uL 0.0-0.8 [facility] Monocytes/100 WBC Auto (Bld) Ordered By: Jt Walls on 02-19-2022 Monocytes/100 WBC (Bld) 4.6 % [facility] Neutrophils Auto (Bld) [#/Vo l]Ordered By: Jt Walls on 02-19-2022 Neutrophils (Bld) [#/Vol] 5.3 10*3/uL 1.8-7.7 [facility] Neutrophils/100 WBC Auto (Bl d)Ordered By: Jt Walls on 02-19-2022 Neutrophils/100 WBC (Bld) 65.4 % [facility] Nitrite Test strip Ql (U)Ord ered By: Jt Walls on 02-19-2022 Nitrite Ql (U) Negative Negative [facility] No Panel InformationOrdered By: Jt Walls on 02-19-2022 Estimated GFR () > 60 mL/Min [facility] Comment on above: GFR estimated refere nce range: According to KDOQI guidelines, <60 ml/min/1.73m2 is sufficient to diagnose a patient with chronic kidney disease. Pharmacy Creatinine Clearance (Chem N/A [facility] Platelet mean volume Auto (B ld) [Entitic vol]Ordered By: Jt Walls on 02-19-2022 Platelet mean volume (Bld) [Entitic vol] 9.1 fL 6.3-10.7 [facility] Platelet poor plasma interna tional normalized ratio (INR) by coagulation assay (relatOrdered By: Jt Walls on 02-19-2022 INR Coag (PPP) [Relative time] 2.2 {INR} [facility] Comment on above: INR Therapeutic Rang e [...] 02-19-2022 Platelets (Bld) [#/Vol] 164 10*3/uL 150-450 [facility] Protein Auto test strip (U) [Mass/Vol]Ordered By: Jt Walls on 02-19-2022 Protein (U) [Mass/Vol] Negative Negative Fi [facility] Protein [Mass/volume] in Ser um or PlasmaOrdered By: Jt Walls on 02-19-2022 Protein [Mass/Vol] 6.2 g/dL 6.1-7.9 [facility] RBC Auto (Bld) [#/Vol]Ordere d By: Jt Walls on 02-19-2022 RBC (Bld) [#/Vol] 4.70 10*6/uL 3.60-5.00 [facility] Serum or plasma C reactive p rotein measurement (mass/volume)Ordered By: Jt Walls on 02-19-2022 CRP [Mass/Vol] 0.6 mg/dL 0.0-1.0 [facility] Serum or plasma alanine damian otransferase measurement without P-5'-P (enzymatic activiOrdered By: Jt Walls on 02-19-2022 ALT No additional P-5'-P [Catalytic activity/Vol] 12 U/L 10-60 [facility] Serum or plasma albumin/glob ulin mass ratioOrdered By: Jt Walls on 02-19-2022 Albumin/Globulin [Mass ratio] 1.7 {ratio} [facility] Serum or plasma alkaline bree sphatase measurement (enzymatic activity/volume)Ordered By: Jt Walls on 02-19-2022 ALP [Catalytic activity/Vol] 75 U/L 32-92 [facility] Serum or plasma aspartate am inotransferase measurement (enzymatic activity/volume)Ordered By: Jt Walls on 02-19-2022 AST [Catalytic activity/Vol] 13 U/L 10-42 [facility] Serum or plasma calcium quique urement (mass/volume)Ordered By: Jt Walls on 02-19-2022 Calcium [Mass/Vol] 8.9 mg/dL 8.2-10.2 [facility] Serum or plasma chloride renita surement (moles/volume)Ordered By: Jt Walls on 02-19-2022 Chloride [Moles/Vol] 106 mmol/L 95-114 [facility] Serum or plasma glucose quique urement (mass/volume)Ordered By: Jt Walls on 02-19-2022 Glucose [Mass/Vol] 108 mg/dL 70-100 [facility] Comment on above: ADA recommended refe rence rangeRandom Glucose Reference Range is dependent on time and content of last meal. Glucose of more than 200 mg/dL in a nonstressed, ambulatory subject supports the diagnosis of Diabetes Mellitus. Serum or plasma potassium me asurement (moles/volume)Ordered By: Jt Walls on 02-19-2022 Potassium [Moles/Vol] 4.0 mmol/L 3.5-5.1 [facility] Serum or plasma sodium measu rement (moles/volume)Ordered By: Jt Walls on 02-19-2022 Sodium [Moles/Vol] 137 mmol/L 136-146 [facility] Serum or plasma total biliru bin measurement (mass/volume)Ordered By: Jt Walls on 02-19-2022 Bilirubin [Mass/Vol] 0.8 mg/dL 0.3-1.2 [facility] Serum or plasma total carbon dioxide measurement (moles/volume)Ordered By: Jt Walls on 02-19-2022 CO2 [Moles/Vol] 22.2 mmol/L 22.0-30.0 [facility] Serum or plasma urea nitroge n measurement (mass/volume)Ordered By: Jt Walls on 02-19-2022 Urea nitrogen [Mass/Vol] 10 mg/dL 9- [facility] Specific gravity Auto test s trip (U) [Rel density]Ordered By: Jt Walls on 02-19-2022 Specific gravity (U) [Rel density] 1.010 1.001-1.03 0 [facility] Squamous epithelial cells de tection in urine sediment by light microscopyOrdered By: Jt Walls on 02-19-2022 Epithelial cells.squamous LM Ql (Urine sed) None seen [HPF] [facility] TSH DL <= 0.005 mIU/L QnOrde red By: Jt Walls on 02-19-2022 TSH Qn 2.31 m[IU]/L 0.45-5.33 [facility] Thyroxine (T4) free [Mass/vo lume] in Serum or PlasmaOrdered By: Jt Walls on 02-19-2022 Free T4 [Mass/Vol] 0.81 ng/dL 0.61-1.12 [facility] Urine bacteria detection by automated methodOrdered By: Jt Walls on 02-19-2022 Bacteria Auto Ql (U) None seen None Seen [facility] Urine clarity by refractomet ry automatedOrdered By: Jt Walls on 02-19-2022 Clarity Refractometry automated (U) Clear Clear [facility] Urine glucose measurement by automated test strip (mass/volume)Ordered By: Jt Walls on 02-19-2022 Glucose Auto test strip (U) [Mass/Vol] Normal mg/dL Normal [facility] Urine hemoglobin detection b y automated test stripOrdered By: Jt Walls on 02-19-2022 Hemoglobin Auto test strip Ql (U) Negative Negative [facility] Urine leukocyte esterase det ection by automated test stripOrdered By: Jt Walls on 02-19-2022 Leukocyte esterase Auto test strip Ql (U) Negative Negative [facility] Urobilinogen Auto test strip (U) [Mass/Vol]Ordered By: Jt Walls on 02-19-2022 Urobilinogen (U) [Mass/Vol] Normal mg/dL Normal [facility] pH Auto test strip (U)Ordere d By: Jt Walls on 02-19-2022 pH (U) 6.0 [pH] 5.0-9.0 [facility] Vital Signs Date Time Vital Sign Value Performing Clinician Faci lity 06-11-2022 14:24-0400 Blood Pressure Location Allyson [facility] 06-11-2022 14:24-0400 Diastolic blood pressure 76 mm[Hg] Allyson SimulScribeL [facility] 06-11-2022 14:24-0400 Heart rate 70 /min Allyson HATCHL [facility] 06-11-2022 14:24-0400 Respiratory rate 16 /min Allyson SimulScribeL [facility] 06-11-2022 14:24-0400 Systolic blood pressure 114 mm[Hg] [facility]L [facility] Encounters Encounter Date Encounter Type Care Provider Facility Start: 02-16-2024 End: 02-16-2024 ambulatory Frida Martini Facility:[facility] Start: 02-16-2024 End: 02-16-2024 ambulatory Cristofer Springer Work Phone: [facility] Work Phone: Start: 02-16-2024 End: 02-16-2024 Patient encounter procedure Cristofer Declan Work Phone: [facility] [address] Work Phone: Start: 08-24-2023 End: 08-24-2023 ambulatory Cristofer Springer Facility:[facility] Start: 08-24-2023 End: 08-24-2023 ambulatory Cristofer Springer Work Phone: [facility] Work Phone: Start: 08-24-2023 End: 08-24-2023 Patient encounter procedure Cristofer Declan Work Phone: [facility] [address] Work Phone: Start: 06-22-2023 End: 06-22-2023 ambulatory [facility] Start: 06-22-2023 End: 06-23-2023 ambulatory [facility] Start: 05-26-2023 ambulatory [facility] Start: 05-07-[address] CRISTOFER SPRINGER [facility] ity:H1 Start: 04-07-2023 End: 04-07-2023 ambulatory [...] Start: 11-06-2022 End: 11-07-2022 ambulatory AMINATA LEE Shameka Facility:[facility] Start: 10-09-2022 End: 11-09-2022 ambulatory SHAIKH Phuong WEINER Facility:[facility] Start: 09-09-2022 End: 10-08-2022 ambulatory SHAIKH Phuong WEINER Facility:[facility] Start: 08-10-2022 End: 09-08-2022 ambulatory SHAIKH Phuong WEINER Facility:[facility] Start: 07-31-2022 End: 08-01-[address] GAURAV WONG . Facility:[facility] Start: 07-29-2022 End: 07-30-2022 ambulatory Allyson GARCIA Facility:[facility] Start: 07-29-2022 End: 07-29-2022 Patient encounter procedure Allyson GARCIA [facility] Start: 07-16-2022 End: 07-17-2022 ambulatory Allyson GARCIA Facility:CD:[id number] Start: 07-15-2022 Encounter for preprocedural laboratory examination DR ALLYSON GARCIA . [facility] Start: 07-12-2022 End: 07-13-[address] ALLYSON GARCIA . Facility: Start: 07-12-2022 End: 07-13-2022 Encounter for preprocedural laboratory examination DR ALLYSON GARCIA . Facility: Start: 07-10-2022 End: 08-09-2022 ambulatory SHAIKH Phuong WEINER Facility:[facility] Start: 06-11-2022 End: 06-12-2022 ambulatory CRISTOFER SPRINGER PROVIDER Facility:[facility] Start: 06-11-2022 End: 06-11-2022 Patient encounter procedure Allyson GARCIA [facility] Start: 06-09-2022 End: 07-09-2022 ambulatory SHAIKH Phuong WEINER Facility:[facility] Start: 05-22-2022 ambulatory Allyson GARCIA Facility:[facility] Start: 05-19-2022 End: 05-20-[address] CRISTOFER SPRINGER Facility:[facility]1 Start: 05-09-2022 End: 06-06-2022 ambulatory SHAIKH Phuong WEINER Facility:[facility] Start: 04-24-2022 End: 04-25-[address] CRISTOFER SPRINGER Facility:[facility]1 Start: 04-18-2022 End: 04-19-[address] JAYSON BERGERON Facility:[facility]1 Start: 02-19-2022 End: 02-19-2022 Patient encounter procedure JR Cristofer Springer Work Phone: [facility] [address] Procedures Date Procedure Procedure Detail Performing Clinician Start: 06-22-2023 Follow-up visit Follow-up TONIE BOYD Start: 07-16-2022 Colonoscopy Allyson NI LL Blepharoplasty Allyson NILL Cholecystectomy Allyson NILL Cystopexy Allyson NILL Fasciotomy of foot Allyson URRUTIA History of operative procedure on elbow Allyson NILL Injection into lumba r epidural space Allyson NILL Total abdominal hyst erectomy with bilateral salpingo-oophorectomy Allyson NILL Plan of Treatment Date Care Activity Detail Author Aldolase measurement [facility] Work Phone: aPTT.lupus sensitive (LA screen) [facility] Work Phone: aPTT.lupus sensitive W excess phospholipid actual/Normal (normalized LA confirm) [facility] Work Phone: aPTT.lupus sensitive /aPTT.lupus sensitive W excess phospholipid (screen to confirm ra [facility] Work Phone: Chromatin Ab [Units/ volume] in Serum or Plasma [facility] Work Phone: Complement C3 [Mass/ volume] in Serum or Plasma [facility] Work Phone: Complement C4 [Mass/ volume] in Serum or Plasma [facility] Work Phone: dRVVT (LA screen) [facility] Work Phone: Hemolytic complement CH50 level [facility] Work Phone: Homogenous nuclear A b pattern [Titer] in Serum [facility] Work Phone: Lupus anticoagulant [Interpretation] in Platelet poor plasma [facility] Work Phone: Myoglobin [Mass/volume] in Serum or Plasm a [facility] Work Phone: Nuclear Ab [Titer] in Serum [facility] Work Phone: Reagin Ab [Presence] in Serum by RPR [facility] Work Phone: Thrombin time [facility] Work Phone: Thyroglobulin Ab [Un its/volume] in Serum or Plasma [facility] Work Phone: Thyroperoxidase Ab [ Units/volume] in Serum or Plasma [facility] Work Phone: Payers Date Payer Category Payer Self-pay [id number] 1960 Unknown [id number] [id number] 7 1960 Unknown [id number] 2.16.840.1.235176.3.579.2.72 7 1962 Unknown [id number] 2.16.840.1.596245.3.579.2.72 7 1962 Unknown [id number] 2.16.840.1.489529.3.579.2.59 3 1962 Unknown [id number] 2.16.840.1.077456.3.579.2.59 3 1962 Unknown [id number] 2.16.840.1.721013.3.579.2.59 3 1962 Unknown [id number] 2.16.840.1.541234.3.579.2.59 3 1962 Unknown [id number] 2.16.840.1.712879.3.579.2.59 3 1962 Unknown [id number] 2.16.840.1.627829.3.579.2.59 3 1962 Unknown [id number] 2.16.840.1.661043.3.579.2.59 3 1962 Unknown [id number] 2.16.840.1.369664.3.579.2.59 3 1962 Unknown [id number] 2.16.840.1.928835.3.579.2.59 3 1962 Unknown [id number] 2.16.840.1.716093.3.579.2.59 3 1962 Unknown [id number] 2.16.840.1.940857.3.579.2.59 3 1962 Unknown [id number] 2.16.840.1.146264.3.579.2.59 3 1962 Unknown [id number] 2.16.840.1.821041.3.579.2.59 3 1962 Unknown [id number] 2.16.840.1.189700.3.579.2.59 3 1962 Unknown [id number] 2.16.840.1.675492.3.579.2.59 3 1962 Unknown [id number] 2.16.840.1.660984.3.579.2.59 3 1962 Unknown [id number] 2.16.840.1.059232.3.579.2.59 3 1962 Unknown [id number] 2.16.840.1.878922.3.579.2.59 3 1962 Unknown [id number] 2.16.840.1.155326.3.579.2.59 3 1962 Unknown [id number] 2.16.840.1.424392.3.579.2.59 3 1962 Unknown [id number] 2.16.840.1.133545.3.579.2.59 3 1962 Unknown [id number] 2.16.840.1.953830.3.579.2.59 3 1962 Unknown [id number] 2.16.840.1.332530.3.579.2.59 3 1959 Private Health Insurance [place] [id number] Private Health Insurance [facility] Mammogram [facility] [id number] Private Health Insurance [id number] Unknown [id number] Unknown [id number] 2.840.1.329781.3.579.2.53 1 Unknown [id number] 2.840.1.704386.3.579.2.53 1 Social History Date Type Detail Facility [facility]: [facility] Start: 1960 Sex Assigned At Female F [facility] Start: 06-11-2022 Tobacco smoking status Heavy t obacco smoker (finding) [facility] Tobacco smoking status Never [facility] Sex Assigned At Female Gen[facility] Functional Status Date Assessment Result Facility 06-11-2022 Functional Status N/A [facility] Clinical Notes 04-24-2022 to 06-22-2023 Note Date & Type Note Facility 06-22-2023 Note In person visit Chief complaint: back pain - some leg pain [place]: 62 yo woman - I have seen [...] MOUTH EVERY 8 HOURS NEEDED FOR COUGH ewcynrnbzearagx-unfphnduc-PT 2-30-10 mg/5 mL syrup TAKE 10 ML BY MOUTH NEEDED EVERY 8 HOURS budesonide (Pulmicort) 0.5 mg/2 mL nebulizer solution celecoxib (CeleBREX) 100 mg capsule Take 100 mg by mouth. colesevelam (Welchol) 625 mg tablet Take 1,875 mg by mouth. HYDROcodone-acetaminophen (Lohman) 5-325 mg tablet TAKE 1 TABLET BY [...] right paraspinal musculature (more content not included)... [facility] 05-26-2023 Note In person visit Chief complaint: back and leg problem - the right leg [place]: 62 y/o R handed - she is on disability - she is on partly due to her back and other things. 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 She has never had back surgery before. She had a problem in the with her back. She saw a Dr. Yun in [place] back then. Then n 2010 she get herniated discs and had radiculopathy down her right leg. She has been to pain management - prior in [place] (was with Dr. Williamson) and now she is with [facility]. She had injections in her back - she said the one's she had in [place] didn't help that much. Then in [place] she had nerve burning from L2-down for [...] years ago - she had it at [facility] in [place] ([address] She is claustrophobic and wanted [...] last injection in her knee by her gear machinist - had Gelson 3 - you get one injection per week for [address]. [address] Fredo Valentin in [place] about her back in the past - [...] MOUTH EVERY 8 HOURS NEEDED FOR COUGH smxzfzhqwocigge-duxdbtvwi-KO 2-30-10 mg/5 mL syrup TAKE 10 ML BY MOUTH NEEDED EVERY 8 HOURS budesonide (Pulmicort) 0.5 mg/2 mL nebulizer solution celecoxib (CeleBREX) 100 mg capsule Take 100 mg by mouth. colesevelam (Welchol) 625 mg tablet Take 1,875 mg by mouth. HYDROcodone-acetaminophen (Lohman) 5-325 mg tablet TAKE 1 TABLET BY [...] olopatadine (Patanase) 0.6 % spray,non-aerosol nasal spray [place] 2 sprays twice a day by intranasal [...] Allergies Allergen Re (more content not included)... [facility] 02-03-2023 Note CONSULTATION CONSULTATION DATE: 02/03/2023 [...] topical lidocaine patch. We will refill the Lohman on today's visit; 55 pills to last one month's time. Aquatic therapy was ordered, and we will obtain urine toxicology screen. I have gone over the details of proceeding with a diagnostic right lateral cutaneous branch of the iliohypogastric nerve. All her questions were answered. She agrees to proceed with the outlined plan. [facility] 11-06-2022 Note CONSULTATION CONSULTATION DATE: 11/06/2022 [...] sinus infection. Other medications include Celebrex, baclofen, Lohman 5/325 b.i.d., gabapentin 600 mg daily. At [...] is her bilateral knee pain, which her gear machinist is caring for. Activities such as stairs, [...] Patient is in agreement. [facility] 07-31-2022 Note CONSULTATION CONSULTATION DATE: 07/31/2022 [...] Neurontin 400 mg daily. She does have Lohman 5/325 b. i.d. as well. Patient is [...] agrees with the plan. [facility] 07-29-2022 Hospital Discharge instructions Patient Education [...] 07/22/2005 Document Revised: 02/10/2019 Document Reviewed: 02/10/2019 [employer] Patient Education 2019 [employer]. [facility] 07-16-2022 Note OPERATIVE NOTE OPERATION DATE: 07/16/2022 [...] good condition. CC: Cristofer Springer D.O. [facility] 06-11-2022 Note Chief Complaint consultation for positive [...] pior to OR. 2. 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 [facility] Comment on above: Result Comment: Elec tronically Signed By: GLORIA WILLS, Allyson Rebolledo\Date and Time Signed: 06/11/22 [...] is greatly beneficial to her. Medications include Lohman 5/325 b.i.d., baclofen 10 mg q.h.s., Neurontin 400 mg q.p.m. and Celebrex 100 mg b.i.d. Her gear machinist has placed her on Tylenol arthritis six [...] would like to proceed with the injection. [facility] Signed and Approved by: AMINATA LEE . 05/07/2022 16:23:00 [facility] 04-24-2022 Note CONSULTATION PROCEDURE DATE:04/24/2022 PREOPERATIVE DIAGNOSIS: [...] will be followed up in the office. [facility] Signed and Approved by: AMINATA LEE . 05/07/2022 16:23:00 [facility] Evaluation + Plan note No data available for this section [facility] Evaluation note No assessment inform ation available [facility] Work Phone: Hospital Discharge instructions No data available for this section [facility] Progress note No data available for this section [facility] Family History No Family History Records Found Relationship Condition Age at Onset Recorded Date/T giovana father Malignant neoplasm of prostate Unknown Not Specified Hypertension Unknown Disorder of lung Unknown sister Rheumatoid arthritis Unknown daughter Lupus Unknown Rheumatoid arthritis Unknown Relationship Condition Age at Onset Recorded Date/T giovana father Malignant neoplasm of prostate Unknown Not Specified Hypertension Unknown Disorder of lung Unknown sister Rheumatoid arthritis Unknown daughter Lupus Unknown Rheumatoid arthritis Unknown father Unknown Malignant neoplasm Unknown Not Specified Unknown Hypertension Unknown Advance Directives No Advanced Directives Records Found Advance Directive Response Recorded Date/ Time Advance Directives No August 09, 2019 3:08pm Summary Purpose Chief Complaint and Reason for Visit Chief Complaint m15.0 z79.899 Additional Source Comments Care Teams (unrecognized sec [...] Active Jt Walls MD Attending Provider Active Team Status: Inactive Member Role Status Dates Cristofer Ortega Springer JR DO Primary Care Provider Active Start: February 16, 2024 End: February 16, 2024 GARCIA Sotelo Attending Provider Active Start: February 16, 2024 End: February 16, 2024 Goals (unrecognized section and content) Goals may be documented in a n alternate section No data available for this section No data available for this sectionGoals may be documented in an alternate sectionGoals may be documented in an alternate section INFORMATION SOURCE (unrecogn ized section and content) DATE CREATED AUTHOR 08/09/2022 [facility] DATE CREATED AUTHOR AUTHOR'S ORGANIZ ATION [facility]2023 [facility] DATE CREATED AUTHOR AUTHOR'S ORGANIZ ATION 06/23/2023 [facility] DATE CREATED AUTHOR AUTHOR'S ORGANIZ ATION 02/26/2024 [facility] FOR RECORDS PERTAINING TO PATIENTS WHO ARE [...] BE BASED ON THE PRIMARY CLINICAL RECORDS. [facility] [facility]. provides no warranty or guarantee of the accuracy or completeness of information in this document.
== END 2024-03-24 09:55 | disposition home or self-care (01) ==
PROVIDERS: Visit Provider Nurse Practitioner
DX: M48.062 Spinal stenosis, lumbar region with neurogenic claudication (principal); M46.1 Sacroiliitis, not elsewhere classified; M70.62 Trochanteric bursitis, left hip; M70.61 Trochanteric bursitis, right hip; M70.72 Other bursitis of hip, left hip; M70.71 Other bursitis of hip, right hip; M54.16 Radiculopathy, lumbar region; M47.816 Spondylosis without myelopathy or radiculopathy, lumbar region; M79.7 Fibromyalgia; Z79.891 Long term (current) use of opiate analgesic; M62.838 Other muscle spasm
CPT/HCPCS: G0463

== ENCOUNTER 2024-04-11 03:31 | Outpatient (RCR) | payer MEDICARE, SELFPAY | END 2024-05-06 11:10 | disposition home or self-care (01) | LOC: MM 03:31 | PROVIDERS: Visit Provider Internal Medicine | DX: Z51.81 Encounter for therapeutic drug level monitoring (principal); Z79.01 Long term (current) use of anticoagulants; I26.99 Other pulmonary embolism without acute cor pulmonale | CPT/HCPCS: 85610; G0463 ==

== ENCOUNTER 2024-05-09 00:26 | Outpatient (RCR) | payer MEDICARE, SELFPAY | END 2024-06-08 16:51 | disposition home or self-care (01) | LOC: MM 00:26 | PROVIDERS: PCP Internal Medicine; Visit Provider Internal Medicine | DX: Z51.81 Encounter for therapeutic drug level monitoring (principal); Z79.01 Long term (current) use of anticoagulants; I26.99 Other pulmonary embolism without acute cor pulmonale | CPT/HCPCS: 85610; G0463 ==

== ENCOUNTER 2024-05-23 10:23 | Outpatient (OUT) | payer MEDICARE, SELFPAY ==
--- NOTE | 2024-05-23 10:25 | MM_ITS ---
Patient Name: NATALIE MANLEY MR#: [id number] : 1960 Exam Date: 05/23/2024 Ordering Doctor: DR WENDY SPRINGER D.O. RADIOLOGY REPORT PROCEDURE: MM TOMOSYNTHESIS SCREENING BI COMPARISON: MG MAMM SCREEN 3D YESY CAD, 05/19/2022. MM TOMOSYNTHESIS SCREENING BI, 05/21/2023. INDICATIONS: Screening Calculator Name NCI Breast Cancer Risk Assessment Tool 5 Year Breast Cancer Risk 1.10% Lifetime Breast Cancer Risk 5.20% Personal Breast Cancer No Personal Ovarian Cancer No Treatments None Family Cancers Father with prostate cancer at age 68; Grandfather-paternal with lung cancer at age ~62; Cousin-maternal with breast cancer at age 40. LOCATION: [facility] BREAST COMPOSITION: There are scattered areas of fibroglandular density. FINDINGS: DIAGNOSTIC CATEGORY 2--BENIGN FINDING. NO CHANGE FROM COMPARISON. Scattered benign-appearing calcifications are present. Scattered benign-appearing lymph nodes are present. RIGHT BREAST: No significant suspicious finding. LEFT BREAST: No significant suspicious finding. RECOMMENDATIONS: ROUTINE MAMMOGRAM AND CLINICAL EVALUATION IN 12 MONTHS. PLEASE NOTE: A NORMAL MAMMOGRAM DOES NOT EXCLUDE THE POSSIBILITY OF BREAST CANCER. A CLINICALLY SUSPICIOUS PALPABLE LUMP SHOULD BE BIOPSIED. Dictated by: Karthik Hernandez MD on 05/23/2024 at 12:03 Approved by: Karthik Hernandez MD on 05/23/2024 at 12:05
== END 2024-05-23 10:24 | disposition home or self-care (01) ==
LOC: MAMMO 10:23
PROVIDERS: PCP Internal Medicine; Visit Provider Internal Medicine
DX: Z12.31 Encounter for screening mammogram for malignant neoplasm of breast (principal); Z80.42 Family history of malignant neoplasm of prostate; Z80.1 Family history of malignant neoplasm of trachea, bronchus and lung; Z80.3 Family history of malignant neoplasm of breast
CPT/HCPCS: 77063; 77067

== ENCOUNTER 2024-06-09 00:26 | Outpatient (RCR) | payer MEDICARE, SELFPAY | END 2024-07-08 10:06 | disposition home or self-care (01) | LOC: MM 00:26 | PROVIDERS: PCP Internal Medicine; Visit Provider Internal Medicine | DX: Z51.81 Encounter for therapeutic drug level monitoring (principal); Z79.01 Long term (current) use of anticoagulants | CPT/HCPCS: 85610; G0463 ==

== ENCOUNTER 2024-06-10 12:39 | Outpatient (OUT) | payer MEDICARE, SELFPAY ==
--- NOTE | 2024-06-10 | CT_ITS ---
[address] [address] Patient Name: NATALIE MANLEY MRN: [id number] date: 1960 Sex: F Assigned Patient Location: CT Current Patient Location: Accession/Order Number: [id number] Exam Date: 06/10/2024 12:45 Report Date: 06/11/2024 06:14 At the request of: WENDY SPRINGER Procedure: CT lung screening low-dose EXAMINATION: CT lung screening low-dose HISTORY: Nicotine dependence, cigarettes, uncomplicated F17.210 COMPARISON: CT LUNG CANCER SCREENING 06/08/2023 TECHNIQUE: Axial, Coronal, and Sagittal images were created without the administration of IV contrast material. Dose reduction techniques were achieved by using automated exposure control and/or adjustment of mA and/or kV according to patient size and/or use of iterative reconstruction technique. FINDINGS: LUNGS: Stable 6 mm nodule within right middle lobe adjacent the minor fissure. Stable large calcified granuloma within posterior left lower lobe. Mild emphysematous changes. PLEURA: No mass, effusion, or pneumothorax. VASCULATURE: No abnormality. SANDEEP: No mass or pathologic adenopathy. MEDIASTINUM: Calcified subcarinal lymph nodes suggestive of chronic granulomatous disease. CARDIAC: No enlargement, pericardial thickening, or pericardial effusion. Coronary Artery calcifications: Coronary calcifications are absent. AORTA: No aneurysm or dissection. CHEST WALL: No mass or axillary adenopathy BONES: No bone lesion or fracture. LIMITED ABDOMEN: No suspicious findings. Limited images of the upper abdomen. OTHER: Negative. CT/CT lung screening low-dose IMPRESSION: 1. Lung-RADS 2- Benign Appearance or Behavior. Nodules with a very low likelihood of becoming a clinically active cancer due to size or lack of growth. Follow-up CT Chest in 1 year. Electronically authenticated by: HIRAM JONES Date: 06/11/2024 06:14
== END 2024-06-10 12:40 | disposition home or self-care (01) ==
LOC: CT 12:39
PROVIDERS: PCP Internal Medicine; Visit Provider Internal Medicine
DX: F17.210 Nicotine dependence, cigarettes, uncomplicated (principal)
CPT/HCPCS: 71271

== ENCOUNTER 2024-06-23 09:56 | Outpatient (OUT) | payer MEDICARE, SELFPAY ==
--- OUTSIDE RECORDS SUMMARY | 2024-06-23 10:00 | XMS_ITS | CCD ---
Author Organization [facility] Care Team Providers Care Value Stream Coach Name Role Phone JR Cristofer Springer Primary Care Provider MD Sunday Walls Attending Provider CRISTOFER SPRINGER JR Primary Care Physician [phone] Allyson GARCIA Attending Unavailable VALONE CRISTOFER PEGUERO Referring Unavail able Allyson GARCIA Attending Unavailable NILOrtega, Allyson Betancourt Attending Unavailable LAKSHMIPATHY ., NARENDRANATH Admitting Kristie vailable LAKSHMIPATHY ., NARENDRANATH Attending Kristie vailable LAKSHMIPATHFlash ., NARZULEYMA Consulting Kristie vailable VALDIANNA, DR NGUYEN Primary Care Unavailable VALONE, DR NGUYEN Primary Care Unavailable FAWWAD, MOODY H Admitting Unavailable FAWWAD, MOODY H Attending Unavailable FAWAMARA, MOODY H Attending Unavailable FAWWANiya, MOODY H [...] Unavailable VALONE, DR NGUYEN Primary Care Unavailable MILA .PRINCESS Attending Unavailable LAKSHMIPATHY ., NARENDRANATH Admitting [...] DR NGUYEN Primary Care Unavailable PRINCESS CASTILLO Admitting Unavailable MILA .PRINCESS Attending Unavailable SHAIKH Phuong WEINER Attending Unavailable SHAIKH Phuong WEINER Admitting Unavailable DR CRISTOFER SPRINGER Primary Care Unavailable TONIE MÉNDEZ Referring Unavailable TONIE MÉNDEZ Attending Unavailable TONIE MÉNDEZ Attending Unavailable JR Cristofer Springer Primary Care Provider MD Jt Walls Attending Provider JR Cristofer Springer Primary Care Provider [phone] GARCIA Martini Attending Provider Frida Martini Admitting Unavailable Cristofer Springer Primary Care Unavailable Frida Martini Attending Unavailable Cristofer Springer Primary Care Unavailable Jt Walls Attending Unavailable Jt Walls Admitting Unavailable Allergies Allergy Classification Reported Allergen(s) Allergy Type Date of Onset Reaction(s) Facility (7 sources) Cefaclor; Translations: [Cefaclor] Drug Allergy 3 Eruption of skin (disorder) [facility] [place] (7 sources) Cephalexin; Translations: [Cephalexin] Drug Allergy 4 Eruption of skin (disorder) [facility] [place] (10 sources) Codeine; Translations: [Codeine] Drug Allergy 3 Chest pain (finding) [facility] [place] (5 sources) Enoxaparin; Translations: [enoxaparin] Drug Allergy 3 Eruption of skin (disorder) [facility] [place] (3 sources) Cefaclor; Translations: [Ceclor] Drug Allergy 4 [facility] (3 sources) Cephalexin; Translations: [Keflex] Drug Allergy 4 [facility] Repository (2 sources) Bupranolol Drug Allergy 2 [facility] Repository (1 source) KEFLET; Translations: [KEFLET] Propensity to adverse reactions to drug (disorder) 3 [facility] Repository (1 source) Enoxaparin Drug Allergy 3 [facility] [place] Repository Medications Current Medications Medication Drug Class(es) Dates Sig (Normalized) Sig (Original) acetaminophen 325 mg / HYDROcodone bitartrate 5 mg oral tablet (5 sources) Opioid Agonist Start: 06-11-2022 take 1 tablet by mouth twice daily as needed for pain [place] 325 mg-5 mg oral tablet 1 tab(s), Oral, BID as needed for pain, Refill(s) 0 Start Date: 06/11/22 Status: Ordered Start: 08-11-2019 take 1 tablet by kayli th every four hours Hydrocodone-Acetaminophen Active 1 TAB P O Q4H August 11, 2019 12:00am [id number] 200 actuat albuterol 0.09 mg/actuat metered dose [...] Start: 08-11-2019 take 1 capsule by mo 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; Translations: [CROSS TIE TURNER CURRNT USE ANTICOAGULANTS] Onset: 3 Episodic Other [...] 02-16-2024 ALT [Catalytic activity/Vol] 9 U/L 7-52 [facility] [place] Albumin [Mass/volume] in Ser um or Plasma by Bromocresol green (BCG) dye binding methoOrdered By: Frida Martini on 02-16-2024 Albumin BCG dye [Mass/Vol] 4.1 g/dL 3.5-5.7 [facility] [place] Alkaline phosphatase [Enzyma tic activity/volume] in Serum or PlasmaOrdered By: Frida Martini on 02-16-2024 ALP [Catalytic activity/Vol] 89 U/L 34-104 [facility] [place] Aspartate aminotransferase [ Enzymatic activity/volume] in Serum or PlasmaOrdered By: Frida Martini on 02-16-2024 AST [Catalytic activity/Vol] 12 U/L 13-39 [facility] [place] Basophils Auto (Bld) [#/Vol] Ordered By: Frida Martini on 02-16-2024 Basophils (Bld) [#/Vol] 0.0 10*3/uL 0.0-0.2 [facility] [place] Basophils/100 WBC Auto (Bld) Ordered By: Frida Martini on 02-16-2024 Basophils/100 WBC (Bld) 0.3 % . [facility] [place] Bilirubin.total [Mass/volume ] in Serum or PlasmaOrdered By: Frida Martini on 02-16-2024 Bilirubin [Mass/Vol] 0.8 mg/dL 0.3-1.0 [facility] Calcium [Mass/volume] in Ser um or PlasmaOrdered By: Frida Martini on 02-16-2024 Calcium [Mass/Vol] 9.3 mg/dL 8.6-10.3 [facility] Carbon dioxide, total [Moles /volume] in Serum or PlasmaOrdered By: Frida Martini on 02-16-2024 CO2 [Moles/Vol] 27.9 mmol/L 21.0-31.[address] [facility] Chloride [Moles/volume] in S nadia or PlasmaOrdered By: Frida Martini on 02-16-2024 Chloride [Moles/Vol] 106 mmol/L 98-107 [facility] Complete Blood Count Auto Di ffon 02-16-2024 Basophils (Bld) [#/Vol] 0.0 10*3/uL Normal 0.0-0.2 [facility] Comment on above: Result Comment: PERF ORMED BY: [facility] [address] [place] [address] PATHOLOGIST TRAVEL COUNSELOR FLORENCIA MARIANO M.D. Performed By: #### C MP, CBC #### [facility] [address] Basophils/100 WBC (Bld) 0.3 % Normal . [facility] Comment on above: Performed By: #### C MP, CBC #### [facility] [address] [place] [address] Eosinophils (Bld) [#/Vol] 0.2 10*3/uL Normal 0.0-0.45 [facility] Comment on above: Performed By: #### C MP, CBC #### [address] Eosinophils/100 WBC (Bld) 2.3 % Normal . [facility] Comment on above: Performed By: #### C MP, CBC #### [address] Erythrocyte distribution width (RBC) [Ratio] 14.5 % Normal 11.9-15.3 [facility] Comment on above: Performed By: #### C MP, CBC #### [address] Hematocrit (Bld) [Volume fraction] 44.3 % Normal 34.0-46.4 [facility] Comment on above: Performed By: #### C MP, CBC #### [address] Hemoglobin (Bld) [Mass/Vol] 14.4 g/dL Normal 11.8-15.4 [facility] Comment on above: Performed By: #### C MP, CBC #### [address] Lymphocytes (Bld) [#/Vol] 2.6 10*3/uL Normal 1.00-4.8 [facility] Comment on above: Performed By: #### C MP, CBC #### [address] Lymphocytes/100 WBC (Bld) 31.6 % Normal . [facility] Comment on above: Performed By: #### C MP, CBC #### [address] MCH (RBC) [Entitic mass] 30.0 pg Normal 24.7-34.3 [facility] Comment on above: Performed By: #### C MP, CBC #### [address] MCV (RBC) [Entitic vol] 92.1 fL Normal 80-100 [facility] Comment on above: Performed By: #### C MP, CBC #### [address] Mean Corpuscular HGB Conc 32.5 g/dL Normal 32.0-35.0 [facility] Comment on above: Performed By: #### C MP, CBC #### [address] Monocytes (Bld) [#/Vol] 0.5 10*3/uL Normal 0.0-0.8 [facility] Comment on above: Performed By: #### C MP, CBC #### [address] Monocytes/100 WBC (Bld) 6.3 % Normal . [facility] Comment on above: Performed By: #### C MP, CBC #### [address] Neutrophils (Bld) [#/Vol] 4.8 10*3/uL Normal 1.8-7.7 [facility] Comment on above: Performed By: #### C MP, CBC #### [address] Neutrophils/100 WBC (Bld) 59.5 % Normal . [facility] Comment on above: Performed By: #### C MP, CBC #### [address] NRBC% 0.2 /100{WBC} Normal 0-0.5 [facility] Comment on above: Performed By: #### C MP, CBC #### [address] Platelet mean volume (Bld) [Entitic vol] 8.3 fL Normal 6.3-10.7 [facility] Comment on above: Performed By: #### C MP, CBC #### [address] Platelets (Bld) [#/Vol] 204 10*3/uL Normal 150-450 [facility] Comment on above: Performed By: #### C MP, CBC #### [address] RBC (Bld) [#/Vol] 4.81 10*6/uL Normal 3.60-5.00 [facility] Comment on above: Performed By: #### C MP, CBC #### [address] WBC (Bld) [#/Vol] 8.1 10*3/uL Normal 3.8-11.6 [facility] Comment on above: Performed By: #### C MP, CBC #### [address] Comprehensive Metabolic Pane carlos alberto 02-16-2024 Albumin [Mass/Vol] 4.1 g/dL Normal 3.5-5.7 [facility] Comment on above: Performed By: #### C MP, CBC #### [address] Albumin/Globulin [Mass ratio] 2.0 {ratio} Normal [facility] Comment on above: Performed By: #### C MP, CBC #### [address] ALP [Catalytic activity/Vol] 89 U/L Normal 34-104 [facility] Comment on above: Result Comment: PERF ORMED BY: [place] [address] PATHOLOGIST TRAVEL COUNSELOR FLORENCIA MARIANO M.D. Performed By: #### C MP, CBC #### [address] ALT [Catalytic activity/Vol] 9 U/L Normal 7-52 [facility] Comment on above: Performed By: #### C MP, CBC #### [address] Anion gap [Moles/Vol] 9.4 mmol/L Normal 6.0-15.0 [facility] Comment on above: Performed By: #### C MP, CBC #### [address] AST [Catalytic activity/Vol] 12 U/L Low 13-39 [facility] Comment on above: Performed By: #### C MP, CBC #### [address] Bilirubin [Mass/Vol] 0.8 mg/dL Normal 0.3-1.0 [facility] Comment on above: Performed By: #### C MP, CBC #### [address] Calcium [Mass/Vol] 9.3 mg/dL Normal 8.6-10.3 [facility] Comment on above: Performed By: #### C MP, CBC #### [address] Chloride [Moles/Vol] 106 mmol/L Normal 98-107 [facility] Comment on above: Performed By: #### C MP, CBC #### [address] CO2 [Moles/Vol] 27.9 mmol/L Normal 21.0-31.0 [facility] Comment on above: Performed By: #### C MP, CBC #### [address] Creatinine [Mass/Vol] 0.82 mg/dL Normal 0.60-1.20 [facility] Comment on above: Performed By: #### C MP, CBC #### [place] [address] [place] GFR/1.73 sq M.predicted MDRD (S/P/Bld) [Vol rate/Area] mL/min/{1.73_m2} Normal [facility] Comment on above: Performed By: #### C MP, CBC #### [address] Globulin (S) [Mass/Vol] 2.1 g/dL Normal [facility] Comment on above: Performed By: #### C MP, CBC #### [address] Glucose [Mass/Vol] 80 mg/dL Normal 70-100 [facility] Comment on above: Result Comment: [facility] Glucose Reference Range is dependent on time and content of last meal. Glucose of more than 200 mg/dL in a nonstressed, ambulatory subject supports the diagnosis of Diabetes Mellitus. ADA recommended reference range Performed By: #### C MP, CBC #### [address] Potassium [Moles/Vol] 4.3 mmol/L Normal 3.5-5.1 [facility] Comment on above: Performed By: #### C MP, CBC #### [address] Protein [Mass/Vol] 6.2 g/dL Low 6.4-8.9 [facility] Comment on above: Performed By: #### C MP, CBC #### [address] Sodium [Moles/Vol] 139 mmol/L Normal 136-145 [facility] Comment on above: Performed By: #### C MP, CBC #### [address] Urea nitrogen [Mass/Vol] 19 mg/dL Normal 7-25 [facility] Comment on above: Performed By: #### C MP, CBC #### [place] [address] [place] Creatinine [Mass/volume] in Serum or PlasmaOrdered By: Frida Martini on 02-16-2024 Creatinine [Mass/Vol] 0.82 mg/dL 0.60-1.20 [facility] Eosinophils Auto (Bld) [#/Vo l]Ordered By: Frida Martini on 02-16-2024 Eosinophils (Bld) [#/Vol] 0.2 10*3/uL 0.0-0.45 [facility] [place] Eosinophils/100 WBC Auto (Bl d)Ordered By: Frida Martini on 02-16-2024 Eosinophils/100 WBC (Bld) 2.3 % . [facility] [place] Erythrocyte distribution wid th Auto (RBC) [Ratio]Ordered By: Frida Martini on 02-16-2024 Erythrocyte distribution width (RBC) [Ratio] 14.5 % 11.9-15.3 [facility] [place] Globulin Calc (S) [Mass/Vol] Ordered By: Frida Martini on 02-16-2024 Globulin (S) [Mass/Vol] 2.1 g/dL [facility] [place] Glucose [Mass/volume] in Ser um or PlasmaOrdered By: Frida Martini on 02-16-2024 Glucose [Mass/Vol] 80 mg/dL 70-100 [facility] Comment on above: ADA recommended refe rence rangeRandom Glucose Reference Range is dependent on time and content of last meal. Glucose of more than 200 mg/dL in a nonstressed, ambulatory subject supports the diagnosis of Diabetes Mellitus. Hematocrit Auto (Bld) [Volum e fraction]Ordered By: Friad Martini on 02-16-2024 Hematocrit (Bld) [Volume fraction] 44.3 % 34.0-46.4 [facility] [place] Hemoglobin [Mass/volume] in BloodOrdered By: Frida Martini on 02-16-2024 Hemoglobin (Bld) [Mass/Vol] 14.4 g/dL 11.8-15.4 [facility] [place] Leukocytes [#/volume] correc zay for nucleated erythrocytes in Blood by Automated counOrdered By: Frida Martini on 02-16-2024 WBC corrected for nucl RBC Auto (Bld) [#/Vol] 8.1 10*3/uL 3.8-11.6 [facility] [place] Lymphocytes Auto (Bld) [#/Vo l]Ordered By: Frida Martini on 02-16-2024 Lymphocytes (Bld) [#/Vol] 2.6 10*3/uL 1.00-4.8 [facility] [place] Lymphocytes/100 WBC Auto (Bl d)Ordered By: Frida Martini on 02-16-2024 Lymphocytes/100 WBC (Bld) 31.6 % . [facility] [place] MCH Auto (RBC) [Entitic mass ]Ordered By: Frida Martini on 02-16-2024 MCH (RBC) [Entitic mass] 30.0 pg 24.7-34.3 [facility] [place] MCHC Auto (RBC) [Mass/Vol]Or dered By: Frida Martini on 02-16-2024 MCHC (RBC) [Mass/Vol] 32.5 g/dL 32.0-35.0 [facility] MCV Auto (RBC) [Entitic vol] Ordered By: Frida Martini on 02-16-2024 MCV (RBC) [Entitic vol] 92.1 fL 80-100 [facility] [place] Monocytes Auto (Bld) [#/Vol] Ordered By: Frida Martini on 02-16-2024 Monocytes (Bld) [#/Vol] 0.5 10*3/uL 0.0-0.8 [facility] [place] Monocytes/100 WBC Auto (Bld) Ordered By: Frida Martini on 02-16-2024 Monocytes/100 WBC (Bld) 6.3 % . [facility] [place] Neutrophils Auto (Bld) [#/Vo l]Ordered By: Frida Martini on 02-16-2024 Neutrophils (Bld) [#/Vol] 4.8 10*3/uL 1.8-7.7 [facility] [place] Neutrophils/100 WBC Auto (Bl d)Ordered By: Frida Martini on 02-16-2024 Neutrophils/100 WBC (Bld) 59.5 % . [facility] [place] No Panel InformationOrdered By: Frida Martini on 02-16-2024 Estimated GFR (CKD-EPI) > 60.0 mL/Min [facility] [place] [facility] Creatinine Clearance (Chem N/A [facility] [place] Nucleated erythrocytes [Pres ence] in Blood by Automated countOrdered By: Frida Martini on 02-16-2024 Nucleated RBC Auto Ql (Bld) 0.2 /100{WBC} 0-0.5 [facility] [place] Platelet mean volume Auto (B ld) [Entitic vol]Ordered By: Frida Martini on 02-16-2024 Platelet mean volume (Bld) [Entitic vol] 8.3 fL 6.3-10.7 [facility] [place] Platelets Auto (Bld) [#/Vol] Ordered By: Frida Martini on 02-16-2024 Platelets (Bld) [#/Vol] 204 10*3/uL 150-450 [facility] [place] Potassium [Moles/volume] in Serum or PlasmaOrdered By: Frida Martini on 02-16-2024 Potassium [Moles/Vol] 4.3 mmol/L 3.5-5.1 [facility] Protein [Mass/volume] in Ser um or PlasmaOrdered By: Frida Martini on 02-16-2024 Protein [Mass/Vol] 6.2 g/dL 6.4-8.9 [facility] RBC Auto (Bld) [#/Vol]Ordere d By: Frida Martini on 02-16-2024 RBC (Bld) [#/Vol] 4.81 10*6/uL 3.60-5.00 [facility] Serum or plasma albumin/glob ulin mass ratioOrdered By: Frida Martini on 02-16-2024 Albumin/Globulin [Mass ratio] 2.0 {ratio} [facility] [place] Serum or plasma anion gap de terminationOrdered By: Frida Martini on 02-16-2024 Anion gap [Moles/Vol] 9.4 mmol/L 6.0-15.0 [facility] Sodium [Moles/volume] in Ser um or PlasmaOrdered By: Frida Martini on 02-16-2024 Sodium [Moles/Vol] 139 mmol/L 136-145 [facility] Urea nitrogen [Mass/volume] in Serum or PlasmaOrdered By: Frida Martini on 02-16-2024 Urea nitrogen [Mass/Vol] 19 mg/dL 7-25 [facility] [place] WBC Auto (Bld) [#/Vol]Ordere d By: Frida Martini on 02-16-2024 WBC (Bld) [#/Vol] 8.1 10*3/uL 3.8-11.6 [facility] Alanine aminotransferase [En zymatic activity/volume] in Serum or PlasmaOrdered By: Jt Walls on 08-24-2023 ALT [Catalytic activity/Vol] 9 U/L 7-52 [facility] [place] Albumin [Mass/volume] in Ser um or Plasma by Bromocresol green (BCG) dye binding methoOrdered By: Jt Walls on 08-24-2023 Albumin BCG dye [Mass/Vol] 4.1 g/dL 3.5-5.7 [facility] [place] Alkaline phosphatase [Enzyma tic activity/volume] in Serum or PlasmaOrdered By: Jt Walls on 08-24-2023 ALP [Catalytic activity/Vol] 83 U/L 34-104 [facility] [place] Aspartate aminotransferase [ Enzymatic activity/volume] in Serum or PlasmaOrdered By: Jt Walls on 08-24-2023 AST [Catalytic activity/Vol] 12 U/L 13-39 [facility] [place] Basophils Auto (Bld) [#/Vol] Ordered By: Jt Walls on 08-24-2023 Basophils (Bld) [#/Vol] 0.0 10*3/uL 0.0-0.2 [facility] [place] Basophils/100 WBC Auto (Bld) Ordered By: Jt Walls on 08-24-2023 Basophils/100 WBC (Bld) 0.6 % . [facility] [place] Bilirubin.total [Mass/volume ] in Serum or PlasmaOrdered By: Jt Walls on 08-24-2023 Bilirubin [Mass/Vol] 0.5 mg/dL 0.3-1.0 [facility] Calcium [Mass/volume] in Ser um or PlasmaOrdered By: Jt Walls on 08-24-2023 Calcium [Mass/Vol] 9.1 mg/dL 8.6-10.3 [facility] Carbon dioxide, total [Moles /volume] in Serum or PlasmaOrdered By: Jt Walls on 08-24-2023 CO2 [Moles/Vol] 28.8 mmol/L 21.0-31.[address] [facility] Chloride [Moles/volume] in S nadia or PlasmaOrdered By: Jt Walls on 08-24-2023 Chloride [Moles/Vol] 109 mmol/L 98-107 [facility] Complete Blood Count Auto Di ffon 08-24-2023 Basophils (Bld) [#/Vol] 0.0 10*3/uL Normal 0.0-0.2 [facility] Comment on above: Result Comment: PERF ORMED BY: [place] [address] PATHOLOGIST TRAVEL COUNSELOR FLORENCIA MARIANO M.D. Performed By: #### C MP, CBC #### [address] Basophils/100 WBC (Bld) 0.6 % Normal . [facility] Comment on above: Performed By: #### C MP, CBC #### [place] [address] [place] Eosinophils (Bld) [#/Vol] 0.1 10*3/uL Normal 0.0-0.45 [facility] Comment on above: Performed By: #### C MP, CBC #### [address] Eosinophils/100 WBC (Bld) 2.2 % Normal . [facility] Comment on above: Performed By: #### C MP, CBC #### [address] Erythrocyte distribution width (RBC) [Ratio] 14.0 % Normal 11.9-15.3 [facility] Comment on above: Performed By: #### C MP, CBC #### [address] Hematocrit (Bld) [Volume fraction] 43.2 % Normal 34.0-46.4 [facility] Comment on above: Performed By: #### C MP, CBC #### [place] [address] [place] Hemoglobin (Bld) [Mass/Vol] 14.4 g/dL Normal 11.8-15.4 [facility] Comment on above: Performed By: #### C MP, CBC #### [place] [address] [place] Lymphocytes (Bld) [#/Vol] 2.0 10*3/uL Normal 1.00-4.8 [facility] Comment on above: Performed By: #### C MP, CBC #### [address] Lymphocytes/100 WBC (Bld) 29.3 % Normal . [facility] Comment on above: Performed By: #### C MP, CBC #### [address] MCH (RBC) [Entitic mass] 31.1 pg Normal 24.7-34.3 [facility] Comment on above: Performed By: #### C MP, CBC #### [address] MCV (RBC) [Entitic vol] 93.4 fL Normal 80-100 [facility] Comment on above: Performed By: #### C MP, CBC #### [address] Mean Corpuscular HGB Conc 33.3 g/dL Normal 32.0-35.0 [facility] Comment on above: Performed By: #### C MP, CBC #### [place] [address] [place] Monocytes (Bld) [#/Vol] 0.5 10*3/uL Normal 0.0-0.8 [facility] Comment on above: Performed By: #### C MP, CBC #### [place] [address] [place] Monocytes/100 WBC (Bld) 6.8 % Normal . [facility] Comment on above: Performed By: #### C MP, CBC #### [address] Neutrophils (Bld) [#/Vol] 4.2 10*3/uL Normal 1.8-7.7 [facility] Comment on above: Performed By: #### C MP, CBC #### [address] Neutrophils/100 WBC (Bld) 61.1 % Normal . [facility] Comment on above: Performed By: #### C MP, CBC #### [address] NRBC% 0.2 /100{WBC} Normal 0-0.5 [facility] Comment on above: Performed By: #### C MP, CBC #### [address] Platelet mean volume (Bld) [Entitic vol] 8.8 fL Normal 6.3-10.7 [facility] Comment on above: Performed By: #### C MP, CBC #### [address] Platelets (Bld) [#/Vol] 181 10*3/uL Normal 150-450 [facility] Comment on above: Performed By: #### C MP, CBC #### [address] RBC (Bld) [#/Vol] 4.63 10*6/uL Normal 3.60-5.00 [facility] Comment on above: Performed By: #### C MP, CBC #### [address] WBC (Bld) [#/Vol] 6.8 10*3/uL Normal 3.8-11.6 [facility] Comment on above: Performed By: #### C MP, CBC #### [address] Comprehensive Metabolic Pane [facility] 08-24-2023 Albumin [Mass/Vol] 4.1 g/dL Normal 3.5-5.7 [facility] Comment on above: Performed By: #### C MP, CBC #### [address] Albumin/Globulin [Mass ratio] 2.1 {ratio} Normal [facility] Comment on above: Performed By: #### C MP, CBC #### [address] ALP [Catalytic activity/Vol] 83 U/L Normal 34-104 [facility] Comment on above: Result Comment: PERF ORMED BY: [place] [address] PATHOLOGIST TRAVEL COUNSELOR FLORENCIA MARIANO M.D. Performed By: #### C MP, CBC #### [address] ALT [Catalytic activity/Vol] 9 U/L Normal 7-52 [facility] Comment on above: Performed By: #### C MP, CBC #### [address] Anion gap [Moles/Vol] 8.4 mmol/L Normal 6.0-15.0 [facility] Comment on above: Performed By: #### C MP, CBC #### [address] AST [Catalytic activity/Vol] 12 U/L Low 13-39 [facility] Comment on above: Performed By: #### C MP, CBC #### [address] Bilirubin [Mass/Vol] 0.5 mg/dL Normal 0.3-1.0 [facility] Comment on above: Performed By: #### C MP, CBC #### [address] Calcium [Mass/Vol] 9.1 mg/dL Normal 8.6-10.3 [facility] Comment on above: Performed By: #### C MP, CBC #### [place] [address] [place] Chloride [Moles/Vol] 109 mmol/L High 98-107 [facility] Comment on above: Performed By: #### C MP, CBC #### [address] CO2 [Moles/Vol] 28.8 mmol/L Normal 21.0-31.0 [facility] Comment on above: Performed By: #### C MP, CBC #### [address] Creatinine [Mass/Vol] 0.81 mg/dL Normal 0.60-1.20 [facility] Comment on above: Performed By: #### C MP, CBC #### [place] [address] [place] GFR/1.73 sq M.predicted MDRD (S/P/Bld) [Vol rate/Area] mL/min/{1.73_m2} Normal [facility] Comment on above: Performed By: #### C MP, CBC #### [address] [address] Globulin (S) [Mass/Vol] 2.0 g/dL Normal [facility] Comment on above: Performed By: #### C MP, CBC #### [address] Glucose [Mass/Vol] 90 mg/dL Normal 70-100 [facility] Comment on above: Result Comment: [facility] Glucose Reference Range is dependent on time and content of last meal. Glucose of more than 200 mg/dL in a nonstressed, ambulatory subject supports the diagnosis of Diabetes Mellitus. ADA recommended reference range Performed By: #### C MP, CBC #### [place] [address] [place] Potassium [Moles/Vol] 4.2 mmol/L Normal 3.5-5.1 [facility] Comment on above: Performed By: #### C MP, CBC #### [address] Protein [Mass/Vol] 6.1 g/dL Low 6.4-8.9 [facility] Comment on above: Performed By: #### C MP, CBC #### [address] Sodium [Moles/Vol] 142 mmol/L Normal 136-145 [facility] Comment on above: Performed By: #### C MP, CBC #### [address] Urea nitrogen [Mass/Vol] 12 mg/dL Normal 7-25 [facility] Comment on above: Performed By: #### C MP, CBC #### [facility] [address] [id number] [facility] Creatinine [Mass/volume] in Serum or PlasmaOrdered By: Jt Walls on 08-24-2023 Creatinine [Mass/Vol] 0.81 mg/dL 0.60-1.20 [facility] Eosinophils Auto (Bld) [#/Vo l]Ordered By: Jt Walls on 08-24-2023 Eosinophils (Bld) [#/Vol] 0.1 10*3/uL 0.0-0.45 [facility] [place] Eosinophils/100 WBC Auto (Bl d)Ordered By: Jt Walls on 08-24-2023 Eosinophils/100 WBC (Bld) 2.2 % . [facility] [place] Erythrocyte distribution wid th Auto (RBC) [Ratio]Ordered By: Jt Walls on 08-24-2023 Erythrocyte distribution width (RBC) [Ratio] 14.0 % 11.9-15.3 [facility] [place] Globulin Calc (S) [Mass/Vol] Ordered By: Jt Walls on 08-24-2023 Globulin (S) [Mass/Vol] 2.0 g/dL [facility] [place] Glucose [Mass/volume] in Ser um or PlasmaOrdered By: Jt Walls on 08-24-2023 Glucose [Mass/Vol] 90 mg/dL 70-100 [facility] Comment on above: ADA recommended refe rence rangeRandom Glucose Reference Range is dependent on time and content of last meal. Glucose of more than 200 mg/dL in a nonstressed, ambulatory subject supports the diagnosis of Diabetes Mellitus. Hematocrit Auto (Bld) [Volum e fraction]Ordered By: Jt Walls on 08-24-2023 Hematocrit (Bld) [Volume fraction] 43.2 % 34.0-46.4 [facility] [place] Hemoglobin [Mass/volume] in BloodOrdered By: Jt Walls on 08-24-2023 Hemoglobin (Bld) [Mass/Vol] 14.4 g/dL 11.8-15.4 [facility] [place] Leukocytes [#/volume] correc zay for nucleated erythrocytes in Blood by Automated counOrdered By: Jt Walls on 08-24-2023 WBC corrected for nucl RBC Auto (Bld) [#/Vol] 6.8 10*3/uL 3.8-11.6 [facility] [place] Lymphocytes Auto (Bld) [#/Vo l]Ordered By: Jt Walls on 08-24-2023 Lymphocytes (Bld) [#/Vol] 2.0 10*3/uL 1.00-4.8 [facility] [place] Lymphocytes/100 WBC Auto (Bl d)Ordered By: Jt Walls on 08-24-2023 Lymphocytes/100 WBC (Bld) 29.3 % . [facility] [place] MCH Auto (RBC) [Entitic mass ]Ordered By: Jt Walls on 08-24-2023 MCH (RBC) [Entitic mass] 31.1 pg 24.7-34.3 [facility] [place] MCHC Auto (RBC) [Mass/Vol]Or dered By: Jt Walls on 08-24-2023 MCHC (RBC) [Mass/Vol] 33.3 g/dL 32.0-35.0 [facility] MCV Auto (RBC) [Entitic vol] Ordered By: Jt Walls on 08-24-2023 MCV (RBC) [Entitic vol] 93.4 fL 80-100 [facility] [place] Monocytes Auto (Bld) [#/Vol] Ordered By: Jt Walls on 08-24-2023 Monocytes (Bld) [#/Vol] 0.5 10*3/uL 0.0-0.8 [facility] [place] Monocytes/100 WBC Auto (Bld) Ordered By: Jt Walls on 08-24-2023 Monocytes/100 WBC (Bld) 6.8 % . [facility] [place] Neutrophils Auto (Bld) [#/Vo l]Ordered By: Jt Walls on 08-24-2023 Neutrophils (Bld) [#/Vol] 4.2 10*3/uL 1.8-7.7 [facility] [place] Neutrophils/100 WBC Auto (Bl d)Ordered By: Jt Walls on 08-24-2023 Neutrophils/100 WBC (Bld) 61.1 % . [facility] [place] No Panel InformationOrdered By: Jt Walls on 08-24-2023 Estimated GFR (CKD-EPI) > 60.0 mL/Min [facility] [place] [facility] Creatinine Clearance (Chem N/A [facility] [place] Nucleated erythrocytes [Pres ence] in Blood by Automated countOrdered By: Jt Walls on 08-24-2023 Nucleated RBC Auto Ql (Bld) 0.2 /100{WBC} 0-0.5 [facility] [place] Platelet mean volume Auto (B ld) [Entitic vol]Ordered By: Jt Walls on 08-24-2023 Platelet mean volume (Bld) [Entitic vol] 8.8 fL 6.3-10.7 [facility] [place] Platelets Auto (Bld) [#/Vol] Ordered By: Jt Walls on 08-24-2023 Platelets (Bld) [#/Vol] 181 10*3/uL 150-450 [facility] [place] Potassium [Moles/volume] in Serum or PlasmaOrdered By: Jt Walls on 08-24-2023 Potassium [Moles/Vol] 4.2 mmol/L 3.5-5.1 [facility] Protein [Mass/volume] in Ser um or PlasmaOrdered By: Jt Walls on 08-24-2023 Protein [Mass/Vol] 6.1 g/dL 6.4-8.9 [facility] RBC Auto (Bld) [#/Vol]Ordere d By: Jt Walls on 08-24-2023 RBC (Bld) [#/Vol] 4.63 10*6/uL 3.60-5.00 [facility] Serum or plasma albumin/glob ulin mass ratioOrdered By: Jt Walls on 08-24-2023 Albumin/Globulin [Mass ratio] 2.1 {ratio} [facility] [place] Serum or plasma anion gap de terminationOrdered By: Jt Walls on 08-24-2023 Anion gap [Moles/Vol] 8.4 mmol/L 6.0-15.0 [facility] Sodium [Moles/volume] in Ser um or PlasmaOrdered By: Jt Walls on 08-24-2023 Sodium [Moles/Vol] 142 mmol/L 136-145 [facility] Urea nitrogen [Mass/volume] in Serum or PlasmaOrdered By: Jt Walls on 08-24-2023 Urea nitrogen [Mass/Vol] 12 mg/dL 7-25 [facility] [place] WBC Auto (Bld) [#/Vol]Ordere d By: Jt Walls on 08-24-2023 WBC (Bld) [#/Vol] 6.8 10*3/uL 3.8-11.6 [facility] Follow-Upon 06-22-2023 Follow-Up [id number] Nicol Lacey 1960 F Date Provider Department Center 06/22/2023 TONIE DE GUZMAN ONC D[facility] Family History Problem Relation Age of Onset Heart disease Mother Esophageal cancer Father Family Status - Relation Status Age at Mother Father Level of Service:75523 [place] OFFICE/OUTPATIENT ESTABLISHED LOW MDM 20-29 MIN Reason for Visit and Comments: Follow-up [549018] - Here today to discuss recent MRI Normal [facility] MR LUMBAR SPINE WO CONTRASTo n 06-22-2023 [...] right L4-5. Electronically signed: Hema Hurt. Normal [facility] Comment on above: Order Comment: Has r ight sided mostly L5 radiculopathy Office Visiton 05-26-2023 Follow-up visit [id number] Nicol Lacey 1960 Date Provider Department Center 05/26/2023 TONIE DE GUZMAN ONC D[facility] Family History Problem Relation Age of Onset Heart disease Mother Esophageal cancer Father Family Status - Relation Status Age at Mother Father Level of Service:61493 [place] OFFICE/OUTPATIENT NEW LOW MDM 30-44 MINUTES Reason for Visit and Comments: Consult [484] - Here today for back pain-old mri and hip xray Normal [facility] Orders Onlyon 05-13-2023 Orders Only [id number] Nicol Lacey 1960 Date Provider Department Center 05/13/2023 TONIE DE GUZMAN ONC D[facility] No family history on file Normal [facility] PROTIMEon 02-24-2023 INR Coag (PPP) [Relative time] 1.07 {INR} Normal [facility] Comment on above: Performed By: #### P T #### [facility] [address] [place] [address] Dr. Jason Paniagua INR GUIDELINES SEE BELOW Normal [facility] Comment on above: Result Comment: AVEL RED INR: 2.0 - 3.0 CONDITIONS NOT LISTED BELOW 2.5 - 3.5 FOR PROSTHETIC HEART VALVE REPLACEMENT 2.5 - 3.5 RECURRENT THROMBOSIS Performed By: #### P T #### [facility] [address] [place], [place] [address] Dr. Jason Paniagua PT Coag (PPP) [Time] 11.3 s Normal 9.0-11.6 [facility] Comment on above: Performed By: #### P T #### [facility] [address] [place], [place] [address] Dr. Jason Paniagua Lab Reportson 08-01-2022 Lab Reports [id number]:127 Normal [facility] General Surgery Office/Clini c Noteon 07-29-2022 General [...] Tab, 25 mg= 1 tab(s), Oral, Daily [place] 325 mg-5 mg oral tablet, 1 tab(s), [...] Father. Ulcerative colitis: Sister and Brother. Normal [facility] Comment on above: Result Comment: Elec tronically Signed By: GLORIA WILLS, Allyson Rebolledo\Date and Time Signed: 07/29/22 [...] Reviewed: 02/10/2019 Elsevier Patient Education ? 2019 [employer] Normal [facility] Reminderson 07-29-2022 Reminders - From: Heather Paniagua LPN To: N - Clinical; Sent: 07/29/2022 15:48:04 EDT Show up: 06/15/2027 07:00:00 EDT Subject: colonoscopy recall Due Date/Time: 07/16/2027 07:00:00 EDT Reminder/Recall Patient is due for colonoscopy 07/16/2027 due to history of tubular adenoma. Normal [facility] Pathology Noteon 07-18-2022 Pathology Note [id number]:127 Normal [facility] Outside Colonoscopyon 2021 Outside Colonoscopy [id number]#[id number]:127 Normal [facility] PROTIMEon 07-16-2022 INR Coag (PPP) [Relative time] 1.11 {INR} Normal [facility] Comment on above: Performed By: #### P T ####[facility] [id number] [id number] Paniagua INR GUIDELINES SEE BELOW Normal [facility] Comment on above: Result Comment: AVEL RED INR: 2.0 - 3.0 CONDITIONS NOT LISTED BELOW 2.5 - 3.5 FOR PROSTHETIC HEART VALVE REPLACEMENT 2.5 - 3.5 RECURRENT THROMBOSIS Performed By: #### P T ####[facility] [id number] [id number] Paniagua PT Coag (PPP) [Time] 11.9 s Critically high 9.0-11.6 [facility] Comment on above: Performed By: #### P T ####[facility] [id number] [id number] Paniagua Lab Reportson 07-15-2022 Lab Reports [id number]#[id number]:127 Normal [facility] Covid-19 PCR (CVDTB)on SARS-CoV-2 (COVID-19) RNA JANEE+probe Ql (Unsp spec) Not detected Normal NOT DETECTED [facility] Comment on above: Result Comment: This test is not yet approved or cleared by the [place] FDA. When there are no FDA-approved or cleared tests available, and other criteria are met, FDA can make tests available under an emergency access mechanism called an Emergency Use Authorization (EUA). The EUA for this test is supported by the [place] of Health and Human Service's (HHS's) declaration [...] consistent with SARS-CoV-2. Performed By: #### C [facility] #### [facility] [address] [place] [address] Dr. Jason Paniagua Pre-Certification Formon Pre-Certification Form [id number]#[id number]:12 7 Normal [facility] Consent for Procedure/Surger yon 06-12-2022 Consent for Procedure/Surgery [id number]:127 Normal [facility] Ambulatory Visit Summaryon 0 06-11-2022 Ambulatory Visit Summary NATALIE LACEY :1960 Visit Date:06/11/2022 Ambulatory Visit Instructions Your Care Team Attending Physician - GLORIA WILLS, Allyson Betancourt Primary Care Physician - CRISTOFER SPRINGER JR, DO Referring Physician - CRISTOFER SPRINGER JR, DO This Is Your Medications List Contact prescribing physician if questions or concerns acetaminophen-hydrocodone ([place] 325 mg-5 mg oral tablet) albuterol (albuterol [...] What How Much When Instructions Unchanged acetaminophen-hydrocodone ([place] 325 mg-5 mg oral tablet) 1 Tablets [...] Lupus anticoagulant disorder Radiculopathy Tubular adenoma Normal [facility] Physician Referralon 022 Physician Referral [id number]:127 Normal [facility] MG MAMM SCREEN 3D YESY CADon 05-19-2022 MG MAMM SCREEN 3D YESY CAD Patient: NATALIE LACEY Exam Date: 05/19/2022 : 1960 Gender:F Ordering : DR CRISTOFER SPRINGER D.O. Admission #: [id number] Family : DR TATIANA ESQUIVEL . Order #: [id number] CLICK HERE TO VIEW EXAM RADIOLOGY REPORT [...] breast cancer at age 42. LOCATION: [facility] [place] BREAST COMPOSITION: Almost entirely fatty. FINDINGS: [...] Bergeron MD on 05/19/2022 at 12:41 Normal [facility] CT LUNG CANCER SCREENINGon 0 04-19-2022 CT [...] by: JAYSON BERGERON Date: 2022-04-19 08:13 Normal [facility] Activated partial thrombopla stin time (aPTT) in platelet poor plasma by coagulation aOrdered By: Jt Walls on 02-19-2022 aPTT Coag (PPP) [Time] 44.7 s 25.1-36.5 [facility] Albumin [Mass/volume] in Ser um or PlasmaOrdered By: Jt Walls on 02-19-2022 Albumin [Mass/Vol] 3.9 g/dL 3.2-5.5 [facility] Automated erythrocytes count in urine sediment (number/area)Ordered By: Jt Walls on 02-19-2022 RBC Auto (Urine sed) [#/Area] 0-1 [HPF] [facility] [place] Automated leukocytes count i n urine sediment (number/area)Ordered By: Jt Walls on 02-19-2022 WBC Auto (Urine sed) [#/Area] 0-1 [HPF] [facility] [place] Basophils Auto (Bld) [#/Vol] Ordered By: Jt Walls on 02-19-2022 Basophils (Bld) [#/Vol] 0.0 10*3/uL 0.0-0.2 [facility] [place] Basophils/100 WBC Auto (Bld) Ordered By: Jt Walls on 02-19-2022 Basophils/100 WBC (Bld) 0.5 % [facility] [place] Bilirubin Test strip Ql (U)O rdered By: Jt Walls on 02-19-2022 Bilirubin Ql (U) Negative Negative [facility] Blood hemoglobin measurement (mass/volume)Ordered By: Jt Walls on 02-19-2022 Hemoglobin (Bld) [Mass/Vol] 14.7 g/dL 11.8-15.4 [facility] [place] Blood leukocytes automated c ount (number/volume)Ordered By: Jt Walls on 02-19-2022 WBC (Bld) [#/Vol] 8.1 10*3/uL 4.5-11.0 [facility] Color Auto (U)Ordered By: Leonora Walls on 02-19-2022 Color (U) Yellow Yellow [facility] [place] Creatine kinase [Enzymatic a ctivity/volume] in Serum or PlasmaOrdered By: Jt Walls on 02-19-2022 CK [Catalytic activity/Vol] 111 U/L 22-269 [facility] [place] Creatinine and Glomerular fi ltration rate.predicted panel (S/P/Bld)Ordered By: Jt Walls on 02-19-2022 Creatinine [Mass/Vol] 0.74 mg/dL 0.44-1.03 [facility] Eosinophils Auto (Bld) [#/Vo l]Ordered By: Jt Walls on 02-19-2022 Eosinophils (Bld) [#/Vol] 0.1 10*3/uL 0.0-0.45 [facility] [place] Eosinophils/100 WBC Auto (Bl d)Ordered By: Jt Walls on 02-19-2022 Eosinophils/100 WBC (Bld) 1.2 % [facility] [place] Erythrocyte distribution wid th Auto (RBC) [Ratio]Ordered By: Jt Walls on 02-19-2022 Erythrocyte distribution width (RBC) [Ratio] 13.8 % 11.9-15.3 [facility] [place] Erythrocyte sedimentation ra te by Photometric methodOrdered By: Jt Walls on 02-19-2022 ESR Photometric method (Bld) [Velocity] 13 mm/hr 0-29 [facility] [place] Estimated glomerular filtrat ion rate (GFR) non- AmericanOrdered By: Jt Walls on 02-19-2022 GFR/1.73 sq M.predicted among non-blacks MDRD (S/P/Bld) [Vol rate/Area] > 60 mL/Min [facility] [place] Globulin Calc (S) [Mass/Vol] Ordered By: Jt Walls on 02-19-2022 Globulin (S) [Mass/Vol] 2.3 g/dL [facility] [place] Hematocrit Auto (Bld) [Volum e fraction]Ordered By: Jt Walls on 02-19-2022 Hematocrit (Bld) [Volume fraction] 44.4 % 34.0-46.4 [facility] [place] Ketones Auto test strip (U) [Mass/Vol]Ordered By: Jt Walls on 02-19-2022 Ketones (U) [Mass/Vol] Negative Negative [facility] - CoagulationOrde red By: Jt Walls on 02-19-2022 PT Coag (PPP) [Time] 24.7 s 9.0-12.9 [facility] - Hematology and Cell countsOrdered By: Jt Walls on 02-19-2022 Nucleated RBC/100 WBC (Bld) [Ratio] 0.1 % 0-0.5 [facility] [place] Laboratory - UrinalysisOrder ed By: Jt Walls on 02-19-2022 Hyaline casts LM Ql (Urine sed) None seen [LPF] [facility] [place] Lymphocytes Auto (Bld) [#/Vo l]Ordered By: Jt Walls on 02-19-2022 Lymphocytes (Bld) [#/Vol] 2.3 10*3/uL 1.00-4.8 [facility] [place] Lymphocytes/100 WBC Auto (Bl d)Ordered By: Jt Walls on 02-19-2022 Lymphocytes/100 WBC (Bld) 28.3 % [facility] [place] MCH Auto (RBC) [Entitic mass ]Ordered By: Jt Walls on 02-19-2022 MCH (RBC) [Entitic mass] 31.2 pg 24.7-34.3 [facility] [place] MCHC Auto (RBC) [Mass/Vol]Or dered By: Jt Walls on 02-19-2022 MCHC (RBC) [Mass/Vol] 33.1 g/dL 32.0-35.0 [facility] MCV Auto (RBC) [Entitic vol] Ordered By: Jt Walls on 02-19-2022 MCV (RBC) [Entitic vol] 94.4 fL 80-100 [facility] [place] Monocytes Auto (Bld) [#/Vol] Ordered By: Jt Walls on 02-19-2022 Monocytes (Bld) [#/Vol] 0.4 10*3/uL 0.0-0.8 [facility] [place] Monocytes/100 WBC Auto (Bld) Ordered By: Jt Walls on 02-19-2022 Monocytes/100 WBC (Bld) 4.6 % [facility] [place] Neutrophils Auto (Bld) [#/Vo l]Ordered By: Jt Walls on 02-19-2022 Neutrophils (Bld) [#/Vol] 5.3 10*3/uL 1.8-7.7 [facility] [place] Neutrophils/100 WBC Auto (Bl d)Ordered By: Jt Walls on 02-19-2022 Neutrophils/100 WBC (Bld) 65.4 % [facility] [place] Nitrite Test strip Ql (U)Ord ered By: Jt Walls on 02-19-2022 Nitrite Ql (U) Negative Negative [facility] [place] No Panel InformationOrdered By: Jt Walls on 02-19-2022 Estimated GFR () > 60 mL/Min [facility] [place] Comment on above: GFR estimated refere nce range: According to KDOQI guidelines, <60 ml/min/1.73m2 is sufficient to diagnose a patient with chronic kidney disease. Pharmacy Creatinine Clearance (Chem N/A [facility] [place] Platelet mean volume Auto (B ld) [Entitic vol]Ordered By: Jt Walls on 02-19-2022 Platelet mean volume (Bld) [Entitic vol] 9.1 fL 6.3-10.7 [facility] [place] Platelet poor plasma interna tional normalized ratio (INR) by coagulation assay (relatOrdered By: Jt Walls on 02-19-2022 INR Coag (PPP) [Relative time] 2.2 {INR} [facility] [place] Comment on above: INR Therapeutic Rang e [...] 02-19-2022 Platelets (Bld) [#/Vol] 164 10*3/uL 150-450 [facility] [place] Protein Auto test strip (U) [Mass/Vol]Ordered By: Jt Walls on 02-19-2022 Protein (U) [Mass/Vol] Negative Negative Fi [facility] Protein [Mass/volume] in Ser um or PlasmaOrdered By: Jt Walls on 02-19-2022 Protein [Mass/Vol] 6.2 g/dL 6.1-7.9 [facility] RBC Auto (Bld) [#/Vol]Ordere d By: Jt Walls on 02-19-2022 RBC (Bld) [#/Vol] 4.70 10*6/uL 3.60-5.00 [facility] Serum or plasma C reactive p rotein measurement (mass/volume)Ordered By: Jt Walls on 02-19-2022 CRP [Mass/Vol] 0.6 mg/dL 0.0-1.0 [facility] [place] Serum or plasma alanine damian otransferase measurement without P-5'-P (enzymatic activiOrdered By: Jt Walls on 02-19-2022 ALT No additional P-5'-P [Catalytic activity/Vol] 12 U/L 10-60 [facility] [place] Serum or plasma albumin/glob ulin mass ratioOrdered By: Jt Walls on 02-19-2022 Albumin/Globulin [Mass ratio] 1.7 {ratio} [facility] [place] Serum or plasma alkaline bree sphatase measurement (enzymatic activity/volume)Ordered By: Jt Walls on 02-19-2022 ALP [Catalytic activity/Vol] 75 U/L 32-92 [facility] [place] Serum or plasma aspartate am inotransferase measurement (enzymatic activity/volume)Ordered By: Jt Walls on 02-19-2022 AST [Catalytic activity/Vol] 13 U/L 10-42 [facility] [place] Serum or plasma calcium quique urement (mass/volume)Ordered By: Jt Walls on 02-19-2022 Calcium [Mass/Vol] 8.9 mg/dL 8.2-10.2 [facility] Serum or plasma chloride renita surement (moles/volume)Ordered By: Jt Walls on 02-19-2022 Chloride [Moles/Vol] 106 mmol/L 95-114 [facility] Serum or plasma glucose quique urement (mass/volume)Ordered By: Jt Walls on 02-19-2022 Glucose [Mass/Vol] 108 mg/dL 70-100 [facility] Comment on above: ADA recommended refe rence rangeRandom Glucose Reference Range is dependent on time and content of last meal. Glucose of more than 200 mg/dL in a nonstressed, ambulatory subject supports the diagnosis of Diabetes Mellitus. Serum or plasma potassium me asurement (moles/volume)Ordered By: Jt Walls on 02-19-2022 Potassium [Moles/Vol] 4.0 mmol/L 3.5-5.1 [facility] Serum or plasma sodium measu rement (moles/volume)Ordered By: Jt Walls on 02-19-2022 Sodium [Moles/Vol] 137 mmol/L 136-146 [facility] Serum or plasma total biliru bin measurement (mass/volume)Ordered By: Jt Walls on 02-19-2022 Bilirubin [Mass/Vol] 0.8 mg/dL 0.3-1.2 [facility] Serum or plasma total carbon dioxide measurement (moles/volume)Ordered By: Jt Walls on 02-19-2022 CO2 [Moles/Vol] 22.2 mmol/L 22.0-30.[address] [facility] Serum or plasma urea nitroge n measurement (mass/volume)Ordered By: Jt Walls on 02-19-2022 Urea nitrogen [Mass/Vol] 10 mg/dL 9-23 [facility] [place] Specific gravity Auto test s trip (U) [Rel density]Ordered By: Jt Walls on 02-19-2022 Specific gravity (U) [Rel density] 1.010 1.001-1.03 0 [facility] [place] Squamous epithelial cells de tection in urine sediment by light microscopyOrdered By: Jt Walls on 02-19-2022 Epithelial cells.squamous LM Ql (Urine sed) None seen [HPF] [facility] [place] TSH DL <= 0.005 mIU/L QnOrde red By: Jt Walls on 02-19-2022 TSH Qn 2.31 m[IU]/L 0.45-5.33 [facility] [place] Thyroxine (T4) free [Mass/vo lume] in Serum or PlasmaOrdered By: Jt Walls on 02-19-2022 Free T4 [Mass/Vol] 0.81 ng/dL 0.61-1.12 [facility] Urine bacteria detection by automated methodOrdered By: Jt Walls on 02-19-2022 Bacteria Auto Ql (U) None seen None Seen [facility] Urine clarity by refractomet ry automatedOrdered By: Jt Walls on 02-19-2022 Clarity Refractometry automated (U) Clear Clear [facility] [place] Urine glucose measurement by automated test strip (mass/volume)Ordered By: Jt Walls on 02-19-2022 Glucose Auto test strip (U) [Mass/Vol] Normal mg/dL Normal [facility] [place] Urine hemoglobin detection b y automated test stripOrdered By: Jtaraceli Walls on 02-19-2022 Hemoglobin Auto test strip Ql (U) Negative Negative [facility] [place] Urine leukocyte esterase det ection by automated test stripOrdered By: Jt Walls on 02-19-2022 Leukocyte esterase Auto test strip Ql (U) Negative Negative [facility] [place] Urobilinogen Auto test strip (U) [Mass/Vol]Ordered By: Jt Walls on 02-19-2022 Urobilinogen (U) [Mass/Vol] Normal mg/dL Normal [facility] [place] pH Auto test strip (U)Ordere d By: Jt Walls on 02-19-2022 pH (U) 6.0 [pH] 5.0-9.0 [facility] [place] Vital Signs Date Time Vital Sign Value Performing Clinician Faci [facility] 06-11-2022 14:24-0400 Blood Pressure Location Allyson [facility] [place] 06-11-2022 14:24-0400 Diastolic blood pressure 76 mm[Hg] Al[facility]son [email or web address] [place] 06-11-2022 14:24-0400 Heart rate 70 /min Allyson [email or web address] [place] 06-11-2022 14:24-0400 Respiratory rate 16 /min Allyson [email or web address] [employer] 06-11-2022 14:24-0400 Systolic blood pressure 114 mm[Hg] Allyson [facility] [place] [place] Encounters Encounter Date Encounter Type Care Provider Facility Start: 02-16-2024 End: 02-16-2024 ambulatory Frida Martini Facility:[facility] [place] Start: 02-16-2024 End: 02-16-2024 ambulatory Cristofer Springer Work Phone: [facility] Work Phone: Start: 02-16-2024 End: 02-16-2024 Patient encounter procedure Cristofer Declan Work Phone: [facility] [address] Work Phone: Start: 08-24-2023 End: 08-24-2023 ambulatory Cristofer Springer Facility:[facility] [place] Start: 08-24-2023 End: 08-24-2023 ambulatory Cristofer Vacadianna Work Phone: [facility] Work Phone: Start: 08-24-2023 End: 08-24-2023 Patient encounter procedure Cristofer Declan Work Phone: [facility] [address] Work Phone: Start: 06-22-2023 End: 06-22-2023 ambulatory [facility] Start: 06-22-2023 End: 06-23-2023 ambulatory [facility] Start: 05-26-2023 ambulatory [facility] Start: 05-07-[address] CRISTOFER SPRINGER [facility] ity:H1 Start: 04-07-2023 End: 04-07-[address] CRISTOFER SPRINGER Facility:[facility]1 Start: 03-13-2023 End: 03-14-[address] CRISTOFER SPRINGER Facility:[facility] Start: 03-09-2023 End: 04-08-[address] CRISTOFER SPRINGER Facility:[facility] Start: 02-24-2023 End: 02-24-[address] CRISTOFER SPRINGER Facility:[facility] Start: 02-09-2023 End: 03-06-[address] CRISTOFER SPRINGER Facility:[facility] Start: 02-03-2023 End: 02-04-2023 ambulatory BINH CASTILLOMIJUSTINO . Facility:[facility] Start: 01-07-2023 End: 03-31-[address] CRISTOFER SPRINGER Facility:[facility] Start: 12-10-2022 [...] Start: 07-29-2022 End: 07-30-2022 [facility] Start: 07-29-2022 End: 07-29-2022 Patient encounter procedure Allyson GARCIA General Surgery [facility] [place] Start: 07-16-2022 End: 07-17-2022 ambulatory Allyson GARCIA Facility:CD:[id number] Start: 07-15-2022 Encounter for preprocedural laboratory examination DR ALLYSON GARCIA . [facility] Start: 07-12-2022 End: 07-13-[address] ALLYSON GARCIA . Facility: Start: 07-12-2022 End: 07-13-2022 Encounter for preprocedural laboratory examination DR ALLYSON GARCIA . Facility:[facility] Start: 07-10-2022 End: 08-09-2022 ambulatory SHAIKH Phuong WEINER Facility:[facility] Start: 06-11-2022 End: 06-12-2022 ambulatory CRISTOFER SPRINGER PROVIDER Facility:[facility] lenin Start: 06-11-2022 End: 06-11-2022 Patient encounter procedure Allyson GARCIA General Surgery [facility] [place] Start: 06-09-2022 End: 07-09-2022 ambulatory SHAIKH Phuong WEINER Facility:[facility] Start: 05-22-2022 ambulatory Allyson GARCIA Facility:[facility] Start: 05-19-2022 End: 05-20-[address] CRISTOFER SPRINGER Facility:[facility] Start: 05-09-2022 End: 06-06-2022 ambulatory SHAIKH Phuong WEINER Facility:[facility] Start: 04-24-2022 End: 04-25-[address] CRISTOFER SPRINGER Facility:[facility] Start: 04-18-2022 End: 04-19-[address] JAYSON BERGERON Facility:[facility] Start: 02-19-2022 End: 02-19-2022 Patient encounter procedure JR Cristofer Springer Work Phone: [facility] [address] Procedures Date Procedure Procedure Detail Performing Clinician Start: 06-22-2023 Follow-up visit Follow-up TONIE BOYD Start: 07-16-2022 Colonoscopy Allyson COVARRUBIAS Blepharoplasty Allyson NILL Cholecystectomy Allyson NILL Cystopexy Allyson NILL Fasciotomy of foot Allyson URRUTIA History of operative procedure on elbow Allyson NILL Injection into lumba r epidural space Allyson NILL Total abdominal hyst erectomy with bilateral salpingo-oophorectomy Allyson NILL Plan of Treatment Date Care Activity Detail Author Aldolase measurement [facility] Work Phone: aPTT.lupus sensitive (LA screen) [facility] Work Phone: aPTT.lupus sensitive W excess phospholipid actual/Normal (normalized LA confirm) [facility] Work Phone: aPTT.lupus sensitive /aPTT.lupus sensitive W excess phospholipid (screen to confirm ra [facility] Work Phone: Chromatin Ab [Units/ volume] in Serum or Plasma [facility] Work Phone: Complement C3 [Mass/ volume] in Serum or Plasma [facility] Work Phone: Complement C4 [Mass/ volume] in Serum or Plasma [facility] Work Phone: dRVVT (LA screen) [facility] Work Phone: Hemolytic complement CH50 level [facility] Work Phone: Homogenous nuclear A b pattern [Titer] in Serum [facility] Work Phone: Lupus anticoagulant [Interpretation] in Platelet poor plasma [facility] Work Phone: Myoglobin [Mass/volume] in Serum or Plasm a [facility] Work Phone: Nuclear Ab [Titer] in Serum [facility] Work Phone: Reagin Ab [Presence] in Serum by RPR [facility] Work Phone: Thrombin time [facility] Work Phone: Thyroglobulin Ab [Un its/volume] in Serum or Plasma [facility] Work Phone: Thyroperoxidase Ab [ Units/volume] in Serum or Plasma [facility] Work Phone: Payers Date Payer Category Payer Self-pay [id number] 1960 Unknown [id number] [id number] 7 1962 Unknown [id number] 2.16.840.1.106732.3.579.2.72 7 1962 Unknown [id number] 2.16.840.1.773765.3.579.2.72 7 1962 Unknown [id number] 2.16.840.1.188865.3.579.2.59 3 1962 Unknown [id number] 2.16.840.1.706826.3.579.2.59 3 1962 Unknown [id number] 2.16.840.1.156006.3.579.2.59 3 1962 Unknown [id number] 2.16.840.1.420164.3.579.2.59 3 1962 Unknown [id number] 2.16.840.1.559591.3.579.2.59 3 1962 Unknown [id number] 2.16.840.1.324510.3.579.2.59 3 1962 Unknown [id number] 2.16.840.1.619236.3.579.2.59 3 1962 Unknown [id number] 2.16.840.1.717748.3.579.2.59 3 1962 Unknown [id number] 2.16.840.1.855217.3.579.2.59 3 1962 Unknown [id number] 2.16.840.1.035498.3.579.2.59 3 1962 Unknown [id number] 2.16.840.1.978083.3.579.2.59 3 1962 Unknown [id number] 2.16.840.1.616761.3.579.2.59 3 1962 Unknown [id number] 2.16.840.1.935358.3.579.2.59 3 1962 Unknown [id number] 2.16.840.1.183829.3.579.2.59 3 1962 Unknown [id number] 2.16.840.1.029709.3.579.2.59 3 1962 Unknown [id number] 2.16.840.1.389080.3.579.2.59 3 1962 Unknown [id number] 2.16.840.1.821389.3.579.2.59 3 1962 Unknown [id number] 2.16.840.1.702824.3.579.2.59 3 1962 Unknown [id number] 2.16.840.1.021839.3.579.2.59 3 1962 Unknown [id number] 2.16.840.1.825750.3.579.2.59 3 1962 Unknown [id number] 2.16.840.1.119365.3.579.2.59 3 1962 Unknown [id number] 2.16.840.1.821801.3.579.2.59 3 1962 Unknown [id number] 2.16.840.1.312025.3.579.2.59 3 1959 Private Health Insurance [id number] Private Health Insurance [facility] Mammogram [facility] [id number] Private Health Insurance [id number] Unknown [id number] Unknown [id number] 2..840.1.129457.3.579.2.53 1 Unknown [id number] 2.16840.1.243682.3.579.2.53 1 Social History Date Type Detail Facility Start: 08-25-2019 [facility] [place] Start: 1960 Sex Assigned At Female F [facility] Start: 06-11-2022 Tobacco smoking status Heavy t obacco smoker (finding) [facility] [place] Tobacco smoking status Never Gener al Surgery [place] Sex Assigned At Female Genera l Surgery [place] Functional Status Date Assessment Result Facility 06-11-2022 Functional Status N/A General Mata marisol Swenson Clinical Notes 04-24-2022 to 06-22-2023 Note Date & Type Note Facility 06-22-2023 Note In person visit Chief complaint: back pain - some leg pain CHITINA: 62 yo woman - I have seen [...] MOUTH EVERY 8 HOURS NEEDED FOR COUGH enuzfzptkoeflxi-ftsryqepp-AC 2-30-10 mg/5 mL syrup TAKE 10 ML BY MOUTH NEEDED EVERY 8 HOURS budesonide (Pulmicort) 0.5 mg/2 mL nebulizer solution celecoxib (CeleBREX) 100 mg capsule Take 100 mg by mouth. colesevelam (Welchol) 625 mg tablet Take 1,875 mg by mouth. HYDROcodone-acetaminophen ([place]) 5-325 mg tablet TAKE 1 TABLET BY [...] right paraspinal musculature (more content not included)... [facility] 05-26-2023 Note In person visit Chief complaint: back and leg problem - the right leg CHITINA: 62 y/o R handed - she is on disability - she is on partly due to her back and other things. 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 She has never had back surgery before. She had a problem in the with her back. She saw a Dr. Yun in [place] back then. Then n 2010 she get herniated discs and had radiculopathy down her right leg. She has been to pain management - prior in [place] (was with Dr. Williamson) and now she is with [place]. She had injections in her back - she said the one's she had in [place] didn't help that much. Then in [place] she had nerve burning from L2-down for [...] years ago - she had it at [facility] in [place] ([address] She is claustrophobic and wanted [...] last injection in her knee by her science education professor - had [place] 3 - you get one injection per week for [address]. [address] Fredo Valentin in [place] about her back in the past - [...] MOUTH EVERY 8 HOURS NEEDED FOR COUGH eyaarfvjwgurzad-qgcvyzyhs-DY 2-30-10 mg/5 mL syrup TAKE 10 ML BY MOUTH NEEDED EVERY 8 HOURS budesonide (Pulmicort) 0.5 mg/2 mL nebulizer solution celecoxib (CeleBREX) 100 mg capsule Take 100 mg by mouth. colesevelam (Welchol) 625 mg tablet Take 1,875 mg by mouth. HYDROcodone-acetaminophen ([place]) 5-325 mg tablet TAKE 1 TABLET BY [...] olopatadine (Patanase) 0.6 % spray,non-aerosol nasal spray [place] 2 sprays twice a day by intranasal [...] Allergies Allergen Re (more content not included)... [facility] 02-03-2023 Note CONSULTATION CONSULTATION DATE: 02/03/2023 TO: [...] topical lidocaine patch. We will refill the [place] on today's visit; 55 pills to last one month's time. Aquatic therapy was ordered, and we will obtain urine toxicology screen. I have gone over the details of proceeding with a diagnostic right lateral cutaneous branch of the iliohypogastric nerve. All her questions were answered. She agrees to proceed with the outlined plan. [facility] 11-06-2022 Note CONSULTATION CONSULTATION DATE: 11/06/2022 [...] sinus infection. Other medications include Celebrex, baclofen, [place] 5/325 b.i.d., gabapentin 600 mg daily. At [...] is her bilateral knee pain, which her science education professor is caring for. Activities such as stairs, [...] months' time. Patient is in agreement. [facility] 07-31-2022 Note CONSULTATION CONSULTATION DATE: 07/31/2022 [...] Neurontin 400 mg daily. She does have [place] 5/325 b. i.d. as well. Patient is [...] indicated. Patient agrees with the plan. [facility] 07-29-2022 Hospital Discharge instructions Patient Education [...] 07/22/2005 Document Revised: 02/10/2019 Document Reviewed: 02/10/2019 [place] Patient Education 2020 [employer]. [facility] [place] 07-16-2022 Note OPERATIVE NOTE [...] good condition. CC: Cristofer Springer D.O. [facility] 06-11-2022 Note Chief Complaint consultation for [...] pior to OR. 2. Chronic anticoagulation (Z79.01: custodial (current) use of anticoagulants) see # 1 [...] Tab, 25 mg= 1 tab(s), Oral, Daily [place] 325 mg-5 mg oral tablet, 1 tab(s), Oral, BID, PRN Prevacid 30 mg Cap-DR, 30 mg= 1 cap(s), Oral (more content not included)... [facility] Comment on above: Result Comment: Elec tronically [...] is greatly beneficial to her. Medications include [place] 5/325 b.i.d., baclofen 10 mg q.h.s., Neurontin 400 mg q.p.m. and Celebrex 100 mg b.i.d. Her science education professor has placed her on Tylenol arthritis six [...] would like to proceed with the injection. [facility] Signed and Approved by: AMINATA LEE . 05/07/2022 16:23:00 [facility] 04-24-2022 Note CONSULTATION PROCEDURE DATE:04/24/2022 PREOPERATIVE DIAGNOSIS: [...] will be followed up in the office. [facility] Signed and Approved by: AMINATA LEE . 05/07/2022 16:23:00 [facility] Evaluation + Plan note No data available for this section General [facility] [place] Evaluation note No assessment inform ation available [facility] Work Phone: Hospital Discharge instructions No data available for this section General [facility] [place] Progress note No data available for this section [facility] [place] Family History No Family History Records Found [...] Team Status: Inactive Member Role Status Dates Critsofer Springer JR DO Primary Care Provider Active [...] 16, 2024 End: February 16, 2024 GARCIA oStelo Attending Provider Active Start: February 16, 2024 End: February 16, 2024 Goals (unrecognized section and content) Goals may be documented in a n alternate section No data available for this section No data available for this sectionGoals may be documented in an alternate sectionGoals may be documented in an alternate section INFORMATION SOURCE (unrecogn ized section and content) DATE CREATED AUTHOR 08/09/2022 [facility] DATE CREATED AUTHOR AUTHOR'S ORGANIZ ATION 04/17/2023 Jules Swenson [facility] DATE CREATED AUTHOR AUTHOR'S ORGANIZ ATION 06/23/2023 [facility] DATE CREATED AUTHOR AUTHOR'S ORGANIZ ATION 02/26/2024 [facility] FOR RECORDS PERTAINING TO PATIENTS [...] BE BASED ON THE PRIMARY CLINICAL RECORDS. [facility] [employer] provides no warranty or guarantee of the accuracy or completeness of information in this document.
--- NOTE | 2024-06-23 10:13 | PM.CN ---
Consult Note: HPI Data of Consult Patient: known to practice within the last 3 years Requesting Physician: Jocelynn Pederson NP Primary Care Provider: WENDY SPRINGER DO Consult Narrative Reason for consult: f/u Narrative: Sandra Lacey a pleasant 62 year old female presents for evaluation and management of right buttock, low back pain, bilateral hip pain that radiates into legs. Patient previuously underwent MRI of lumbar spine which is consistent with degenerative changes, and foraminal narrowing. Patient rating pain today 1/10, increasing to 7/10. Patient reports [place] is helpful without side effects, finds benefit from flexeril. Cannot afford interventional/injection therapy procedures that require fluoroscopy. Patient reports numbness tingling radiating into right leg and toes. Patient has not been evaluted by Dr Merino, was scheduled with Dr Lisa but is not looking for a second NS consult so she is not sure how this appointment was made. cc:: CC: Jocelynn Pederson NP Review of Systems ROS Status of ROS 10 or more systems reviewed and unremarkable except as noted in history and below Musculoskeletal Reports: back pain, extremity pain and joint pain Meds Home Medications and Allergies Home Medications ?Medication ?Instructions ?Recorded ?Confirmed ?Type acetaminophen 650 mg 1,300 mg PO Q12H PRN pain 05/08/23 03/24/24 History tablet,extended release (Tylenol Arthritis Pain) albuterol sulfate 90 mcg/actuation 2 inh inhalation Q8H PRN shortness 05/08/23 03/24/24 History aerosol inhaler (Ventolin HFA) of breath or wheezing aspirin 81 mg tablet,delayed 81 mg PO DAILY 05/08/23 03/24/24 History release azelastine 137 mcg (0.1 %) nasal 137 mcg intranasal Q12H 05/08/23 03/24/24 History spray benzonatate 100 mg capsule 200 mg PO TID PRN cough 05/08/23 03/24/24 History calcium carbonate (Tums) 200 mg PO DAILY 05/08/23 03/24/24 History celecoxib 100 mg capsule 100 mg PO BID 05/08/23 03/24/24 History colesevelam 625 mg tablet (WelChol) 625 mg PO DAILY 05/08/23 03/24/24 History hydroxyzine pamoate 25 mg capsule 25 mg PO BID 05/08/23 03/24/24 History (Vistaril) lansoprazole 30 mg capsule,delayed 30 mg PO DAILY 05/08/23 03/24/24 History release (Prevacid) montelukast 10 mg tablet 10 mg PO DAILY 05/08/23 03/24/24 History (Singulair) rosuvastatin 10 mg tablet (Crestor) 10 mg PO DAILY 05/08/23 03/24/24 History umeclidinium 62.5 mcg-vilanterol 1 inh inhalation DAILY 05/08/23 03/24/24 History 25 mcg/actuation powdr for inhalation (Anoro Ellipta) warfarin 2.5 mg tablet 2.5 mg PO .monfri 05/08/23 03/24/24 History warfarin 5 mg tablet 5 mg PO QTUTHSASU 05/08/23 03/24/24 History hydrocodone 5 mg-acetaminophen 325 1 tab PO BID PRN pain #60 tabs 01/13/24 03/24/24 Rx mg tablet hydrocodone 5 mg-acetaminophen 325 1 tab PO BID PRN pain #60 tabs 02/18/24 03/24/24 Rx mg tablet cyclobenzaprine 10 mg tablet 10 mg PO DAILY PRN muscle spasm 03/24/24 Rx #30 tabs cyclobenzaprine 10 mg tablet 10 mg PO QPM 03/24/24 03/24/24 History hydrocodone 5 mg-acetaminophen 325 1 tab PO BID PRN pain #60 tabs 03/24/24 Rx mg tablet hydrocodone 5 mg-acetaminophen 325 1 tab PO BID PRN pain #60 tabs 05/03/24 Rx mg tablet Allergies Allergy/AdvReac Type Severity Reaction Status Date / Time codeine Allergy Severe Verified 05/08/23 10:15 cefaclor [From Ceclor] Allergy Unknown Verified 05/08/23 10:15 cephalexin [From Keflex] Allergy Unknown Verified 05/08/23 10:15 enoxaparin [From Lovenox] Allergy Unknown Verified 05/08/23 10:15 Exam Constitutional Documenting provider has reviewed patient's vital signs: yes Common normals: no apparent distress, oriented x3, healthy appearing, alert and well nourished General appearance: cooperative Orientation/consciousness: Yes awake, Yes oriented to person, Yes oriented to place and Yes oriented to time [facility] Common normals: normocephalic, hearing grossly normal bilaterally and moist oral mucous membranes Head and scalp: normocephalic Eye Common normals: PERRL Pupil: PERRL Neck & C-Spine Common normals: full ROM General: normal visual inspection Chest Common normals: inspection of chest normal Respiratory Common normals: normal respiratory effort, no retractions and no use of accessory muscles Effort & inspection: able to speak in complete sentences and symmetric chest movement Back & Pelvis Lumbar spine/lower back: normal to inspection, ROM limited, pain with ROM, paraspinal muscle tenderness and straight leg raise positive right Sacroiliac joints: SI joint(s) abnormal (positive jeremiah/fadir, thigh thrust, gaenslen) Other: positive facet loading lumbar mild bilat intermittent bilateral radiculopathy, worse on right side altered sensation to right L4/5/S1 pattern muscle strength 5/5 bilat LE Extremity Common normals: normal to inspection, full ROM and no pedal edema Other: tender over bilateral GTB Neuro Common normals: oriented x3, CN's II-XII intact bilaterally, moves all extremities, no focal motor deficits, no sensory deficits noted and deep tendon reflexes 2+ bilaterally Sensorium/orientation: alert Motor exam: strength 5/5 throughout and no movement abnormalities noted Psych Common normals: mental status grossly normal, thought process normal, cooperative, affect normal, speech normal and activity/motor behavior normal Speech: normal speech Thought process: normal thought process Results Additional Findings Additional findings: If on a controlled substance or opioids, I have checked an OARRS report on this patient and there are no aberrancies noted in the prescribing history.??If on a controlled substance or opioid a drug screen was completed and reviewed within the last year, and if there has not been a drug screen completed we ordered one today to monitor higher risk, state monitored pain medication use. As part of providing excellent, safe, comprehensive care, the following was completed at our patient's visit: 1. A medication reconciliation and review to ensure accurate knowledge of current/active medications, including asking our patients to inform us about any cndp-diy-wccjqfv medications or herbal remedies/nutritional supplements/alternative remedies. 2. A review to specifically ensure our patients have had annual screening for screening for depression, screening for tobacco use, and screening for unhealthy alcohol use. For concerning screenings had a discussion with the patient, provided patient education, and recommended follow-up with primary care provider when appropriate. If patient noted with a risk of falling, they received education on strength, gait, and balance training to prevent future risk of falling. Assessment and Plan Assessment and Plan (1) Lumbar stenosis with neurogenic claudication: (2) Sacroiliitis: (3) Ischial bursitis: Assessment and Plan: suspected, reffered to Dr Merino for evaluation and management (4) Greater trochanteric bursitis of both hips: Assessment and Plan: >50% ongoing relief from injections from PCP in september (5) Lumbar radiculopathy: (6) Lumbar spondylosis: (7) Fibromyalgia: (8) Chronic prescription opiate use: Assessment and Plan: I have refilled the patient's opioid prescriptions at the above noted dose and schedule.? I feel these medications are improving the patient's quality of life and allow them to tolerate activities of daily living as well as participate in recreational activity.? The patient does not report intolerable side effects. The patient is NOT opioid naive and non-pharmacologic and non-opioid treatment has failed to significantly relieve the patient's pain and improve functionality. The patient has a diagnosis that is related to a somatic or visceral pain etiology. ? ?? I reviewed with the patient the potential risks and side effects with the use of? opioid medications including but not limited to respiratory depression,? sedation, and even . I verified the patient has access to naloxone should? these effects occur. I advised the patient to avoid the use of any other? sedation substances including alcohol, THC, and benzodiazepines while? taking opioid medications due to the risk of compounding side effects and? detrimental outcomes. I reviewed the [employer], pain treatment agreement, urine? drug screen, and opioid start talking forms. The patient was advised to let? their family know they had Naloxone in case they would need to administer? the medication.? ?? A drug screen was completed within the last year, and no aberrancies were noted regarding their use of controlled substances. The patient understands they are subject to the terms and conditions of the pain contract that they have signed. ? ?? I have checked an OARRS report on this patient today and there are no aberrancies noted in the prescribing history.? (9) Muscle spasm: Plan referral to Dr Merino for evaluation and management of right buttock/ ischial bursitis pain previously placed, pt will call his office to schedule patient cannot afford injection therapy through our office continue norco 5/325 BID PRN moderate to severe pain flexeril 10mg BID PRN muscle spasms/myofascial pain f/u 3 months, sooner if needed
== END 2024-06-23 09:57 | disposition home or self-care (01) ==
LOC: PM 09:56
PROVIDERS: PCP Internal Medicine; Visit Provider Nurse Practitioner
DX: M48.062 Spinal stenosis, lumbar region with neurogenic claudication (principal); M46.1 Sacroiliitis, not elsewhere classified; M70.72 Other bursitis of hip, left hip; M70.71 Other bursitis of hip, right hip; M70.62 Trochanteric bursitis, left hip; M70.61 Trochanteric bursitis, right hip; M54.16 Radiculopathy, lumbar region; M47.816 Spondylosis without myelopathy or radiculopathy, lumbar region; M79.7 Fibromyalgia; Z79.891 Long term (current) use of opiate analgesic; M62.838 Other muscle spasm
CPT/HCPCS: G0463

== ENCOUNTER 2024-07-11 01:36 | Outpatient (RCR) | payer MEDICARE, SELFPAY | END 2024-08-08 23:42 | disposition home or self-care (01) | LOC: MM 01:36 | PROVIDERS: PCP Internal Medicine; Visit Provider Internal Medicine | DX: Z51.81 Encounter for therapeutic drug level monitoring (principal); Z79.01 Long term (current) use of anticoagulants; I26.99 Other pulmonary embolism without acute cor pulmonale | CPT/HCPCS: 85610; G0463 ==

== ENCOUNTER 2024-08-09 02:34 | Outpatient (RCR) | payer MEDICARE, SELFPAY | END 2024-09-08 23:15 | disposition home or self-care (01) | LOC: MM 02:34 | PROVIDERS: PCP Internal Medicine; Visit Provider Internal Medicine | DX: Z51.81 Encounter for therapeutic drug level monitoring (principal); Z79.01 Long term (current) use of anticoagulants; I26.99 Other pulmonary embolism without acute cor pulmonale | CPT/HCPCS: 85610; G0463 ==

== ENCOUNTER 2024-09-09 12:53 | Outpatient (RCR) | payer MEDICARE, SELFPAY | END 2024-10-08 23:59 | disposition home or self-care (01) | LOC: MM 12:53 | PROVIDERS: PCP Internal Medicine; Visit Provider Internal Medicine | DX: Z51.81 Encounter for therapeutic drug level monitoring (principal); Z79.01 Long term (current) use of anticoagulants; I26.99 Other pulmonary embolism without acute cor pulmonale | CPT/HCPCS: 85610; G0463 ==

== ENCOUNTER 2024-09-22 10:04 | Outpatient (OUT) | payer MEDICARE, SELFPAY ==
--- NOTE | 2024-09-22 10:33 | PM.CN ---
Consult Note: HPI Data of Consult Patient: known to practice within the last 3 years Requesting Physician: Jocelynn Pederson NP Primary Care Provider: WENDY SPRINGER DO Consult Narrative Reason for consult: f/u Narrative: Sandra Lacey a pleasant 63 year old female presents for evaluation and management of right buttock, low back pain, bilateral hip pain that radiates into legs. Patient previuously underwent MRI of lumbar spine which is consistent with degenerative changes and stenosis. Patient rating pain today 2/10, increasing to 7/10. Patient reports [place] is helpful without side effects, finds benefit from flexeril. Cannot afford interventional/injection therapy procedures that require fluoroscopy. Patient reports numbness tingling radiating into right leg and toes. Pt was evaluated by Dr Merino who did not treat her for ischial bursitis, but greater trochanteric bursitis. pt cannot afford to see Dr Merino. We can perform GTB injections in office or her PCP can. cc:: CC: Jocelynn Pederson NP Review of Systems ROS Status of ROS 10 or more systems reviewed and unremarkable except as noted in history and below Musculoskeletal Reports: back pain and extremity pain Meds Home Medications and Allergies Home Medications ?Medication ?Instructions ?Recorded ?Confirmed ?Type acetaminophen 650 mg 1,300 mg PO Q12H PRN pain 05/08/23 03/24/24 History tablet,extended release (Tylenol Arthritis Pain) albuterol sulfate 90 mcg/actuation 2 inh inhalation Q8H PRN shortness 05/08/23 03/24/24 History aerosol inhaler (Ventolin HFA) of breath or wheezing aspirin 81 mg tablet,delayed 81 mg PO DAILY 05/08/23 03/24/24 History release azelastine 137 mcg (0.1 %) nasal 137 mcg intranasal Q12H 05/08/23 03/24/24 History spray benzonatate 100 mg capsule 200 mg PO TID PRN cough 05/08/23 03/24/24 History calcium carbonate (Tums) 200 mg PO DAILY 05/08/23 03/24/24 History celecoxib 100 mg capsule 100 mg PO BID 05/08/23 03/24/24 History colesevelam 625 mg tablet (WelChol) 625 mg PO DAILY 05/08/23 03/24/24 History hydroxyzine pamoate 25 mg capsule 25 mg PO BID 05/08/23 03/24/24 History (Vistaril) lansoprazole 30 mg capsule,delayed 30 mg PO DAILY 05/08/23 03/24/24 History release (Prevacid) montelukast 10 mg tablet 10 mg PO DAILY 05/08/23 03/24/24 History (Singulair) rosuvastatin 10 mg tablet (Crestor) 10 mg PO DAILY 05/08/23 03/24/24 History umeclidinium 62.5 mcg-vilanterol 1 inh inhalation DAILY 05/08/23 03/24/24 History 25 mcg/actuation powdr for inhalation (Anoro Ellipta) warfarin 2.5 mg tablet 2.5 mg PO .monfri 05/08/23 03/24/24 History warfarin 5 mg tablet 5 mg PO QTUTHSASU 05/08/23 03/24/24 History cyclobenzaprine 10 mg tablet 10 mg PO DAILY PRN muscle spasm 03/24/24 Rx #30 tabs hydrocodone 5 mg-acetaminophen 325 1 tab PO BID PRN pain #60 tabs 03/24/24 Rx mg tablet cyclobenzaprine 10 mg tablet 10 mg PO BEDTIME #90 tabs 06/27/24 Rx hydrocodone 5 mg-acetaminophen 325 1 tab PO BID PRN pain #60 tabs 06/27/24 Rx mg tablet hydrocodone 5 mg-acetaminophen 325 1 tab PO BID PRN pain #60 tabs 08/17/24 Rx mg tablet Allergies Allergy/AdvReac Type Severity Reaction Status Date / Time codeine Allergy Severe Verified 05/08/23 10:15 cefaclor (From Ceclor) Allergy Unknown Verified 05/08/23 10:15 cephalexin (From Keflex) Allergy Unknown Verified 05/08/23 10:15 enoxaparin (From Lovenox) Allergy Unknown Verified 05/08/23 10:15 Exam Constitutional Documenting provider has reviewed patient's vital signs: yes Common normals: no apparent distress, oriented x3, healthy appearing, alert and well nourished General appearance: cooperative Orientation/consciousness: Yes awake, Yes oriented to person, Yes oriented to place and Yes oriented to time HENVT Common normals: normocephalic, hearing grossly normal bilaterally and moist oral mucous membranes Head and scalp: normocephalic Eye Common normals: PERRL Pupil: PERRL Neck & C-Spine Common normals: full ROM General: normal visual inspection Chest Common normals: inspection of chest normal Respiratory Common normals: normal respiratory effort, no retractions and no use of accessory muscles Effort & inspection: able to speak in complete sentences and symmetric chest movement Back & Pelvis Lumbar spine/lower back: normal to inspection, ROM limited, pain with ROM, paraspinal muscle tenderness and straight leg raise positive right Sacroiliac joints: SI joint(s) abnormal (positive jeremiah/fadir, thigh thrust, gaenslen) Other: positive facet loading lumbar mild bilat intermittent bilateral radiculopathy, worse on right side altered sensation to right L4/5/S1 pattern muscle strength 5/5 bilat LE Extremity Common normals: normal to inspection, full ROM and no pedal edema Other: tender over bilateral GTB Neuro Common normals: oriented x3, CN's II-XII intact bilaterally, moves all extremities, no focal motor deficits, no sensory deficits noted and deep tendon reflexes 2+ bilaterally Sensorium/orientation: alert Motor exam: strength 5/5 throughout and no movement abnormalities noted Psych Common normals: mental status grossly normal, thought process normal, cooperative, affect normal, speech normal and activity/motor behavior normal Speech: normal speech Thought process: normal thought process Results Additional Findings Additional findings: If on a controlled substance or opioids, I have checked an OARRS report on this patient and there are no aberrancies noted in the prescribing history.??If on a controlled substance or opioid a drug screen was completed and reviewed within the last year, and if there has not been a drug screen completed we ordered one today to monitor higher risk, state monitored pain medication use. As part of providing excellent, safe, comprehensive care, the following was completed at our patient's visit: 1. A medication reconciliation and review to ensure accurate knowledge of current/active medications, including asking our patients to inform us about any [id number] medications or herbal remedies/nutritional supplements/alternative remedies. 2. A review to specifically ensure our patients have had annual screening for screening for depression, screening for tobacco use, and screening for unhealthy alcohol use. For concerning screenings had a discussion with the patient, provided patient education, and recommended follow-up with primary care provider when appropriate. If patient noted with a risk of falling, they received education on strength, gait, and balance training to prevent future risk of falling. Assessment and Plan Assessment and Plan (1) Lumbar stenosis with neurogenic claudication: (2) Sacroiliitis: (3) Greater trochanteric bursitis of both hips: (4) Chronic prescription opiate use: Assessment and Plan: I feel these medications are improving the patient's quality of life and allow them to tolerate activities of daily living as well as participate in recreational activity.? The patient does not report intolerable side effects. The patient is NOT opioid naive and non-pharmacologic and non-opioid treatment has failed to significantly relieve the patient's pain and improve functionality. The patient has a diagnosis that is related to a somatic or visceral pain etiology. ? ?? I reviewed with the patient the potential risks and side effects with the use of? opioid medications including but not limited to respiratory depression,? sedation, and even . I advised the patient to avoid the use of any other? sedation substances including alcohol, THC, and benzodiazepines while? taking opioid medications due to the risk of compounding side effects and? detrimental outcomes. within the last 12 months I have reviewed the [employer], pain treatment agreement and urine drug screen.? ?? A drug screen was completed within the last year, and no aberrancies were noted regarding their use of controlled substances. The patient understands they are subject to the terms and conditions of the pain contract that they have signed. ? ?? I have checked an OARRS report on this patient today and there are no aberrancies noted in the prescribing history.? pt declining narcan (5) Lumbar spondylosis: (6) Fibromyalgia: Plan increase flexeril 10mg BID PRN pain/spasms continue celebrex 100mg BID, denies side effects. risks vs benefits reviewed continue norco 5-325mg BID PRN moderate to severe pain 60 tabs/month, pt does not regularly utilize and does not fill [id number]. call for refill continue HEP as tolerated f/u 3 months, sooner if needed
== END 2024-09-22 10:05 | disposition home or self-care (01) ==
LOC: PM 10:05
PROVIDERS: PCP Internal Medicine; Visit Provider Nurse Practitioner
DX: M48.062 Spinal stenosis, lumbar region with neurogenic claudication (principal); M46.1 Sacroiliitis, not elsewhere classified; M70.62 Trochanteric bursitis, left hip; M70.61 Trochanteric bursitis, right hip; Z79.891 Long term (current) use of opiate analgesic; M47.816 Spondylosis without myelopathy or radiculopathy, lumbar region; M79.7 Fibromyalgia
CPT/HCPCS: G0463

== ENCOUNTER 2024-10-10 05:19 | Outpatient (RCR) | payer MEDICARE, SELFPAY | END 2024-11-08 09:18 | disposition home or self-care (01) | LOC: MM 05:19 | PROVIDERS: PCP Internal Medicine; Visit Provider Internal Medicine | DX: Z51.81 Encounter for therapeutic drug level monitoring (principal); Z79.01 Long term (current) use of anticoagulants | CPT/HCPCS: 85610; G0463 ==

== ENCOUNTER 2024-11-10 01:10 | Outpatient (RCR) | payer MEDICARE, SELFPAY | END 2024-12-09 14:37 | disposition home or self-care (01) | LOC: MM 01:10 | PROVIDERS: PCP Internal Medicine; Visit Provider Internal Medicine | DX: Z51.81 Encounter for therapeutic drug level monitoring (principal); Z79.01 Long term (current) use of anticoagulants | CPT/HCPCS: 85610; G0463 ==

== ENCOUNTER 2024-12-12 00:41 | Outpatient (RCR) | payer MEDICARE, SELFPAY | END 2025-01-06 10:25 | disposition home or self-care (01) | LOC: MM 00:41 | PROVIDERS: PCP Internal Medicine; Visit Provider Internal Medicine | DX: Z51.81 Encounter for therapeutic drug level monitoring (principal); Z79.01 Long term (current) use of anticoagulants | CPT/HCPCS: 85610; G0463 ==

== ENCOUNTER 2024-12-29 09:33 | Outpatient (OUT) | payer MEDICARE, SELFPAY ==
--- NOTE | 2024-12-29 09:55 | PM.CN ---
Consult Note: HPI Data of Consult Patient: known to practice within the last 3 years Requesting Physician: Jocelynn Pederson NP Primary Care Provider: WENDY SPRINGER DO Consult Narrative Reason for consult: f/u Narrative: Sandra Lacey a pleasant 64 year old female presents for evaluation and management of right buttock, low back pain, bilateral hip pain that radiates into legs. Patient previously underwent MRI of lumbar spine which is consistent with degenerative changes and stenosis. Patient rating pain today 4/10, increasing to 8/10. Patient reports [place] is helpful without side effects, finds benefit from flexeril. Cannot afford interventional/injection therapy procedures that require fluoroscopy. Patient reports numbness tingling radiating into right leg and toes. denies falls or injury, is noticing increased right leg cramping. cc:: CC: Jocelynn Pederson NP Review of Systems ROS Status of ROS 10 or more systems reviewed and unremarkable except as noted in history and below Musculoskeletal Reports: back pain and extremity pain Meds Home Medications and Allergies Home Medications ?Medication ?Instructions ?Recorded ?Confirmed ?Type acetaminophen 650 mg 1,300 mg PO Q12H PRN pain 05/08/23 03/24/24 History tablet,extended release (Tylenol Arthritis Pain) albuterol sulfate 90 mcg/actuation 2 inh inhalation Q8H PRN shortness 05/08/23 03/24/24 History aerosol inhaler (Ventolin HFA) of breath or wheezing aspirin 81 mg tablet,delayed 81 mg PO DAILY 05/08/23 03/24/24 History release azelastine 137 mcg (0.1 %) nasal 137 mcg intranasal Q12H 05/08/23 03/24/24 History spray benzonatate 100 mg capsule 200 mg PO TID PRN cough 05/08/23 03/24/24 History calcium carbonate (Tums) 200 mg PO DAILY 05/08/23 03/24/24 History celecoxib 100 mg capsule 100 mg PO BID 05/08/23 03/24/24 History colesevelam 625 mg tablet (WelChol) 625 mg PO DAILY 05/08/23 03/24/24 History hydroxyzine pamoate 25 mg capsule 25 mg PO BID 05/08/23 03/24/24 History (Vistaril) lansoprazole 30 mg capsule,delayed 30 mg PO DAILY 05/08/23 03/24/24 History release (Prevacid) montelukast 10 mg tablet 10 mg PO DAILY 05/08/23 03/24/24 History (Singulair) rosuvastatin 10 mg tablet (Crestor) 10 mg PO DAILY 05/08/23 03/24/24 History umeclidinium 62.5 mcg-vilanterol 1 inh inhalation DAILY 05/08/23 03/24/24 History 25 mcg/actuation powdr for inhalation (Anoro Ellipta) warfarin 2.5 mg tablet 2.5 mg PO .monfri 05/08/23 03/24/24 History warfarin 5 mg tablet 5 mg PO QTUTHSASU 05/08/23 03/24/24 History cyclobenzaprine 10 mg tablet 10 mg PO DAILY PRN muscle spasm 03/24/24 Rx #30 tabs hydrocodone 5 mg-acetaminophen 325 1 tab PO BID PRN pain #60 tabs 03/24/24 Rx mg tablet cyclobenzaprine 10 mg tablet 10 mg PO BEDTIME #90 tabs 06/27/24 Rx hydrocodone 5 mg-acetaminophen 325 1 tab PO BID PRN pain #60 tabs 06/27/24 Rx mg tablet hydrocodone 5 mg-acetaminophen 325 1 tab PO BID PRN pain #60 tabs 08/17/24 Rx mg tablet cyclobenzaprine 10 mg tablet 10 mg PO BID PRN muscle spasm #60 09/22/24 Rx tabs hydrocodone 5 mg-acetaminophen 325 1 tab PO BID PRN pain #60 tabs 09/22/24 Rx mg tablet hydrocodone 5 mg-acetaminophen 325 1 tab PO BID PRN pain #60 tabs 10/27/24 Rx mg tablet hydrocodone 5 mg-acetaminophen 325 1 tab PO BID PRN pain #60 tabs 11/28/24 Rx mg tablet Allergies Allergy/AdvReac Type Severity Reaction Status Date / Time codeine Allergy Severe Verified 05/08/23 10:15 cefaclor (From Ceclor) Allergy Unknown Verified 05/08/23 10:15 cephalexin (From Keflex) Allergy Unknown Verified 05/08/23 10:15 enoxaparin (From Lovenox) Allergy Unknown Verified 05/08/23 10:15 Exam Constitutional Documenting provider has reviewed patient's vital signs: yes Common normals: no apparent distress, oriented x3, healthy appearing, alert and well nourished General appearance: cooperative Orientation/consciousness: Yes awake, Yes oriented to person, Yes oriented to place and Yes oriented to time HENMT Common normals: normocephalic, hearing grossly normal bilaterally and moist oral mucous membranes Head and scalp: normocephalic Eye Common normals: PERRL Pupil: PERRL Neck & C-Spine Common normals: full ROM General: normal visual inspection Chest Common normals: inspection of chest normal Respiratory Common normals: normal respiratory effort, no retractions and no use of accessory muscles Effort & inspection: able to speak in complete sentences and symmetric chest movement Back & Pelvis Lumbar spine/lower back: normal to inspection, ROM limited, pain with ROM, paraspinal muscle tenderness and straight leg raise positive right Sacroiliac joints: SI joint(s) abnormal (positive jeremiah/fadir, thigh thrust, gaenslen) Other: positive facet loading lumbar mild bilat intermittent bilateral radiculopathy, worse on right side altered sensation to right L4/5/S1 pattern muscle strength 5/5 bilat LE Extremity Common normals: normal to inspection, full ROM and no pedal edema Other: tender over bilateral GTB Neuro Common normals: oriented x3, CN's II-XII intact bilaterally, moves all extremities, no focal motor deficits, no sensory deficits noted and deep tendon reflexes 2+ bilaterally Sensorium/orientation: alert Motor exam: strength 5/5 throughout and no movement abnormalities noted Psych Common normals: mental status grossly normal, thought process normal, cooperative, affect normal, speech normal and activity/motor behavior normal Speech: normal speech Thought process: normal thought process Results Additional Findings Additional findings: If on a controlled substance or opioids, I have checked an OARRS report on this patient and there are no aberrancies noted in the prescribing history.??If on a controlled substance or opioid a drug screen was completed and reviewed within the last year, and if there has not been a drug screen completed we ordered one today to monitor higher risk, state monitored pain medication use. As part of providing excellent, safe, comprehensive care, the following was completed at our patient's visit: 1. A medication reconciliation and review to ensure accurate knowledge of current/active medications, including asking our patients to inform us about any [id number] medications or herbal remedies/nutritional supplements/alternative remedies. 2. A review to specifically ensure our patients have had annual screening for screening for depression, screening for tobacco use, and screening for unhealthy alcohol use. For concerning screenings had a discussion with the patient, provided patient education, and recommended follow-up with primary care provider when appropriate. If patient noted with a risk of falling, they received education on strength, gait, and balance training to prevent future risk of falling. Portions of this note may have been carried over from the previous visit and updated as appropriate. Please note this office utilizes paper charting in addition to the electronic medical record. A list of current medications, vitals, and PMH is available there as the clinical staff outside of myself do not have access to [employer] charting during the clinic day operations. As part of providing quality comprehensive care the current medications, vitals, and PMH were reviewed in the paper chart. Assessment and Plan Assessment and Plan (1) Lumbar stenosis with neurogenic claudication: (2) Sacroiliitis: (3) Chronic prescription opiate use: Assessment and Plan: I feel these medications are improving the patient's quality of life and allow them to tolerate activities of daily living as well as participate in recreational activity.? The patient does not report intolerable side effects. The patient is NOT opioid naive and non-pharmacologic and non-opioid treatment has failed to significantly relieve the patient's pain and improve functionality. The patient has a diagnosis that is related to a somatic or visceral pain etiology. ? ?? I reviewed with the patient the potential risks and side effects with the use of? opioid medications including but not limited to respiratory depression,? sedation, and even . I advised the patient to avoid the use of any other? sedation substances including alcohol, THC, and benzodiazepines while? taking opioid medications due to the risk of compounding side effects and? detrimental outcomes. within the last 12 months I have reviewed the [employer], pain treatment agreement and urine drug screen.? ?? A drug screen was completed within the last year, and no aberrancies were noted regarding their use of controlled substances. The patient understands they are subject to the terms and conditions of the pain contract that they have signed. ? ?? I have checked an OARRS report on this patient today and there are no aberrancies noted in the prescribing history.? pt declining narcan (4) Lumbar spondylosis: (5) Fibromyalgia: Plan start gabapentin 100-200mg BID as tolerated, risks vs benefits reviewed continue flexeril 10mg BID PRN pain/spasms continue celebrex 100mg BID, denies side effects. risks vs benefits reviewed continue norco 5-325mg BID PRN moderate to severe pain 60 tabs/month, pt does not regularly utilize and does not fill [id number]. call for refill continue HEP as tolerated f/u 1 month to evaluate medication changes
== END 2024-12-29 09:34 | disposition home or self-care (01) ==
PROVIDERS: PCP Internal Medicine; Visit Provider Nurse Practitioner
DX: M48.062 Spinal stenosis, lumbar region with neurogenic claudication (principal); M46.1 Sacroiliitis, not elsewhere classified; Z79.891 Long term (current) use of opiate analgesic; M47.816 Spondylosis without myelopathy or radiculopathy, lumbar region; M79.7 Fibromyalgia
CPT/HCPCS: G0463

== ENCOUNTER 2025-01-07 07:09 | Outpatient (RCR) | payer MEDICARE, SELFPAY | END 2025-02-03 10:04 | disposition home or self-care (01) | LOC: MM 07:09 | PROVIDERS: PCP Internal Medicine; Visit Provider Internal Medicine | DX: Z51.81 Encounter for therapeutic drug level monitoring (principal); Z79.01 Long term (current) use of anticoagulants | CPT/HCPCS: 85610; G0463 ==

== ENCOUNTER 2025-02-07 05:24 | Outpatient (RCR) | payer MEDICARE, SELFPAY | END 2025-03-08 15:36 | disposition home or self-care (01) | LOC: MM 05:24 | PROVIDERS: PCP Internal Medicine; Visit Provider Internal Medicine | DX: Z51.81 Encounter for therapeutic drug level monitoring (principal); Z79.01 Long term (current) use of anticoagulants | CPT/HCPCS: 85610; G0463 ==

== ENCOUNTER 2025-02-09 10:25 | Outpatient (OUT) | payer MEDICARE, SELFPAY ==
--- NOTE | 2025-02-09 10:47 | P.CN_ITS ---
Consult Note: HPI Data of Consult Patient: known to practice within the last 3 years Requesting Physician: Jocelynn Pederson NP Primary Care Provider: WENDY SPRINGER DO Consult Narrative Reason for consult: f/u Narrative: Sandra aLcey a pleasant 64 year old female presents for evaluation and management of right buttock, low back pain, bilateral hip pain that radiates into legs. Patient previously underwent MRI of lumbar spine which is consistent with degenerative changes and stenosis. Patient rating pain today 4/10, increasing to 6/10. Patient reports Tatum is helpful without side effects, finds benefit from flexeril. Cannot afford interventional/injection therapy procedures that require fluoroscopy. Pt reports mild improvement since restarting gabapentin, currently taking 100mg am and 100mg with lunch. cc:: CC: Jocelynn Pederson NP Review of Systems ROS Status of ROS 10 or more systems reviewed and unremark able except as noted in history and below Musculoskeletal Reports: back pain and extremity pain Meds Home Medications and Allergies Home Medications ?Medication ?Instructions ?Recorded ?Confirmed ?Type acetaminophen 650 mg 1,300 mg PO Q12H PRN pain 05/08/23 03/24/24 History tablet,extended release (Tylenol Arthritis Pain) albuterol sulfate 90 mcg/actuation 2 inh inhalation Q8H PRN shortness 05/08/23 03/24/24 History aerosol inhaler (Ventolin HFA) of breath or wheezing aspirin 81 mg tablet,delayed 81 mg PO DAILY 05/08/23 03/24/24 History release azelastine 137 mcg (0.1 %) nasal 137 mcg intranasal Q12H 05/08/23 03/24/24 History spray benzonatate 100 mg capsule 200 mg PO TID PRN cough 05/08/23 03/24/24 History calcium carbonate (Tums) 200 mg PO DAILY 05/08/23 03/24/24 History celecoxib 100 mg capsule 100 mg PO BID 05/08/23 03/24/24 History colesevelam 625 mg tablet (WelChol) 625 mg PO DAILY 05/08/23 03/24/24 History hydroxyzine pamoate 25 mg capsule 25 mg PO BID 05/08/23 03/24/24 History (Vistaril) lansoprazole 30 mg capsule,delayed 30 mg PO DAILY 05/08/23 03/24/24 History release (Prevacid) montelukast 10 mg tablet 10 mg PO DAILY 05/08/23 03/24/24 History (Singulair) rosuvastatin 10 mg tablet (Crestor) 10 mg PO DAILY 05/08/23 03/24/24 History warfarin 2.5 mg tablet 2.5 mg PO .QD 05/08/23 12/29/24 History warfarin 5 mg tablet 5 mg PO .QD 05/08/23 12/29/24 History hydrocodone 5 mg-acetaminophen 325 1 tab PO BID PRN pain #60 tabs 11/28/24 Rx mg tablet cyclobenzaprine 10 mg tablet 10 mg PO BID 12/29/24 12/29/24 History cyclobenzaprine 10 mg tablet 10 mg PO BID #60 tabs 12/29/24 Rx gabapentin 100 mg tablet See Rx Instructions .Route 12/29/24 Rx .COMPLEX #120 tabs gabapentin 100 mg tablet See Rx Instructions .Route 12/29/24 Rx .COMPLEX #60 tabs hydrocodone 5 mg-acetaminophen 325 1 tab PO BID PRN pain #60 tabs 12/29/24 Rx mg tablet hydrocodone 5 mg-acetaminophen 325 1 tab PO BID PRN pain #60 tabs 01/27/25 Rx mg tablet Allergies Allergy/AdvReac Type Severity Reaction Status Date / Time codeine Allergy Severe Verified 05/08/23 10:15 cefaclor (From Ceclor) Allergy Unknown Verified 05/08/23 10:15 cephalexin (From Keflex) Allergy Unknown Verified 05/08/23 10:15 enoxaparin (From Lovenox) Allergy Unknown Verified 05/08/23 10:15 Exam Constitutional Documenting provider has reviewed patient's vital signs: yes Common normals: no apparent distress, oriented x3, healthy appearing, alert and well nourished General appearance: cooperative Orientation/consciousness: Yes awake, Yes oriented to person, Yes oriented to place and Yes oriented to time HENSC Common normals: normocephalic, hearing grossly normal bilaterally and moist oral mucous membranes Head and scalp: normocephalic Eye Common normals: PERRL Pupil: PERRL Neck & C-Spine Common normals: full ROM General: normal visual inspection Chest Common normals: inspection of chest normal Respiratory Common normals: normal respiratory effort, no retractions and no use of accessory muscles Effort & inspection: able to speak in complete sentences and symmetric chest movement Back & Pelvis Lumbar spine/lower back: normal to inspection, ROM limited, pain with ROM, paraspinal muscle tenderness and straight leg raise positive right Sacroiliac joints: SI joint(s) abnormal (positive jeremiah/fadir, thigh thrust, gaenslen) Other: positive facet loading lumbar mild bilat intermittent bilateral radiculopathy, worse on right side altered sensation to right L4/5/S1 pattern muscle strength 5/5 bilat LE Extremity Common normals: normal to inspection, full ROM and no pedal edema Other: tender over bilateral GTB Neuro Common normals: oriented x3, CN's II-XII intact bilaterally, moves all extremities, no focal motor deficits, no sensory deficits noted and deep tendon reflexes 2+ bilaterally Sensorium/orientation: alert Motor exam: strength 5/5 throughout and no movement abnormalities noted Psych Common normals: mental status grossly normal, thought process normal, cooperative, affect normal, speech normal and activity/motor behavior normal Speech: normal speech Thought process: normal thought process Results Additional Findings Additional findings: If on a controlled substance or opioids, I have checked an OARRS report on this patient and there are no aberrancies noted in the prescribing history.??If on a controlled substance or opioid a drug screen was completed and reviewed within the last year, and if there has not been a drug screen completed we ordered one today to monitor higher risk, state monitored pain medication use. As part of providing excellent, safe, comprehensive care, the following was completed at our patient's visit: 1. A medication reconciliation and review to ensure accurate knowledge of current/active medications, including asking our patients to inform us about any nolr-[id number] medications or herbal remedies/nutritional supplements/alternative remedies. 2. A review to specifically ensure our patients have had annual screening for screening for depression, screening for tobacco use, and screening for unhealthy alcohol use. For concerning screenings had a discussion with the patient, provided patient education, and recommended follow-up with primary care provider when appropriate. If patient noted with a risk of falling, they received education on strength, gait, and balance training to prevent future risk of falling. Portions of this note may have been carried over from the previous visit and updated as appropriate. Please note this office utilizes paper charting in addition to the electronic medical record. A list of current medications, vitals, and PMH is available there as the clinical staff outside of myself do not have access to [facility] charting during the clinic day operations. As part of providing quality comprehensive care the current medications, vitals, and PMH were reviewed in the paper chart. Assessment and Plan Assessment and Plan (1) Lumbar stenosis with neurogenic claudication: (2) Sacroiliitis: (3) Chronic prescription opiate use: Assessment and Plan: I feel these medications are improving the patient's quality of life and allow them to tolerate activities of daily living as well as participate in recreational activity.? The patient does not report intolerable side effects. Th e patient is NOT opioid naive and non-pharmacologic and non-opioid treatment has failed to significantly relieve the patient's pain and improve functionality. The patient has a diagnosis that is related to a somatic or visceral pain etiology. ? ?? I reviewed with the patient the potential risks and side effects with the use of? opioid medications including but not limited to respiratory depression,? sedation, and even . I advised the patient to avoid the use of any other? sedation substances including alcohol, THC, and benzodiazepines while? taking opioid medications due to the risk of compounding side effects and? detrimental outcomes. within the last 12 months I have reviewed the BUILDING CONSTRUCTION ESTIMATOR, pain treatment agreement and urine drug screen.? ?? A drug screen was completed within the last year, and no aberrancies were noted regarding their use of controlled substances. The patient understands they are subject to the terms and conditions of the pain contract that they have signed. ? ?? I have checked an OARRS report on this patient today and there are no aberrancies noted in the prescribing history.? pt declining narcan (4) Lumbar spondylosis: (5) Fibromyalgia: Plan increase gabapentin 200mg am and 100mg with lunch continue flexeril 10mg BID PRN pain/spasms continue celebrex 100mg BID, denies side effects. risks vs benefits reviewed continue norco 5-325mg BID PRN moderate to severe pain 60 tabs/month, pt does not regularly utilize and does not fill [id number]. call for refill continue HEP as tolerated f/u 3 months, sooner if needed
== END 2025-02-09 10:26 | disposition home or self-care (01) ==
PROVIDERS: PCP Internal Medicine; Visit Provider Nurse Practitioner
DX: M48.062 Spinal stenosis, lumbar region with neurogenic claudication (principal); M46.1 Sacroiliitis, not elsewhere classified; Z79.891 Long term (current) use of opiate analgesic; M47.816 Spondylosis without myelopathy or radiculopathy, lumbar region; M79.7 Fibromyalgia
CPT/HCPCS: G0463

== ENCOUNTER 2025-03-09 04:47 | Outpatient (RCR) | payer MEDICARE, SELFPAY | END 2025-04-07 15:47 | disposition home or self-care (01) | LOC: MM 04:47 | PROVIDERS: PCP Internal Medicine; Visit Provider Internal Medicine | DX: Z51.81 Encounter for therapeutic drug level monitoring (principal); Z79.01 Long term (current) use of anticoagulants | CPT/HCPCS: 85610; G0463 ==

== ENCOUNTER 2025-04-09 08:15 | Outpatient (RCR) | payer MEDICARE, SELFPAY | END 2025-05-04 15:01 | disposition home or self-care (01) | LOC: MM 08:15 | PROVIDERS: PCP Internal Medicine; Visit Provider Internal Medicine | DX: Z51.81 Encounter for therapeutic drug level monitoring (principal); Z79.01 Long term (current) use of anticoagulants | CPT/HCPCS: 85610; G0463 ==

== ENCOUNTER 2025-05-09 02:31 | Outpatient (RCR) | payer MEDICARE, SELFPAY | END 2025-06-08 16:42 | disposition home or self-care (01) | LOC: MM 02:31 | PROVIDERS: PCP Internal Medicine; Visit Provider Internal Medicine | DX: Z51.81 Encounter for therapeutic drug level monitoring (principal); Z79.01 Long term (current) use of anticoagulants | CPT/HCPCS: 85610; G0463 ==

== ENCOUNTER 2025-05-17 10:19 | Outpatient (OUT) | payer MEDICARE, SELFPAY ==
--- NOTE | 2025-05-17 10:44 | PM.CN ---
Consult Note: HPI Data of Consult Patient: known to practice within the last 3 years Consult date: 05/17/25 Requesting Physician: Jocelynn Pederson NP Primary Care Provider: WENDY SPRINGER DO Consult Narrative Reason for consult: f/u Narrative: Sandra Lacey a pleasant 64 year old female presents for evaluation and management of right buttock, low back pain, bilateral hip pain that radiates into legs. Patient previously underwent MRI of lumbar spine which is consistent with degenerative changes and stenosis. Patient rating pain today 2/10, increasing to 8-9/10. utilizing flexeril, celebrex, norco, gabapentin, tylenol PRN. pt cannot afford interventional therapy requiring fluoroscopy. pt denies falls since last visit. Notes increasing pain with standing, walking, stairs, bending, activity, sleep, and rain. Pain improves with lying, heat, lidoderm patch, and sitting. unfortunately gabapentin causing insomnia, she does take first thing in the AM only tolerating 200mg daily. cc:: CC: Jocelynn Pederson NP Review of Systems ROS Musculoskeletal Reports: back pain, extremity pain and joint pain Meds Home Medications and Allergies Home Medications ?Medication ?Instructions ?Recorded ?Confirmed ?Type acetaminophen 650 mg 1,300 mg PO Q12H PRN pain 05/08/23 03/24/24 History tablet,extended release (Tylenol Arthritis Pain) albuterol sulfate 90 mcg/actuation 2 inh inhalation Q8H PRN shortness 05/08/23 03/24/24 History aerosol inhaler (Ventolin HFA) of breath or wheezing aspirin 81 mg tablet,delayed 81 mg PO DAILY 05/08/23 03/24/24 History release azelastine 137 mcg (0.1 %) nasal 137 mcg intranasal Q12H 05/08/23 03/24/24 History spray benzonatate 100 mg capsule 200 mg PO TID PRN cough 05/08/23 03/24/24 History calcium carbonate (Tums) 200 mg PO DAILY 05/08/23 03/24/24 History celecoxib 100 mg capsule 100 mg PO BID 05/08/23 03/24/24 History colesevelam 625 mg tablet (WelChol) 625 mg PO DAILY 05/08/23 03/24/24 History hydroxyzine pamoate 25 mg capsule 25 mg PO BID 05/08/23 03/24/24 History (Vistaril) lansoprazole 30 mg capsule,delayed 30 mg PO DAILY 05/08/23 03/24/24 History release (Prevacid) montelukast 10 mg tablet 10 mg PO DAILY 05/08/23 03/24/24 History (Singulair) rosuvastatin 10 mg tablet (Crestor) 10 mg PO DAILY 05/08/23 03/24/24 History warfarin 2.5 mg tablet 2.5 mg PO .QD 05/08/23 12/29/24 History warfarin 5 mg tablet 5 mg PO .QD 05/08/23 12/29/24 History gabapentin 100 mg tablet See Rx Instructions .Route 12/29/24 Rx .COMPLEX #120 tabs hydrocodone 5 mg-acetaminophen 325 1 tab PO BID PRN pain #60 tabs 12/29/24 Rx mg tablet cyclobenzaprine 10 mg tablet 10 mg PO BID PRN muscle spasm #180 02/09/25 Rx tabs gabapentin 100 mg capsule See Rx Instructions .Route 02/27/25 Rx .COMPLEX #90 caps hydrocodone 5 mg-acetaminophen 325 1 tab PO BID PRN pain #60 tabs 03/06/25 Rx mg tablet gabapentin 100 mg capsule See Rx Instructions .Route 04/05/25 Rx .COMPLEX #90 caps hydrocodone 5 mg-acetaminophen 325 1 tab PO BID PRN pain #60 tabs 04/05/25 Rx mg tablet gabapentin 100 mg capsule See Rx Instructions .Route 05/10/25 Rx .COMPLEX #90 caps hydrocodone 5 mg-acetaminophen 325 1 tab PO BID PRN pain #60 tabs 05/10/25 Rx mg tablet Allergies Allergy/AdvReac Type Severity Reaction Status Date / Time codeine Allergy Severe Verified 05/08/23 10:15 cefaclor (From Ceclor) Allergy Unknown Verified 05/08/23 10:15 cephalexin (From Keflex) Allergy Unknown Verified 05/08/23 10:15 enoxaparin (From Lovenox) Allergy Unknown Verified 05/08/23 10:15 Exam Constitutional Documenting provider has reviewed patient's vital signs: yes Common normals: no apparent distress, oriented x3, healthy appearing, alert and well nourished General appearance: cooperative Orientation/consciousness: Yes awake, Yes oriented to person, Yes oriented to place and Yes oriented to time HENKS Common normals: normocephalic, hearing grossly normal bilaterally and moist oral mucous membranes Head and scalp: normocephalic Eye Common normals: PERRL Pupil: PERRL Neck & C-Spine Common normals: full ROM General: normal visual inspection Chest Common normals: inspection of chest normal Respiratory Common normals: normal respiratory effort, no retractions and no use of accessory muscles Effort & inspection: able to speak in complete sentences and symmetric chest movement Back & Pelvis Lumbar spine/lower back: normal to inspection, ROM limited, pain with ROM, paraspinal muscle tenderness and straight leg raise positive right Sacroiliac joints: SI joint(s) abnormal (positive jeremiah/fadir, thigh thrust, gaenslen) Other: positive facet loading lumbar mild bilat intermittent bilateral radiculopathy, worse on right side altered sensation to right L4/5/S1 pattern muscle strength 5/5 bilat LE Extremity Common normals: normal to inspection, full ROM and no pedal edema Other: tender over bilateral GTB Neuro Common normals: oriented x3 Sensorium/orientation: alert Motor exam: strength 5/5 throughout and no movement abnormalities noted Psych Common normals: mental status grossly normal, thought process normal, cooperative, affect normal, speech normal and activity/motor behavior normal Speech: normal speech Thought process: normal thought process Results Additional Findings Additional findings: If on a controlled substance or opioids, I have checked an OAR[place] report on this patient and there are no aberrancies noted in the prescribing history.??If on a controlled substance or opioid a drug screen was completed and reviewed within the last year, and if there has not been a drug screen completed we ordered one today to monitor higher risk, state monitored pain medication use. As part of providing excellent, safe, comprehensive care, the following was completed at our patient's visit: 1. A medication reconciliation and review to ensure accurate knowledge of current/active medications, including asking our patients to inform us about any [id number] medications or herbal remedies/nutritional supplements/alternative remedies. 2. A review to specifically ensure our patients have had annual screening for screening for depression, screening for tobacco use, and screening for unhealthy alcohol use. For concerning screenings had a discussion with the patient, provided patient education, and recommended follow-up with primary care provider when appropriate. If patient noted with a risk of falling, they received education on strength, gait, and balance training to prevent future risk of falling. Portions of this note may have been carried over from the previous visit and updated as appropriate. Please note this office utilizes paper charting in addition to the electronic medical record. A list of current medications, vitals, and PMH is available there as the clinical staff outside of myself do not have access to [employer] charting during the clinic day operations. As part of providing quality comprehensive care the current medications, vitals, and PMH were reviewed in the paper chart. Assessment and Plan Assessment and Plan (1) Lumbar stenosis with neurogenic claudication: (2) Sacroiliitis: (3) Chronic prescription opiate use: Assessment and Plan: I feel these medications are improving the patient's quality of life and allow them to tolerate activities of daily living as well as participate in recreational activity.? The patient does not report intolerable side effects. The patient is NOT opioid naive and non-pharmacologic and non-opioid treatment has failed to significantly relieve the patient's pain and improve functionality. The patient has a diagnosis that is related to a somatic or visceral pain etiology. ? ?? I reviewed with the patient the potential risks and side effects with the use of? opioid medications including but not limited to respiratory depression,? sedation, and even . I advised the patient to avoid the use of any other? sedation substances including alcohol, THC, and benzodiazepines while? taking opioid medications due to the risk of compounding side effects and? detrimental outcomes. within the last 12 months I have reviewed the CERTIFIED MEDICAL AIDE, pain treatment agreement and urine drug screen.? ?? A drug screen was completed within the last year, and no aberrancies were noted regarding their use of controlled substances. The patient understands they are subject to the terms and conditions of the pain contract that they have signed. ? ?? I have checked an OARRS report on this patient today and there are no aberrancies noted in the prescribing history.? pt declining narcan (4) Lumbar spondylosis: (5) Fibromyalgia: Plan dc gabapentin, start zonegran 50-100mg daily. risks vs benefits reviewed update UDS for yearly medication monitoring continue flexeril 10mg BID PRN pain/spasms continue celebrex 100mg BID, denies side effects. risks vs benefits reviewed continue norco 5-325mg BID PRN moderate to severe pain 60 tabs/month, pt does not regularly utilize and does not fill [id number]. call for refill continue HEP as tolerated nurse call in 1 month to discuss medication changes declining interventional therapy due to cost f/u with me in 3 months, sooner if needed
== END 2025-05-17 10:20 | disposition home or self-care (01) ==
PROVIDERS: PCP Internal Medicine; Visit Provider Nurse Practitioner
DX: M48.062 Spinal stenosis, lumbar region with neurogenic claudication (principal); M46.1 Sacroiliitis, not elsewhere classified; Z79.891 Long term (current) use of opiate analgesic; M47.816 Spondylosis without myelopathy or radiculopathy, lumbar region; M79.7 Fibromyalgia
CPT/HCPCS: G0463

== ENCOUNTER 2025-05-24 10:16 | Outpatient (OUT) | payer MEDICARE, SELFPAY ==
--- OUTSIDE RECORDS SUMMARY | 2024-06-24 06:50 | XMS_ITS ---
Author Organization [facility] Address [address] [place] [address] Care Team Providers Care Audit Director Name Role Phone Cristofer Manriquez Primary Care Provider Myriam Miner Unavailable [phone] REASON FOR VISIT LUMBAR PAIN Encounters Encounter Location Date Provider Diagnosis [facility] Office [address] [place] [address] [place] [address] 06/24/2024 Selvoaxel Cecil Lumbar pain M54.50 Assessments Encounter Date Diagnosis (ICD Code) Assessment Notes Treatment Notes Treatment Clinical Notes Section Notes 06/24/2024 Lumbar pain (ICD-10 - M54.50) Plan Of Treatment Pending Test Test Name Order Date Lumbar spine, 4v flex ext - [id number] 2023 Progress Notes * VINEETMUKUNDNATALIE KDOB: 2 (64 yo F)Acc No.[id number]:06/24/2024 Patient: NATALIE EVANS Provider: Sherita York MD, PhD :1960 A ge:63 Y S ex:Female Date:06/24/2024 Address:[place], [id number] Pcp:Cristofer Manriquez Subjective: * Chief Complaints: * 1 . LUMBAR PAIN. * Medical History: Objective: * Vitals: Assessment: * Assessment: 1. L umbar pain - M54.50 (Primary) Plan: * Treatment: * Procedure Codes: 7 2109 X-ray Lumbar Spine, 5 view complete Forms: * Images: * Electronic signature of Selv on [facility] MD, PHD on 05/24/2025 at 10:19 AM EDT Sign off status: Pending * Provider: Sherita York MD, PhD Date: 0 06/24/2024 Generated for Deborah sawant/Ally/[place] on: 0 05/24/2025 10:19 AM EDT
--- NOTE | 2025-05-24 10:18 | MM_ITS ---
Patient Name: NATALIE MANLEY MR#: [id number] : 1960 Exam Date: 05/24/2025 Ordering Doctor: DR WENDY SPRINGER D.O. RADIOLOGY REPORT PROCEDURE: MM TOMOSYNTHESIS SCREENING BI COMPARISON: MM TOMOSYNTHESIS SCREENING BI, 05/23/2024. MM TOMOSYNTHESIS SCREENING BI, 05/21/2023. MG MAMM SCREEN 3D YESY CAD, 05/19/2022. MG MAMM YESY SCRN W CAD DIG, 01/17/2014. INDICATIONS: Screening Calculator Name NCI Breast Cancer Risk Assessment Tool 5 Year Breast Cancer Risk 1.10% Lifetime Breast Cancer Risk 5.00% Personal Breast Cancer No Personal Ovarian Cancer No Treatments None Family Cancers Father with prostate cancer at age 68; Grandfather-paternal with lung cancer at age ~62; Cousin-maternal with breast cancer at age 40. LOCATION: [facility] BREAST COMPOSITION: There are scattered areas of fibroglandular density. FINDINGS: RIGHT BREAST: No significant suspicious finding. LEFT BREAST: No significant suspicious finding. DIAGNOSTIC CATEGORY 1--NEGATIVE. RECOMMENDATIONS: ROUTINE MAMMOGRAM AND CLINICAL EVALUATION IN 12 MONTHS. PLEASE NOTE: A NORMAL MAMMOGRAM DOES NOT EXCLUDE THE POSSIBILITY OF BREAST CANCER. A CLINICALLY SUSPICIOUS PALPABLE LUMP SHOULD BE BIOPSIED. Dictated by: Santi Dowling MD on 05/24/2025 at 14:07 Approved by: Santi Dowling MD on 05/24/2025 at 14:13
--- OUTSIDE RECORDS SUMMARY | 2025-05-24 10:20 | XMS_ITS | Clinical Summary ---
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 Plaster Mixer Name Role Phone Unavailable Primary Care Provider Unavailabl e Social History Tobacco Use Types Packs/Day Years Used Date Smoking Tobacco: Never Assessed Comments Unknown Sex and Gender Information Value Date Recorded Sex Assigned at Not on file Legal Sex Female 7:10 PM EDT Gender Identity Not on file Sexual Orientation Not on file Last Filed Vital Signs Vital Sign Reading Time Taken Comments Blood Pressure - - Pulse - - Temperature - - Respiratory Rate - - Oxygen Saturation - - Inhaled Oxygen Concentration - - Weight 104 kg (230 lb) 12/16/2021 12:00 PM EST Height 165.1 cm (5' 5 ) 12/16/2021 12:00 PM EST Body Mass Index 38.27 12/16/2021 12:00 PM EST Plan of Treatment Not on file Insurance [employer]
--- OUTSIDE RECORDS SUMMARY | 2025-05-24 10:20 | XMS_ITS | Clinical Summary ---
Author Organization [facility] Address [address] [place], [place] [id number] Care Team Providers Care Cad Manager Name Role Phone Unavailable Primary Care Provider Unavailabl e Allergies Active Allergy Reactions Criticality Noted Date Comments Cefaclor Rash Medium 07/05/2013 Codeine Other: See Comments Medium 07/05/2013 chest pain Keflet Rash Medium 07/05/2013 Medications hydrOXYzine HCl 25 mg tablet Take 1 tablet by mouth twice daily. 07/05/2013 Active warfarin (COUMADIN) 5 mg tablet Take 1 tablet by mouth every 48 hours. 0 07/05/2013 Active montelukast (SINGULAIR) 10 mg tablet Take 1 tablet by mouth daily at bedtime. 0 07/05/2013 Active colesevelam (WELCHOL) 625 mg tablet Take 3 tablets by mouth twice daily with meals. 0 07/05/2013 Active ranitidine (ZANTAC) 150 mg tablet Take 1 tablet by mouth twice daily. 07/05/2013 Active cyclobenzaprine (FLEXERIL) 10 mg tablet Take 1 tablet by mouth every 8 hours as needed. for pain or spasms. 0 07/05/2013 Active gabapentin (NEURONTIN) 300 mg capsule Take 1 capsule by mouth daily at bedtime. 07/05/2013 Active acetaminophen-H YDROcodone (VICODIN) 5-500 mg tablet Take 1-2 tablets by mouth three times daily as needed for Pain. for pain. 07/05/2013 Active Lidocaine HCl 3 % Lotn Apply to affected area. 0 07/05/2013 Active Active Problems Problem Noted Date Diagnosed Date Chronic low back pain 07/05/2013 Social History Tobacco Use Types Packs/Day Years Used Date Smoking Tobacco: Never Assessed Comments Unknown Sex and Gender Information Value Date Recorded Sex Assigned at Not on file Legal Sex Female 11:05 AM EDT Gender Identity Not on file Sexual Orientation Not on file Last Filed Vital Signs Vital Sign Reading Time Taken Comments Blood Pressure 90/66 07/05/2013 11:07 AM EDT Pulse - - Temperature 36.6 C (97.9 F) 07/05/2013 11:07 AM EDT Respiratory Rate - - Oxygen Saturation - - Inhaled Oxygen Concentration - - Weight 107 kg (236 lb) 07/05/2013 11:07 AM EDT Height - - Body Mass Index - - Plan of Treatment Health Maintenance Due Date Last Done Comments Anxiety Screening 1980 Depression Screening 1980 HIV Screening 1980 Hepatitis C Screening 1980 DTaP,Tdap,Td Vaccine (1 - Tdap) 1981 Cervical Cancer Screening [address] Colonography 2007 Cologuard (FIT-DNA) 2007 Colonoscopy 2007 Colorectal Cancer Screening 2007 Diabetes Screening 2007 Fecal Occult Blood 2007 Lipid Screening 2007 Sigmoidoscopy 2007 Pneumococcal Vaccine: 50+ (1 of 1 - PCV) 2012 Shingrix Vaccine (1 of 2) 2012 Covid-19 Vaccine (1 - 2023- season) 2024 Influenza Vaccine (#1) 2025 RSV Vaccine (1 - 1-dose 75+ series) 2037
--- OUTSIDE RECORDS SUMMARY | 2025-05-24 10:20 | XMS_ITS | Patient Health Record ---
Author Organization [facility] Address [address] [place] [address] Care Team Providers Care Small Package And Bundle Sorter Clerk Name Role Phone Cristofer Manriquez Primary Care Provider Mica marks Myriam Jacob Unavailable [phone] xxBinta Rodriguez Unavailable [phone] Allergies Allergen (clinical drug ingredient) Drug/Non Drug Allergy documented on EMR Reaction Allergy Type Onset Date Status ceclor (uncoded) Unknown Allergy Act moise keflex (uncoded) Unknown Allergy Act moise lovanot injection (uncoded) Unknown Allergy Active codeine codeine Unknown Drug Allergy Active Reason For Referral No Information Medications Medication SIG (Take, Route, Frequency, Duration) Notes Start Date End Date Status prednisoLONE Active Aspercreme Arthritis Pain Active aspirin Active Prevacid Active hydrOXYzine Active CeleBREX Active Welchol Active Flexeril Active Singulair Active Problems Problem Type SNOMED Code ICD Code Onset Dates Problem Status W/U Status Risk Notes Problem [id number] HNP (herniated nucleus pulposus), lumbar (M51.26) Active confirmed Encounters Encounter Location Date Provider Diagnosis [facility] [address] [place] [address] [address] [place] [address] 07/18/2024 Binta Herbert Trochanteric bursitis, right hip M70.61 ; Trochanteric bursitis, left hip M70.62 ; Pain of both sacroiliac joints M53.3 ; Spinal stenosis of lumbar region, unspecified whether neurogenic claudication present M48.061 and HNP (herniated nucleus pulposus), lumbar M51.26 Assessments Encounter Date Diagnosis (ICD Code) Assessment Notes Treatment Notes Treatment Clinical Notes Section Notes 07/18/2024 Trochanteric bursitis, right hip (ICD-10 - M70.61) Bilateral trochanteric bursitis Right ischial bursitis Right SI joint pain 07/18/2024 Trochanteric bursitis, left hip (ICD-10 - M70.62) Bilateral trochanteric bursitis Right ischial bursitis Right SI joint pain 07/18/2024 Pain of both sacroiliac joints (ICD-10 - M53.3) Bilateral trochanteric bursitis Right ischial bursitis Right SI joint pain 07/18/2024 Spinal stenosis of lumbar region, unspecified whether neurogenic claudication present (ICD-10 - M48.061) Bilateral trochanteric bursitis Right ischial bursitis Right SI joint pain 07/18/2024 HNP (herniated nucleus pulposus), lumbar (ICD-10 - M51.26) Bilateral trochanteric bursitis Right ischial bursitis Right SI joint pain 07/18/2024 Other On exam patient has a few areas today that are painful, but she states her trochanteric bursa areas bilaterally are her biggest pain right now. Risks and benefits of a repeat corticosteroid injection were discussed and patient wishes to proceed. I did provide bilateral greater trochanteric bursa injections today. She can follow-up with pain management and come back to see us on an as-needed basis. Bilateral trochanteric bursitis Right ischial bursitis Right SI joint pain Plan Of Treatment No Information Insurance Providers Payer Name Payer Address Payer Phone Subscriber Number Group Number Insured Name Patient Relationship to Insured Coverage Start Date Coverage End Date [facility] [address] [place] [phone] [id number] NATALIE MALNEY Self - patient is the insured Medications Administered Medication Instructions Date of Administration Dosage Notes BUPIVACAINE 07/18/2024 4 mL Depo-Medrol 07/18/2024 2 mL lidocaine 07/18/2024 4 mL Medical (General) History Medical History History ICD Code Lung Disease Asthma Bronchitis Emphysema Gastric Reflux Irritable bowel syndrome Osteoarthritis Bleeding Disorders Blood Clots in Legs/Lungs Anxiety Surgical History Surgery Date(Month/Year) YESY heel spurs LT knee X 2 Left tennis elbow Hysterectomy Cholecystectomy (gallbladder removal)
== END 2025-05-24 10:17 | disposition home or self-care (01) ==
LOC: MAMMO 10:16
PROVIDERS: PCP Internal Medicine; Visit Provider Internal Medicine
DX: Z12.31 Encounter for screening mammogram for malignant neoplasm of breast (principal); Z80.1 Family history of malignant neoplasm of trachea, bronchus and lung; Z80.42 Family history of malignant neoplasm of prostate; Z80.3 Family history of malignant neoplasm of breast
CPT/HCPCS: 77063; 77067

== ENCOUNTER 2025-06-09 00:21 | Outpatient (RCR) | payer MEDICARE, SELFPAY | END 2025-07-06 12:39 | disposition home or self-care (01) | LOC: MM 00:21 | PROVIDERS: PCP Internal Medicine; Visit Provider Internal Medicine | DX: Z51.81 Encounter for therapeutic drug level monitoring (principal); Z79.01 Long term (current) use of anticoagulants | CPT/HCPCS: 85610; G0463 ==

== ENCOUNTER 2025-07-10 02:02 | Outpatient (RCR) | payer MEDICARE, SELFPAY | END 2025-08-08 15:32 | disposition home or self-care (01) | LOC: MM 02:02 | PROVIDERS: PCP Internal Medicine; Visit Provider Internal Medicine | DX: Z51.81 Encounter for therapeutic drug level monitoring (principal); Z79.01 Long term (current) use of anticoagulants | CPT/HCPCS: 85610; G0463 ==

== ENCOUNTER 2025-08-09 04:35 | Outpatient (RCR) | payer MEDICARE, SELFPAY | END 2025-09-08 23:59 | disposition home or self-care (01) | LOC: MM 04:35 | PROVIDERS: PCP Internal Medicine; Visit Provider Internal Medicine | DX: Z51.81 Encounter for therapeutic drug level monitoring (principal); Z79.01 Long term (current) use of anticoagulants | CPT/HCPCS: 85610; G0463 ==

== ENCOUNTER 2025-08-10 10:22 | Outpatient (OUT) | payer MEDICARE, SELFPAY ==
--- OUTSIDE RECORDS SUMMARY | 2025-02-15 11:34 | XMS_ITS ---
Author Name Auto Generated Organization [facility] Care Team Providers Care Dumper Mold Cleaner Name Role Phone Cristofer Manriquez Primary Care Unavailable ObermeyerFrida Admitting Unavailable ObermeyerFrida Attending Unavailable Cristofer Manriquez Consulting Unavailable ObermeyerFrida Admitting Unavailable ObermeyerFrida Attending Unavailable Cristofer Manriquez Primary Care Unavailable PROBLEMS DATE TYPE CONDITION / CODE ATTENDING STATUS [facility] 02/15/2025 Unknown Pure hypercholesterolemia, unspecified / E78.00(ICD-10) [facility] 08/16/2024 Unknown Primary generali zed (osteo)arthritis / M15.0(ICD-10) [facility] PROCEDURES No Procedure Records Found RESULTS COMPREHENSIVE METABOLIC PANEL Collected: 02/15/2025 1 1:35 AM Status: F Source: [facility] TYPE CODE TESTS RESULT OUT OF RANGE REFERENCE UNITS LAB GLU Glucose 99 Normal 70-100 mg/dL Result Comment: Random Gluco se Reference Range is dependent on time and content of last meal. Glucose of more than 200 mg/dL in a nonstressed, ambulatory subject supports the diagnosis of Diabetes Mellitus. ADA recommended reference range LAB BUN Blood Urea Nitrogen 28 High 7-25 mg/d L LAB CREATT Creatinine 0.78 Normal 0.60-1.20 mg/dL LAB GFReNR Estimated GFR >60.0 mL/Min LAB NA Sodium 140 Normal 136-145 mmol/L LAB K Potassium 4.5 Normal 3.5-5.1 mmol/L LAB CL Chloride 106 Normal 98-107 mmol/L LAB CO2 Carbon Dioxide 27.7 Normal 21.0-31.0 mmol/L LAB GAP Anion Gap 10.8 Normal 6.0-15.0 meq/L LAB CA Calcium 9.3 Normal 8.6-10.3 mg/dL LAB TP Total Protein 6.5 Normal 6.4-8.9 g/dL LAB ALB Albumin Level 4.0 Normal 3.5-5.7 g/dL LAB GLOB Globulin 2.5 g/dL LAB AGRATIO Albumin/Globulin Ratio 1.6 LAB BILIT Bilirubin,Total 0.4 Normal 0.3-1.0 mg/dL LAB AST Aspartate Amino Transferase 10 Low 13-39 U/L LAB ALT Alanine Aminotransferase 9 Normal 7-52 U/L LAB ALP Alkaline Phosphatase 90 Normal 34-104 U/L Performed By: #### CMP, VITD 25OH, A1C WTH eA, SCAN CBC, LIPID #### [facility] [address] LIPID PANEL Collected: 02/15/2025 11:35 AM Status: F Source: [facility] TYPE CODE TESTS RESULT OUT OF RANGE REFERENCE UNITS LAB CHOL Cholesterol 116 Low 140-200 mg/dL Result Comment: Chol less th an 200 mg/dl low risk Chol 201-239 mg/dl borderline risk Chol 240 mg/dl and greater high risk LAB HDL HDL Cholesterol 57 Normal 23-92 mg/dL Result Comment: HDL CHOL ATP -III CLASSIFICATION Cardiovascular Risk HDL > or equal to 60 mg/dL LOW HDL < 40 mg/dL HIGH LAB TRIG W REF Triglyceride w/Reflex 59 Normal 0-149 mg/dL Result Comment: TRIG ATP III CLASSIFICATION TRIG less than 150 mg/dL Normal TRIG 150-199 mg/dL Borderline high TRIG 200-500 mg/dL High TRIG greater than 500 mg/dL Very high Standard traceable to the Center for Disease Conrtrol and Prevention (CDC) test method. LAB LDLC LDL Cholesterol,Calc ulated 47 Normal 0-100 mg/dL Result Comment: LDL ATP III CLASSIFICATION LDL less than 100 mg/dL Optimal LDL 100-129 mg/dL Near or above optimal LDL 130-159 mg/dL Borderline high LDL 160-189 mg/dL High LDL greater than 189 mg/dL Very high LAB VLDL VLDL CHOLESTEROL 11 mg/dL LAB CHLHDL Chol/HDL Ratio 2.0 <5.0 Performed By: #### CMP, VITD 25OH, A1C WTH eA, SCAN CBC, LIPID #### [facility] [address] [place] [id number] [facility] VITAMIN D 25 HYDROXY TOTAL Collected: 0 02/15/2025 11:35 AM Status: F Source: [facility] TYPE CODE TESTS RESULT OUT OF RANGE REFERENCE UNITS LAB [id number] Vitamin D 25 Hydroxy Total 41.3 Normal 30-100 ng/mL Result Comment: VITAMIN D ST ATUS 25(OH)VITAMIN D RANGE (ng/mL) Deficient <20 Insufficient 20 to <30 Sufficient 30 to 100 Reference: Damon MF,Nita NC, Jassi ESQUEDA, et al. Evaluation,treatment, and prevention of vitamin D deficiency; an Endocrine Society clinical practice guideline. JCEM. 2010; 96(7):1911-30. PERFORMED BY: [place] [address] PATHOLOGIST CREW LEADER/CONTROL ROOM OPERATOR KESHAV MCDONALD M.D. Performed By: #### CMP, VITD 25OH, A1C WTH eA, SCAN CBC, LIPID #### [facility] [address] [id number] [facility] SCAN AND CBC Collected: 02/15/2025 11:35 AM Status: F Source: [facility] TYPE CODE TESTS RESULT OUT OF RANGE REFERENCE UNITS LAB WBC White Blood Count 12.5 High 3.8-11.6 10*3/uL LAB UNWBC Uncorrected WBC 12.5 High 3.8-11.6 10*3/uL LAB RBC Red Blood Count 4.91 Normal 3.60-5.00 10*6/u L LAB HGB Hemoglobin 14.7 Normal 11.8-15.4 g/dL LAB HCT Hematocrit 44.6 Normal 34.0-46.4 % LAB MCV Mean Corpuscular Volume 90.8 Normal 80-100 fL LAB MCH Mean Corpuscular Hemoglobin 29.9 Normal 24.7-34.3 pg LAB MCHC Mean Corpuscular HGB Conc 32.9 Normal 32.0-35.0 g/dL LAB RDW Red Cell Distribution Width 14.3 Normal 11.9-15.3 % LAB PLT Platelet Count 270 Normal 150-450 10*3/uL LAB MPV Mean Platelet Volume 8.0 Normal 6.3-10.7 fL LAB NE% Neutrophils % (Auto) 71.6 . % LAB LY% Lymphocytes % (Auto) 20.5 . % LAB MO% Monocytes % (Auto) 7.1 . % LAB EO% Eosinophils % (Auto) 0.4 . % LAB BA% Basophils % (Auto) 0.4 . % LAB NRBC% NRBC% 0.0 Normal 0-0.5 /100{WBC} LAB NE# Neutrophils # (Auto) 9.0 High 1.8-7.7 10*3/uL LAB LY# Lymphocytes # (Auto) 2.6 Normal 1.00-4.8 10*3/uL LAB MO# Monocytes # (Auto) 0.9 High 0.0-0.8 10*3/uL LAB EO# Eosinophils # (Auto) 0.1 Normal 0.0-0.45 10*3/uL LAB BA# Basophils # (Auto) 0.0 Normal 0.0-0.2 10*3/uL LAB RM RBC Morphology Normal Normal LAB PLT EST Platelet Estimate Normal Normal LAB PLTM Platelet Morphology Normal Normal Result Comment: PERFORMED BY : [place] [address] PATHOLOGIST CREW LEADER/CONTROL ROOM OPERATOR KESHAV MCDONALD M.D. Performed By: #### CMP, VITD 25OH, A1C WTH eA, SCAN CBC, LIPID #### [address] A1C WITH ESTIMATED AVERAGE GLU Collected: 02/15/2025 11:35 AM Status: F Source: [facility] TYPE CODE TESTS RESULT OUT OF RANGE REFERENCE UNITS LAB .A1C Hemoglobin A1C 6.0 High 4.3-5.6 % Result Comment: Increased ri sk for diabetes: 5.7 - 6.4 diabetes: >6.4 glycemic control for adults with diabetes: <7.0 LAB eAG Estimated Average Glucose 126 mg/dL Result Comment: PERFORMED BY : [place] [address] PATHOLOGIST CREW LEADER/CONTROL ROOM OPERATOR KESHAV MCDONALD M.D. Performed By: #### CMP, VITD 25OH, A1C WTH eA, SCAN CBC, LIPID #### [facility] [address] [place] [address] [facility] COMPLETE BLOOD COUNT AUTO DIFF Collected: 08/16/2024 11:32 AM Status: F Source: [facility] TYPE CODE TESTS RESULT OUT OF RANGE REFERENCE UNITS LAB WBC White Blood Count 7.2 Normal 3.8-11.6 10*3/uL LAB UNWBC Uncorrected WBC 7.2 Normal 3.8-11.6 10*3/uL LAB RBC Red Blood Count 4.90 Normal 3.60-5.00 LAB HGB Hemoglobin 15.1 Normal 11.8-15.4 g/dL LAB HCT Hematocrit 45.1 Normal 34.0-46.4 % LAB MCV Mean Corpuscular Volume 92.2 Normal 80-100 fL LAB MCH Mean Corpuscular Hemoglobin 30.7 Normal 24.7-34.3 pg LAB MCHC Mean Corpuscular HGB Conc 33.3 Normal 32.0-35.0 g/dL LAB RDW Red Cell Distribution Width 14.0 Normal 11.9-15.3 % LAB PLT Platelet Count 197 Normal 150-450 10*3/uL LAB MPV Mean Platelet Volume 8.2 Normal 6.3-10.7 fL LAB NE% Neutrophils % (Auto) 62.7 . % LAB LY% Lymphocytes % (Auto) 29.1 . % LAB MO% Monocytes % (Auto) 5.8 . % LAB EO% Eosinophils % (Auto) 2.0 . % LAB BA% Basophils % (Auto) 0.4 . % LAB NRBC% NRBC% 0.1 Normal 0-0.5 /100{WBC} LAB NE# Neutrophils # (Auto) 4.5 Normal 1.8-7.7 10*3/uL LAB LY# Lymphocytes # (Auto) 2.1 Normal 1.00-4.8 10*3/uL LAB MO# Monocytes # (Auto) 0.4 Normal 0.0-0.8 10*3/uL LAB EO# Eosinophils # (Auto) 0.1 Normal 0.0-0.45 10*3/uL LAB BA# Basophils # (Auto) 0.0 Normal 0.0-0.2 10*3/uL Result Comment: PERFORMED BY : [facility] [address] [facility] [address] PATHOLOGIST CREW LEADER/CONTROL ROOM OPERATOR FLORENCIA MARIANO M.D. Performed By: #### A1C WTH e A, CBC, CMP #### [place] [id number] [facility] COMPREHENSIVE METABOLIC PANEL Collected: 08/16/2024 1 1:32 AM Status: F Source: [facility] TYPE CODE TESTS RESULT OUT OF RANGE REFERENCE UNITS LAB GLU Glucose 88 Normal 70-100 mg/dL Result Comment: Random Gluco se Reference Range is dependent on time and content of last meal. Glucose of more than 200 mg/dL in a nonstressed, ambulatory subject supports the diagnosis of Diabetes Mellitus. ADA recommended reference range LAB BUN Blood Urea Nitrogen 16 Normal 7-25 mg/d L LAB CREATT Creatinine 0.74 Normal 0.60-1.20 mg/dL LAB GFReNR Estimated GFR > 60.0 LAB NA Sodium 141 Normal 136-145 mmol/L LAB K Potassium 4.5 Normal 3.5-5.1 mmol/L LAB CL Chloride 106 Normal 98-107 mmol/L LAB CO2 Carbon Dioxide 28.7 Normal 21.0-31.0 mmol/L LAB GAP Anion Gap 10.8 Normal 6.0-15.0 LAB CA Calcium 9.1 Normal 8.6-10.3 mg/dL LAB TP Total Protein 6.6 Normal 6.4-8.9 g/dL LAB ALB Albumin Level 4.0 Normal 3.5-5.7 g/dL LAB GLOB Globulin 2.6 g/dL LAB AGRATIO Albumin/Globulin Ratio 1.5 LAB BILIT Bilirubin,Total 0.7 Normal 0.3-1.0 mg/dL LAB AST Aspartate Amino Transferase 12 Low 13-39 U/L LAB ALT Alanine Aminotransferase 11 Normal 7-52 U/L LAB ALP Alkaline Phosphatase 92 Normal 34-104 U/L Result Comment: PERFORMED BY : [place] [address] PATHOLOGIST CREW LEADER/CONTROL ROOM OPERATOR FLORENCIA MARIANO M.D. Performed By: #### A1C WTH e A, CBC, CMP #### [address] [address] [facility] A1C WITH ESTIMATED AVERAGE GLU Collected: 08/16/2024 11:32 AM Status: F Source: [facility] TYPE CODE TESTS RESULT OUT OF RANGE REFERENCE UNITS LAB .A1C Hemoglobin A1C 6.0 High 4.3-5.6 % Result Comment: Increased ri sk for diabetes: 5.7 - 6.4 diabetes: >6.4 glycemic control for adults with diabetes: <7.0 LAB eAG Estimated Average Glucose 126 mg/dL Result Comment: PERFORMED BY : [place] [address] PATHOLOGIST CREW LEADER/CONTROL ROOM OPERATOR FLORENCIA MARIANO M.D. Performed By: #### A1C WTH e A, CBC, CMP #### [facility] [address] [place], [place] [id number] [place] ALLERGIES DATE TYPE / CODE NAME / CODE REACTION SEVERITY SOURCE 10/01/2024 Drug Allergy/303656 002(SNOMED CT) codeine/Q24480 1550(RXNORM) chest heaviness, CHEST TIGHTNESS Unknown [facility] 10/01/2024 Drug Allergy/471789 002(SNOMED CT) cephalexin/F00 5531040(RXNORM ) Rash Unknown [facility] 10/01/2024 Drug Allergy/814380 002(SNOMED CT) cefaclor/N7245 40652(RXNORM) Rash Unknown [facility] 10/01/2024 Drug Allergy/069772 002(SNOMED CT) enoxaparin/F00 7418125(RXNORM ) Rash Unknown [facility] ENCOUNTERS ADMIT/DISCHARGE ACCOUNT NUMBER ADMITTING ENCOUNTER CLASS LOCATION SOURCE 02/15/2025/ 5 [id number] [facility]/16/2024/ 4 [id number] [facility] PAYERS ENCOUNTER GUARANTOR PAYER SUBSCRIBER SOURCE 02/15/2025 [place] [address]Uwn: (HP) [facility] Insurance[facility] [place]SP[place]icy Number: [id number] ve Date:[id number] [address]FK: Sandra Connolly DeepthiDOB: [id number] [place] [address]Muk: () [facility] 02/15/2025 Secondary Insurance:Self PayPolicy Number: Effective Date:2025-02-15 NOT GIVENUNK [facility] 08/16/2024 Sandra Connolly [address] [place] [address]Gmg: () Primary Insurance:[employer] MCR PFFSPolicy Number: [id number] ve Date:9730-41-35[address] [address]MH: Sandra Connolly HarjitB: [id number] [place] [address]Ank: () [facility] 08/16/2024 Secondary Insurance:Self PayPolicy Number: Effective Date:2024-08-16 [facility]
--- NOTE | 2025-08-10 10:41 | PM.CN ---
Consult Note: HPI Data of Consult Patient: known to practice within the last 3 years Consult date: 08/10/25 Requesting Physician: Jocelynn Pederson NP Primary Care Provider: WENDY SPRINGER DO Consult Narrative Reason for consult: f/u Narrative: Sandra Lacey a pleasant 64 year old female presents for evaluation and management of right buttock, low back pain, bilateral hip pain that radiates into legs. Patient previously underwent MRI of lumbar spine which is consistent with degenerative changes and stenosis. Patient rating pain today 3/10, increasing to 8-9/10. utilizing flexeril, celebrex, norco, gabapentin, tylenol PRN. pt cannot afford interventional therapy requiring fluoroscopy. pt denies falls since last visit. Notes increasing pain with standing, walking, stairs, bending, activity, sleep, and rain. Pain improves with lying, heat, lidoderm patch, and sitting. pt noting minimal relief with zonegran 50mg HS, could not tolerate 50mg AM and did not try 100mg HS. cc:: CC: Jocelynn Pederson NP Review of Systems ROS Musculoskeletal Reports: back pain, extremity pain and joint pain Meds Home Medications and Allergies Home Medications ?Medication ?Instructions ?Recorded ?Confirmed ?Type acetaminophen 650 mg 1,300 mg PO Q12H PRN pain 05/08/23 03/24/24 History tablet,extended release (Tylenol Arthritis Pain) albuterol sulfate 90 mcg/actuation 2 inh inhalation Q8H PRN shortness 05/08/23 03/24/24 History aerosol inhaler (Ventolin HFA) of breath or wheezing aspirin 81 mg tablet,delayed 81 mg PO DAILY 05/08/23 03/24/24 History release azelastine 137 mcg (0.1 %) nasal 137 mcg intranasal Q12H 05/08/23 03/24/24 History spray benzonatate 100 mg capsule 200 mg PO TID PRN cough 05/08/23 03/24/24 History calcium carbonate (Tums) 200 mg PO DAILY 05/08/23 03/24/24 History celecoxib 100 mg capsule 100 mg PO BID 05/08/23 03/24/24 History colesevelam 625 mg tablet (WelChol) 625 mg PO DAILY 05/08/23 03/24/24 History hydroxyzine pamoate 25 mg capsule 25 mg PO BID 05/08/23 03/24/24 History (Vistaril) lansoprazole 30 mg capsule,delayed 30 mg PO DAILY 05/08/23 03/24/24 History release (Prevacid) montelukast 10 mg tablet 10 mg PO DAILY 05/08/23 03/24/24 History (Singulair) rosuvastatin 10 mg tablet (Crestor) 10 mg PO DAILY 05/08/23 03/24/24 History warfarin 2.5 mg tablet 2.5 mg PO .QD 05/08/23 12/29/24 History warfarin 5 mg tablet 5 mg PO .QD 05/08/23 12/29/24 History cyclobenzaprine 10 mg tablet 10 mg PO BID PRN muscle spasm #180 02/09/25 Rx tabs hydrocodone 5 mg-acetaminophen 325 1 tab PO BID PRN pain #60 tabs 04/05/25 Rx mg tablet fluticasone fur. 100 mcg-umeclid 1 inh inhalation DAILY 05/17/25 05/17/25 History 62.5 mcg-vilant 25 mcg inhalat.powder (Trelegy Ellipta) zonisamide 50 mg capsule 50 mg PO DAILY 05/17/25 05/17/25 History hydrocodone 5 mg-acetaminophen 325 1 tab PO BID PRN pain #60 tabs 06/19/25 Rx mg tablet cyclobenzaprine 10 mg tablet 10 mg PO BID PRN muscle spasm #60 07/18/25 Rx tabs hydrocodone 5 mg-acetaminophen 325 1 tab PO BID PRN pain #60 tabs 07/18/25 Rx mg tablet Allergies Allergy/AdvReac Type Severity Reaction Status Date / Time codeine Allergy Severe Verified 05/08/23 10:15 cefaclor (From Ceclor) Allergy Unknown Verified 05/08/23 10:15 cephalexin (From Keflex) Allergy Unknown Verified 05/08/23 10:15 enoxaparin (From Lovenox) Allergy Unknown Verified 05/08/23 10:15 Exam Constitutional Documenting provider has reviewed patient's vital signs: yes Common normals: no apparent distress, oriented x3, healthy appearing, alert and well nourished General appearance: cooperative Orientation/consciousness: Yes awake, Yes oriented to person, Yes oriented to place and Yes oriented to time HENMT Common normals: normocephalic, hearing grossly normal bilaterally and moist oral mucous membranes Head and scalp: normocephalic Eye Common normals: PERRL Pupil: PERRL Neck & C-Spine Common normals: full ROM General: normal visual inspection Chest Common normals: inspection of chest normal Respiratory Common normals: normal respiratory effort, no retractions and no use of accessory muscles Effort & inspection: able to speak in complete sentences and symmetric chest movement Back & Pelvis Lumbar spine/lower back: normal to inspection, ROM limited, pain with ROM, paraspinal muscle tenderness and straight leg raise positive right Sacroiliac joints: SI joint(s) abnormal (positive jeremiah/fadir, thigh thrust, gaenslen) Other: positive facet loading lumbar mild bilat intermittent bilateral radiculopathy, worse on right side altered sensation to right L4/5/S1 pattern muscle strength 5/5 bilat LE Extremity Common normals: normal to inspection, full ROM and no pedal edema Other: tender over bilateral GTB Neuro Common normals: oriented x3 Sensorium/orientation: alert Motor exam: strength 5/5 throughout and no movement abnormalities noted Psych Common normals: mental status grossly normal, thought process normal, cooperative, affect normal, speech normal and activity/motor behavior normal Speech: normal speech Thought process: normal thought process Results Additional Findings Additional findings: If on a controlled substance or opioids, I have checked an [place] report on this patient and there are no aberrancies noted in the prescribing history.??If on a controlled substance or opioid a drug screen was completed and reviewed within the last year, and if there has not been a drug screen completed we ordered one today to monitor higher risk, state monitored pain medication use. As part of providing excellent, safe, comprehensive care, the following was completed at our patient's visit: 1. A medication reconciliation and review to ensure accurate knowledge of current/active medications, including asking our patients to inform us about any [id number] medications or herbal remedies/nutritional supplements/alternative remedies. 2. A review to specifically ensure our patients have had annual screening for screening for depression, screening for tobacco use, and screening for unhealthy alcohol use. For concerning screenings had a discussion with the patient, provided patient education, and recommended follow-up with primary care provider when appropriate. If patient noted with a risk of falling, they received education on strength, gait, and balance training to prevent future risk of falling. Portions of this note may have been carried over from the previous visit and updated as appropriate. Please note this office utilizes paper charting in addition to the electronic medical record. A list of current medications, vitals, and PMH is available there as the clinical staff outside of myself do not have access to [employer] charting during the clinic day operations. As part of providing quality comprehensive care the current medications, vitals, and PMH were reviewed in the paper chart. Assessment and Plan Assessment and Plan (1) Lumbar stenosis with neurogenic claudication: (2) Sacroiliitis: (3) Chronic prescription opiate use: Assessment and Plan: I feel these medications are improving the patient's quality of life and allow them to tolerate activities of daily living as well as participate in recreational activity.? The patient does not report intolerable side effects. The patient is NOT opioid naive and non-pharmacologic and non-opioid treatment has failed to significantly relieve the patient's pain and improve functionality. The patient has a diagnosis that is related to a somatic or visceral pain etiology. ? ?? I reviewed with the patient the potential risks and side effects with the use of? opioid medications including but not limited to respiratory depression,? sedation, and even . I advised the patient to avoid the use of any other? sedation substances including alcohol, THC, and benzodiazepines while? taking opioid medications due to the risk of compounding side effects and? detrimental outcomes. within the last 12 months I have reviewed the [employer], pain treatment agreement and urine drug screen.? ?? A drug screen was completed within the last year, and no aberrancies were noted regarding their use of controlled substances. The patient understands they are subject to the terms and conditions of the pain contract that they have signed. ? ?? I have checked an [place] report on this patient today and there are no aberrancies noted in the prescribing history.? pt declining narcan (4) Lumbar spondylosis: (5) Fibromyalgia: Plan increase zonegran 75mg HS continue flexeril 10mg BID PRN pain/spasms continue celebrex 100mg BID, denies side effects. risks vs benefits reviewed continue norco 5-325mg BID PRN moderate to severe pain 60 tabs/month, pt does not regularly utilize and does not fill [id number]. call for refill continue HEP as tolerated nurse call in 1 month to discuss medication changes declining interventional therapy due to cost f/u with me in 3 months, sooner if needed
== END 2025-08-10 10:23 | disposition home or self-care (01) ==
LOC: PM 10:22
PROVIDERS: PCP Internal Medicine; Visit Provider Nurse Practitioner
DX: M48.062 Spinal stenosis, lumbar region with neurogenic claudication (principal); M46.1 Sacroiliitis, not elsewhere classified; Z79.891 Long term (current) use of opiate analgesic; M47.816 Spondylosis without myelopathy or radiculopathy, lumbar region; M79.7 Fibromyalgia
CPT/HCPCS: G0463

== ENCOUNTER 2025-08-18 15:12 | Outpatient (OUT) | payer MEDICARE, SELFPAY ==
--- NOTE | 2025-08-18 15:14 | CT_ITS ---
The [address] [address] Patient Name: NATALIE MANLEY MRN: [id number] date: 1960 Sex: F Assigned Patient Location: CT Current Patient Location: CT Accession/Order Number: [id number] Exam Date: 08/18/2025 15:16 Report Date: 08/18/2025 15:34 At the request of: WENDY SPRINGER DO Procedure: CT lung screening low-dose CT CHEST WITHOUT CONTRAST, LOW DOSE SCREENING: CLINICAL DATA: A 64-year old current smoker, smoking for 25 pack-years. COMPARISON: CTA to 2023 TECHNIQUE: Noncontrast axial CT scan images of the chest were obtained under the low dose screening CT protocol. Coronal and sagittal reconstructed images were also submitted. FINDINGS: Mediastinum : Suboptimal evaluation due to low-dose technique. Thoracic aorta appears normal in caliber. Pulmonary trunk appears nondilated. No pericardial effusion. No lymphadenopathy. Calcified mediastinal and left hilar lymph nodes. The esophagus is grossly unremarkable. Lungs: No focal consolidation, pneumothorax or pleural effusion. Trachea and distal airways appear patent. Emphysema. Mild bronchial wall thickening. Mild lung scarring. Calcified granuloma left lower lobe. No suspicious noncalcified pulmonary nodule or mass. Upper abdomen: No acute findings. Splenic granulomas. Bony thorax and chest wall: Soft tissues surrounding the chest wall demonstrate no acute findings. Osseous structures demonstrate degenerative change. CT/CT lung screening low-dose IMPRESSION: NO SUSPICIOUS PULMONARY NODULE. LUNG - RADS Version 1.0 Assessment: Category 1, Negative (No nodules and definitely benign nodules). Management: Continue annual lung screening with LDCT in 12 months. Impression dictated by: Farhan Black Jr., D.O. 08/18/2025 3:34 PM Dictation Location: [place] [address] Electronically authenticated by: [id number] Y Date: 08/18/2025 15:34
--- OUTSIDE RECORDS SUMMARY | 2025-08-18 15:15 | XMS_ITS | CCD ---
Author Organization [facility] Care Team Providers Care Corporate Security Manager Name Role Phone JR Cristofer Springer Primary Care Provider MD Sunday Walls Attending Provider CRISTOFER SPRINGER JR Primary Care Physician Allyson GARCIA Attending Unavailable VALONE PROVIDERCRISTOFER Referring Unavail able NILL, Allyson Betancourt Attending Unavailable NILL, Allyson Betancourt Attending Unavailable LAKSHMIPATHY ., NARENDRANATH Admitting Kristie vailable LAKSHMIPATHY ., NARENDVALENTEATH Attending Kristie vailable LAKSHMIPATHY ., NARZULEYMA Consulting Kristie vailable VALONE, DR NGUYEN Primary [...] Unavailable JR Cristofer Springer Primary Care Provider [phone] MD Jt Walls Attending Provider JR Cristofer Springer Primary Care Provider ObgiancarloeyDEDE love-C Frida Vivas Attending Provider JR Cristofer Springer Primary Care Provider ObAMANDO changC Frida Vivas Attending Provider Cristofer Springer JR Primary Care Provider Obermeyer EXECUTIVE [employer]-CFrida Attending Provider Cristofer Springer Primary Care Unavailable ObermeyerFrida Admitting Unavailable ObFrida chang Attending Unavailable Cristofer Springer Consulting Unavailable ObermeyerFrida Admitting Unavailable ObFrida chang Attending Unavailable Cristofer Springer Primary Care Unavailable Allergies Allergy Classification Reported Allergen(s) Allergy Type Date of Onset Reaction(s) Facility (10 sources) Cefaclor; Translations: [Cefaclor] Drug Allergy 3 Eruption of skin (disorder) [facility] (10 sources) Cephalexin; Translations: [Cephalexin] Drug Allergy 4 Eruption of skin (disorder) [facility] (13 sources) Codeine; Translations: [Codeine] Drug Allergy 3 Chest pain (finding) [facility] (8 sources) Enoxaparin; Translations: [enoxaparin] Drug Allergy 3 Eruption of skin (disorder) [facility] [place] (3 sources) Cefaclor; Translations: [Ceclor] Drug Allergy 4 [facility] (3 sources) Cephalexin; Translations: [Keflex] Drug Allergy 4 [facility] (2 sources) Bupranolol Drug Allergy 2 [facility] Repository (1 source) ANGIE; Translations: [KEFLET] Propensity to adverse reactions to drug (disorder) 3 [facility] Repository (1 source) Enoxaparin Drug Allergy 4 [facility] Repository Medications Current Medications Medication Drug Class(es) Dates Sig (Normalized) Sig (Original) acetaminophen 325 mg / HYDROcodone bitartrate 5 mg oral tablet (8 sources) Opioid Agonist Start: 06-11-2022 take 1 tablet by mouth twice daily as needed for pain [place] 325 mg-5 mg oral tablet 1 tab(s), Oral, BID as needed for pain, Refill(s) 0 Start Date: 06/11/22 Status: Ordered Start: 08-11-2019 take 1 tablet by kayli th every four hours as needed for pain Hydrocodone-Acetaminophen 5-325 mg table t Active 1 TAB PO Q4H as needed for Pain August 11, 2019 12:00am [id number] 200 actuat albuterol 0.09 mg/actuat metered dose inhaler (8 sources) beta2-Adrenergic Agonist Start: 08-31-2024 Albut mildred Sulfate 90 mcg/actuation HFA aerosol inhaler Active 2 INH INHALATION EVERY 4-6 HOURS as needed for shortness of breath or wheezing 8.August 31, 2024 12:00am Start: 08-11-2019 End: 10-01-2024 take 1 puff(s) by inhalation every four to six hours as needed for wheezing Albuterol Sulfate 90 mcg/actuation Hfa Aerosol Inhaler Discontinued 2 PUFF INHALATION EVERY 4-6 HOURS as needed for Shortness Of Breath Or Wheezing August 11, 2019 12:00am October 01, 2024 1:07pm albuterol HFA 90 mcg/inh MDI (2 sources) [...] Refills(s) 0 Start Date: 06/11/22 Status: Ordered azelastine hydrochloride 0.137 mg/actuat metered dose nasal spray (2 sources) Histamine-1 Receptor Antagonist Start: 08-31-2024 Azelastine 137 mcg (0.1 %) spray,non-aerosol Active INTRANASAL August 31, 2024 12:00am azithromycin 250 mg oral tablet (1 source) Macrolide Antimicrobial Start: 10-01-2024 Azithromycin 250 mg tablet Active 0 PO .COMPLEX 6 October 01, 2024 1:00am For 250 mg dose pack: take 500 mg today (day 1), then 250 mg for 4 days (days 2-5) PO baclofen 10 mg oral tablet (8 sources) gamma-Aminobutyric Acid-ergic Agonist Start: 06-11-2022 take 1 tablet by mouth every eight hours as needed for muscle spasms baclofen 10 mg Tab 10 mg = 1 tab(s), Oral, q8hr, PRN Spasm, Refills(s) 0 Start Date: 06/11/22 Status: Ordered Start: 08-11-2019 End: 08-31-2024 take 1 tablet by mouth three times daily Baclofen 10 mg Tablet Discontinued 10 MG PO Three times daily August 11, 2019 12:00am August 31, 2024 11:35am 120 actuat budesonide 0.16 mg/actuat / formoterol fumarate 0.0048 mg/actuat / glycopyrrolate 0.009 mg/actuat metered dose inhaler (1 source) Corticosteroid, beta2-Adrenergic Agonist Start: 10-01-2024 Mzzjksdskj-Mwftrwqo-Cxruxcfs ol (Breztri Aerosphere) 160-9-4.8 mcg/actuation HFA aerosol inhaler Active 2 INH INHALATION Twice daily October 01, 2024 1:00am Cbd Cream (6 sources) Start: 08-11-2019 Cbd Cream Active TOPICAL Cortney ly August 11, 2019 3:53pm Start: 08-11-2019 End: 10-01-2024 Cbd Cream Discontinued TOPIC AL Daily as needed for Pain August 11, 2019 12:00am October 01, 2024 1:08pm Start: 08-11-2019 Cbd Cream Acti ve TOPICAL Daily August 11, 2019 12:00am celecoxib 100 mg oral capsule (8 sources) Nonsteroidal Anti-inflammatory Drug Start: 06-11-2022 take 1 capsule by mouth twice daily CeleBREX 100 mg Cap 100 mg = 1 cap(s), Oral, BID, Refills(s) 0 Start Date: 06/11/22 Status: Ordered Start: 08-11-2019 [facility] Celecoxib (Celebrex) 200 mg Capsule Active 200 MG PO Daily August 11, 2019 12:00am Cetirizine / Pseudoephedrine (2 sources) alpha-Adrenergic Agonist, Histamine-1 Receptor Antagonist Start: 08-31-2024 take 1 tablet by mouth twice daily, then take 1 tablet by mouth every twelve hours Cetirizine-Pseudoephedrine (Zyrtec-D) 5-120 mg tablet extended release 12 hr Active 1 TAB PO Twice daily August 31, 2024 12:00am colesevelam hydrochloride 625 mg oral tablet (8 sources) Bile Acid Sequestrant Start: 06-11-2022 Welchol 625 mg Tab 3,750 mg = 6 tab(s), Oral, Daily, Refills(s) 0 Start Date: 06/11/22 Status: Ordered Start: 08-11-2019 Colesevelam 62 5 mg tablet Active 1 TAB PO 6 times per day as needed for Diarrhea August 11, 2019 12:00am cyclobenzaprine hydrochloride 10 mg oral tablet (2 sources) Muscle Relaxant Start: 08-31-2024 Cyclobenzaprin e 10 mg tablet Active MG PO August 31, 2024 12:00am Start: 08-31-2024 Cyclobenzaprin e Active MG PO August 31, 2024 12:00am hydrOXYzine hydrochloride 25 mg oral tablet (8 sources) Antihistamine Start: 08-11-2019 take 1 tablet by mouth once daily in the morning Hydroxyzine Hcl 25 mg tablet Active 25 MG PO Every morning August 11, 2019 12:00am lansoprazole 30 mg delayed release oral capsule (4 sources) Proton Pump Inhibitor Start: 08-31-2024 Lansoprazole 30 mg capsule,delayed release(DR/EC) Active MG PO August 31, 2024 12:00am Start: 08-31-2024 Lansoprazole A ctive MG PO August 31, 2024 12:00am Start: 06-11-2022 take 1 capsule by [facility] daily Prevacid 30 mg Cap-DR 30 mg = 1 cap(s), Oral, Daily, Refills(s) 0 Start Date: 06/11/22 Status: Ordered montelukast 10 mg oral tablet (8 sources) Leukotriene Receptor Antagonist Start: 08-11-2019 take 1 tablet by mouth once daily at bedtime Montelukast 10 mg tablet Active 10 MG PO Daily at bedtime August 11, 2019 12:00am predniSONE 20 mg oral tablet (1 source) Start: 10-01-2024 take 2 tablets by mouth once daily Prednisone 20 mg tablet Active 20 MG PO .COMPLEX 10 October 01, 2024 1:00am Take 2 tabs po daily x 5 days rosuvastatin calcium 10 mg oral tablet (4 sources) HMG-CoA Reductase Inhibitor Start: 08-31-2024 Rosuvastatin 10 mg tablet Active MG PO August 31, 2024 12:00am Start: 08-31-2024 Rosuvastatin A ctive MG PO August 31, 2024 12:00am Start: 06-11-2022 take 1 tablet by kayli once daily Crestor 10 mg Tab 10 mg = 1 tab(s), Oral, Daily, Refills(s) 0 Start Date: 06/11/22 Status: Ordered Coumadin (14 sources) Vitamin K Antagonist Start: 06-11-2022 Coumadin as directed, Refills(s) 0 Start Date: 06/11/22 Status: Ordered Start: 08-11-2019 take 1 tablet by kayli th five times weekly Warfarin 5 mg tablet Active 5 MG PO 5 TIMES PER WEEK August 11, 2019 12:00am Start: 08-11-2019 take 2.5 mg by mouth two times weekly Warfarin 5 mg tablet Active 2.5 MG PO Twice a Week August 11, 2019 12:00am every T/ F Start: 08-11-2019 take 2.5 mg by mouth two times weekly Warfarin Active 2.5 MG PO Twice a Week August 11, 2019 12:00am every T/ F Completed/Discontinued Medications Medication Drug Class(es) Dates Sig (Normalized) Sig (Original) doxycycline hyclate 100 mg oral capsule (2 sources) Tetracycline-class Drug Start: 4 End: 4 take 1 capsule by mouth twice daily Doxycycline Hyclate 100 mg capsule Discontinued 100 MG PO Twice daily 14 August 31, 2024 12:00am October 01, 2024 1:08pm famotidine 20 mg oral tablet (6 sources) Histamine-2 Receptor Antagonist Start: 9 End: 4 take 1 tablet by mouth twice daily before mealtime Famotidine (Pepcid Ac) 20 mg Tablet Discontinued 20 MG PO Twice daily August 25, 2019 12:00am August 31, 2024 11:35am folic acid 1 mg oral tablet (6 sources) Start: 9 End: 4 take 1 tablet by mouth once daily Folic Acid 1 mg Tablet Discontinued 1 MG PO Daily August 11, 2019 12:00am October 01, 2024 1:08pm gabapentin 400 mg oral capsule (8 sources) Anti-epileptic Agent Start: 9 End: 4 take 1 capsule by mouth once daily at bedtime Gabapentin (Neurontin) 400 mg Capsule Discontinued 400 MG PO Daily at bedtime August 11, 2019 12:00am October 01, 2024 1:08pm methylPREDNISolone 4 mg oral tablet (2 sources) Corticosteroid Start: 4 End: 4 take 1 tablet by mouth once Methylprednisolone (Medrol (Foster)) 4 mg tablets,dose pack Discontinued 0 PO per package directions August 31, 2024 12:00am October 01, 2024 1:08pm PO PER PKG DIR raNITIdine 150 mg oral tablet (6 sources) Histamine-2 Receptor Antagonist Start: 9 End: 9 take 1 tablet by mouth once daily Ranitidine Hcl (Zantac) 150 mg Tablet Discontinued 150 MG PO Daily August 11, 2019 12:00am August 25, 2019 7:59am simvastatin 20 mg oral tablet (6 sources) HMG-CoA Reductase Inhibitor Start: 9 End: 4 take 1 tablet by mouth once daily at bedtime Simvastatin 20 mg Tablet Discontinued 20 MG PO Daily at bedtime August 11, 2019 12:00am August 31, 2024 11:34am 7 actuat umeclidinium 0.0625 mg/actuat / vilanterol 0.025 mg/actuat dry powder inhaler (6 sources) Anticholinergic, beta2-Adrenergic Agonist Start: 9 End: 4 Umeclidinium-Vilanter ol (Anoro Ellipta) 62.5-25 mcg/actuation Blister With Device Discontinued 1 INH INHALATION Q24H August 11, 2019 12:00am October 01, 2024 1:09pm Problems Active Problems Problem Classification Problem Date Documented Da te Episodic/Chronic Anxiety disorders (4 sources) Anxiety; Translations: [Claustrophobia] Onset: 3 06-11-2022 Chronic Chronic obstructive pulmonary disease and bronchiectasis (4 sources) Chronic obstructive lung disease; Translations: [Chronic obstructive pulmonary disease, unspecified] Onset: 2 06-11-2022 Chronic Chronic obstructive pulmonary disease and bronchiectasis (2 sources) Bronchitis; Translations: [Bronchitis, not specified as acute or chronic] 08-31-2024 Episodic Coagulation and hemorrhagic disorders (2 sources) Lupus anticoagulant disorder 06-11-2022 Chronic Disorders of lipid metabolism (1 source) Pure hypercholesterolemia, unspecified; Translations: [Pure hypercholesterolemia, unspecified] Onset: 5 Chronic Esophageal disorders (3 sources) Gastroesophageal reflux disease; Translations: [Gastro-esophageal reflux disease without esophagitis] Onset: 2 06-11-2022 Chronic Osteoarthritis (5 sources) Bilateral primary osteoarthritis of knee; Translations: [Primary generalized (osteo)arthritis] Onset: 2 Chronic Other aftercare (3 sources) Long-term current use of anticoagulant; Translations: [penitentiary (current) use of anticoagulants] Onset: 2 Episodic Other aftercare (1 source) 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 Performed By: #### C MP, [id number], A1C WTH eA, SCAN CBC, LIPID #### [facility] [address] HbA1c (Bld) [Mass fraction] 6.0 % High 4.3-5.6 [facility] Comment on above: Result Comment: Incr eased risk for diabetes: 5.7 - 6.4 diabetes: >6.4 glycemic control for adults with diabetes: <7.0 Performed By: #### C MP, [id number], A1C WTH eA, SCAN CBC, LIPID #### [facility] [address] Alanine aminotransferase [En zymatic activity/volume] in Serum or PlasmaOrdered By: Jt Walls on 02-15-2025 ALT [Catalytic activity/Vol] Alanine aminotransferase [Enzymatic activity/volume] in Serum or Plasma 7-52 [facility] Albumin [Mass/volume] in Ser um or Plasma by Bromocresol green (BCG) dye binding methoOrdered By: Jt Walls on 02-15-2025 Albumin BCG dye [Mass/Vol] Albumin [Mass/volume] in Serum or Plasma by Bromocresol green (BCG) dye binding metho 3.5-5.7 [facility] Alkaline phosphatase [Enzyma tic activity/volume] in Serum or PlasmaOrdered By: Jt Walls on 02-15-2025 ALP [Catalytic activity/Vol] Alkaline phosphatase [Enzymatic activity/volume] in Serum or Plasma 34-104 [facility] Aspartate aminotransferase [ Enzymatic activity/volume] in Serum or PlasmaOrdered By: Jt Walls on 02-15-2025 AST [Catalytic activity/Vol] Aspartate aminotransferase [Enzymatic activity/volume] in Serum or Plasma Low 13-39 [facility] Basophils Auto (Bld) [#/Vol] Ordered By: Jt Walls on 02-15-2025 Basophils (Bld) [#/Vol] Automated basophil count 0.0-0.2 [facility] Basophils/100 WBC Auto (Bld) Ordered By: Jt Walls on 02-15-2025 Basophils/100 WBC (Bld) Automated basophil % . [facility] Bilirubin.total [Mass/volume ] in Serum or PlasmaOrdered By: Jt Walls on 02-15-2025 Bilirubin [Mass/Vol] Bilirubin.total [Mass/volume] in Serum or Plasma 0.3-1.0 [facility] Calcium [Mass/volume] in Ser um or PlasmaOrdered By: Jt Walls on 02-15-2025 Calcium [Mass/Vol] Calcium [Mass/volume ] in Serum or Plasma 8.6-10.3 [facility] Carbon dioxide, total [Moles /volume] in Serum or PlasmaOrdered By: Jt Walls on 02-15-2025 CO2 [Moles/Vol] Carbon dioxide, tota l [Moles/volume] in Serum or Plasma 21.0-31.0 [facility] Chloride [Moles/volume] in S nadia or PlasmaOrdered By: Jt Walls on 02-15-2025 Chloride [Moles/Vol] Chloride [Moles/vol ume] in Serum or Plasma 98-107 [facility] Cholesterol [Mass/volume] in Serum or PlasmaOrdered By: Jt Walls on 02-15-2025 Cholesterol [Mass/Vol] Cholesterol [Mass /volume] in Serum or Plasma Low 140-200 [facility] Comment on above: Chol less than 200 m g/dl low riskChol 201-239 mg/dl borderline riskChol 240 mg/dl and greater high risk Cholesterol in HDL [Mass/vol ume] in Serum or PlasmaOrdered By: Jt Walls on 02-15-2025 Cholesterol in HDL [Mass/Vol] Serum or plasma high density lipoprotein (HDL) cholesterol measurement 23-92 [facility] Comment on above: HDL CHOL ATP-III CLA SSIFICATION Cardiovascular RiskHDL > or equal to 60 mg/dL LOWHDL < 40 mg/dL HIGH Cholesterol in LDL Calc [Mas s/Vol]Ordered By: Jt Walls on 02-15-2025 Cholesterol in LDL [Mass/Vol] Cholesterol in LDL [Mass/volume] in Serum or Plasma by calculation 0-100 [facility] Comment on above: LDL ATP III CLASSIFI CATIONLDL less than 100 mg/dL OptimalLDL 100-129 mg/dL Near or above optimalLDL 130-159 mg/dL Borderline highLDL 160-189 mg/dL HighLDL greater than 189 mg/dL Very high Cholesterol in VLDL Calc [Ma ss/Vol]Ordered By: Jt Walls on 02-15-2025 Cholesterol in VLDL [Mass/Vol] Cholesterol in VLDL [Mass/volume] in Serum or Plasma by calculation [facility] Comprehensive Metabolic Pane carlos alberto 02-15-2025 Albumin [Mass/Vol] 4.0 g/dL Normal 3.5-5.7 [facility] Comment on above: Performed By: #### C MP, [id number], A1C WTH eA, SCAN CBC, LIPID #### [facility] [address] [place] [address] [place] Albumin/Globulin [Mass ratio] 1.6 {ratio} Normal [facility] Comment on above: Performed By: #### C MP, [id number], A1C WTH eA, SCAN CBC, LIPID #### [facility] [address] [place] [id number] [place] ALP [Catalytic activity/Vol] 90 U/L Normal 34-104 [facility] Comment on above: Performed By: #### C MP, [id number], A1C WTH eA, SCAN CBC, LIPID #### [facility] [address] [place] [address] [place] ALT [Catalytic activity/Vol] 9 U/L Normal 7-52 [facility] Comment on above: Performed By: #### C MP, [id number], A1C WTH eA, SCAN CBC, LIPID #### [facility] [address] [place] [address] [place] Anion gap [Moles/Vol] 10.8 mmol/L Normal 6.0-15.0 [facility] Comment on above: Performed By: #### C MP, [id number], A1C WTH eA, SCAN CBC, LIPID #### [facility] [address] [place] [id number] [place] AST [Catalytic activity/Vol] 10 U/L Low 13-39 [facility] Comment on above: Performed By: #### C MP, [id number], A1C WTH eA, SCAN CBC, LIPID #### [address] Bilirubin [Mass/Vol] 0.4 mg/dL Normal 0.3-1.0 [facility] Comment on above: Performed By: #### C MP, [id number], A1C WTH eA, SCAN CBC, LIPID #### [address] Calcium [Mass/Vol] 9.3 mg/dL Normal 8.6-10.3 [facility] Comment on above: Performed By: #### C MP, [id number], A1C WTH eA, SCAN CBC, LIPID #### [address] Chloride [Moles/Vol] 106 mmol/L Normal 98-107 [facility] Comment on above: Performed By: #### C MP, [id number], A1C WTH eA, SCAN CBC, LIPID #### [address] CO2 [Moles/Vol] 27.7 mmol/L Normal 21.0-31.0 [facility] Comment on above: Performed By: #### C MP, [id number], A1C WTH eA, SCAN CBC, LIPID #### [address] Creatinine [Mass/Vol] 0.78 mg/dL Normal 0.60-1.20 [facility] Comment on above: Performed By: #### C MP, [id number], A1C WTH eA, SCAN CBC, LIPID #### [place] [address] [place] GFR/1.73 sq M.predicted MDRD (S/P/Bld) [Vol rate/Area] mL/min/{1.73_m2} Normal [facility] Comment on above: Performed By: #### C MP, [id number], A1C WTH eA, SCAN CBC, LIPID #### [address] [place] [address] [place] Globulin (S) [Mass/Vol] 2.5 g/dL Normal [facility] Comment on above: Performed By: #### C MP, [id number], A1C WTH eA, SCAN CBC, LIPID #### [facility] [address] Glucose [Mass/Vol] 99 mg/dL Normal 70-100 [facility] Comment on above: Result Comment: [facility] Glucose Reference Range is dependent on time and content of last meal. Glucose of more than 200 mg/dL in a nonstressed, ambulatory subject supports the diagnosis of Diabetes Mellitus. ADA recommended reference range Performed By: #### C MP, [id number], A1C WTH eA, SCAN CBC, LIPID #### [facility] [address] [place] [address] [place] Potassium [Moles/Vol] 4.5 mmol/L Normal 3.5-5.1 [facility] Comment on above: Performed By: #### C MP, [id number], A1C WTH eA, SCAN CBC, LIPID #### [facility] [address] [place] [address] [place] Protein [Mass/Vol] 6.5 g/dL Normal 6.4-8.9 [facility] Comment on above: Performed By: #### C MP, [id number], A1C WTH eA, SCAN CBC, LIPID #### [facility] [address] [place] [address] [place] Sodium [Moles/Vol] 140 mmol/L Normal 136-145 [facility] Comment on above: Performed By: #### C MP, [id number], A1C WTH eA, SCAN CBC, LIPID #### [facility] [address] [place] [address] [place] Urea nitrogen [Mass/Vol] 28 mg/dL High 7-25 [facility] Comment on above: Performed By: #### C MP, [id number], A1C WTH eA, SCAN CBC, LIPID #### [facility] [address] [place] [address] [place] Creatinine [Mass/volume] in Serum or PlasmaOrdered By: Jt Walls on 02-15-2025 Creatinine [Mass/Vol] Creatinine [Mass/v olume] in Serum or Plasma 0.60-1.20 [facility] Eosinophils Auto (Bld) [#/Vo l]Ordered By: Jt Walls on 02-15-2025 Eosinophils (Bld) [#/Vol] Automated eosinophil count 0.0-0.45 [facility] Eosinophils/100 WBC Auto (Bl d)Ordered By: Jt Walls on 02-15-2025 Eosinophils/100 WBC (Bld) Automated eosinophil % . [facility] Erythrocyte distribution wid th Auto (RBC) [Ratio]Ordered By: Jt Walls on 02-15-2025 Erythrocyte distribution width (RBC) [Ratio] Erythrocyte distribution width [Ratio] by Automated count 11.9-15.3 [facility] Erythrocyte morphology findi ng [Identifier] in BloodOrdered By: Jt Walls on 02-15-2025 RBC morphology finding Nom (Bld) RBC morphology Normal [facility] Globulin Calc (S) [Mass/Vol] Ordered By: Jt Walls on 02-15-2025 Globulin (S) [Mass/Vol] Serum globulin measurement by calculation (mass/volume) [facility] Glucose [Mass/volume] in Ser um or PlasmaOrdered By: Jt Walls on 02-15-2025 Glucose [Mass/Vol] Glucose [Mass/volume ] in Serum or Plasma 70-100 [facility] Comment on above: ADA recommended refe rence rangeRandom Glucose Reference Range is dependent on time and content of last meal. Glucose of more than 200 mg/dL in a nonstressed, ambulatory subject supports the diagnosis of Diabetes Mellitus. Hematocrit Auto (Bld) [Volum e fraction]Ordered By: Jt Walls on 02-15-2025 Hematocrit (Bld) [Volume fraction] Hematocrit [Volume Fraction] of Blood by Automated count 34.0-46.4 [facility] Hemoglobin [Mass/volume] in BloodOrdered By: Jt Walls on 02-15-2025 Hemoglobin (Bld) [Mass/Vol] Hemoglobin [Mass/volume] in Blood 11.8-15.4 [facility] Leukocytes [#/volume] correc zay for nucleated erythrocytes in Blood by Automated counOrdered By: Jt Walls on 02-15-2025 WBC corrected for nucl RBC Auto (Bld) [#/Vol] Leukocytes [#/volume] corrected for nucleated erythrocytes in Blood by Automated coun High 3.8-11.6 [facility] Lipid Panelon 02-15-2025 Cholesterol [Mass/Vol] 116 mg/dL Low 140-200 [facility] Comment on above: Result Comment: Chol less than 200 mg/dl low risk Chol 201-239 mg/dl borderline risk Chol 240 mg/dl and greater high risk Performed By: #### C MP, [id number], A1C WTH eA, SCAN CBC, LIPID #### [facility] [address] [place] [address] [place] Cholesterol in HDL [Mass/Vol] 57 mg/dL Normal 23-92 [facility] Comment on above: Result Comment: HDL CHOL ATP-III CLASSIFICATION Cardiovascular Risk HDL > or equal to 60 mg/dL LOW HDL < 40 mg/dL HIGH Performed By: #### C MP, [id number], A1C WTH eA, SCAN CBC, LIPID #### [facility] [address] [place] [address] [place] Cholesterol.total/Chol esterol in HDL [Mass ratio] 2.0 {ratio} Normal <5.0 [facility] Comment on above: Performed By: #### C MP, [id number], A1C WTH eA, SCAN CBC, LIPID #### [facility] [address] [place] [address] [place] LDL Cholesterol,Calculated 47 mg/dL Normal 0-100 [facility] Comment on above: Result Comment: LDL ATP III CLASSIFICATION LDL less than 100 mg/dL Optimal LDL 100-129 mg/dL Near or above optimal LDL 130-159 mg/dL Borderline high LDL 160-189 mg/dL High LDL greater than 189 mg/dL Very high Performed By: #### C MP, [id number], A1C WTH eA, SCAN CBC, LIPID #### [facility] [address] [place] [address] [place] Triglyceride w/Reflex 59 mg/dL Normal 0-149 [facility] Comment on above: Result Comment: TRIG ATP III CLASSIFICATION TRIG less than 150 mg/dL Normal TRIG 150-199 mg/dL Borderline high TRIG 200-500 mg/dL High TRIG greater than 500 mg/dL Very high Standard traceable to the Center for Disease Conrtrol and Prevention (CDC) test method. Performed By: #### C MP, [id number], A1C WTH eA, SCAN CBC, LIPID #### [facility] [address] VLDL CHOLESTEROL 11 mg/dL Normal [facility] Comment on above: Performed By: #### C MP, [id number], A1C WTH eA, SCAN CBC, LIPID #### [facility] [address] [place] [address] [place] Lymphocytes Auto (Bld) [#/Vo l]Ordered By: Jt Walls on 02-15-2025 Lymphocytes (Bld) [#/Vol] Lymphocytes [#/volume] in Blood by Automated count 1.00-4.8 [facility] Lymphocytes/100 WBC Auto (Bl d)Ordered By: Jt Walls on 02-15-2025 Lymphocytes/100 WBC (Bld) Lymphocytes/100 leukocytes in Blood by Automated count . [facility] MCH Auto (RBC) [Entitic mass ]Ordered By: Jt Walls on 02-15-2025 MCH (RBC) [Entitic mass] MCH [Entitic mass] by Automated count 24.7-34.3 [facility] MCHC Auto (RBC) [Mass/Vol]Or dered By: Jt Walls on 02-15-2025 MCHC (RBC) [Mass/Vol] MCHC [Mass/volume] by Automated count 32.0-35.0 [facility] MCV Auto (RBC) [Entitic vol] Ordered By: Jt Walls on 02-15-2025 MCV (RBC) [Entitic vol] MCV [Entitic volume] by Automated count 80-100 [facility] Monocytes Auto (Bld) [#/Vol] Ordered By: Jt Walls on 02-15-2025 Monocytes (Bld) [#/Vol] Automated blood monocyte count High 0.0-0.8 [facility] Monocytes/100 WBC Auto (Bld) Ordered By: Jt Walls on 02-15-2025 Monocytes/100 WBC (Bld) Automated monocyte % . [facility] Neutrophils Auto (Bld) [#/Vo l]Ordered By: Jt Walls on 02-15-2025 Neutrophils (Bld) [#/Vol] Neutrophils [#/volume] in Blood by Automated count High 1.8-7.7 [facility] Neutrophils/100 WBC Auto (Bl d)Ordered By: Jt Walls on 02-15-2025 Neutrophils/100 WBC (Bld) Automated neutrophil % . [facility] No Panel InformationOrdered By: Jt Walls on 02-15-2025 Estimated GFR (CKD-EPI) > 60.0 mL/Min [facility] Creatinine Clearance (Chem N/A [facility] Nucleated erythrocytes [Pres ence] in Blood by Automated countOrdered By: Jt Walls on 02-15-2025 Nucleated RBC Auto Ql (Bld) Nucleated erythrocytes [Presence] in Blood by Automated count 0-0.5 [facility] Platelet adequacy [Presence] in Blood by Light microscopyOrdered By: Jt Walls on 02-15-2025 Platelets LM Ql (Bld) Platelet adequacy [Presence] in Blood by Light microscopy Normal [facility] Platelet mean volume Auto (B ld) [Entitic vol]Ordered By: Jt Walls on 02-15-2025 Platelet mean volume (Bld) [Entitic vol] Platelet mean volume [Entitic volume] in Blood by Automated count 6.3-10.7 [facility] Platelet morphology finding [Identifier] in BloodOrdered By: Jt Walls on 02-15-2025 Platelet morphology finding Nom (Bld) Platelet morphology finding [Identifier] in Blood Normal [facility] Platelets Auto (Bld) [#/Vol] Ordered By: Jt Walls on 02-15-2025 Platelets (Bld) [#/Vol] Platelets [#/volume] in Blood by Automated count 150-450 [facility] Potassium [Moles/volume] in Serum or PlasmaOrdered By: Jt Walls on 02-15-2025 Potassium [Moles/Vol] Potassium [Moles/v olume] in Serum or Plasma 3.5-5.1 [facility] Protein [Mass/volume] in Ser um or PlasmaOrdered By: Jt Walls on 02-15-2025 Protein [Mass/Vol] Protein [Mass/volume ] in Serum or Plasma 6.4-8.9 [facility] RBC Auto (Bld) [#/Vol]Ordere d By: Jt Walls on 02-15-2025 RBC (Bld) [#/Vol] Erythrocytes [#/volu me] in Blood by Automated count 3.60-5.00 [facility] Scan and CBCon 02-15-2025 Basophils (Bld) [#/Vol] 0.0 10*3/uL Normal 0.0-0.2 [facility] Comment on above: Performed By: #### C MP, [id number], A1C WTH eA, SCAN CBC, LIPID #### [facility] [address] Basophils/100 WBC (Bld) 0.4 % Normal . [facility] Comment on above: Performed By: #### C MP, [id number], A1C WTH eA, SCAN CBC, LIPID #### [facility] [address] [place] [address] [place] Eosinophils (Bld) [#/Vol] 0.1 10*3/uL Normal 0.0-0.45 [facility] Comment on above: Performed By: #### C MP, [id number], A1C WTH eA, SCAN CBC, LIPID #### [facility] [address] Eosinophils/100 WBC (Bld) 0.4 % Normal . [facility] Comment on above: Performed By: #### C MP, [id number], A1C WTH eA, SCAN CBC, LIPID #### [facility] [address] Erythrocyte distribution width (RBC) [Ratio] 14.3 % Normal 11.9-15.3 [facility] Comment on above: Performed By: #### C MP, [id number], A1C WTH eA, SCAN CBC, LIPID #### [address] Hematocrit (Bld) [Volume fraction] 44.6 % Normal 34.0-46.4 [facility] Comment on above: Performed By: #### C MP, [id number], A1C WTH eA, SCAN CBC, LIPID #### [address] Hemoglobin (Bld) [Mass/Vol] 14.7 g/dL Normal 11.8-15.4 [facility] Comment on above: Performed By: #### C MP, [id number], A1C WTH eA, SCAN CBC, LIPID #### [address] Lymphocytes (Bld) [#/Vol] 2.6 10*3/uL Normal 1.00-4.8 [facility] Comment on above: Performed By: #### C MP, [id number], A1C WTH eA, SCAN CBC, LIPID #### [address] Lymphocytes/100 WBC (Bld) 20.5 % Normal . [facility] Comment on above: Performed By: #### C MP, [id number], A1C WTH eA, SCAN CBC, LIPID #### [address] MCH (RBC) [Entitic mass] 29.9 pg Normal 24.7-34.3 [facility] Comment on above: Performed By: #### C MP, [id number], A1C WTH eA, SCAN CBC, LIPID #### [address] MCV (RBC) [Entitic vol] 90.8 fL Normal 80-100 [facility] Comment on above: Performed By: #### C MP, [id number], A1C WTH eA, SCAN CBC, LIPID #### [address] Mean Corpuscular HGB Conc 32.9 g/dL Normal 32.0-35.0 [facility] Comment on above: Performed By: #### C MP, [id number], A1C WTH eA, SCAN CBC, LIPID #### [address] Monocytes (Bld) [#/Vol] 0.9 10*3/uL High 0.0-0.8 [facility] Comment on above: Performed By: #### C MP, [id number], A1C WTH eA, SCAN CBC, LIPID #### [address] Monocytes/100 WBC (Bld) 7.1 % Normal . [facility] Comment on above: Performed By: #### C MP, [id number], A1C WTH eA, SCAN CBC, LIPID #### [address] Neutrophils (Bld) [#/Vol] 9.0 10*3/uL High 1.8-7.7 [facility] Comment on above: Performed By: #### C MP, [id number], A1C WTH eA, SCAN CBC, LIPID #### [address] Neutrophils/100 WBC (Bld) 71.6 % Normal . [facility] Comment on above: Performed By: #### C MP, [id number], A1C WTH eA, SCAN CBC, LIPID #### [address] NRBC% 0.0 /100{WBC} Normal 0-0.5 [facility] Comment on above: Performed By: #### C MP, [id number], A1C WTH eA, SCAN CBC, LIPID #### [address] Platelet Estimate Normal Normal Normal [facility] Comment on above: Performed By: #### C MP, [id number], A1C WTH eA, SCAN CBC, LIPID #### [address] Platelet mean volume (Bld) [Entitic vol] 8.0 fL Normal 6.3-10.7 [facility] Comment on above: Performed By: #### C MP, [id number], A1C WTH eA, SCAN CBC, LIPID #### [place] [id number] [place] Platelet Morphology Normal Normal Normal [facility] Comment on above: Result Comment: PERF ORMED BY: [place] [address] PATHOLOGIST [employer] KESHAV MCDONALD M.D. Performed By: #### C MP, [id number], A1C WTH eA, SCAN CBC, LIPID #### [address] Platelets (Bld) [#/Vol] 270 10*3/uL Normal 150-450 [facility] Comment on above: Performed By: #### C MP, [id number], A1C WTH eA, SCAN CBC, LIPID #### [address] RBC (Bld) [#/Vol] 4.91 10*6/uL Normal 3.60-5.00 [facility] Comment on above: Performed By: #### C MP, [id number], A1C WTH eA, SCAN CBC, LIPID #### [address] RBC morphology finding Nom (Bld) Normal Normal Normal [facility] Comment on above: Performed By: #### C MP, [id number], A1C WTH eA, SCAN CBC, LIPID #### [address] WBC (Bld) [#/Vol] 12.5 10*3/uL High 3.8-11.6 [facility] Comment on above: Performed By: #### C MP, [id number], A1C WTH eA, SCAN CBC, LIPID #### [address] Serum or plasma albumin/glob ulin mass ratioOrdered By: Jt Walls on 02-15-2025 Albumin/Globulin [Mass ratio] Serum or plasma albumin/globulin mass ratio [facility] Serum or plasma anion gap de terminationOrdered By: Jt Walls on 02-15-2025 Anion gap [Moles/Vol] Serum or plasma an ion gap determination 6.0-15.0 [facility] Serum or plasma total choles terol/high density lipoprotein (HDL) cholesterol mass ratOrdered By: Jt Walls on 02-15-2025 Cholesterol.total/Chol esterol in HDL [Mass ratio] Serum or plasma total cholesterol/high density lipoprotein (HDL) cholesterol mass rat <5.0 [facility] Sodium [Moles/volume] in Ser um or PlasmaOrdered By: Jt Walls on 02-15-2025 Sodium [Moles/Vol] Sodium [Moles/volume ] in Serum or Plasma 136-145 [facility] Triglyceride [Mass/volume] i n Serum or PlasmaOrdered By: Jt Walls on 02-15-2025 Triglyceride [Mass/Vol] Triglyceride [Mass/volume] in Serum or Plasma 0-149 [facility] Comment on above: TRIG ATP III CLASSIF ICATIONTRIG less than 150 mg/dL NormalTRIG 150-199 mg/dL Borderline highTRIG 200-500 mg/dL High TRIG greater than 500 mg/dL Very highStandard traceable to the Center for Disease Conrtrol and Prevention (CDC) test method. Urea nitrogen [Mass/volume] in Serum or PlasmaOrdered By: Jt Walls on 02-15-2025 Urea nitrogen [Mass/Vol] Urea nitrogen [Mass/volume] in Serum or Plasma High 7-25 [facility] Vitamin D 25 Hydroxy Totalon 02-15-2025 Vitamin D 25 Hydroxy Total 41.3 ng/mL Normal 30-100 [facility] Comment on above: Result Comment: ANNELIESE MIN D STATUS 25(OH)VITAMIN D RANGE (ng/mL) Deficient <20 Insufficient 20 to <30 Sufficient 30 to 100 Reference: Damon MF,Nita NC, Jassi ESQUEDA, et al. Evaluation,treatment, and prevention of vitamin D deficiency; an Endocrine Society clinical practice guideline. JCEM. 2010; 96(7):1911-30. PERFORMED BY: [address] [address] PATHOLOGIST [employer] KESHAV MCDONALD M.D. Performed By: #### C MP, [id number], A1C WTH eA, SCAN CBC, LIPID #### [facility] [address] [place], [place] [id number] [facility] Vitamin D+Metabolites [Mass/ volume] in Serum or PlasmaOrdered By: Jt Walls on 02-15-2025 Vitamin D+Metabolites [Mass/Vol] Vitamin D+Metabolites [Mass/volume] in Serum or Plasma 30-100 [facility] Comment on above: VITAMIN D STATUS 25( [place])VITAMIN D RANGE (ng/mL) Deficient <20 Insufficient 20 to <30Sufficient 30 to 100Reference: Damon MF,Nita LARSON, Jassi ESQUEDA, et al. Evaluation,treatment, and prevention of vitamin D deficiency; an Endocrine Society clinical practice guideline. JCEM. 2010; 96(7):1911-30. WBC Auto (Bld) [#/Vol]Ordere d By: Jt Walls on 02-15-2025 WBC (Bld) [#/Vol] Leukocytes [#/volume ] in Blood by Automated count High 3.8-11.6 [facility] A1C with Estimated Average G luon 08-16-2024 Glucose [Mass/Vol] 126 mg/dL Normal [facility] Comment on above: Result Comment: PERF ORMED BY: [place] [address] PATHOLOGIST [employer] FLORENCIA MARIANO M.D. Performed By: #### A 1C WTH eA, CBC, CMP #### [address] Alanine aminotransferase [En zymatic activity/volume] in Serum or PlasmaOrdered By: Frida Martini on 08-16-2024 ALT [Catalytic activity/Vol] 11 U/L Normal 7-52 [facility] Comment on above: Performed By: #### A 1C WTH eA, CBC, CMP #### [place] [address] [place] Albumin [Mass/volume] in Ser um or Plasma by Bromocresol green (BCG) dye binding methoOrdered By: Frida Martini on 08-16-2024 Albumin BCG dye [Mass/Vol] 4.0 g/dL 3.5-5.7 [facility] Alkaline phosphatase [Enzyma tic activity/volume] in Serum or PlasmaOrdered By: Frida Martini on 08-16-2024 ALP [Catalytic activity/Vol] 92 U/L Normal 34-104 [facility] Comment on above: Result Comment: PERF ORMED BY: [place] [address] PATHOLOGIST [employer] FLORENCIA MARIANO M.D. Performed By: #### A 1C W[facility] Melissa, CBC, CMP #### [address] Aspartate aminotransferase [ Enzymatic activity/volume] in Serum or PlasmaOrdered By: Frida Martini on 08-16-2024 AST [Catalytic activity/Vol] 12 U/L Low 13-39 [facility] Comment on above: Performed By: #### A 1C WTH eA, CBC, CMP #### [address] Automated basophil %Ordered By: Frida Martini on 08-16-2024 Basophils/100 WBC (Bld) 0.4 % Normal . [facility] Comment on above: Performed By: #### A 1C WTH eA, CBC, CMP #### [address] Automated basophil countOrde red By: Frida Martini on 08-16-2024 Basophils (Bld) [#/Vol] 0.0 10*3/uL Normal 0.0-0.2 [facility] Comment on above: Result Comment: PERF ORMED BY: [place] [address] PATHOLOGIST [employer] FLORENCIA MARIANO M.D. Performed By: #### A 1C WTH eA, CBC, CMP #### [address] Automated blood monocyte cou ntOrdered By: Frida Martini on 08-16-2024 Monocytes (Bld) [#/Vol] 0.4 10*3/uL Normal 0.0-0.8 [facility] Comment on above: Performed By: #### A 1C WTH eA, CBC, CMP #### [facility] [address] Automated eosinophil %Ordere d By: Frida Martini on 08-16-2024 Eosinophils/100 WBC (Bld) 2.0 % Normal . [facility] Comment on above: Performed By: #### A 1C [facility] eA, CBC, CMP #### [facility] [address] Automated eosinophil countOr dered By: Frida Martini on 08-16-2024 Eosinophils (Bld) [#/Vol] 0.1 10*3/uL Normal 0.0-0.45 [facility] Comment on above: Performed By: #### A 1C [facility] eA, CBC, CMP #### [address] Automated monocyte %Ordered By: Frida Martini on 08-16-2024 Monocytes/100 WBC (Bld) 5.8 % Normal . [facility] Comment on above: Performed By: #### A 1C [facility] eA, CBC, CMP #### [address] Automated neutrophil %Ordere d By: Frida Martini on 08-16-2024 Neutrophils/100 WBC (Bld) 62.7 % Normal . [facility] Comment on above: Performed By: #### A 1C [facility] Melissa, CBC, CMP #### [address] Bilirubin.total [Mass/volume ] in Serum or PlasmaOrdered By: Frida Martini on 08-16-2024 Bilirubin [Mass/Vol] 0.7 mg/dL Normal 0.3-1.0 [facility] Comment on above: Performed By: #### A 1C WT eA, CBC, CMP #### [address] Calcium [Mass/volume] in Ser um or PlasmaOrdered By: Frida Martini on 08-16-2024 Calcium [Mass/Vol] 9.1 mg/dL Normal 8.6-10.3 [facility] Comment on above: Performed By: #### A 1C [facility] Melissa, CBC, CMP #### [address] Carbon dioxide, total [Moles /volume] in Serum or PlasmaOrdered By: Frida Martini on 08-16-2024 CO2 [Moles/Vol] 28.7 mmol/L Normal 21.0-31.0 [facility] Comment on above: Performed By: #### A 1C WT Melissa, CBC, CMP #### [address] Chloride [Moles/volume] in S nadia or PlasmaOrdered By: Frida Martini on 08-16-2024 Chloride [Moles/Vol] 106 mmol/L Normal 98-107 [facility] Comment on above: Performed By: #### A 1C WT Melissa, CBC, CMP #### [address] Complete Blood Count Auto Di ffon 08-16-2024 Mean Corpuscular HGB Conc 33.3 g/dL Normal 32.0-35.0 [facility] Comment on above: Performed By: #### A 1C WT Melissa, CBC, CMP #### [address] NRBC% 0.1 /100{WBC} Normal 0-0.5 [facility] Comment on above: Performed By: #### A 1C WT Melissa, CBC, CMP #### [address] Comprehensive Metabolic Pane carlos alberto 08-16-2024 Albumin [Mass/Vol] 4.0 g/dL Normal 3.5-5.7 [facility] Comment on above: Performed By: #### A 1C WT Melissa, CBC, CMP #### [address] GFR/1.73 sq M.predicted MDRD (S/P/Bld) [Vol rate/Area] mL/min/{1.73_m2} Normal [facility] Comment on above: Performed By: #### A 1C WTH eA, CBC, CMP #### [facility] [address] Creatinine [Mass/volume] in Serum or PlasmaOrdered By: Frida Martini on 08-16-2024 Creatinine [Mass/Vol] 0.74 mg/dL Normal 0.60-1.20 [facility] Comment on above: Performed By: #### A 1C WTH eA, CBC, CMP #### [facility] [address] Erythrocyte distribution wid th [Ratio] by Automated countOrdered By: Frida Martini on 08-16-2024 Erythrocyte distribution width (RBC) [Ratio] 14.0 % Normal 11.9-15.3 [facility] Comment on above: Performed By: #### A 1C WTH eA, CBC, CMP #### [place] [address] [place] Erythrocytes [#/volume] in B lood by Automated countOrdered By: Frida Martini on 08-16-2024 RBC (Bld) [#/Vol] 4.90 10*6/uL Normal 3.60-5.00 [facility] Comment on above: Performed By: #### A 1C WTH eA, CBC, CMP #### [address] Glucose [Mass/volume] in Ser um or PlasmaOrdered By: Frida Martini on 08-16-2024 Glucose [Mass/Vol] 88 mg/dL Normal 70-100 [facility] Comment on above: ADA recommended refe rence rangeRandom Glucose Reference Range is dependent on time and content of last meal. Glucose of more than 200 mg/dL in a nonstressed, ambulatory subject supports the diagnosis of Diabetes Mellitus. Result Comment: [place] om Glucose Reference Range is dependent on time and content of last meal. Glucose of more than 200 mg/dL in a nonstressed, ambulatory subject supports the diagnosis of Diabetes Mellitus. ADA recommended reference range Performed By: #### A 1C WTH eA, CBC, CMP #### [facility] [address] Glucose mean value [Mass/vol ume] in Blood Estimated from glycated hemoglobinOrdered By: Frida Martini on 08-16-2024 Average glucose Estimated from glycated hemoglobin (Bld) [Mass/Vol] 126 mg/dL [facility] Hematocrit [Volume Fraction] of Blood by Automated countOrdered By: Frida Martini on 08-16-2024 Hematocrit (Bld) [Volume fraction] 45.1 % Normal 34.0-46.4 [facility] Comment on above: Performed By: #### A 1C [facility] Melissa, CBC, CMP #### [address] Hemoglobin A1c percentageOrd ered By: Frida Martini on 08-16-2024 HbA1c (Bld) [Mass fraction] 6.0 % High 4.3-5.6 [facility] Comment on above: Increased risk for d iabetes: 5.7 - 6.4diabetes: >6.4glycemic control for adults with diabetes: <7.0 Result Comment: Incr eased risk for diabetes: 5.7 - 6.4 diabetes: >6.4 glycemic control for adults with diabetes: <7.0 Performed By: #### A 1C [facility] Melissa, CBC, CMP #### [address] Hemoglobin [Mass/volume] in BloodOrdered By: Frida Martini on 08-16-2024 Hemoglobin (Bld) [Mass/Vol] 15.1 g/dL Normal 11.8-15.4 [facility] Comment on above: Performed By: #### A 1C WT Melissa, CBC, CMP #### [facility] [address] [place] [address] Leukocytes [#/volume] correc zay for nucleated erythrocytes in Blood by Automated counOrdered By: Frida Martini on 08-16-2024 WBC corrected for nucl RBC Auto (Bld) [#/Vol] 7.2 10*3/uL 3.8-11.6 [facility] Leukocytes [#/volume] in Blo od by Automated countOrdered By: Frida Martini on 08-16-2024 WBC (Bld) [#/Vol] 7.2 10*3/uL Normal 3.8-11.6 [facility] Comment on above: Performed By: #### A 1C [facility] Melissa, CBC, CMP #### [facility] [address] Lymphocytes [#/volume] in Bl ood by Automated countOrdered By: Frida Martini on 08-16-2024 Lymphocytes (Bld) [#/Vol] 2.1 10*3/uL Normal 1.00-4.8 [facility] Comment on above: Performed By: #### A 1C [facility] Melissa, CBC, CMP #### [address] Lymphocytes/100 leukocytes i n Blood by Automated countOrdered By: Frida Martini on 08-16-2024 Lymphocytes/100 WBC (Bld) 29.1 % Normal . [facility] Comment on above: Performed By: #### A 1C [facility] Melissa, CBC, CMP #### [facility] [address] MCH [Entitic mass] by Automa zay countOrdered By: Frida Martini on 08-16-2024 MCH (RBC) [Entitic mass] 30.7 pg Normal 24.7-34.3 [facility] Comment on above: Performed By: #### A 1C [facility] Melissa, CBC, CMP #### [facility] [address] MCHC Auto (RBC) [Mass/Vol]Or dered By: Frida Martini on 08-16-2024 MCHC (RBC) [Mass/Vol] 33.3 g/dL 32.0-35.0 [facility] MCV [Entitic volume] by Auto mated countOrdered By: Frida Martini on 08-16-2024 MCV (RBC) [Entitic vol] 92.2 fL Normal 80-100 [facility] Comment on above: Performed By: #### A 1C [facility] Melissa, CBC, CMP #### [facility] [facility] [address] Neutrophils [#/volume] in Bl ood by Automated countOrdered By: Frida Martini on 08-16-2024 Neutrophils (Bld) [#/Vol] 4.5 10*3/uL Normal 1.8-7.7 [facility] Comment on above: Performed By: #### A 1C [facility] Melissa, CBC, CMP #### [facility] [address] No Panel InformationOrdered By: Frida Martini on 08-16-2024 Estimated GFR (CKD-EPI) > 60.0 mL/Min [facility] Creatinine Clearance (Chem N/A [facility] Nucleated erythrocytes [Pres ence] in Blood by Automated countOrdered By: Frida Martini on 08-16-2024 Nucleated RBC Auto Ql (Bld) 0.1 /100{WBC} 0-0.5 [facility] Platelet mean volume [Entiti c volume] in Blood by Automated countOrdered By: Frida Martini on 08-16-2024 Platelet mean volume (Bld) [Entitic vol] 8.2 fL Normal 6.3-10.7 [facility] Comment on above: Performed By: #### A 1C [facility] Melissa, CBC, CMP #### [facility] [address] Platelets [#/volume] in Bloo d by Automated countOrdered By: Frida Martini on 08-16-2024 Platelets (Bld) [#/Vol] 197 10*3/uL Normal 150-450 [facility] Comment on above: Performed By: #### A 1C [facility] Melissa, CBC, CMP #### [facility] [address] Potassium [Moles/volume] in Serum or PlasmaOrdered By: Frida Martini on 08-16-2024 Potassium [Moles/Vol] 4.5 mmol/L Normal 3.5-5.1 [facility] Comment on above: Performed By: #### A 1C [facility] Melissa, CBC, CMP #### [address] Protein [Mass/volume] in Ser um or PlasmaOrdered By: Frida Martini on 08-16-2024 Protein [Mass/Vol] 6.6 g/dL Normal 6.4-8.9 [facility] Comment on above: Performed By: #### A 1C [facility] Melissa CBC, CMP #### [address] Serum globulin measurement b y calculation (mass/volume)Ordered By: Frida Martini on 08-16-2024 Globulin (S) [Mass/Vol] 2.6 g/dL Normal [facility] Comment on above: Performed By: #### A 1C [facility] Melissa CBC, CMP #### [address] Serum or plasma albumin/glob ulin mass ratioOrdered By: Frida Martini on 08-16-2024 Albumin/Globulin [Mass ratio] 1.5 {ratio} [facility] Comment on above: Performed By: #### A 1C [facility] Melissa CBC, CMP #### [address] Serum or plasma anion gap de terminationOrdered By: Frida Martini on 08-16-2024 Anion gap [Moles/Vol] 10.8 mmol/L Normal 6.0-15.0 [facility] [place] [facility] Comment on above: Performed By: #### A 1C [facility] Melissa, CBC, CMP #### [address] Sodium [Moles/volume] in Ser um or PlasmaOrdered By: Frida Martini on 08-16-2024 Sodium [Moles/Vol] 141 mmol/L Normal 136-145 [facility] Comment on above: Performed By: #### A 1C [facility] Melissa, CBC, CMP #### [address] Urea nitrogen [Mass/volume] in Serum or PlasmaOrdered By: Frida Martini on 08-16-2024 Urea nitrogen [Mass/Vol] 16 mg/dL Normal 7-25 [facility] Comment on above: Performed By: #### A 1C WT eA, CBC, CMP #### [facility] [address] Alanine aminotransferase [En zymatic activity/volume] in Serum or PlasmaOrdered By: Frida Martini on 02-16-2024 ALT [Catalytic activity/Vol] 9 U/L 7-52 [facility] Albumin [Mass/volume] in Ser um or Plasma by Bromocresol green (BCG) dye binding methoOrdered By: Frida Martini on 02-16-2024 Albumin BCG dye [Mass/Vol] 4.1 g/dL 3.5-5.7 [facility] Alkaline phosphatase [Enzyma tic activity/volume] in Serum or PlasmaOrdered By: Frida Martini on 02-16-2024 ALP [Catalytic activity/Vol] 89 U/L 34-104 [facility] Aspartate aminotransferase [ Enzymatic activity/volume] in Serum or PlasmaOrdered By: Frida Martini on 02-16-2024 AST [Catalytic activity/Vol] 12 U/L 13-39 [facility] Basophils Auto (Bld) [#/Vol] Ordered By: Frida Martini on 02-16-2024 Basophils (Bld) [#/Vol] 0.0 10*3/uL 0.0-0.2 [facility] Basophils/100 WBC Auto (Bld) Ordered By: Frida Martini on 02-16-2024 Basophils/100 WBC (Bld) 0.3 % . [facility] Bilirubin.total [Mass/volume ] in Serum or PlasmaOrdered By: Frida Martini on 02-16-2024 Bilirubin [Mass/Vol] 0.8 mg/dL 0.3-1.0 [facility] Calcium [Mass/volume] in Ser um or PlasmaOrdered By: Frida Martini on 02-16-2024 Calcium [Mass/Vol] 9.3 mg/dL 8.6-10.3 [facility] Carbon dioxide, total [Moles /volume] in Serum or PlasmaOrdered By: Frida Martini on 02-16-2024 CO2 [Moles/Vol] 27.9 mmol/L 21.0-31.0 [facility] [place] [facility] Chloride [Moles/volume] in S nadia or PlasmaOrdered By: Frida Martini on 02-16-2024 Chloride [Moles/Vol] 106 mmol/L 98-107 [facility] Creatinine [Mass/volume] in Serum or PlasmaOrdered By: Frida Martini on 02-16-2024 Creatinine [Mass/Vol] 0.82 mg/dL 0.60-1.20 [facility] Eosinophils Auto (Bld) [#/Vo l]Ordered By: Frida Martini on 02-16-2024 Eosinophils (Bld) [#/Vol] 0.2 10*3/uL 0.0-0.45 [facility] Eosinophils/100 WBC Auto (Bl d)Ordered By: Frida Martini on 02-16-2024 Eosinophils/100 WBC (Bld) 2.3 % . [facility] Erythrocyte distribution wid th Auto (RBC) [Ratio]Ordered By: Frida Martini on 02-16-2024 Erythrocyte distribution width (RBC) [Ratio] 14.5 % 11.9-15.3 [facility] Globulin Calc (S) [Mass/Vol] Ordered By: Frida Martini on 02-16-2024 Globulin (S) [Mass/Vol] 2.1 g/dL [facility] Glucose [Mass/volume] in Ser um or PlasmaOrdered By: Frida Martini on 02-16-2024 Glucose [Mass/Vol] 80 mg/dL 70-100 [facility] Comment on above: ADA recommended refe rence rangeRandom Glucose Reference Range is dependent on time and content of last meal. Glucose of more than 200 mg/dL in a nonstressed, ambulatory subject supports the diagnosis of Diabetes Mellitus. Hematocrit Auto (Bld) [Volum e fraction]Ordered By: Frida Martini on 02-16-2024 Hematocrit (Bld) [Volume fraction] 44.3 % 34.0-46.4 [facility] Hemoglobin [Mass/volume] in BloodOrdered By: Frida Martini on 02-16-2024 Hemoglobin (Bld) [Mass/Vol] 14.4 g/dL 11.8-15.4 [facility] Leukocytes [#/volume] correc zay for nucleated erythrocytes in Blood by Automated counOrdered By: Frida Martini on 02-16-2024 WBC corrected for nucl RBC Auto (Bld) [#/Vol] 8.1 10*3/uL 3.8-11.6 [facility] Lymphocytes Auto (Bld) [#/Vo l]Ordered By: Frida Martini on 02-16-2024 Lymphocytes (Bld) [#/Vol] 2.6 10*3/uL 1.00-4.8 [facility] Lymphocytes/100 WBC Auto (Bl d)Ordered By: Frida Martini on 02-16-2024 Lymphocytes/100 WBC (Bld) 31.6 % . [facility] MCH Auto (RBC) [Entitic mass ]Ordered By: Frida Martini on 02-16-2024 MCH (RBC) [Entitic mass] 30.0 pg 24.7-34.3 [facility] MCHC Auto (RBC) [Mass/Vol]Or dered By: Frida Martini on 02-16-2024 MCHC (RBC) [Mass/Vol] 32.5 g/dL 32.0-35.0 [facility] MCV Auto (RBC) [Entitic vol] Ordered By: Frida Martini on 02-16-2024 MCV (RBC) [Entitic vol] 92.1 fL 80-100 [facility] Monocytes Auto (Bld) [#/Vol] Ordered By: Frida Martini on 02-16-2024 Monocytes (Bld) [#/Vol] 0.5 10*3/uL 0.0-0.8 [facility] Monocytes/100 WBC Auto (Bld) Ordered By: Frida Martini on 02-16-2024 Monocytes/100 WBC (Bld) 6.3 % . [facility] Neutrophils Auto (Bld) [#/Vo l]Ordered By: Frida Martini on 02-16-2024 Neutrophils (Bld) [#/Vol] 4.8 10*3/uL 1.8-7.7 [facility] Neutrophils/100 WBC Auto (Bl d)Ordered By: Frida Martini on 02-16-2024 Neutrophils/100 WBC (Bld) 59.5 % . [facility] No Panel InformationOrdered By: Frida Martini on 02-16-2024 Estimated GFR (CKD-EPI) > 60.0 mL/Min [facility] Creatinine Clearance (Chem N/A [facility] Nucleated erythrocytes [Pres ence] in Blood by Automated countOrdered By: Frida Martini on 02-16-2024 Nucleated RBC Auto Ql (Bld) 0.2 /100{WBC} 0-0.5 [facility] Platelet mean volume Auto (B ld) [Entitic vol]Ordered By: Frida Martini on 02-16-2024 Platelet mean volume (Bld) [Entitic vol] 8.3 fL 6.3-10.7 [facility] Platelets Auto (Bld) [#/Vol] Ordered By: Frida Martini on 02-16-2024 Platelets (Bld) [#/Vol] 204 10*3/uL 150-450 [facility] Potassium [Moles/volume] in Serum or PlasmaOrdered By: Frida Martini on 02-16-2024 Potassium [Moles/Vol] 4.3 mmol/L 3.5-5.1 [facility] Protein [Mass/volume] in Ser um or PlasmaOrdered By: Frida Martini on 02-16-2024 Protein [Mass/Vol] 6.2 g/dL 6.4-8.9 [facility] RBC Auto (Bld) [#/Vol]Ordere d By: Frida Martini on 02-16-2024 RBC (Bld) [#/Vol] 4.81 10*6/uL 3.60-5.00 [facility] Serum or plasma albumin/glob ulin mass ratioOrdered By: Frida Martini on 02-16-2024 Albumin/Globulin [Mass ratio] 2.0 {ratio} [facility] Serum or plasma anion gap de terminationOrdered By: Frida Martini on 02-16-2024 Anion gap [Moles/Vol] 9.4 mmol/L 6.0-15.0 [facility] Sodium [Moles/volume] in Ser um or PlasmaOrdered By: Frida Martini on 02-16-2024 Sodium [Moles/Vol] 139 mmol/L 136-145 [facility] Urea nitrogen [Mass/volume] in Serum or PlasmaOrdered By: Frida Martini on 02-16-2024 Urea nitrogen [Mass/Vol] 19 mg/dL 7-25 [facility] WBC Auto (Bld) [#/Vol]Ordere d By: Frida Martini on 02-16-2024 WBC (Bld) [#/Vol] 8.1 10*3/uL 3.8-11.6 [facility] Alanine aminotransferase [En zymatic activity/volume] in Serum or PlasmaOrdered By: Jt Walls on 08-24-2023 ALT [Catalytic activity/Vol] 9 U/L 7-52 [facility] Albumin [Mass/volume] in Ser um or Plasma by Bromocresol green (BCG) dye binding methoOrdered By: Jt Walls on 08-24-2023 Albumin BCG dye [Mass/Vol] 4.1 g/dL 3.5-5.7 [facility] Alkaline phosphatase [Enzyma tic activity/volume] in Serum or PlasmaOrdered By: Jt Walls on 08-24-2023 ALP [Catalytic activity/Vol] 83 U/L 34-104 [facility] Aspartate aminotransferase [ Enzymatic activity/volume] in Serum or PlasmaOrdered By: Jt Walls on 08-24-2023 AST [Catalytic activity/Vol] 12 U/L 13-39 [facility] Basophils Auto (Bld) [#/Vol] Ordered By: Jt Walls on 08-24-2023 Basophils (Bld) [#/Vol] 0.0 10*3/uL 0.0-0.2 [facility] Basophils/100 WBC Auto (Bld) Ordered By: Jt Walls on 08-24-2023 Basophils/100 WBC (Bld) 0.6 % . [facility] Bilirubin.total [Mass/volume ] in Serum or PlasmaOrdered By: Jt Walls on 08-24-2023 Bilirubin [Mass/Vol] 0.5 mg/dL 0.3-1.0 [facility] Calcium [Mass/volume] in Ser um or PlasmaOrdered By: Jt Walls on 08-24-2023 Calcium [Mass/Vol] 9.1 mg/dL 8.6-10.3 [facility] Carbon dioxide, total [Moles /volume] in Serum or PlasmaOrdered By: Jt Walls on 08-24-2023 CO2 [Moles/Vol] 28.8 mmol/L 21.0-31.0 [facility] [place] [facility] Chloride [Moles/volume] in S nadia or PlasmaOrdered By: Jt Walls on 08-24-2023 Chloride [Moles/Vol] 109 mmol/L 98-107 [facility] Creatinine [Mass/volume] in Serum or PlasmaOrdered By: Jt Walls on 08-24-2023 Creatinine [Mass/Vol] 0.81 mg/dL 0.60-1.20 [facility] Eosinophils Auto (Bld) [#/Vo l]Ordered By: Jt Walls on 08-24-2023 Eosinophils (Bld) [#/Vol] 0.1 10*3/uL 0.0-0.45 [facility] Eosinophils/100 WBC Auto (Bl d)Ordered By: Jt Walls on 08-24-2023 Eosinophils/100 WBC (Bld) 2.2 % . [facility] Erythrocyte distribution wid th Auto (RBC) [Ratio]Ordered By: Jt Walls on 08-24-2023 Erythrocyte distribution width (RBC) [Ratio] 14.0 % 11.9-15.3 [facility] Globulin Calc (S) [Mass/Vol] Ordered By: Jt Walls on 08-24-2023 Globulin (S) [Mass/Vol] 2.0 g/dL [facility] Glucose [Mass/volume] in Ser um or PlasmaOrdered By: Jt Walls on 08-24-2023 Glucose [Mass/Vol] 90 mg/dL 70-100 [facility] Comment on above: ADA recommended refe rence rangeRandom Glucose Reference Range is dependent on time and content of last meal. Glucose of more than 200 mg/dL in a nonstressed, ambulatory subject supports the diagnosis of Diabetes Mellitus. Hematocrit Auto (Bld) [Volum e fraction]Ordered By: Jt Walls on 08-24-2023 Hematocrit (Bld) [Volume fraction] 43.2 % 34.0-46.4 [facility] Hemoglobin [Mass/volume] in BloodOrdered By: Jt Walls on 08-24-2023 Hemoglobin (Bld) [Mass/Vol] 14.4 g/dL 11.8-15.4 [facility] Leukocytes [#/volume] correc zay for nucleated erythrocytes in Blood by Automated counOrdered By: Jt Walls on 08-24-2023 WBC corrected for nucl RBC Auto (Bld) [#/Vol] 6.8 10*3/uL 3.8-11.6 [facility] Lymphocytes Auto (Bld) [#/Vo l]Ordered By: Jt Walls on 08-24-2023 Lymphocytes (Bld) [#/Vol] 2.0 10*3/uL 1.00-4.8 [facility] Lymphocytes/100 WBC Auto (Bl d)Ordered By: Jt Walls on 08-24-2023 Lymphocytes/100 WBC (Bld) 29.3 % . [facility] MCH Auto (RBC) [Entitic mass ]Ordered By: Jt Walls on 08-24-2023 MCH (RBC) [Entitic mass] 31.1 pg 24.7-34.3 [facility] MCHC Auto (RBC) [Mass/Vol]Or dered By: Jt Walls on 08-24-2023 MCHC (RBC) [Mass/Vol] 33.3 g/dL 32.0-35.0 [facility] MCV Auto (RBC) [Entitic vol] Ordered By: Jt Walls on 08-24-2023 MCV (RBC) [Entitic vol] 93.4 fL 80-100 [facility] Monocytes Auto (Bld) [#/Vol] Ordered By: Jt Walls on 08-24-2023 Monocytes (Bld) [#/Vol] 0.5 10*3/uL 0.0-0.8 [facility] Monocytes/100 WBC Auto (Bld) Ordered By: Jt Walls on 08-24-2023 Monocytes/100 WBC (Bld) 6.8 % . [facility] Neutrophils Auto (Bld) [#/Vo l]Ordered By: Jt Walls on 08-24-2023 Neutrophils (Bld) [#/Vol] 4.2 10*3/uL 1.8-7.7 [facility] Neutrophils/100 WBC Auto (Bl d)Ordered By: Jt Walls on 08-24-2023 Neutrophils/100 WBC (Bld) 61.1 % . [facility] No Panel InformationOrdered By: Jt Walls on 08-24-2023 Estimated GFR (CKD-EPI) > 60.0 mL/Min [facility] Creatinine Clearance (Chem N/A [facility] Nucleated erythrocytes [Pres ence] in Blood by Automated countOrdered By: Jt Walls on 08-24-2023 Nucleated RBC Auto Ql (Bld) 0.2 /100{WBC} 0-0.5 [facility] Platelet mean volume Auto (B ld) [Entitic vol]Ordered By: Jt Walls on 08-24-2023 Platelet mean volume (Bld) [Entitic vol] 8.8 fL 6.3-10.7 [facility] Platelets Auto (Bld) [#/Vol] Ordered By: Jt Walls on 08-24-2023 Platelets (Bld) [#/Vol] 181 10*3/uL 150-450 [facility] Potassium [Moles/volume] in Serum or PlasmaOrdered By: Jt Walls on 08-24-2023 Potassium [Moles/Vol] 4.2 mmol/L 3.5-5.1 [facility] Protein [Mass/volume] in Ser um or PlasmaOrdered By: Jt Walls on 08-24-2023 Protein [Mass/Vol] 6.1 g/dL 6.4-8.9 [facility] RBC Auto (Bld) [#/Vol]Ordere d By: Jt Walls on 08-24-2023 RBC (Bld) [#/Vol] 4.63 10*6/uL 3.60-5.00 [facility] Serum or plasma albumin/glob ulin mass ratioOrdered By: Jt Robisonrow on 08-24-2023 Albumin/Globulin [Mass ratio] 2.1 {ratio} [facility] Serum or plasma anion gap de terminationOrdered By: Jt Kavita on 08-24-2023 Anion gap [Moles/Vol] 8.4 mmol/L 6.0-15.0 [facility] Sodium [Moles/volume] in Ser um or PlasmaOrdered By: Jt Kavita on 08-24-2023 Sodium [Moles/Vol] 142 mmol/L 136-145 [facility] Urea nitrogen [Mass/volume] in Serum or PlasmaOrdered By: Jt Kavita on 08-24-2023 Urea nitrogen [Mass/Vol] 12 mg/dL 7-25 [facility] WBC Auto (Bld) [#/Vol]Ordere d By: Jt Robisonrow on 08-24-2023 WBC (Bld) [#/Vol] 6.8 10*3/uL 3.8-11.6 [facility] Follow-Upon 06-22-2023 Follow-Up [id number] Nicol Lacey 1960 F Date Provider Department Center 06/22/2023 TONIE DE [facility] ONC D[facility] Family History Problem Relation Age of Onset Heart disease Mother Esophageal cancer Father Family Status - Relation Status Age at Mother Father Level of Service:51584 [place] OFFICE/OUTPATIENT ESTABLISHED LOW MDM 20-29 MIN Reason for Visit and Comments: Follow-up [660466] - Here today to discuss recent MRI Normal [facility] MR LUMBAR SPINE WO CONTRASTo n 06-22-2023 [...] at right L4-5. Electronically signed: Hema Hurt. [facility] Comment on above: Order Comment: Has r ight sided mostly L5 radiculopathy Office Visiton 05-26-2023 Follow-up visit [id number] Nicol Lacey 1960 F Date Provider Department Center 05/26/2023 Camilla-TONIE [facility] ONC DCC Family History Problem Relation Age of Onset Heart disease Mother Esophageal cancer Father Family Status - Relation Status Age at Mother Father Level of Service:07868 NM OFFICE/OUTPATIENT NEW LOW MDM 30-44 MINUTES Reason for Visit and Comments: Consult [484] - Here today for back pain-old mri and hip xray Normal [facility] Orders Onlyon 05-13-2023 Orders Only [id number] Nicol Lacey 1960 F Date Provider Department Center 05/13/2023 TONIE DE GUZMAN [facility] ONC DCC No family history on file Normal [facility] PROTIMEon 02-24-2023 INR Coag (PPP) [Relative time] 1.07 {INR} Normal [facility] Comment on above: Performed By: #### P T #### [facility] [address] [place] [address] Dr. Jason Paniagua INR GUIDELINES SEE BELOW Normal [facility] Comment on above: Result Comment: AVEL RED INR: 2.0 - 3.0 CONDITIONS NOT LISTED BELOW 2.5 - 3.5 FOR PROSTHETIC HEART VALVE REPLACEMENT 2.5 - 3.5 RECURRENT THROMBOSIS Performed By: #### P T #### [facility] [address] [address] [address] Jason aPniagua PT Coag (PPP) [Time] 11.3 s Normal 9.0-11.6 [facility] Comment on above: Performed By: #### P T #### [facility] [address] [address] [address] Jason Paniagua Lab Reportson 08-01-2022 Lab Reports [id number]#[id number]:127 Normal [facility] General Surgery Office/Clini c Noteon [...] Tab, 25 mg= 1 tab(s), Oral, Daily [place] 325 mg-5 mg oral tablet, 1 tab(s), [...] Father. Ulcerative colitis: Sister and Brother. Normal [facility] Comment on above: Result Comment: Elec tronically [...] 07/22/2005 Document Revised: 02/10/2019 Document Reviewed: 02/10/2019 [employer] Patient Education ? 2019 [employer]. Normal [facility] Reminderson 07-29-2022 Reminders - From: Heather Paniagua LPN To: N - Clinical; Sent: 07/29/2022 15:48:04 EDT Show up: 06/15/2027 07:00:00 EDT Subject: colonoscopy recall Due Date/Time: 07/16/2027 07:00:00 EDT Reminder/Recall Patient is due for colonoscopy 07/16/2027 due to history of tubular adenoma. Normal [facility] Pathology Noteon 07-18-2022 Pathology Note [id number]#1.00CD:127 Normal [facility] Outside Colonoscopyon 2021 Outside Colonoscopy [id number]#[id number]:127 Normal [facility] PROTIMEon 07-16-2022 INR Coag (PPP) [Relative time] 1.11 {INR} Normal [facility] Comment on above: Performed By: #### P T ####[facility] [id number] [place], [place] [address]Tg. Jason Paniagua INR GUIDELINES SEE BELOW Normal [facility] Comment on above: Result Comment: AVEL RED INR: 2.0 - 3.0 CONDITIONS NOT LISTED BELOW 2.5 - 3.5 FOR PROSTHETIC HEART VALVE REPLACEMENT 2.5 - 3.5 RECURRENT THROMBOSIS Performed By: #### P T ####[facility] [id number] [place], [place] [address]Cg. Jason Paniagua PT Coag (PPP) [Time] 11.9 s Critically high 9.0-11.6 [facility] Comment on above: Performed By: #### P T ####[facility] [id number] [place], [place] [address]Jc. Jason Paniagua Lab Reportson 07-15-2022 Lab Reports [id number]#[id number]:127 Normal [facility] Covid-19 PCR (CVDTB)on SARS-CoV-2 (COVID-19) RNA JANEE+probe Ql (Unsp spec) Not detected Normal NOT DETECTED [facility] Comment on above: Result Comment: This test is not yet approved or cleared by the [place] FDA. When there are no FDA-approved or cleared tests available, and other criteria are met, FDA can make tests available under an emergency access mechanism called an Emergency Use Authorization (EUA). The EUA for this test is supported by the [place] of Health and Human Service's (HHS's) declaration [...] consistent with SARS-CoV-2. Performed By: #### C [facility] #### [facility] [address] [place] [address] Dr. Jason Paniagua Pre-Certification Formon Pre-Certification Form [id number]#[id number]:12 7 [facility] Consent for Procedure/Surger yon 06-12-2022 Consent for Procedure/Surgery [id number]#[id number]:127 Normal [facility] Ambulatory Visit Summaryon 0 06-11-2022 Ambulatory Visit Summary NATALIE LACEY :1960 Visit Date:06/11/2022 Ambulatory Visit Instructions Your Care Team Attending Physician - GLORIA WILLS, Allyson Betancourt Primary Care Physician - CRISTOFER SPRINGER JR, DO Referring Physician - CRISTOFER SPRINGER JR, DO This Is Your Medications List Contact prescribing physician if questions or concerns acetaminophen-hydrocodone ([place] 325 mg-5 mg oral tablet) albuterol (albuterol [...] What How Much When Instructions Unchanged acetaminophen-hydrocodone ([place] 325 mg-5 mg oral tablet) 1 Tablets [...] Lupus anticoagulant disorder Radiculopathy Tubular adenoma Normal [facility] Physician Referralon 022 Physician Referral [id number] Normal [facility] MG MAMM SCREEN 3D YESY CADon 05-19-2022 MG MAMM SCREEN 3D YESY CAD Patient: NATALIE LACEYShameka Exam Date: 05/19/2022 : 1960 Gender:F Ordering : DR CRISTOFER SPRINGER D.O. Admission #: [id number] Family : DR SIMPSON ALVIN . Order #: [id number] CLICK HERE TO VIEW EXAM RADIOLOGY REPORT [...] breast cancer at age 42. LOCATION: [facility] BREAST COMPOSITION: Almost entirely fatty. FINDINGS: DIAGNOSTIC [...] MD on 05/19/2022 at 12:41 Normal [facility] CT LUNG CANCER SCREENINGon 0 [...] by: JAYSON BERGERON Date: 2022-04-19 08:13 Normal [facility] Activated partial thrombopla stin time (aPTT) in platelet poor plasma by coagulation aOrdered By: tJ Walls on 02-19-2022 aPTT Coag (PPP) [Time] 44.7 s 25.1-36.5 [facility] Albumin [Mass/volume] in Ser um or PlasmaOrdered By: Jt Walls on 02-19-2022 Albumin [Mass/Vol] 3.9 g/dL 3.2-5.5 [facility] Automated erythrocytes count in urine sediment (number/area)Ordered By: Jt Walls on 02-19-2022 RBC Auto (Urine sed) [#/Area] 0-1 [HPF] [facility] Automated leukocytes count i n urine sediment (number/area)Ordered By: Jt Walls on 02-19-2022 WBC Auto (Urine sed) [#/Area] 0-1 [HPF] [facility] Basophils Auto (Bld) [#/Vol] Ordered By: Jt Walls on 02-19-2022 Basophils (Bld) [#/Vol] 0.0 10*3/uL 0.0-0.2 [facility] Basophils/100 WBC Auto (Bld) Ordered By: Jt Walls on 02-19-2022 Basophils/100 WBC (Bld) 0.5 % [facility] Bilirubin Test strip Ql (U)O rdered By: Jt Walls on 02-19-2022 Bilirubin Ql (U) Negative Negative [facility] Blood hemoglobin measurement (mass/volume)Ordered By: Jt Walls on 02-19-2022 Hemoglobin (Bld) [Mass/Vol] 14.7 g/dL 11.8-15.4 [facility] Blood leukocytes automated c ount (number/volume)Ordered By: Jt Walls on 02-19-2022 WBC (Bld) [#/Vol] 8.1 10*3/uL 4.5-11.0 [facility] Color Auto (U)Ordered By: Leonora epifaniojoselito Walls on 02-19-2022 Color (U) Yellow Yellow [facility] Creatine kinase [Enzymatic a ctivity/volume] in Serum or PlasmaOrdered By: Jt Walls on 02-19-2022 CK [Catalytic activity/Vol] 111 U/L 22-269 [facility] Creatinine and Glomerular fi ltration rate.predicted panel (S/P/Bld)Ordered By: Jt Walls on 02-19-2022 Creatinine [Mass/Vol] 0.74 mg/dL 0.44-1.03 [facility] Eosinophils Auto (Bld) [#/Vo l]Ordered By: Jt Walls on 02-19-2022 Eosinophils (Bld) [#/Vol] 0.1 10*3/uL 0.0-0.45 [facility] Eosinophils/100 WBC Auto (Bl d)Ordered By: Jt Walls on 02-19-2022 Eosinophils/100 WBC (Bld) 1.2 % [facility] Erythrocyte distribution wid th Auto (RBC) [Ratio]Ordered By: Jt Walls on 02-19-2022 Erythrocyte distribution width (RBC) [Ratio] 13.8 % 11.9-15.3 [facility] Erythrocyte sedimentation ra te by Photometric methodOrdered By: Jt Walls on 02-19-2022 ESR Photometric method (Bld) [Velocity] 13 mm/hr 0-29 [facility] Estimated glomerular filtrat ion rate (GFR) non- AmericanOrdered By: Jt Walls on 02-19-2022 GFR/1.73 sq M.predicted among non-blacks MDRD (S/P/Bld) [Vol rate/Area] > 60 mL/Min [facility] Globulin Calc (S) [Mass/Vol] Ordered By: Jt Walls on 02-19-2022 Globulin (S) [Mass/Vol] 2.3 g/dL [facility] Hematocrit Auto (Bld) [Volum e fraction]Ordered By: Jt Walls on 02-19-2022 Hematocrit (Bld) [Volume fraction] 44.4 % 34.0-46.4 [facility] Ketones Auto test strip (U) [Mass/Vol]Ordered By: Jt Walls on 02-19-2022 Ketones (U) [Mass/Vol] Negative [facility] - CoagulationOrde red By: Jt Walls on 02-19-2022 PT Coag (PPP) [Time] 24.7 s 9.0-12.9 [facility] - Hematology and Cell countsOrdered By: Jt Walls on 02-19-2022 Nucleated RBC/100 WBC (Bld) [Ratio] 0.1 % 0-0.5 [facility] Laboratory - UrinalysisOrder ed By: Jt Walls on 02-19-2022 Hyaline casts LM Ql (Urine sed) None seen [LPF] [facility] Lymphocytes Auto (Bld) [#/Vo l]Ordered By: Jt Walls on 02-19-2022 Lymphocytes (Bld) [#/Vol] 2.3 10*3/uL 1.00-4.8 [facility] Lymphocytes/100 WBC Auto (Bl d)Ordered By: Jt Walls on 02-19-2022 Lymphocytes/100 WBC (Bld) 28.3 % [facility] MCH Auto (RBC) [Entitic mass ]Ordered By: Jt Walls on 02-19-2022 MCH (RBC) [Entitic mass] 31.2 pg 24.7-34.3 [facility] MCHC Auto (RBC) [Mass/Vol]Or dered By: Jt Walls on 02-19-2022 MCHC (RBC) [Mass/Vol] 33.1 g/dL 32.0-35.0 [facility] MCV Auto (RBC) [Entitic vol] Ordered By: Jt Walls on 02-19-2022 MCV (RBC) [Entitic vol] 94.4 fL 80-100 [facility] Monocytes Auto (Bld) [#/Vol] Ordered By: Jt Walls on 02-19-2022 Monocytes (Bld) [#/Vol] 0.4 10*3/uL 0.0-0.8 [facility] Monocytes/100 WBC Auto (Bld) Ordered By: Jt Walls on 02-19-2022 Monocytes/100 WBC (Bld) 4.6 % [facility] Neutrophils Auto (Bld) [#/Vo l]Ordered By: Jt Walls on 02-19-2022 Neutrophils (Bld) [#/Vol] 5.3 10*3/uL 1.8-7.7 [facility] Neutrophils/100 WBC Auto (Bl d)Ordered By: Jt Walls on 02-19-2022 Neutrophils/100 WBC (Bld) 65.4 % [facility] Nitrite Test strip Ql (U)Ord ered By: Jt Walls on 02-19-2022 Nitrite Ql (U) Negative Negative [facility] No Panel InformationOrdered By: Jt Walls on 02-19-2022 Estimated GFR () > 60 mL/Min [facility] Comment on above: GFR estimated refere nce range: According to KDOQI guidelines, <60 ml/min/1.73m2 is sufficient to diagnose a patient with chronic kidney disease. Pharmacy Creatinine Clearance (Chem N/A [facility] Platelet mean volume Auto (B ld) [Entitic vol]Ordered By: Jt Walls on 02-19-2022 Platelet mean volume (Bld) [Entitic vol] 9.1 fL 6.3-10.7 [facility] Platelet poor plasma interna tional normalized ratio (INR) by coagulation assay (relatOrdered By: Jt Walls on 02-19-2022 INR Coag (PPP) [Relative time] 2.2 {INR} [facility] Comment on above: INR Therapeutic Rang e [...] (Bld) [#/Vol] 164 10*3/uL 150-450 [facility] Protein Auto test strip (U) [Mass/Vol]Ordered By: Jt Walls on 02-19-2022 Protein (U) [Mass/Vol] Negative Negative [facility] Protein [Mass/volume] in Ser um or PlasmaOrdered By: Jt Walls on 02-19-2022 Protein [Mass/Vol] 6.2 g/dL 6.1-7.9 [facility] RBC Auto (Bld) [#/Vol]Ordere d By: Jt Walls on 02-19-2022 RBC (Bld) [#/Vol] 4.70 10*6/uL 3.60-5.00 [facility] Serum or plasma C reactive p rotein measurement (mass/volume)Ordered By: Jt Walls on 02-19-2022 CRP [Mass/Vol] 0.6 mg/dL 0.0-1.0 [facility] Serum or plasma alanine damian otransferase measurement without P-5'-P (enzymatic activiOrdered By: Jt Walls on 02-19-2022 ALT No additional P-5'-P [Catalytic activity/Vol] 12 U/L 10-60 [facility] Serum or plasma albumin/glob ulin mass ratioOrdered By: Jt Walls on 02-19-2022 Albumin/Globulin [Mass ratio] 1.7 {ratio} [facility] Serum or plasma alkaline bree sphatase measurement (enzymatic activity/volume)Ordered By: Jt Walls on 02-19-2022 ALP [Catalytic activity/Vol] 75 U/L 32-92 [facility] Serum or plasma aspartate am inotransferase measurement (enzymatic activity/volume)Ordered By: Jt Walls on 02-19-2022 AST [Catalytic activity/Vol] 13 U/L 10-42 [facility] Serum or plasma calcium quique urement (mass/volume)Ordered By: Jt Walls on 02-19-2022 Calcium [Mass/Vol] 8.9 mg/dL 8.2-10.2 [facility] Serum or plasma chloride renita surement (moles/volume)Ordered By: Jt Walls on 02-19-2022 Chloride [Moles/Vol] 106 mmol/L 95-114 [facility] Serum or plasma glucose quique urement (mass/volume)Ordered By: Jt Walls on 02-19-2022 Glucose [Mass/Vol] 108 mg/dL 70-100 [facility] Comment on above: ADA recommended refe rence rangeRandom Glucose Reference Range is dependent on time and content of last meal. Glucose of more than 200 mg/dL in a nonstressed, ambulatory subject supports the diagnosis of Diabetes Mellitus. Serum or plasma potassium me asurement (moles/volume)Ordered By: Jt Walls on 02-19-2022 Potassium [Moles/Vol] 4.0 mmol/L 3.5-5.1 [facility] Serum or plasma sodium measu rement (moles/volume)Ordered By: Jt Walls on 02-19-2022 Sodium [Moles/Vol] 137 mmol/L 136-146 [facility] Serum or plasma total biliru bin measurement (mass/volume)Ordered By: tJ Walls on 02-19-2022 Bilirubin [Mass/Vol] 0.8 mg/dL 0.3-1.2 [facility] Serum or plasma total carbon dioxide measurement (moles/volume)Ordered By: Jt Walls on 02-19-2022 CO2 [Moles/Vol] 22.2 mmol/L 22.0-30.0 [facility] Serum or plasma urea nitroge n measurement (mass/volume)Ordered By: Jt Walls on 02-19-2022 Urea nitrogen [Mass/Vol] 10 mg/dL 9-23 [facility] Specific gravity Auto test s trip (U) [Rel density]Ordered By: Jt Walls on 02-19-2022 Specific gravity (U) [Rel density] 1.010 1.001-1.03 0 [facility] Squamous epithelial cells de tection in urine sediment by light microscopyOrdered By: Jt Walls on 02-19-2022 Epithelial cells.squamous LM Ql (Urine sed) None seen [HPF] [facility] TSH DL <= 0.005 mIU/L QnOrde red By: Jt Walls on 02-19-2022 TSH Qn 2.31 m[IU]/L 0.45-5.33 [facility] Thyroxine (T4) free [Mass/vo lume] in Serum or PlasmaOrdered By: Jt Walls on 02-19-2022 Free T4 [Mass/Vol] 0.81 ng/dL 0.61-1.12 [facility] Urine bacteria detection by automated methodOrdered By: Jt Walls on 02-19-2022 Bacteria Auto Ql (U) None seen None Seen [facility] Urine clarity by refractomet ry automatedOrdered By: Jt Walls on 02-19-2022 Clarity Refractometry automated (U) Clear Clear [facility] Urine glucose measurement by automated test strip (mass/volume)Ordered By: Jt Walls on 02-19-2022 Glucose Auto test strip (U) [Mass/Vol] Normal mg/dL Normal [facility] Urine hemoglobin detection b y automated test stripOrdered By: Jt Walls on 02-19-2022 Hemoglobin Auto test strip Ql (U) Negative Negative [facility] Urine leukocyte esterase det ection by automated test stripOrdered By: Jt Walls on 02-19-2022 Leukocyte esterase Auto test strip Ql (U) Negative Negative [facility] Urobilinogen Auto test strip (U) [Mass/Vol]Ordered By: Jt Walls on 02-19-2022 Urobilinogen (U) [Mass/Vol] Normal mg/dL Normal [facility] pH Auto test strip (U)Ordere d By: Jt Walls on 02-19-2022 pH (U) 6.0 [pH] 5.0-9.0 [facility] Vital Signs Date Time Vital Sign Value Performing Clinician Meena huggins 08-31-2024 11:39-0400 Body height 165.1 cm JR Cristofer Springer Work Phone: [facility] 08-31-2024 11:39-0400 Body mass index (BMI) [Ratio] 36.6 kg/m2 JR Cristofer Springer Work Phone: [facility] 08-31-2024 11:39-0400 Body temperature 97.1 [degF] JR Cristofer Springer Work Phone: [facility] 08-31-2024 11:39-0400 Body weight 99.79 kg JR Cristofer Springer Work Phone: [facility] 08-31-2024 11:39-0400 Diastolic blood pressure 70 mm[Hg] JR Cristofer Springer Work Phone: [facility] 08-31-2024 11:39-0400 Heart rate 85 /min JR Cristofer Springer Work Phone: [facility] 08-31-2024 11:39-0400 Respiratory rate 18 /min JR Cristofer Springer Work Phone: [facility] 08-31-2024 11:39-0400 SaO2% (BldA) [Mass fraction] 95 % JR Cristofer Springer Work Phone: [facility] 08-31-2024 11:39-0400 Systolic blood pressure 110 mm[Hg] JR Cristofer Springer Work Phone: [facility] 06-11-2022 14:24-0400 Blood Pressure Location Allyson GARCIA [facility] [place] 06-11-2022 14:24-0400 Diastolic blood pressure 76 mm[Hg] Allyson GARCIA [facility] [place] 06-11-2022 14:24-0400 Heart rate 70 /min Allyson HATCHL [facility] [place] 06-11-2022 14:24-0400 Respiratory rate 16 /min Allyson GARCIA [facility] [place] 06-11-2022 14:24-0400 Systolic blood pressure 114 mm[Hg] Allyson GARCIA [facility] [place] Encounters Encounter Date Encounter Type Care Provider Facility Start: 02-15-2025 End: 02-15-2025 Patient encounter procedure Cristofer Springer JR Work Phone: [facility] [address] Work Phone: Start: 02-15-2025 End: 02-15-2025 ambulatory Cristofer Springer JR Work Phone: [facility] Work Phone: Start: 08-31-2024 End: 08-31-2024 ambulatory JR Cristofer Springer Work Phone: [facility] Work Phone: Start: 08-31-2024 End: 08-31-2024 Patient encounter procedure JR Cristofer Springer Work Phone: [facility] Work Phone: Start: 08-16-2024 End: 08-16-2024 Patient encounter procedure JR Cristofer Springer Work Phone: [facility] [address] Work Phone: Start: 08-16-2024 End: 08-16-2024 ambulatory JR Cristofer Springer Work Phone: [facility] Work Phone: Start: 02-16-2024 End: 02-16-2024 ambulatory JR Cristofer Springer Work Phone: [facility] Work Phone: Start: 02-16-2024 End: 02-16-2024 Patient encounter procedure JR Cristofer Springer Work Phone: [facility] [address] Work Phone: Start: 08-24-2023 End: 08-24-2023 ambulatory JR Cristofer Springer Work Phone: [facility] Work Phone: Start: 08-24-2023 End: 08-24-2023 Patient encounter procedure Cristofer Declan Work Phone: [facility] [address] Work Phone: Start: 06-22-2023 End: 06-22-2023 ambulatory [facility] Start: 06-22-2023 End: 06-23-2023 ambulatory [facility] Start: 05-26-2023 ambulatory [facility] Start: 05-07-[address] CRISTOFER SPRINGER [facility] ity:[facility]1 Start: 04-07-2023 End: 04-07-[address] CRISTOFER SPRINGER Facility:[facility] Start: 03-13-2023 End: 03-14-[address] CRISTOFER SPRINGER Facility:[facility] Start: 03-09-2023 End: 04-08-[address] CRISTOFER SPRINGER Facility:[facility] Start: 02-24-2023 End: 02-24-[address] CRISTOFER SPRINGER Facility:[facility] Start: 02-09-2023 End: 03-06-[address] CRISTOFER SPRINGER Facility:[facility] Start: 02-03-2023 End: 02-04-2023 ambulatory BINH CASTILLOMISUZANNEFlash . Facility:[facility] Start: 01-07-2023 End: 02-06-2023 ambulatory [...] Start: 07-29-2022 End: 07-30-2022 ambulatory Allyson GARCIA Facility: [place] Start: 07-29-2022 End: 07-29-2022 Patient encounter procedure Allyson GARCIA [facility] [place] Start: 07-16-2022 End: 07-17-2022 ambulatory Allyson GARCIA Facility:CD:[id number] Start: 07-15-2022 Encounter for preprocedural laboratory examination DR ALLYSON GARCIA . [facility] Start: 07-12-2022 End: 07-13-[address] ALLYSON GARCIA . Facility:[facility] Start: 07-12-2022 End: 07-13-2022 Encounter for preprocedural laboratory examination DR ALLYSON GARCIA . Facility:[facility] Start: 07-10-2022 End: 08-09-2022 ambulatory SHAIKH Phuong WEINER Facility:[facility] Start: 06-11-2022 End: 06-12-2022 ambulatory CRISTOFER SPRINGER PROVIDER Facility:[facility] Start: 06-11-2022 End: 06-11-2022 Patient encounter procedure Allyson Asia GLORIA General [facility] [place] Start: 06-09-2022 End: 07-09-2022 ambulatory SHAIKH Phuong WEINER Facility:[facility] Start: 05-22-2022 ambulatory Allyson GARCIA Facility:[facility] [place] Start: 05-19-2022 End: 05-20-[address] CRISTOFER SPRINGER Facility:[facility] Start: 05-09-2022 End: 06-06-2022 ambulatory SHAIKH Phuong WEINER Facility:[facility] Start: 04-24-2022 End: 04-25-[address] CRISTOFER SPRINGER Facility:[facility] Start: 04-18-2022 End: 04-19-[address] JAYSON BERGERON Facility:[facility] Start: 02-19-2022 End: 02-19-2022 Patient encounter procedure JR Cristofer Springer Work Phone: [facility] [address] Procedures Date [...] of Treatment Date Care Activity Detail Author Start: 02-15-2025 [facility] Start: 08-16-2024 [facility] Aldolase measurement [facility] Work Phone: aPTT.lupus sensitive (LA screen) [facility] Work Phone: aPTT.lupus sensitive W excess phospholipid actual/Normal (normalized LA confirm) [facility] Work Phone: aPTT.lupus sensitive /aPTT.lupus sensitive W excess phospholipid (screen to confirm ra [facility] Work Phone: Chromatin Ab [Units/ volume] in Serum or Plasma [facility] Work Phone: Complement C3 [Mass/ volume] in Serum or Plasma [facility] Work Phone: Complement C4 [Mass/ volume] in Serum or Plasma [facility] Work Phone: dRVVT (LA screen) [facility] Work Phone: Glucose measurement estimated from glycated hemoglobin [facility] Glucose measurement estimated from glycated hemoglobin [facility] Hemoglobin A1c/Hemog lobin.total in Blood [facility] Hemolytic complement CH50 level [facility] Work Phone: Homogenous nuclear A b pattern [Titer] in Serum [facility] Work Phone: Lupus anticoagulant [Interpretation] in Platelet poor plasma [facility] Work Phone: Myoglobin [Mass/volu me] in Serum or Plasma [facility] Work Phone: Nuclear Ab [Titer] in Serum [facility] Work Phone: Reagin Ab [Presence] in Serum by RPR [facility] Work Phone: Thrombin time [facility] Work Phone: Thyroglobulin Ab [Un its/volume] in Serum or Plasma [facility] Work Phone: Thyroperoxidase Ab [ Units/volume] in Serum or Plasma [facility] Work Phone: Payers Date Payer Category Payer Self-pay [id number] 1960 Unknown [id number] [id number] 7 1960 Unknown [id number] 2.16.840.1.746259.3.579.2.72 7 1960 Unknown [id number] 2.16.840.1.921612.3.579.2.72 7 1960 Unknown [id number] 2.16.840.1.405136.3.579.2.59 3 1960 Unknown [id number] 2.16.840.1.194777.3.579.2.59 3 1960 Unknown [id number] 2.16.840.1.787084.3.579.2.59 3 1960 Unknown [id number] 2.16.840.1.489957.3.579.2.59 3 1960 Unknown [id number] 2.16.840.1.964020.3.579.2.59 3 1960 Unknown [id number] 2.16.840.1.083287.3.579.2.59 3 1960 Unknown [id number] 2.16.840.1.699077.3.579.2.59 3 1960 Unknown [id number] 2.16.840.1.750546.3.579.2.59 3 1960 Unknown [id number] 2.16.840.1.689045.3.579.2.59 3 1960 Unknown [id number] 2.16.840.1.956205.3.579.2.59 3 1960 Unknown [id number] 2.16.840.1.442114.3.579.2.59 3 1960 Unknown [id number] 2.16.840.1.074513.3.579.2.59 3 1960 Unknown [id number] 2.16.840.1.547999.3.579.2.59 3 1960 Unknown [id number] 2.16.840.1.280987.3.579.2.59 3 1960 Unknown [id number] 2.16.840.1.850120.3.579.2.59 3 1960 Unknown [id number] 2.16.840.1.383083.3.579.2.59 3 1960 Unknown [id number] 2.16.840.1.936986.3.579.2.59 3 1960 Unknown [id number] 2.16.840.1.664308.3.579.2.59 3 1960 Unknown [id number] 2.16.840.1.525708.3.579.2.59 3 1960 Unknown [id number] 2.16.840.1.187307.3.579.2.59 3 1960 Unknown [id number] 2.16.840.1.519800.3.579.2.59 3 1960 Unknown [id number] 2.16.840.1.106278.3.579.2.59 3 1960 Unknown [id number] 2.16.840.1.867112.3.579.2.59 3 1957 Private Health Insurance [id number] [address] Health Insurance [facility] [employer] [id number] Private Health Insurance [id number] Unknown [id number] Unknown [id number] 2.16.840.1.797913.3.579.2.53 1 Unknown [id number] 2.16.840.1.100675.3.579.2.53 1 Social History Date Type Detail Facility Start: [facility] Start: 1960 Sex Assigned At Female F [facility] Start: 06-11-2022 Tobacco smoking status Heavy t obacco smoker (finding) [facility] [place] Tobacco smoking status Never [facility] [place] Sex Assigned At Female [facility] [place] Start: 02-16-2025 Sex Female (finding) [facility] Functional Status Date Assessment Result Facility 06-11-2022 Functional Status N/A General Mata [facility] [place] Clinical Notes 04-24-2022 to 06-22-2023 Note Date & Type Note Facility 06-22-2023 Note In person visit Chief complaint: back pain - some leg pain TANGIRNAQ: 62 yo woman - I have seen [...] MOUTH EVERY 8 HOURS NEEDED FOR COUGH [id number] 2-30-10 mg/5 mL syrup TAKE 10 ML BY MOUTH NEEDED EVERY 8 HOURS budesonide (Pulmicort) 0.5 mg/2 mL nebulizer solution celecoxib (CeleBREX) 100 mg capsule Take 100 mg by mouth. colesevelam (Welchol) 625 mg tablet Take 1,875 mg by mouth. HYDROcodone-acetaminophen ([place]) 5-325 mg tablet TAKE 1 TABLET BY [...] right paraspinal musculature (more content not included)... [facility] 05-26-2023 Note In person visit Chief complaint: back and leg problem - the right leg TANGIRNAQ: 62 y/o R handed - she is on disability - she is on partly due to her back and other things. 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 She has never had back surgery before. She had a problem in the with her back. She saw a Dr. Yun in [place] back then. Then aron 2010 she get herniated discs and had radiculopathy down her right leg. She has been to pain management - prior in [place] (was with Dr. Williamson) and now she is with [place]. She had injections in her back - she said the one's she had in [place] didn't help that much. Then in [place] she had nerve burning from L2-down for [...] years ago - she had it at [facility] in [place] ([address] She is claustrophobic and wanted [...] last injection in her knee by her exchange trouble shooter - had Gelson 3 - you get one injection per week for [address]. [address] Fredo Valentin in [place] about her back in the past - [...] MOUTH EVERY 8 HOURS NEEDED FOR COUGH [id number] 2-30-10 mg/5 mL syrup TAKE 10 ML BY MOUTH NEEDED EVERY 8 HOURS budesonide (Pulmicort) 0.5 mg/2 mL nebulizer solution celecoxib (CeleBREX) 100 mg capsule Take 100 mg by mouth. colesevelam (Welchol) 625 mg tablet Take 1,875 mg by mouth. HYDROcodone-acetaminophen (Elmwood) 5-325 mg tablet TAKE 1 TABLET BY [...] olopatadine (Patanase) 0.6 % spray,non-aerosol nasal spray [place] 2 sprays twice a day by intranasal [...] Allergies Allergen Re (more content not included)... [facility] 02-03-2023 Note CONSULTATION CONSULTATION DATE: 02/03/2023 TO: [...] topical lidocaine patch. We will refill the Elmwood on today's visit; 55 pills to last one month's time. Aquatic therapy was ordered, and we will obtain urine toxicology screen. I have gone over the details of proceeding with a diagnostic right lateral cutaneous branch of the iliohypogastric nerve. All her questions were answered. She agrees to proceed with the outlined plan. [facility] 11-06-2022 Note CONSULTATION CONSULTATION DATE: 11/06/2022 HISTORY [...] sinus infection. Other medications include Celebrex, baclofen, Elmwood 5/325 b.i.d., gabapentin 600 mg daily. At [...] is her bilateral knee pain, which her exchange trouble shooter is caring for. Activities such as stairs, [...] months' time. Patient is in agreement. [facility] 07-31-2022 Note CONSULTATION CONSULTATION DATE: 07/31/2022 HISTORY [...] Neurontin 400 mg daily. She does have Elmwood 5/325 b. i.d. as well. Patient is [...] indicated. Patient agrees with the plan. [facility] 07-29-2022 Hospital Discharge instructions Patient Education 07/29/2022 [...] 07/22/2005 Document Revised: 02/10/2019 Document Reviewed: 02/10/2019 [employer] Patient Education [facility] 07-16-2022 Note OPERATIVE NOTE OPERATION DATE: 07/16/2022 [...] good condition. CC: Cristofer Springer D.O. [facility] 06-11-2022 Note Chief Complaint consultation [...] pior to OR. 2. 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 [facility] Comment on above: Result Comment: Elec tronically [...] is greatly beneficial to her. Medications include Elmwood 5/325 b.i.d., baclofen 10 mg q.h.s., Neurontin 400 mg q.p.m. and Celebrex 100 mg b.i.d. Her exchange trouble shooter has placed her on Tylenol arthritis six [...] would like to proceed with the injection. [facility] Signed and Approved by: AMINATA LEE . 05/07/2022 16:23:00 [facility] 04-24-2022 Note CONSULTATION PROCEDURE DATE:04/24/2022 PREOPERATIVE [...] will be followed up in the office. [facility] Signed and Approved by: AMINATA LEE . 05/07/2022 16:23:00 [facility] Evaluation + Plan note No data available for this section General Surgery [place] Evaluation note No assessment inform ation available [facility] Work Phone: Hospital Discharge instructions No data available for this section General Surgery [place] Progress note No data available for this section General Surgery [place] Family History No Family History Records Found [...] neoplasm Unknown Not Specified Unknown Hypertension Unknown Relationship Condition Age at Onset Recorded Date/T giovana father Malignant neoplasm of prostate Unknown mother Hypertension Unknown Disorder of lung Unknown sister Rheumatoid arthritis Unknown daughter Lupus Unknown Rheumatoid arthritis Unknown father Unknown Malignant neoplasm Unknown mother Unknown Hypertension Unknown Advance Directives No Advanced Directives Records Found Advance Directive Response Recorded Date/ Time Advance Directives No August 09, 2019 3:08pm Summary Purpose Chief Complaint and Reason for Visit Chief Complaint m15.0 z79.899 Chief Complaint M15.0 Z79.899 R73.03 cough,sore throat Additional Source Comments Care Teams (unrecognized sec [...] Team Status: Inactive Member Role Status Dates Cristfoer Vivas Nolapriyanka JR BRADLEY Primary Care Provider Active Start: February 16, 2024 End: February 16, 2024 GARCIA Sotelo Attending Provider Active Start: February 16, 2024 End: February 16, 2024 Team Status: Inactive Member Role Status Dates Cristofer Springer JR BRADLEY Primary Care Provider Active Start: August 16, 2024 End: August 16, 2024 GARCIA Sotelo Attending Provider Active Start: August 16, 2024 End: August 16, 2024 Team Status: Inactive Member Role Status Dates Cristofer Vivas JR MIRNA Springer Primary Care Provider Active Start: August 31, 2024 End: August 31, 2024 Jo Watkins APRN Attending Provider Active S tart: August 31, 2024 End: August 31, 2024 Team Status: Inactive Member Role Status Dates Cristofer Vivas JR MIRNA Springer Primary Care Provider Active Start: February 15, 2025 End: February 15, 2025 GARCIA Sotelo Attending Provider Active Start: February 15, 2025 End: February 15, 2025 Goals (unrecognized section and content) Goals may [...] section and content) DATE CREATED AUTHOR 08/09/2022 [facility] DATE CREATED AUTHOR AUTHOR'S ORGANIZ ATION 04/17/2023 [facility] DATE CREATED AUTHOR AUTHOR'S ORGANIZ ATION 06/23/[address] [facility] DATE CREATED AUTHOR AUTHOR'S ORGANIZ ATION 02/24/2025 [facility] FOR RECORDS PERTAINING TO PATIENTS WHO [...] BE BASED ON THE PRIMARY CLINICAL RECORDS. [facility] [employer] [facility]. provides no warranty or guarantee of the accuracy or completeness of information in this document.
== END 2025-08-18 15:13 | disposition home or self-care (01) ==
LOC: CT 15:12
PROVIDERS: PCP Internal Medicine; Visit Provider Internal Medicine
DX: J44.9 Chronic obstructive pulmonary disease, unspecified (principal); F17.210 Nicotine dependence, cigarettes, uncomplicated
CPT/HCPCS: 71271

== ENCOUNTER 2025-09-09 | Outpatient (RCR) | payer MEDICARE, SELFPAY | END 2025-10-08 23:59 | disposition home or self-care (01) | LOC: MM | PROVIDERS: PCP Internal Medicine; Visit Provider Internal Medicine | DX: Z51.81 Encounter for therapeutic drug level monitoring (principal); Z79.01 Long term (current) use of anticoagulants; I26.99 Other pulmonary embolism without acute cor pulmonale ==

== ENCOUNTER 2025-10-09 11:40 | Outpatient (RCR) | payer MEDICARE, SELFPAY | END 2025-11-08 13:03 | disposition home or self-care (01) | LOC: MM 11:40 | PROVIDERS: PCP Internal Medicine; Visit Provider Internal Medicine | DX: Z51.81 Encounter for therapeutic drug level monitoring (principal); Z79.01 Long term (current) use of anticoagulants; I26.99 Other pulmonary embolism without acute cor pulmonale | CPT/HCPCS: 85610; G0463 ==